=== PATIENT | female | born 1935 | race Caucasian/White ===

== ENCOUNTER 2019-05-16 12:55 | Outpatient (CLI) | payer MEDICARE, SELFPAY ==
--- NOTE | 2019-05-16 13:08 | XR_ITS ---
WS: [id number] Left knee, 3 views, 05/16/2019 Clinical Data: LEFT KNEE PAIN Comparison: AP weightbearing, lateral and patellofemoral views of the left knee, 06/17/2016. Findings: No fractures or dislocations are seen. As medial joint compartment narrowing unchanged. Osteophytes o f the medial tibial plateau and medial femoral condyle are noted. The patella is intact. There are pr ominent patellar spurs at the anterior superior, posterior superior and posterior inferior aspects of the patella. Small vascular calcifications are seen. XR/XR knee LT 3V* [id number] Impression: 1. 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 2. No change from 3 years ago.
--- NOTE | 2019-05-16 13:08 | XR_ITS ---
WS: [id number] Right knee, 3 views, 05/16/2019 Clinical Data: right KNEE PAIN Comparison: Standing AP view right knee, 06/17/2016. Findings: No fractures or dislocations are seen. There is medial joint compartment narrowing unchanged. The pat anabel is intact. Minimal soft tissue vascular calcifications are present. XR/XR knee RT 3V* [id number] Impression: Medial joint compartment narrowing unchanged.
--- NOTE | 2019-05-16 13:08 | XR_ITS ---
WS: [id number] Chest 2 views, 05/16/2019 Clinical Data: COUGH Comparison: PA and lateral chest, 03/08/2019. Findings: No nodules, masses or effusions are seen. The heart is normal. The pulmonary vascularity is not increased. No pneumonia or pneumothorax is seen. There is elevation of the left diaphragm. The a ortic arch and descending aorta show tortuosity. Midline sternotomy sutures are noted. XR/XR chest 2V* [id number] Impression: 1. Atherosclerosis. 2. No change in elevated left diaphragm.
== END 2019-05-16 12:56 | disposition home or self-care (01) ==
LOC: RAD 13:03
PROVIDERS: Family Provider Family Medicine; PCP Family Medicine; Visit Provider Family Medicine
DX: M17.10 Unilateral primary osteoarthritis, unspecified knee (principal); R05 Cough; I70.90 Unspecified atherosclerosis
CPT/HCPCS: 71046; 73562

== ENCOUNTER 2019-07-25 12:29 | Inpatient (IN) | payer MEDICARE, SELFPAY ==
[2019-07-25] VITALS (56 sets, daily range): BP systolic 119–135; BP diastolic 68–106; PULSE 89–160; RESP 13–54; TEMP 36.4–36.7; O2SAT 80–98; BMI 20.5
--- NOTE | 2019-07-25 12:34 | XR_ITS ---
WS: [id number] XR chest 1V portable [id number] REASON FOR EXAM: cp FINDINGS: Elevation of the left hemidiaphragm. Previous coronary bypass changes. The lung cisse are clear there is no pneumonia, pleural effusion, pulmonary edema. XR/XR chest 1V portable [id number] IMPRESSION: Elevation of the left hemidiaphragm Coronary bypass changes.
--- NOTE | 2019-07-25 12:35 | ECG_ITS ---
Measurements Intervals [place] Rate: 128 P: HI: 0 QRS: -47 QRSD: 154 T: 128 QT: 344 QTc: 503 ATRIAL FIBRILLATION WITH RAPID VENTRICULAR RESPONSE LEFT AXIS DEVIATION [QRS AXIS < -30] LEFT BUNDLE BRANCH BLOCK [120+ ms QRS DURATION, 80+ ms Q/S IN V1/V2, 85+ ms R IN I/aVL/V5/V6] Compared to ECG 01/13/2017 01:31:35 No significant changes Electronically Signed On 07-25-2019 17:23:29 CDT by Jose Cochran M.D. [id number]
--- NOTE | 2019-07-25 12:39 | ED_ITS ---
Entered by Miya Malik, acting as scribe for Kylah Murdock MD HPI - SOB/Dyspnea General: Chief Complaint: Chest Pain Stated Complaint: sob/cp Time Seen by Provider: 07/25/19 12:44 Source: patient and family Mode of arrival: ambulatory Limitations: no limitations History of Present Illness: HPI Narrative: 84-year-old female who states she has had a slight cough along with generalized weakness and diarrhea over the last week. She states that she has been having palpitations and is currently in A. fib with RVR with heart rate in the 130s. She denies any worsening or improving factors. MD elicited complaint: shortness of breath and cough Pertinent past history: other (hx of AFib) Onset (ago): week(s) (2-3 weeks ago) Context: recent illness (cough and congestion) Timing: constant and progressively worsening Severity: mild Exacerbating factors: coughing, deep breaths and other (palpitations, weakness) Relieving factors: nothing Known history of: other (Afib) Associated symptoms: Reports chest congestion, cough and palpitations; Deny abdominal pain, chest pain, fever(s), nausea or vomiting Treatment prior to arrival: none and needle thoracostomy Related Data: Home oxygen amount: none Review of Systems Const: Denies: fever, chills, body aches or change in appetite Eyes: Denies: blurry vision or eye discomfort ENMT: Denies: throat pain or dental pain Card: Reports: palpitations and irregular heart rhythm; Denies: chest pain Resp: Reports: chest congestion GI: Denies: abdominal pain, nausea, vomiting or diarrhea : Denies: painful urination Musc: Denies: neck pain or back pain Skin/Breast: Denies: rash Neuro: Denies: headache Psych: Denies: depression Viet/Lymph: Denies: easy bruising All/Imm: Denies: hives PFSH ED PFSH: Social History Smoking and tobacco status: never smoked Physical Exam Const: COMMON NORMALS: no apparent distress, oriented x3 and healthy appearing HENMT: COMMON NORMALS: normocephalic and head/scalp atraumatic HEAD & SCALP: normocephalic and atraumatic Eye: COMMON NORMALS: PERRL and EOMs intact bilaterally PUPIL: Yes PERRL Neck/C-Spine: COMMON NORMALS: full ROM and supple Chest: COMMONS NORMALS: inspection of chest normal and palpation of chest normal Resp: COMMON NORMALS: normal respiratory effort, no retractions, no use of accessory muscles and clear to auscultation bilaterally AUSCULTATION: clear to auscultation bilaterally Cardio: COMMON NORMALS: no murmurs RATE: tachycardic RHYTHM: abnormal rhythm irregularly irregular GI: COMMON NORMALS: normal to inspection, nondistended, normoactive bowel sounds, soft to palpation, non-tender and no masses PALPATION: Yes soft Extremity: COMMON NORMALS: normal to inspection and full ROM Neuro: COMMON NORMALS: oriented x3, moves all extremities and no focal motor deficits Psych: COMMON NORMALS: mental status grossly normal, thought process normal and cooperative THOUGHT PROCESS: normal thought process Skin: COMMON NORMALS: no rashes or lesions noted and no wounds GENERAL SKIN EXAM: no rashes or lesions noted Course Vital Signs: Vital signs: Vital Signs Temperature 97.6 F 07/25/19 12:44 Pulse Rate 120 H 07/25/19 13:35 Respiratory Rate 17 07/25/19 13:40 Blood Pressure 119/88 07/25/19 12:44 Pulse Oximetry 98 07/25/19 12:44 MDM - SOB/Dyspnea MDM Narrative: Medical decision making narrative: Lilia presents here with generalized weakness along with A. fib with RVR. Patient had to be given 2 boluses of Cardizem and started on a Cardizem drip. To control her rate. Lab work is otherwise normal besides an elevated BNP. X-ray showed no signs of pulmonary edema. I spoke to patient's primary care doctor Dr. Tracy and will admit for further monitoring. Patient has no signs of pulmonary embolism. Lab Data: Labs: Lab Results 07/25/19 07/25/19 07/25/19 Range/Units 12:50 12:50 12:50 WBC 12.7 H (4.0-10.0) 10^3/ uL RBC 3.73 L (4.1-5.3) 10^6/u L Hgb 11.4 L (11.5-15.3) g/dL Hct 36.6 L (37.0-47.0) % MCV 98.1 (81-99) fL MCH 30.6 (28.0-34.0) pg MCHC 31.1 (30.0-36.0) g/dL RDW 15.6 H (12.1-15.1) % Plt Count 495 H (130-400) 10^3/c mm MPV 11.7 H (7.4-10.4) fL Neut % (Auto) 69.2 % Lymph % (Auto) 20.4 % Ashley % (Auto) 8.7 % Eos % (Auto) 0.7 % Baso % (Auto) 0.5 % Neut # (Auto) 8.8 H (1.8-7.7) 10^3/u L Lymph # (Auto) 2.6 (0.8-4.8) 10^3/u L Ashley # (Auto) 1.1 H (0.2-0.9) 10^3/u L Eos # (Auto) 0.1 (0.0-0.8) 10^3/u L Baso # (Auto) 0.1 (0.0-0.1) 10^3/u L Nucleated RBC % (a uto) 0 % Nucleated RBCs # 0.0 /100WBC Sodium 140 (136-145) mmol/L Potassium 4.1 (3.5-5.1) mmol/L Chloride 103 (98-107) mmol/L Carbon Dioxide 23 (22-29) mmol/L Anion Gap 18.1 (5-19) BUN 20 (8-23) mg/dL Creatinine 1.3 H (0.5-0.9) mg/dL Glucose 191 H (65-115) mg/dL Calculated Osmolal ity 292 (285-295) mOsm/k g Calcium 9.3 (8.5-10.5) mg/dL Total Bilirubin 1.2 (0.15-1.2) mg/dL AST 38 H (0-32) U/L ALT 20 (0-33) U/L Alkaline Phosphata se 113 H (35-105) IU/L Troponin T Baselin e 22 H (0-10) ng/mL NT-Pro-B Natriuret Pep 9982 H (0-450) pg/mL Total Protein 7.9 (6.6-8.7) g/dL Albumin 3.5 (3.5-5.2) g/dL Globulin 4.4 (1.3-4.6) g/dL Urine Color (Yellow) Urine Appearance (CLEAR) Urine pH (5-7) Ur Specific Gravit y (1.005-1.030) Urine Protein (Negative) Urine Glucose (UA) (Normal) Urine Ketones (Negative) Urine Blood (Negative) Urine Nitrate (Negative) Urine Bilirubin (NEGATIVE) Urine Urobilinogen (Negative) mg/dL Ur Leukocyte Annemarie ase (Negative) Urine RBC (0-2) /hpf Urine WBC (0-5) /hpf Ur Squamous Epith Cells (0-5) Urine Bacteria (NONE) Influenza Type A A g (Negative) POC Influenza B Ag (Negative) 07/25/19 07/25/19 Range/Units 13:36 13:45 WBC (4.0-10.0) 10^3/ uL RBC (4.1-5.3) 10^6/u L Hgb (11.5-15.3) g/dL Hct (37.0-47.0) % MCV (81-99) fL MCH (28.0-34.0) pg MCHC (30.0-36.0) g/dL RDW (12.1-15.1) % Plt Count (130-400) 10^3/c mm MPV (7.4-10.4) fL Neut % (Auto) % Lymph % (Auto) % Ashley % (Auto) % Eos % (Auto) % Baso % (Auto) % Neut # (Auto) (1.8-7.7) 10^3/u L Lymph # (Auto) (0.8-4.8) 10^3/u L Ashley # (Auto) (0.2-0.9) 10^3/u L Eos # (Auto) (0.0-0.8) 10^3/u L Baso # (Auto) (0.0-0.1) 10^3/u L Nucleated RBC % (a uto) % Nucleated RBCs # /100WBC Sodium (136-145) mmol/L Potassium (3.5-5.1) mmol/L Chloride (98-107) mmol/L Carbon Dioxide (22-29) mmol/L Anion Gap (5-19) BUN (8-23) mg/dL Creatinine (0.5-0.9) mg/dL Glucose (65-115) mg/dL Calculated Osmolal ity (285-295) mOsm/k g Calcium (8.5-10.5) mg/dL Total Bilirubin (0.15-1.2) mg/dL AST (0-32) U/L ALT (0-33) U/L Alkaline Phosphata se (35-105) IU/L Troponin T Baselin e (0-10) ng/mL NT-Pro-B Natriuret Pep (0-450) pg/mL Total Protein (6.6-8.7) g/dL Albumin (3.5-5.2) g/dL Globulin (1.3-4.6) g/dL Urine Color Yellow (Yellow) Urine Appearance Cloudy (CLEAR) Urine pH 5 (5-7) Ur Specific Gravit y 1.015 (1.005-1.030) Urine Protein Neg (Negative) Urine Glucose (UA) Norm (Normal) Urine Ketones Negative (Negative) Urine Blood Neg (Negative) Urine Nitrate Negative (Negative) Urine Bilirubin Neg (NEGATIVE) Urine Urobilinogen Norm (Negative) mg/dL Ur Leukocyte Annemarie ase Negative (Negative) Urine RBC None (0-2) /hpf Urine WBC 10-15 H (0-5) /hpf Ur Squamous Epith Cells 0-4 H (0-5) Urine Bacteria 4+ H (NONE) Influenza Type A A g Negative (Negative) POC Influenza B Ag Negative (Negative) Imaging Data^: CXR: Attestation: I personally reviewed and interpreted this imaging study as follows: Radiologist's impression: [place] [address] XRay Report Signed Patient: Lilia Haynes Unit #: [id number] : 1935 Age/Sex: 84 / F ADM Date: 07/25/19 Loc: ER Room/Bed: Attending Dr: Ordering Provider/Ordering MD: Kylah Murdock MD Date of Service: 07/25/19 Procedure(s): XR chest 1V portable [id number] Accession Number(s): [id number] Report Number: [id number] WS: [id number] XR chest 1V portable [id number] REASON FOR EXAM: cp FINDINGS: Elevation of the left hemidiaphragm. Previous coronary bypass changes. The lung cisse are clear there is no pneumonia, pleural effusion, pulmonary edema. XR/XR chest 1V portable [id number] IMPRESSION: Elevation of the left hemidiaphragm Coronary bypass changes. EKG Data^: EKG 1: Attestation: I personally reviewed and interpreted this EKG as follows: EKG Interpretation Date: 07/25/19 EKG interpretation time: 12:50 Interpretation: afib hr [address] or t wave abnormalities qrs 154 qtc 420 Discharge Plan Discharge Patient Disposition: Admitted As Inpatient Clinical Impression: Atrial fibrillation with RVR, Weakness Condition: Stable Referrals: Diallo Tracy MD [Primary Care Provider] - Coding Level of Care Code ED Medical Staff Assistant for Chg Fwd Exam Comprehensive The documentation recorded by the King donaldson Bridget Annette, accurately reflects the service I personally performed and the decisions made by Collette sr Korby, MD Jul 25, 2019 12:29
[2019-07-25 13:03] LABS: Basophils # 0.1 10^3/uL (0.0-0.1); Basophils % 0.5 %; Eosinophils # 0.1 10^3/uL (0.0-0.8); Eosinophils % 0.7 %; Hematocrit 36.6 % (37.0-47.0); Hemoglobin 11.4 g/dL (11.5-15.3); Lymphocytes # 2.6 10^3/uL (0.8-4.8); Lymphocytes % 20.4 %; Mean Corpuscular HGB Conc 31.1 g/dL (30.0-36.0); Mean Corpuscular Hemoglobin 30.6 pg (28.0-34.0); Mean Corpuscular Volume 98.1 fL (81-99); Mean Platelet Volume 11.7 fL (7.4-10.4); Monocytes # 1.1 10^3/uL (0.2-0.9); Monocytes % 8.7 %; Neutrophils # 8.8 10^3/uL (1.8-7.7); Neutrophils % 69.2 %; Nucleated Red Blood Cells % 0 %; Platelet Count 495 10^3/cmm (130-400); Red Blood Count 3.73 10^6/uL (4.1-5.3); Red Cell Distribution Width 15.6 % (12.1-15.1); White Blood Count 12.7 10^3/uL (4.0-10.0)
[2019-07-25] MEDS: sodium chloride 0.9% 1,000 ML 999 ML IV (13:18)
[2019-07-25 13:29] LABS: Alanine Aminotransferase 20 U/L (0-33); Albumin Level 3.5 g/dL (3.5-5.2); Alkaline Phosphatase 113 IU/L (35-105); Anion Gap 18.1 (5-19); Aspartate Amino Transferase 38 U/L (0-32); Blood Urea Nitrogen 20 mg/dL (8-23); Calcium 9.3 mg/dL (8.5-10.5); Carbon Dioxide 23 mmol/L (22-29); Chloride 103 mmol/L (98-107); Globulin 4.4 g/dL (1.3-4.6); Glucose 191 mg/dL (65-115); NT Pro B Type Natriuretic Pept 9982 pg/mL (0-450); Osmolality Calculated 292 mOsm/kg (285-295); Potassium 4.1 mmol/L (3.5-5.1); Sodium 140 mmol/L (136-145); Total Bilirubin 1.2 mg/dL (0.15-1.2); Total Protein 7.9 g/dL (6.6-8.7)
[2019-07-25 13:56] LABS: Troponin(5th) Baseline 22 ng/mL (0-10)
[2019-07-25 14:07] LABS: Specific Gravity, Urine 1.015 (1.005-1.030); Urine Appearance Cloudy (CLEAR); Urine Color Yellow (Yellow); pH Urine 5 (5-7)
[2019-07-25 14:08] LABS: Add Urine Microscopic? YES; Bilirubin Urine Neg (NEGATIVE); Blood Urine Neg (Negative); Glucose Urine UA Norm (Normal); Ketones Urine Negative (Negative); Leukocyte Esterase Urine Negative (Negative); Nitrate Urine Negative (Negative); Protein Urine Neg (Negative); Urobilinogen Urine Norm (Negative)
[2019-07-25 14:14] LABS: Add Urine Culture? Yes; Bacteria Urine 4+; Squamous Epithelial Cell Urine 0-4 (0-5)
[2019-07-25 14:19] LABS: Influenza A by IFA Negative (Negative); Influenza B by IFA Negative (Negative)
--- NOTE | 2019-07-25 14:35 | ECG_ITS ---
Measurements Intervals [place] Rate: 104 P: [place]: 0 QRS: -51 QRSD: 154 T: 129 QT: 386 QTc: 509 ATRIAL FIBRILLATION WITH RAPID VENTRICULAR RESPONSE LEFT AXIS DEVIATION [QRS AXIS < -30] LEFT BUNDLE BRANCH BLOCK [120+ ms QRS DURATION, 80+ ms Q/S IN V1/V2, 85+ ms R IN I/aVL/V5/V6] Compared to ECG 01/13/2017 01:31:35 No significant changes Electronically Signed On 07-25-2019 17:26:02 CDT by Jose Cochran M.D. [id number]
[2019-07-25 15:16] LABS: Troponin 5 2HR 19.56 ng/mL (0-10)
[2019-07-25 15:20] LABS: Troponin 5 2HR Delta -2.44 ABS# (0-10)
--- NOTE | 2019-07-25 17:21 | PM.HP ---
Providers/Chief Complaint Admitting Physician: Diallo Tracy MD Primary Care Provider: Diallo Tracy MD Chief Complaint: sob/cp History of Present Illness Lilia Haynes is a 84 year old female with past medical history of A. fib with RVR, who presented to the emergency department after being seen in my office with symptoms of weakness, nausea, diarrhea and cough. The patient notes that over the last 3 weeks she has had increasing cough and dyspnea. Especially for the last few days, she has felt extremely weak and was unable to come into the clinic last week to be evaluated. In the clinic she was noted to have a heart rate in the upper 130s and some fine crackles in the left lower lung. Her blood pressures were soft in the 90s systolic. Her oxygen was only in the upper 80s. For this reason she was sent to the emergency department for further evaluation. In the ER, she was given 10 mg of diltiazem IV without significant improvement in her pulse. She was given another dose of 10 mg and had slight improvement, however her pulse increased again. For this reason she was started on the diltiazem drip, and with that her heart rate has started to decrease. The patient was admitted for further evaluation and treatment. Review of Systems Narrative: The patient admits to fatigue, malaise and dyspnea. She admits to cough, mild chest pains. She admits to nausea, vomiting and diarrhea. The patient denies any dysuria, fevers, recent travel to area with COVID-19. Medications/Allergies Home Medications Medication Instructions Recorded Confirmed Last Taken Type amlodipine 5 mg PO DAILY 07/25/19 07/25/19 07/25/19 History atorvastatin 40 mg PO DAILY 07/25/19 07/25/19 07/25/19 History clopidogrel 75 mg PO DAILY 07/25/19 07/25/19 07/25/19 History escitalopram oxalate 10 mg PO DAILY 07/25/19 07/25/19 07/25/19 History ferrous sulfate 325 mg PO DAILY 07/25/19 07/25/19 07/25/19 History fluticasone furoate-vilanterol 1 inh INHALATION DAILY 07/25/19 07/25/19 07/25/19 History [Breo Ellipta] furosemide 40 mg PO PRN 07/25/19 07/25/19 07/24/19 History hydralazine See Rx Instructions .ROUTE .COMPLEX 07/25/19 07/25/19 Unknown History levothyroxine See Rx Instructions .ROUTE .COMPLEX 07/25/19 07/25/19 07/25/19 History lorazepam 0.5 mg PO TID 07/25/19 07/25/19 07/25/19 History metoprolol tartrate 50 mg PO BID 07/25/19 07/25/19 07/25/19 History nitroglycerin [Nitro-Time] 9 mg PO BID 07/25/19 07/25/19 07/25/19 History pantoprazole 40 mg PO DAILY 07/25/19 07/25/19 07/25/19 History potassium chloride 10 meq PO DAILY 07/25/19 07/25/19 07/24/19 History Allergies Allergy/AdvReac Type Severity Reaction Status Date / Time aspirin Allergy ADR-Nausea Verified 07/25/19 12:47 codeine Allergy ADR-Nausea Verified 07/25/19 12:47 PFSH Acute PFSH: Social History Smoking and tobacco status: never smoked Vitals/I&O/Wt Last Vital Signs Temp 97.6 F 07/25/19 12:44 Pulse 104 H 07/25/19 16:47 Resp 16 07/25/19 16:47 BP 120/68 07/25/19 16:47 Pulse Ox 95 07/25/19 15:49 07/25/19 07/25/19 07/25/19 06:59 14:59 22:59 Intake Total 1013.75 / 1013.75 Balance 1013.75 / 1013.75 Weight last 48 hrs Weight 112 lb Physical Exam Narrative: EXAM NARRATIVE: General: Alert and oriented x3, appears pale Eyes: Pupils equal, round and reactive to light and accommodation. Mouth: Mucous membranes moist Cardiac: Tachycardia with irregularly irregular rhythm. Lungs: Mild crackles in the left base. No significant rhonchi or wheezes. Abdomen: Soft, nontender, no hepatosplenomegaly. Extremities: Trace edema in the bilateral lower extremities Data : 07/25/19 12:50 07/25/19 12:50 A&P Additional A&P Information 1. Atrial fibrillation with RVR -the patient's heart rate is starting to decrease and is in the low 100s currently. We will add diltiazem p.o. and plan to wean off the IV if possible. We will continue with her home dose of metoprolol 50 mg twice daily. We may need to increase it slightly to 75 mg twice daily if her heart rate is not responding. The patient was previously on Eliquis, however she is not currently on it. I am not sure of the reason. I will look into records and see if I can figure out why. She is currently on Plavix. We will follow to see if there is a better recommendation. She currently sees Dr. Mendiola in [place] for her cardiology needs. 2. Fluid overload -the patient has not crackles in her lungs, and I feel that this is likely fluid overload. The patient does have a cough with this and I believe that it is due to fluid overload. I will give her Lasix IV to help clear some of this fluid off. Chest x-ray does not show any signs of pneumonia at this time. If needed, we may consider a CT chest, however at this time I do not believe it is necessary. Her BNP is elevated. 3. Hypothyroidism -continue with levothyroxine. 4. Gastroenteritis -the patient has had diarrhea and we will check a C. difficile toxin if she is able to have a bowel movement. The patient was nauseous previously, however this is improving. We will give Zofran if needed for nausea. 5. Prophylaxis -the patient is currently on Plavix. I will go ahead and start Lovenox for DVT prophylaxis. We will certainly need to watch for any signs of bleeding. If the patient is started on Eliquis, we will need to stop the Lovenox. Attestations Medical Necessity Statement*: The patient will likely be here for greater than 2 midnights due to treatment of A. fib with RVR. She is an inpatient at this time. Coding Level of Care Code Acute Brokerage Office Manager for Amando Bain
--- NOTE | 2019-07-25 18:35 | ECG_ITS ---
Measurements Intervals [place] Rate: 136 P: NV: 0 QRS: -54 QRSD: 146 T: 124 QT: 323 QTc: 486 ATRIAL FIBRILLATION WITH RAPID VENTRICULAR RESPONSE WITH ABERRANT CONDUCTION OR VENTRICULAR PREMATURE COMPLEXES MARKED LEFT AXIS DEVIATION [QRS AXIS < -30] LEFT BUNDLE BRANCH BLOCK [120+ ms QRS DURATION, 80+ ms Q/S IN V1/V2, 85+ ms R IN I/aVL/V5/V6] Compared to ECG 07/25/2019 15:39:25 Ventricular premature complex(es) now present Aberrant conduction of supraventricular beat(s) now present Electronically Signed On 07-26-2019 17:49:33 CDT by Delphine Llamas M.D. [email or web address]
[2019-07-25] MEDS: enoxaparin 30 mg/0.3 mL Syringe SUBCUT (18:41)
[2019-07-25] MEDS: FUROsemide 10 mg/mL SDV 4mL 40 MG IVP (18:41)
[2019-07-25 20:10] LABS: Troponin 5 6HR 20.32 ng/mL (0-10)
[2019-07-25 20:22] LABS: Troponin 5 6HR Delta -1.68 ng/L (0-12)
[2019-07-25] MEDS: ondansetron 2 mg/ML SDV 2 mL 4 MG IVP (21:05)
[2019-07-25] MEDS: LORazepam 0.5 mg Tablet PO (21:47)
[2019-07-26] VITALS (10 sets, daily range): BP systolic 74–106; BP diastolic 42–69; PULSE 65–117; RESP 10–30; TEMP 36.6–36.7; O2SAT 90–97
[2019-07-26 04:03] LABS: Basophils # 0.1 10^3/uL (0.0-0.1); Eosinophils # 0.2 10^3/uL (0.0-0.8); Eosinophils % 1.7 %; Hemoglobin 10.6 g/dL (11.5-15.3); Lymphocytes # 2.5 10^3/uL (0.8-4.8); Mean Corpuscular HGB Conc 33.1 g/dL (30.0-36.0); Mean Corpuscular Hemoglobin 31.2 pg (28.0-34.0); Mean Corpuscular Volume 94.1 fL (81-99); Monocytes # 1.1 10^3/uL (0.2-0.9); Monocytes % 11.4 %; Neutrophils # 5.7 10^3/uL (1.8-7.7); Neutrophils % 59.6 %; Nucleated Red Blood Cells % 0 %; Platelet Count 448 10^3/cmm (130-400); Red Cell Distribution Width 15.3 % (12.1-15.1); White Blood Count 9.6 10^3/uL (4.0-10.0)
[2019-07-26 04:10] LABS: Alanine Aminotransferase 16 U/L (0-33); Albumin Level 3.1 g/dL (3.5-5.2); Alkaline Phosphatase 97 IU/L (35-105); Aspartate Amino Transferase 29 U/L (0-32); Blood Urea Nitrogen 16 mg/dL (8-23); Calcium 9.3 mg/dL (8.5-10.5); Carbon Dioxide 25 mmol/L (22-29); Chloride 105 mmol/L (98-107); Glucose 127 mg/dL (65-115); Magnesium 1.5 mg/dL (1.7-2.3); Osmolality Calculated 292 mOsm/kg (285-295); Phosphorus 3.2 mg/dL (2.5-4.5); Sodium 142 mmol/L (136-145); Total Bilirubin 0.9 mg/dL (0.15-1.2); Total Protein 7.1 g/dL (6.6-8.7)
[2019-07-26] MEDS: levothyroxine 50 mcg Tablet PO (06:39)
[2019-07-26] MEDS: FUROsemide 10 mg/mL SDV 4mL 40 MG IVP (06:39)
--- NOTE | 2019-07-26 07:40 | USCV_ITS ---
[place] Lilia Age: 84 Gender: F : 1935 Exam Date: 07/26/2019 09:20 Ordering Phys: Diallo Tracy MD Technologist: Preet Henson Exam Location: [facility] Indication: MURMUR BP: 106 / 56 HR: 96 Rhythm: Sinus Technical Quality: Good MEASUREMENTS (Male / Female) Normal Values 2D ECHO LV Diastolic Diameter PLAX 3.9 cm 4.2 - 5.9 / 3.9 - 5.3 cm LV Systolic Diameter PLAX 2.4 cm IVS Diastolic Thickness 1.3 cm 0.6 - 1.0 / 0.6 - 0.9 cm IVS Systolic Thickness 1.5 cm LVPW Diastolic Thickness 1.4 cm 0.6 - 1.0 / 0.6 - 0.9 cm LVPW Systolic Thickness 1.4 cm LVOT Diameter 2.0 cm LV Ejection Fraction 2D Teich 68.9 % LV Ejection Fraction MOD 2C 51.5 % LV Ejection Fraction 2C AL 52.0 % LA Diameter 4.0 cm LA Width 4.4 cm LA Height 6.5 cm RA Width 4.5 cm RA Height 5.6 cm Aorta at Sinotubular Diameter 3.1 cm M-MODE LV Diastolic Diameter MM 4.7 cm 4.2 - 5.9 / 3.9 - 5.3 cm LV Systolic Diameter MM 3.0 cm LV Ejection Fraction MM Teich 67.6 % IVS Diastolic Thickness MM 1.0 cm 0.6 - 1.0 / 0.6 - 0.9 cm IVS Systolic Thickness MM 1.9 cm LVPW Diastolic Thickness MM 1.1 cm 0.6 - 1.0 / 0.6 - 0.9 cm LVPW Systolic Thickness MM 1.9 cm RV Diastolic Diameter MM 1.4 cm Aortic Annulus Diameter 3.4 cm LA Ao Ratio MM 1.2 MV E Point Septal Separation 0.8 cm DOPPLER AV Peak Velocity 291.0 cm/s LVOT Peak Velocity 111.0 cm/s AV Area Cont Eq vti 1.1 cm squared AV Area Cont Eq pk 1.2 cm squared MV Area PHT 5.0 cm squared Mitral E to A Ratio 3.9 MV E' Velocity 11.0 cm/s Mitral E to MV E' Ratio 16.8 Mitral E to LV E' Lateral Ratio 12.1 Mitral E to LV E' Septal Ratio 28.0 TR Peak Velocity 297.0 cm/s TR Peak Gradient 35.3 mmHg TV Peak E Velocity 102.0 cm/s Right Atrial Pressure 3.0 mmHg Pulmonary Artery Systolic Pressu 38.3 mmHg FINDINGS Left Ventricle Normal LV size ejection fraction 55%. Moderate left ventricular hypertrophy. Moderate hypokinesia of the mid and apical septum and anteroseptal segment.Grade III/IV diastolic dysfunction (restrictive filling pattern), severely elevated filling pressures. Right Ventricle Right Atrium Moderately increased right atrial size. Left Atrium Moderately increased left atrial size. Mitral Valve Thickened mitral valve. Mild mitral annular calcification. Mild mitral valve regurgitation. Aortic Valve Thickened aortic valve. Trace to mild aortic valve regurgitation. Tricuspid Valve Moderate tricuspid valve regurgitation. Pulmonic Valve Pulmonic valve not well visualized. Pericardium No pericardial effusion. Aorta Normal aortic annulus size. CONCLUSIONS Normal LV size ejection fraction 55%. Moderate left ventricular hypertrophy. Moderate hypokinesia of the mid and apical septum and anteroseptal segment.Grade III/IV diastolic dysfunction (restrictive filling pattern), severely elevated filling pressures. Moderate biatrial enlargement Thickened aortic and mitral valves Mild mitral annular calcification. Moderate tricuspid valve regurgitation. Mild mitral valve regurgitation. Trace to mild aortic valve regurgitation. There is no pericardial effusion. There are no intracardiac masses. Compared to the study from 01/10/2017, there is improvement of the LV ejection fraction. Mitral and tricuspid regurgitations are significantly reduced Dr Ernie Kidd MD FAC (Electronically Signed) Final Date: 26 July 2019 19:16 S
--- NOTE | 2019-07-26 07:41 | PM.PN ---
Subjective Subjective: Interval history: The patient denies any chest pains. She has decreased shortness of breath at this time. The patient denies any palpitations currently. She denies any other pain. Vitals/I&O/Wt Last Vital Signs Temp 98.0 F 07/26/19 04:00 Pulse 80 07/26/19 07:32 Resp 22 H 07/26/19 07:32 BP 106/56 07/26/19 07:32 Pulse Ox 90 07/26/19 07:32 07/25/19 07/26/19 07/26/19 22:59 06:59 14:59 Intake Total 1013.75 / 1013.75 96 / 1109.75 Output Total 400 / 400 350 / 750 Balance 613.75 / 613.75 -254 / 359.75 Weight last 48 hrs Weight 112 lb Physical Exam Narrative: EXAM NARRATIVE: General: Alert and oriented x3, appears pale Eyes: Pupils equal, round and reactive to light and accommodation. Mouth: Mucous membranes moist Cardiac: Tachycardia with irregularly irregular rhythm. Lungs: Mild crackles in the bilateral bases. No significant rhonchi or wheezes. Abdomen: Soft, nontender, no hepatosplenomegaly. Extremities: Trace edema in the bilateral lower extremities Data : 07/26/19 02:50 07/26/19 02:50 A&P Additional A&P Information 1. Atrial fibrillation with RVR -the patient's heart rate is starting to decrease and is in the 80s to 90s currently. Her Cardizem drip has been turned down to 5. We will continue with diltiazem p.o. and plan to wean off the IV if possible. We will continue with her home dose of metoprolol 50 mg twice daily. We may need to increase it slightly to 75 mg twice daily if her heart rate is not responding but her blood pressure is adequate. The patient was previously on Eliquis, however she is not currently on it. I am not sure of the reason. I will look into records and see if I can figure out why. She is currently on Plavix. We will follow to see if there is a better recommendation. She currently sees Dr. Mendiola in [place] for her cardiology needs. I will get an echocardiogram to further assess her cardiac function. 2. Fluid overload -the patient has crackles in her lungs, and I feel that this is likely fluid overload. The patient does have a cough with this and I believe that it is due to fluid overload. The patient does have decreased dyspnea since starting Lasix. I will hold off on antibiotics for now. Chest x-ray does not show any signs of pneumonia at this time. If needed, we may consider a CT chest, however at this time I do not believe it is necessary. Her BNP is elevated. 3. Hypothyroidism -continue with levothyroxine. 4. Gastroenteritis -the patient has had diarrhea and we will check a C. difficile toxin if she is able to have a bowel movement. The patient was nauseous previously, however this is improving. We will give Zofran if needed for nausea. 5. Prophylaxis -the patient is currently on Plavix. I will go ahead and start Lovenox for DVT prophylaxis. We will certainly need to watch for any signs of bleeding. If the patient is started on Eliquis, we will need to stop the Lovenox. Attestations Medical Necessity Statement*: The patient continues need inpatient therapy as we are weaning her off of the Cardizem and switching her to oral Cardizem. Her stay will cross 2 midnights. Coding Level of Care Code Acute Charge Coordinator for Amando Bain
[2019-07-26] MEDS: magnesium sulfate premix 2 GM/50 ML PIGGYBACK IV (08:38)
[2019-07-26] MEDS: pantoprazole DR 40 mg Tablet PO (08:41)
[2019-07-26] MEDS: metoprolol tartrate 50 mg Tablet PO ×2 (08:41→18:21)
[2019-07-26] MEDS: clopidogrel 75 mg Tablet PO (08:41)
[2019-07-26] MEDS: escitalopram 10 mg Tablet PO (08:41)
[2019-07-26] MEDS: ferrous sulfate EC 325 mg Tablet PO (08:41)
[2019-07-26] MEDS: atorvastatin 40 mg Tablet PO (08:41)
--- NOTE | 2019-07-26 11:09 | PC.CHAP ---
Pastoral Care Encounter/Spiritual Assessment Type of Contact [] Declined counter clerk visit [] Patient/Family/Request visit [] Outpatient visit [] Follow-up visit [] Physician referral [] Code/Alert [x] Routine visit [] Staff referral [] Actively dying [] Patient sleeping [] Family support [] [] Out of room [] Palliative care [] [] Receiving care in room [] Pre-surgical visit [] Trauma [] Long length of stay [] ICU visit [] Other: Relational/Emotional Strength [x] Patient feels connected with others/family/visitors/staff [] Distress [] Loneliness/isolation [] Abandonment Spirituality of Patient [x] Person of Cate [] Attends Voodoo of their Cate [x] Believes in Prayer [x] Reads Bible or Voodoo materials [] There are Spiritual issues to be addressed Screwdown Operator Interventions [x] Prayer [x] Active listening [x] Non-anxious presence x[] Spiritual/emotional support [] Crisis/trauma care [x] Spiritual counseling [] Bereavement support [] Provided bereavement packet [] Provided Bible/devotional materials [] Provided toy/stuffed animal, coloring book to patient or family member [] Provided Communion [] Anointing/[place] [] Salvation [] Completed spiritual assessment [] Other: Impact on Illness or Injury [] Angry [] Fearful [] Anxious [] Often cries [] Exhaustion [] Unable to work [] Unable to attend uatsdin [] Unable to walk/stand [] Unable to read [] Unable to drive [] Unable to eat/drink [] Unable to sleep [] Unable to be with family [] Patient intubated [x] Other: n/a Summary Time spent with patient 5 minutes
--- NOTE | 2019-07-26 12:27 | PC.RESP ---
Patient does not have a qualifying hx of lung disease at this time.
--- NOTE | 2019-07-26 14:45 | PC.NURSE ---
CARDIZEM GTT STOPPED AT 1023 THIS AM. PATIENT HEART RATE HAS BEEN REMAINING IN THE 60-70'S SINCE THE DRIP WAS STOPPED. DR. LOPEZ UPDATED ON STATUS AND AT THE TIME DRIP WAS STOPPED.
--- NOTE | 2019-07-26 17:05 | PC.NURSE ---
DR. LOPEZ ORDERED TO STOP Q12H IV LASIX AND GIVE IV DOSE ONLY IN AM.
[2019-07-26] MEDS: enoxaparin 30 mg/0.3 mL Syringe SUBCUT (18:21)
[2019-07-26] MEDS: LORazepam 0.5 mg Tablet PO (21:18)
[2019-07-27] VITALS (8 sets, daily range): BP systolic 97–122; BP diastolic 52–87; PULSE 71–106; RESP 14–28; TEMP 36.4–36.6; O2SAT 93–99
[2019-07-27] MEDS: FUROsemide 10 mg/mL SDV 4mL 40 MG IVP (05:08)
[2019-07-27] MEDS: levothyroxine 50 mcg Tablet PO (05:08)
[2019-07-27] MEDS: clopidogrel 75 mg Tablet PO (08:24)
[2019-07-27] MEDS: ferrous sulfate EC 325 mg Tablet PO (08:24)
[2019-07-27] MEDS: atorvastatin 40 mg Tablet PO (08:24)
[2019-07-27] MEDS: pantoprazole DR 40 mg Tablet PO (08:25)
[2019-07-27] MEDS: metoprolol tartrate 50 mg Tablet PO ×2 (08:25→18:13)
[2019-07-27] MEDS: escitalopram 10 mg Tablet PO (08:25)
--- NOTE | 2019-07-27 09:24 | PM.PN ---
Subjective Subjective: Interval history: The patient has been feeling better, however her heart rate continues to be elevated in the 115-130 range. She continues to have a cough. She feels that it is about the same as when she came in. She is less dyspneic than when she came in. Her loose stools have improved. She continues to be afebrile. Vitals/I&O/Wt Last Vital Signs Temp 97.9 F 07/27/19 07:03 Pulse 106 H 07/27/19 07:03 Resp 15 07/27/19 07:03 BP 116/64 07/27/19 07:03 Pulse Ox 99 07/27/19 07:03 07/26/19 07/27/19 07/27/19 22:59 06:59 14:59 Intake Total 240 / 960 300 / 1260 118 / 118 Output Total 350 / 1200 550 / 1750 Balance -110 / -240 -250 / -490 118 / 118 Weight last 48 hrs Weight 121 lb Weight 112 lb Physical Exam Narrative: EXAM NARRATIVE: General: Alert and oriented x3, appears pale Eyes: Pupils equal, round and reactive to light and accommodation. Mouth: Mucous membranes moist Cardiac: Tachycardia with irregularly irregular rhythm. Lungs: Mild crackles in the bilateral bases. No significant rhonchi or wheezes. Abdomen: Soft, nontender, no hepatosplenomegaly. Extremities: Trace edema in the bilateral lower extremities Data : 07/26/19 02:50 07/26/19 02:50 Micro: Microbiology 07/25/19 13:45 Urine Culture - Preliminary Urine,Clean Catch Gram Negative Rods A&P Additional A&P Information 1. Atrial fibrillation with RVR -the patient's heart rate has increased again overnight and is hanging out in the 120s and 130s again. The patient has already received her morning dose of Cardizem 60 mg. We will increase this to 180 mg extended release this evening. If her heart rate is decreasing sufficiently was 60 mg, we may consider discharge home this afternoon, however she will likely need to spend another night. We will see how the patient does throughout the day and watch her blood pressures as well. She currently sees Dr. Mendiola in [place] for her cardiology needs. I will get an echocardiogram to further assess her cardiac function. 2. Fluid overload -the patient has crackles in her lungs, and I feel that this is likely fluid overload. The patient does have a cough with this and I believe that it is due to fluid overload. I will get a repeat chest x-ray to be sure that there is no pneumonia starting. The patient does have decreased dyspnea since starting Lasix. I will hold off on antibiotics for now. If needed, we may consider a CT chest, however at this time I do not believe it is necessary. Her BNP is elevated. 3. Hypothyroidism -continue with levothyroxine. 4. Gastroenteritis -the patient's diarrhea is improving. 5. Prophylaxis -the patient is currently on Plavix. I will go ahead and start Lovenox for DVT prophylaxis. We will certainly need to watch for any signs of bleeding. If the patient is started on Eliquis, we will need to stop the Lovenox. Attestations Medical Necessity Statement*: The patient continues need inpatient care. We will follow her throughout the day to see how her heart rate does, however she will likely need to continue to be followed to try to get her heart rate down. Coding Level of Care Code Acute Certified Medical Biller for Amando Bain
--- NOTE | 2019-07-27 09:45 | XR_ITS ---
WS: [id number] XR chest 1V portable [id number] REASON FOR EXAM: Cough FINDINGS: Deviation of the trachea to the right side. A mediastinal lesion cannot be excluded. This i s seen on multiple views previously. There is elevation of the left hemidiaphragm. The heart is not grossly enlarged previous coronary bypass changes. The lung cisse are hyper aerated suggesting some degree of emphysema. XR/XR chest 1V portable [id number] IMPRESSION: Continued evidence of deviation of the trachea to the right side consider a CT to evaluate the mediastinum. Sternotomy changes. Chronic obstructive pulmonary disease.
[2019-07-27] MEDS: enoxaparin 30 mg/0.3 mL Syringe SUBCUT (18:13)
[2019-07-27] MEDS: LORazepam 0.5 mg Tablet PO (21:34)
[2019-07-27] MEDS: dilTIAZem ER (24HR) 180 mg Capsule PO (21:34)
[2019-07-28] VITALS (7 sets, daily range): BP systolic 96–120; BP diastolic 50–74; PULSE 77–110; RESP 15–24; TEMP 36.4–36.8; O2SAT 90–99
[2019-07-28] MEDS: FUROsemide 10 mg/mL SDV 4mL 40 MG IVP (05:24)
[2019-07-28] MEDS: levothyroxine 50 mcg Tablet PO (05:24)
--- NOTE | 2019-07-28 08:05 | CTR_ITS ---
PROCEDURE INFORMATION: Exam: CT Chest With Contrast Exam date and time: 07/28/2019 10:34 AM Age: 84 years old Clinical indication: Abnormal findings; Abnormal radiologic exam of lung or chest; Prior surgery; Additional info: Deviated trachea TECHNIQUE: Imaging protocol: Computed tomography of the chest with intravenous contrast. Total DLP: 320.91 mGy-cm Radiation optimization: All CT scans at this facility use at least one of these dose optimization techniques: automated exposure control; mA and/or kV adjustment per patient size (includes targeted exams where dose is matched to clinical indication); or iterative reconstruction. Contrast material: VISI 320; Contrast volume: 95 ml; Contrast route: IV; COMPARISON: 1. CT chest wo con [id number] 12/02/2017 1:44 PM 2. CR - XR chest 1V portable [id number] 07/27/2019 10:08:28 AM FINDINGS: Lungs: There is dependent airspace disease in the right lower lobe. There is associated right lower lobe bronchial wall thickening. Pleural space: No pneumothorax. No pleural effusion. Heart: The heart is enlarged. No pericardial effusion. There is coronary artery disease. Prior CABG and stenting. Mediastinum: There is chronic distension of the thoracic esophagus down to at/above the gastroesophageal junction. There is some fluid in the thoracic esophageal lumen. Pulmonary arteries: No sign of pulmonary embolism. Aorta: No thoracic aortic aneurysm or dissection. Deviation of the trachea is caused by a slightly ectatic and tortuous thoracic aorta. Great vessels off aortic arch: No major aortic branch vessel stenosis or occlusion. Lymph nodes: There is an enlarged pretracheal lymph node. Calcified mediastinal and bilateral hilar lymph nodes from prior granulomatous disease. Diaphragm: There is chronic slight elevation of the left hemidiaphragm. Bones/joints: Healed median sternotomy. Soft tissues: Unremarkable. Other findings: Prior pulmonary granulomatous disease. CT/CT chest w con* [id number] IMPRESSION: 1. Right lower lobe airspace disease with bronchial wall thickening. Possibilities would include pneumonia and aspiration pneumonitis. 2. Chronically distended thoracic esophagus. Achalasia? Distal esophageal stricture? This could predispose to aspiration. 3. Enlarged pretracheal lymph node, possibly reactive in nature. Radiation Dose CTDIVOL = (mGy): DLP = 320.91 (mGy-cm)
--- NOTE | 2019-07-28 08:19 | P.PN_ITS ---
Subjective Subjective: Interval history: The patient's heart rate has slowed down. She denies any chest pains. She does have some dyspnea with exertion. The patient continues to have a mild cough. The patient admits to difficulties with swallowing any types of food, however especially cornbread and larger pills. She is not been told in the past that she has a deviated trachea. Vitals/I&O/Wt Last Vital Signs Temp 97.7 F 07/28/19 07:02 Pulse 83 07/28/19 07:02 Resp 15 07/28/19 07:02 BP 115/74 07/28/19 07:02 Pulse Ox 99 07/28/19 07:02 07/27/19 07/28/19 07/28/19 22:59 06:59 14:59 Intake Total 120 / 478 280 / 758 Output Total 100 / 100 200 / 300 100 / 100 Balance 20 / 378 80 / 458 -100 / -100 Weight last 48 hrs Weight 120 lb 3.2 oz Weight 121 lb Physical Exam Narrative: EXAM NARRATIVE: General: Alert and oriented x3, appears pale Mouth: Mucous membranes moist, no obvious tracheal deviation noted at the neck. Cardiac: Tachycardia with irregularly irregular rhythm. Lungs: Mild crackles in the bilateral bases. No significant rhonchi or wheezes. Abdomen: Soft, nontender, no hepatosplenomegaly. Extremities: Trace edema in the bilateral lower extremities Data : 07/26/19 02:50 07/26/19 02:50 Micro: Microbiology 07/25/19 13:45 Urine Culture - Preliminary Urine,Clean Catch Gram Negative Rods A&P Additional A&P Information 1. Atrial fibrillation with RVR -the patient's pulse has improved into the 80s and 90s currently. The patient is on diltiazem 180 mg extended release. She is also on metoprolol 50 mg twice daily. Overall her heart rate is in a more controlled range and I am okay with that. From a cardiac standpoint she is candice dy for discharge. Currently pending CT scan for tracheal deviation seen on x- ray. She currently sees Dr. Mendiola in [place] for her cardiology needs. I will get an echocardiogram to further assess her cardiac function. 2. Fluid overload -the patient's crackles are improving. We are continuing with Lasix therapy and she seems to be doing well with that. I will follow-up on the CT scan to see if there are signs of pneumonia based on this. 3. Hypothyroidism -continue with levothyroxine. 4. Gastroenteritis -the patient's diarrhea is improving. 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 The patient has had prior heart surgery. This could be the cause. We will get a CT scan to further evaluate to rule out an underlying mass. 6. Prophylaxis -the patient is currently on Plavix. Continue with Lovenox for DVT prophylaxis. Attestations Medical Necessity Statement*: The patient is currently inpatient. We will follow CT scan results and if they look okay, we will plan for discharge home today. Coding Level of Care Code Acute Antique Furniture Restorer for Amando Bain
[2019-07-28] MEDS: pantoprazole DR 40 mg Tablet PO (08:48)
[2019-07-28] MEDS: ferrous sulfate EC 325 mg Tablet PO (08:48)
[2019-07-28] MEDS: clopidogrel 75 mg Tablet PO (08:48)
[2019-07-28] MEDS: metoprolol tartrate 50 mg Tablet PO (08:49)
[2019-07-28] MEDS: escitalopram 10 mg Tablet PO (08:49)
[2019-07-28] MEDS: atorvastatin 40 mg Tablet PO (08:49)
[2019-07-28 09:36] LABS: Basophils # 0.1 10^3/uL (0.0-0.1); Basophils % 0.8 %; Eosinophils # 0.3 10^3/uL (0.0-0.8); Eosinophils % 2.8 %; Hemoglobin 10.6 g/dL (11.5-15.3); Lymphocytes # 1.7 10^3/uL (0.8-4.8); Lymphocytes % 17.9 %; Mean Corpuscular HGB Conc 32.1 g/dL (30.0-36.0); Mean Corpuscular Hemoglobin 30.9 pg (28.0-34.0); Mean Corpuscular Volume 96.2 fL (81-99); Mean Platelet Volume 11.8 fL (7.4-10.4); Monocytes # 0.8 10^3/uL (0.2-0.9); Monocytes % 8.6 %; Neutrophils # 6.6 10^3/uL (1.8-7.7); Neutrophils % 69.6 %; Nucleated Red Blood Cells % 0 %; Platelet Count 455 10^3/cmm (130-400); Red Blood Count 3.43 10^6/uL (4.1-5.3); Red Cell Distribution Width 15.9 % (12.1-15.1); White Blood Count 9.4 10^3/uL (4.0-10.0)
[2019-07-28 09:44] LABS: Alanine Aminotransferase 13 U/L (0-33); Albumin Level 3.2 g/dL (3.5-5.2); Alkaline Phosphatase 93 IU/L (35-105); Anion Gap 14.3 (5-19); Aspartate Amino Transferase 23 U/L (0-32); Blood Urea Nitrogen 17 mg/dL (8-23); Calcium 9.3 mg/dL (8.5-10.5); Carbon Dioxide 28 mmol/L (22-29); Chloride 102 mmol/L (98-107); Globulin 4.4 g/dL (1.3-4.6); Glucose 239 mg/dL (65-115); Magnesium 1.5 mg/dL (1.7-2.3); Osmolality Calculated 296 mOsm/kg (285-295); Phosphorus 2.8 mg/dL (2.5-4.5); Potassium 3.3 mmol/L (3.5-5.1); Sodium 141 mmol/L (136-145); Total Bilirubin 0.6 mg/dL (0.15-1.2); Total Protein 7.6 g/dL (6.6-8.7)
--- NOTE | 2019-07-28 09:45 | DCPLANNER ---
Pg 2 of IM updated and reviewed with pt. No questions, copy provided.
[2019-07-28] MEDS: iodixanol 320 mg/mL 100mL Btl IV (10:55)
[2019-07-28] MEDS: magnesium sulfate premix 2 GM/50 ML PIGGYBACK IV (12:19)
[2019-07-28] MEDS: cefTRIAXone 1,000 MG in sodium chloride 0.9% (plus) 50 ML 100 MG IV (12:20)
--- NOTE | 2019-07-28 15:32 | P.DS_ITS ---
Discharge Providers Date of Admission: 07/25/19 15:01 Date of Discharge: July 28, 2019 Attending Provider at Admission: Diallo Tracy MD Attending Provider at Discharge: Diallo Tracy MD Primary Care Provider: Diallo Tracy MD Reason for Visit 2 Reason for Visit: Reason For Visit: sob/cp Hospital Course Hospital Course: Patient was admitted with Kend[facility]. allyn with RVR. The patient was symptomatic from this. She was given diltiazem in the ER x2 doses that did not keep her heart rate down. For this reason she was started on a diltiazem drip. She was given 60 mg of short acting diltiazem twice a day and the drip was weaned off. Her heart rate continued to be in the 100-130s range. For this reason she was switched over to diltiazem XL 180 mg once a day the patient's heart rate moved down into the 80s to 90s with this change. Patient had a cough during her hospitalization and was felt have crackles in her lungs. The patient was given IV Lasix and her dyspnea did improve. She will be discharged home with Lasix by mouth. The patient was also found to have a deviated trachea on chest x-ray, however CT scan did not show signs of concerning findings. Did show that she had a pneumonitis. The patient has had a cough. She is given Rocephin prior to discharge and will be discharged home on Augmentin. We will follow-up outpatient to be sure that she is improving with this. The patient is currently feeling better and request to be discharged home. She is to follow-up with me in clinic to discuss the above and be sure that her heart rate is staying in a controlled range. Physical Exam Narrative: EXAM NARRATIVE: General: Alert and oriented x3, appears pale Mouth: Mucous membranes moist, no obvious tracheal deviation noted at the neck. Cardiac: Tachycardia with irregularly irregular rhythm. Lungs: Mild crackles in the bilateral bases. No significant rhonchi or wheezes. Abdomen: Soft, nontender, no hepatosplenomegaly. Extremities: Trace edema in the bilateral lower extremities Discharge Data Data Completed and Pending: Completed Studies During Hospitalization Category Date Time Status CT chest w con* [id number] Routine Cat Scan 07/28/19 08:05 Completed XR chest 1V dio ble [id number] Routine Exams 07/27/19 09:45 Completed XR chest 1V dio ble [id number] Urgent Exams 07/25/19 12:34 Completed CV echo complete* [id number] Routine Ultrasound 07/26/19 07:40 Completed Pending at discharge Category Date Time Status Clostridium Diffi cile BY PCR Stat Lab 07/25/19 14:57 Uncollected Complete Blood Co unt w/Auto AM LABS Lab 07/29/19 04:00 Ordered Comprehensive Met abolic Panel AM LA BS Lab 07/29/19 04:00 Ordered Magnesium AM LABS Lab 07/29/19 04:00 Ordered NT Pro B Type Janice riuretic Pept AM L ABS Lab 07/29/19 04:00 Ordered Phosphorus AM LAB S Lab 07/29/19 04:00 Ordered Labs from last 24 hours 07/28/19 07/28/19 08:56 08:56 WBC 9.4 RBC 3.43 L Hgb 10.6 L Hct 33.0 L MCV 96.2 MCH 30.9 MCHC 32.1 RDW 15.9 H Plt Count 455 H MPV 11.8 H Neut % (Auto) 69.6 Lymph % (Auto) 17.9 [place] % (Auto) 8.6 Eos % (Auto) 2.8 Baso % (Auto) 0.8 Neut # (Auto) 6.6 Lymph # (Auto) 1.7 [place] # (Auto) 0.8 Eos # (Auto) 0.3 Baso # (Auto) 0.1 Nucleated RBC % (a uto) 0 Nucleated RBCs # 0.0 Sodium 141 Potassium 3.3 L Chloride 102 Carbon Dioxide 28 Anion Gap 14.3 BUN 17 Creatinine 1.2 H Glucose 239 H Calculated Osmolal ity 296 H Calcium 9.3 Phosphorus 2.8 Magnesium 1.5 L Total Bilirubin 0.6 AST 23 ALT 13 Alkaline Phosphata se 93 Total Protein 7.6 Albumin 3.2 L Globulin 4.4 Vitals: Last Vital Signs Temp 98.2 F 07/28/19 14:42 Pulse 89 07/28/19 14:42 Resp 23 H 07/28/19 14:42 BP 96/50 07/28/19 14:42 Pulse Ox 96 07/28/19 10:58 Discharge Plan Discharge Patient Disposition: Home, Self-Care Condition: Stable Prescriptions: New DILT-XR 180 mg Capsule,Ext.Rel 24h Degradable 180 mg PO Q24H Qty: 30 RF: 1 Augmentin 875-125 mg tablet 1 tab PO BID 10 Days Qty: 20 RF: 0 Continued atorvastatin 40 mg tablet 40 mg PO DAILY RF: 0 hydralazine 25 mg tablet See Rx Instructions .ROUTE .COMPLEX PRN (Reason: Blood Pressure) RF: 0 clopidogrel 75 mg tablet 75 mg PO DAILY RF: 0 lorazepam 0.5 mg tablet 0.5 mg PO TID RF: 0 nitroglycerin [Nitro-Time] 9 mg capsule, extended release 9 mg PO BID PRN (Reason: Blood Pressure) RF: 0 levothyroxine 50 mcg tablet See Rx Instructions .ROUTE .COMPLEX RF: 0 pantoprazole 40 mg tablet,delayed release (DR/EC) 40 mg PO DAILY RF: 0 ferrous sulfate 325 mg (65 mg iron) tablet 325 mg PO DAILY RF: 0 metoprolol tartrate 50 mg tablet 50 mg PO BID RF: 0 escitalopram oxalate 10 mg tablet 10 mg PO DAILY RF: 0 Breo Ellipta 100-25 mcg/dose blister with device 1 inh INHALATION DAILY RF: 0 potassium chloride 10 mEq tablet extended release 10 meq PO DAILY Qty: 0 RF: 0 Changed furosemide 40 mg Tablet 40 mg PO PRN Qty: 0 RF: 0 Discontinued amlodipine 5 mg tablet 5 mg PO DAILY RF: 0 Discharge Orders: Discharge Order (Routine); Ordered 07/28/19 Ordered By: Diallo Tracy Referrals: Diallo Tracy MD [Primary Care Provider] - 1 week (You have a hospital followup with Dr. Tracy at [facility] on August 01 ar 10:30am. Any questions, please call them at [phone] ) Discharge Diet: Cardiac Discharge Activity: Increase activity as tolerated Patient Instructions: Diltiazem (By mouth), Amoxicillin/Clavulanate Potassium (By mouth), Atrial Fibrillation (DC), How to Take a Blood Pressure (DC), CHF Stoplight Activity Restrictions/Additional Instructions: If you are having further problems, please call [facility] or return to the ER if you are worsening. Discharge Date/Time: 07/28/19 17:01 Discharge Attestations Time Spent in Discharge Care*: less than 30 min Quality Metrics Clinical Quality Measures During this hospital stay, did patient experience: None Coding Level of Care Code Acute Road Production General Manager for Amando Bain
--- NOTE | 2019-07-28 16:29 | PC.NURSE ---
called [facility] Their system has been having problems. Attempted multiple times. Informed pt. It was electronically sent to [facility]. stated he will go to [facility] and talk to the pharmacy since it happened before.
--- NOTE | 2019-07-28 17:01 | PC.NURSE ---
Discharge to home Instructed pt on her new discharge meds actions, dosing and timing. Rx printed due to [facility] pharmacy phone system has a problem base on the voicemail. pt verbalizes understanding. discharge packet provided.
== END 2019-07-28 17:01 | disposition home or self-care (01) | DRG 310 ==
LOC: ER 15:10 → CSU 16:32
PROVIDERS: Admitting Provider Family Medicine; Emergency Provider Emergency Medicine; Family Provider Family Medicine; PCP Family Medicine; Visit Provider Family Medicine
DX: I48.91 Unspecified atrial fibrillation (principal); Z79.02 Long term (current) use of antithrombotics/antiplatelets; E03.9 Hypothyroidism, unspecified; K52.9 Noninfective gastroenteritis and colitis, unspecified
CPT/HCPCS: 12345; 36415; 71045; 71260; 80053; 81001; 83735; 83880; 84100; 84484; 85025; 86141; 87077; 87086; 87186; 87804; 93005; 93306; 96372; 96375; 99284; J0696; J1650; J1940; J2405; J3475; J3490; J7030; Q9967

== ENCOUNTER 2019-08-28 22:28 | Observation (INO) | payer MEDICARE, SELFPAY ==
[2019-08-28 22:30] VITALS: BP 102/71; PULSE 142; RESP 20; TEMP 37; O2SAT 98; BMI 20.8
--- NOTE | 2019-08-28 22:34 | W.ED.CHESTPA ---
HPI - Chest Pain General: Chief Complaint: Chest Pain Stated Complaint: nausea Time Seen by Provider: 08/28/19 22:30 History of Present Illness: HPI narrative: 84-year-old female with a history of atrial fibrillation. She tells me that she was set up to be cardioverted in [place], but that procedure was canceled due to the coronavirus outbreak. She presents with dizziness, weakness. She had some diaphoresis. She never had chest pain. Her pulse rate was fast. On EMS arrival they found her to be in atrial fibrillation with a rate of 150+. She had a soft blood pressure as well. MD complaint: other (Palpitations.) Pertinent past history: coronary artery disease Onset (ago): minute(s) Timing of current episode: constant Prior episodes: Yes Onset: during rest Pain radiation: none Quality: other (Palpitation) Relieving factors: nothing Exacerbating factors: exertion Associated symptoms: Reports diaphoresis, leg edema and palpitations; Deny abdominal pain, dyspnea, fever(s), nausea or vomiting Review of Systems Const: Reports: diaphoresis; Denies: fever Eyes: Denies: change in vision or blurry vision ENMT: Denies: painful swallowing, Change in hearing or facial/sinus pain Card: Reports: palpitations Resp: Denies: shortness of breath, productive cough, non-productive cough or wheezing GI: Denies: abdominal pain, nausea or vomiting : Denies: painful urination, urinary frequency, urinary urgency or blood in urine Musc: Denies: back pain, redness or joint warmth Skin/Breast: Denies: rash Neuro: Reports: dizziness; Denies: vertigo or confusion Psych: Denies: anxiety [facility] ED PFSH: Social History Smoking and tobacco status: never smoked Physical Exam Const: GENERAL APPEARANCE: well developed ORIENTATION/CONSCIOUSNESS: Yes oriented to person, Yes oriented to place and Yes oriented to time HENMT: COMMON NORMALS: normocephalic and external nose normal HEAD & SCALP: normocephalic FACE & SINUS: normal facial exam NOSE: external nose normal and no nasal discharge Eye: COMMON NORMALS: PERRL, EOMs intact bilaterally and conjunctivae normal EYELID: eyelids normal CONJUNCTIVA: Yes conjunctivae normal PUPIL: Yes PERRL Neck/C-Spine: GENERAL: No tracheal deviation Chest: COMMONS NORMALS: inspection of chest normal CHEST: No tenderness Resp: COMMON NORMALS: clear to auscultation bilaterally EFFORT & INSPECTION: No tachypneic, No respiratory distress, No retractions, No uses accessory muscles and No tracheal deviation AUSCULTATION: clear to auscultation bilaterally, no rhonchi, no wheezes and diminished lung sounds Cardio: RATE: tachycardic RHYTHM: abnormal rhythm irregularly irregular HEART SOUNDS: no murmurs PERIPHERAL PULSES: radial pulses present GI: INSPECTION: No abdominal distension AUSCULTATION: No hyperactive bowel sounds and No hypoactive bowel sounds PALPATION: No guarding and No rigid Neuro: SENSORIUM/ORIENTATION: Yes oriented to person, Yes oriented to place and Yes oriented to time Psych: COMMON NORMALS: mental status grossly normal Skin: COMMON NORMALS: no rashes or lesions noted GENERAL SKIN EXAM: no rashes or lesions noted Course Vital Signs: Vital signs: Vital Signs Temperature 98.6 F 08/28/19 22:30 Pulse Rate 142 H 08/28/19 22:30 Respiratory Rate 20 H 08/28/19 22:30 Blood Pressure 102/71 08/28/19 22:30 Pulse Oximetry 98 08/28/19 22:30 MDM - Chest Pain MDM Narrative: Medical decision making narrative: 84-year-old female presents hypotensive with a systolic pressure of 85, and a heart rate that is a regular of 150+. She was bolused 500 mL of normal saline. Following increase in her blood pressure, she was bolused 10 mg of diltiazem, and followed with a drip. Currently her blood pressure is 120/86. Her heart rate is irregular at 100. She is feeling better, although slightly nauseated. She will be observed. Lab Data: Labs: Lab Results 08/28/19 08/28/19 08/28/19 Range/Units 23:00 23:00 23:00 WBC 8.7 (4.0-10.0) 10^3/ uL RBC 3.19 L (4.1-5.3) 10^6/u L Hgb 9.9 L (11.5-15.3) g/dL Hct 31.7 L (37.0-47.0) % MCV 99.4 H (81-99) fL MCH 31.0 (28.0-34.0) pg MCHC 31.2 (30.0-36.0) g/dL RDW 19.0 H (12.1-15.1) % Plt Count 363 (130-400) 10^3/c mm MPV 11.5 H (7.4-10.4) fL Neut % (Auto) 51.7 % Lymph % (Auto) 31.7 % [place] % (Auto) 11.4 % Eos % (Auto) 3.8 % Baso % (Auto) 0.8 % Neut # (Auto) 4.5 (1.8-7.7) 10^3/u L Lymph # (Auto) 2.7 (0.8-4.8) 10^3/u L [place] # (Auto) 1.0 H (0.2-0.9) 10^3/u L Eos # (Auto) 0.3 (0.0-0.8) 10^3/u L Baso # (Auto) 0.1 (0.0-0.1) 10^3/u L Nucleated RBC % (a uto) 0 % Nucleated RBCs # 0.0 /100WBC PT 18.50 H (10.5-13.3) SECO NDS INR 1.49 H (0.8-1.2) APTT 36.4 (23.9-36.7) SECO NDS Sodium 135 L (136-145) mmol/L Potassium 4.3 (3.5-5.1) mmol/L Chloride 97 L (98-107) mmol/L Carbon Dioxide 24 (22-29) mmol/L Anion Gap 18.3 (5-19) BUN 35 H (8-23) mg/dL Creatinine 1.8 H (0.5-0.9) mg/dL Glucose 240 H (65-115) mg/dL Calculated Osmolal ity 285 (285-295) mOsm/k g Calcium 9.4 (8.5-10.5) mg/dL Total Bilirubin 0.6 (0.15-1.2) mg/dL AST 36 H (0-32) U/L ALT 23 (0-33) U/L Alkaline Phosphata se 117 H (35-105) IU/L Troponin T Baselin e (0-10) ng/mL NT-Pro-B Natriuret Pep 02640 H (0-450) pg/mL Total Protein 7.4 (6.6-8.7) g/dL Albumin 3.7 (3.5-5.2) g/dL Globulin 3.7 (1.3-4.6) g/dL TSH 16.60 H (0.27-4.20) uIU/ mL 08/28/19 Range/Units 23:00 WBC (4.0-10.0) 10^3/ uL RBC (4.1-5.3) 10^6/u L Hgb (11.5-15.3) g/dL Hct (37.0-47.0) % MCV (81-99) fL MCH (28.0-34.0) pg MCHC (30.0-36.0) g/dL RDW (12.1-15.1) % Plt Count (130-400) 10^3/c mm MPV (7.4-10.4) fL Neut % (Auto) % Lymph % (Auto) % [place] % (Auto) % Eos % (Auto) % Baso % (Auto) % Neut # (Auto) (1.8-7.7) 10^3/u L Lymph # (Auto) (0.8-4.8) 10^3/u L [place] # (Auto) (0.2-0.9) 10^3/u L Eos # (Auto) (0.0-0.8) 10^3/u L Baso # (Auto) (0.0-0.1) 10^3/u L Nucleated RBC % (a uto) % Nucleated RBCs # /100WBC PT (10.5-13.3) SECO NDS INR (0.8-1.2) APTT (23.9-36.7) SECO NDS Sodium (136-145) mmol/L Potassium (3.5-5.1) mmol/L Chloride (98-107) mmol/L Carbon Dioxide (22-29) mmol/L Anion Gap (5-19) BUN (8-23) mg/dL Creatinine (0.5-0.9) mg/dL Glucose (65-115) mg/dL Calculated Osmolal ity (285-295) mOsm/k g Calcium (8.5-10.5) mg/dL Total Bilirubin (0.15-1.2) mg/dL AST (0-32) U/L ALT (0-33) U/L Alkaline Phosphata se (35-105) IU/L Troponin T Baselin e 29 H (0-10) ng/mL NT-Pro-B Natriuret Pep (0-450) pg/mL Total Protein (6.6-8.7) g/dL Albumin (3.5-5.2) g/dL Globulin (1.3-4.6) g/dL TSH (0.27-4.20) uIU/ mL Critical Care Time Critical Care Time: Critical Care Time: Yes Total Critical Care Time: 35 Attestation: This case had a high probability of a clinically significant, sudden, or life threatening deterioration of this patient's condition which required my full and direct attention, intervention and personal management. Discharge Plan Discharge Prescriptions: No Action atorvastatin 40 mg tablet 40 mg PO DAILY RF: 0 hydralazine 25 mg tablet See Rx Instructions .ROUTE .COMPLEX PRN (Reason: Blood Pressure) RF: 0 lorazepam 0.5 mg tablet 0.5 mg PO TID RF: 0 nitroglycerin [Nitro-Time] 9 mg capsule, extended release 9 mg PO BID RF: 0 levothyroxine 50 mcg tablet See Rx Instructions .ROUTE .COMPLEX RF: 0 pantoprazole 40 mg tablet,delayed release (DR/EC) 40 mg PO DAILY RF: 0 ferrous sulfate 325 mg (65 mg iron) tablet 325 mg PO DAILY RF: 0 metoprolol tartrate 50 mg tablet 50 mg PO BID RF: 0 escitalopram oxalate 10 mg tablet 10 mg PO DAILY RF: 0 Breo Ellipta 100-25 mcg/dose blister with device 1 inh INHALATION DAILY RF: 0 diltiazem HCl [DILT-XR] 180 mg Capsule,Ext.Rel 24h Degradable 180 mg PO Q24H Qty: 30 RF: 1 furosemide 40 mg Tablet 40 mg PO PRN Qty: 0 RF: 0 potassium chloride 10 mEq tablet extended release 10 meq PO DAILY Qty: 0 RF: 0 glipizide 2.5 mg Tablet Extended Release 24hr 2.5 mg PO DAILY RF: 0 losartan 100 mg Tablet 100 mg PO DAILY RF: 0 Eliquis 2.5 mg Tablet 2.5 mg PO BID RF: 0 Coding Level of Care Code ED Pomology Teacher for Chg Fwd Exam Comprehensive
--- NOTE | 2019-08-28 22:43 | XR_ITS ---
WS: [id number] CHEST XRAY TECHNIQUE: Portable chest. CLINICAL INFORMATION: afib COMPARISON: July 27, 2019 FINDINGS: Heart: Cardiomegaly. Sternotomy. Aortic calcification. Lungs: Moderate chronic emphysematous changes. Tiny bilateral pleural effusions. No acute pulmonary i nfiltrates. Bones: Normal visualized bony structures. XR/XR chest 1V portable [id number] IMPRESSION: 1. Tiny bilateral pleural effusions unchanged. Stable cardiomegaly. 2. No significant interval changes.
--- NOTE | 2019-08-28 22:43 | ECG_ITS ---
Measurements Intervals [place] Rate: 142 P: ND: 0 QRS: -59 QRSD: 153 T: 118 QT: 332 QTc: 512 ATRIAL FIBRILLATION WITH RAPID VENTRICULAR RESPONSE LEFT AXIS DEVIATION [QRS AXIS < -30] LEFT BUNDLE BRANCH BLOCK [120+ ms QRS DURATION, 80+ ms Q/S IN V1/V2, 85+ ms R IN I/aVL/V5/V6] Compared to ECG 07/25/2019 18:32:13 Aberrant conduction of supraventricular beat(s) no longer present Ventricular premature complex(es) no longer present Electronically Signed On 08-30-2019 17:47:58 CDT by Ernie Kidd M.D. [id number]
[2019-08-28] MEDS: sodium chloride 0.9% 500 ML 999 ML IV (22:48)
[2019-08-28 22:59] LABS: Basophils # 0.1 10^3/uL (0.0-0.1); Basophils % 0.8 %; Eosinophils # 0.3 10^3/uL (0.0-0.8); Eosinophils % 3.8 %; Hematocrit 31.7 % (37.0-47.0); Hemoglobin 9.9 g/dL (11.5-15.3); Lymphocytes # 2.7 10^3/uL (0.8-4.8); Lymphocytes % 31.7 %; Mean Corpuscular HGB Conc 31.2 g/dL (30.0-36.0); Mean Corpuscular Volume 99.4 fL (81-99); Mean Platelet Volume 11.5 fL (7.4-10.4); Monocytes % 11.4 %; Neutrophils # 4.5 10^3/uL (1.8-7.7); Neutrophils % 51.7 %; Nucleated Red Blood Cells % 0 %; Platelet Count 363 10^3/cmm (130-400); Red Blood Count 3.19 10^6/uL (4.1-5.3); White Blood Count 8.7 10^3/uL (4.0-10.0)
[2019-08-28 23:08] LABS: INR 1.49 (0.8-1.2)
[2019-08-28 23:09] LABS: Partial Thromboplastin Time 36.4 SECONDS (23.9-36.7)
[2019-08-28 23:16] LABS: Troponin(5th) Baseline 29 ng/mL (0-10)
[2019-08-28 23:22] LABS: Alanine Aminotransferase 23 U/L (0-33); Albumin Level 3.7 g/dL (3.5-5.2); Alkaline Phosphatase 117 IU/L (35-105); Anion Gap 18.3 (5-19); Aspartate Amino Transferase 36 U/L (0-32); Blood Urea Nitrogen 35 mg/dL (8-23); Calcium 9.4 mg/dL (8.5-10.5); Carbon Dioxide 24 mmol/L (22-29); Chloride 97 mmol/L (98-107); Globulin 3.7 g/dL (1.3-4.6); Glucose 240 mg/dL (65-115); Osmolality Calculated 285 mOsm/kg (285-295); Potassium 4.3 mmol/L (3.5-5.1); Sodium 135 mmol/L (136-145); Total Bilirubin 0.6 mg/dL (0.15-1.2); Total Protein 7.4 g/dL (6.6-8.7)
[2019-08-28 23:26] LABS: NT Pro B Type Natriuretic Pept 11253 pg/mL (0-450)
[2019-08-29] VITALS (12 sets, daily range): BP systolic 82–126; BP diastolic 48–82; PULSE 60–122; RESP 16–20; TEMP 36.3–36.9; O2SAT 92–98
[2019-08-29] MEDS: ondansetron 2 mg/ML SDV 2 mL 4 MG IVP (00:20)
--- NOTE | 2019-08-29 00:43 | ECG_ITS ---
Measurements Intervals [place] Rate: 131 P: NV: 0 QRS: -75 QRSD: 148 T: 112 QT: 341 QTc: 504 ATRIAL FIBRILLATION WITH RAPID VENTRICULAR RESPONSE LEFT AXIS DEVIATION [QRS AXIS < -30] LEFT BUNDLE BRANCH BLOCK Compared to ECG 07/25/2019 18:32:13 Aberrant conduction of supraventricular beat(s) no longer present Ventricular premature complex(es) no longer present Electronically Signed On 08-29-2019 9:01:09 CDT by Delphine Llamas M.D. [id number]
[2019-08-29 00:46] LABS: Troponin 5 2HR 28.88 ng/mL (0-10)
[2019-08-29 00:55] LABS: Troponin 5 2HR Delta -0.12 ABS# (0-10)
--- NOTE | 2019-08-29 01:03 | PM.HP ---
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 Patient states that for the past week she has felt more fatigued, more malaise, has been having shortness of breath with activities of daily living, chest palpitations. Patient states that she lives with her and her grandson, she typically takes care of chores around the house, with chores around the house she has been feeling more fatigued, more malaise, has been having shortness of breath with those activities, and chest palpitations. Patient states that 5 days ago she ran out of her Cardizem. Denies chest pain, denies lightheadedness, denies dizziness, denies fevers, denies chills, has a chronic cough, no recent travel, no known exposure to covid19. In the emergency room patient was found to have A. fib with RVR, heart rates in the 140s, put on a Cardizem drip, heart rate down to the 100s to 110s, was also found to be hypotensive, blood pressures improved to the 102/71 after a liter bolus Review of Systems Const: Reports: fatigue and malaise; Denies: fever or chills Eyes: Denies: change in vision or blurry vision ENMT: Denies: nasal congestion Card: Reports: palpitations; Denies: chest pain Resp: Reports: shortness of breath and non-productive cough; Denies: productive cough or wheezing GI: Denies: abdominal pain, nausea, vomiting, vomiting blood, diarrhea, constipation, blood in stool or black tarry stool : Denies: flank pain, painful urination or urinary frequency Musc: Denies: neck pain or back pain Skin/Breast: Denies: rash Neuro: Denies: headache, dizziness or vertigo Psych: Denies: anxiety or depression Endo: Denies: excessive urination or excessive thirst Medications/Allergies Home Medications Medication Instructions Recorded Confirmed Last Taken Type apixaban [Eliquis] 2.5 mg PO BID 08/28/19 08/28/19 Unknown History glipizide 2.5 mg PO DAILY 08/28/19 08/28/19 Unknown History losartan 100 mg PO DAILY 08/28/19 08/28/19 Unknown History Allergies Allergy/AdvReac Type Severity Reaction Status Date / Time aspirin Allergy ADR-Nausea Verified 07/25/19 12:47 codeine Allergy ADR-Nausea Verified 07/25/19 12:47 Additional Medication Information Additional Medication Information: Eliquis 2.5 mg p.o. twice daily Atorvastatin 40 mg p.o. daily Breo Diltiazem XR 180 mg p.o. every 24 hours Escitalopram 10 mg p.o. daily Ferrous sulfate 325 mg p.o. daily Lasix 40 mg p.o. daily PRN Glipizide 2.5 mg p.o. daily Levothyroxine 50 mcg once daily Losartan 100 mg p.o. daily Lorazepam 0.5 mg p.o. 3 times daily Metoprolol 50 twice daily Nitroglycerin 9 mg capsule extended release p.o. p.o. twice daily Protonix 40 daily Klor-Con 10 mEq daily PFSH Acute PFSH: Medical History (Updated 08/29/19 @ 01:12 by Naman Green MD) Atrial fibrillation and flutter CAD (coronary artery disease) Hypertension Thyroid disease Surgical History (Updated 08/29/19 @ 01:12 by Naman Green MD) History of coronary artery bypass graft History of heart artery stent Family History (Updated 08/29/19 @ 01:12 by Naman Green MD) Other CAD (coronary artery disease) Social History Smoking and tobacco status: never smoked Vitals/I&O/Wt Last Vital Signs Temp 98.6 F 08/28/19 22:30 Pulse 142 H 08/28/19 22:30 Resp 20 H 08/28/19 22:30 BP 102/71 08/28/19 22:30 Pulse Ox 98 08/28/19 22:30 Weight last 48 hrs Weight 51.71 kg Physical Exam Const: COMMON NORMALS: no apparent distress and oriented x3 GENERAL APPEARANCE: cooperative and comfortable HENMT: COMMON NORMALS: normocephalic HEAD & SCALP: normocephalic Eye: COMMON NORMALS: PERRL, EOMs intact bilaterally and no papilledema GENERAL EYE: normal appearance of both eyes PUPIL: Yes PERRL DIRECT OPHTHALMOSCOPY: Yes no papilledema Neck/C-Spine: COMMON NORMALS: full ROM, no lymphadenopathy, no JVD and thyroid normal THYROID: thyroid normal Lymph: LYMPHATIC: no lymphadenopathy noted Resp: COMMON NORMALS: normal respiratory effort, no retractions, no use of accessory muscles and clear to auscultation bilaterally AUSCULTATION: clear to auscultation bilaterally Cardio: COMMON NORMALS: no JVD, regular rhythm, S1 normal heart sound, S2 normal heart sound, no gallops, no clicks and no murmurs RATE: tachycardic RHYTHM: abnormal rhythm HEART SOUNDS: S1 normal and S2 normal GI: COMMON NORMALS: normal to inspection, nondistended, normoactive bowel sounds, soft to palpation, non-tender and no hepatosplenomegaly PALPATION: Yes soft and Yes no hepatosplenomegaly Extremity: COMMON NORMALS: normal to inspection, full ROM and no pedal edema Neuro: COMMON NORMALS: oriented x3, CN's II-XII intact bilaterally, moves all extremities and no focal motor deficits Psych: COMMON NORMALS: mental status grossly normal, thought process normal and cooperative THOUGHT PROCESS: normal thought process Data : 08/28/19 23:00 08/28/19 23:00 A&P Assessment and plan (1) Atrial fibrillation with RVR: -Patient ran out of her Cardizem roughly a week ago -There were plans on doing an outpatient cardioversion through 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 every 24 hours -Eliquis 2.5 mg p.o. twice daily -Telemetry monitoring, monitor for chest pain Status: Acute (2) Acute kidney injury superimposed on CKD: -Baseline creatinine 1.2, today creatinine is 1.8 -Likely secondary to dehydration -Monitor creatinine -Already received 1 L bolus, hold off on fluids given diastolic heart failure -Hold Lasix, hold losartan Status: Acute (3) NSTEMI (non-ST elevated myocardial infarction): -No active chest pain, no acute ST-T wave changes on EKG -Baseline troponin 29, 120-minute 28.8, delta 0.12 -Likely supply demand ischemia, type II NSTEMI Plan: -Continue to monitor for chest pain -Continue statin, nitro Status: Acute (4) CAD (coronary artery disease): -CABG x2 -CAD status post stenting x2, last in place 6 months ago -Patient states that a few months ago Plavix was stopped, and she was put on Eliquis Status: Acute (5) HTN, goal below 130/80: Continue metoprolol Status: Acute (6) HLD (hyperlipidemia): Continue atorvastatin Status: Acute (7) Chronic anemia: -Hemoglobin 9.9 -States that about a week ago she had one episode of bloody stool -Had a colonoscopy a year ago with polyps -There are plans for an outpatient EGD Plan: -Monitor hemoglobin, monitor for bloody stools -Continue oral Protonix -Iron studies Status: Acute (8) Diastolic CHF: -Chest x-ray shows minimal pulmonary vascular congestion, minimal bilateral pleural effusions -Does complain of shortness [place] [address] -Creatinine 1.8 -Has grade 3 out of 4 diastolic dysfunction -echo 07/2019 Normal LV size ejection fraction 55%. Moderate left ventricular hypertrophy. Moderate hypokinesia of the mid and apical septum and anteroseptal segment.Grade III/IV diastolic dysfunction (restrictive filling pattern), severely elevated filling pressures. Moderate biatrial enlargement Thickened aortic and mitral valves Mild mitral annular calcification. Moderate tricuspid valve regurgitation. Mild mitral valve regurgitation. Trace to mild aortic valve regurgitation. There is no pericardial effusion. There are no intracardiac masses. Compared to the study from 01/10/2017, there is improvement of the LV ejection fraction. Mitral and tricuspid regurgitations are significantly reduced Plan: -I will clinically feel the patient is in acute exacerbation right now -Hold off on Lasix given creatinine of 1.8 -Fluid restrictions 1500 cc Status: Acute (9) Type 2 diabetes mellitus: Low-dose sliding scale Status: Acute Attestations Medical Necessity Statement*: Patient requires hospitalization, outpatient with observation, for A. fib with RVR, acute kidney injury Coding Level of Care Code Acute Sound Engineer for [facility] Diagnoses Atrial fibrillation with RVR I48.91 Acute kidney injury superimposed on CKD N17.9; N18.9 NSTEMI (non-ST elevated myocardial infarction) I21.4 CAD (coronary artery disease) I25.10 HTN, goal below 130/80 I10 HLD (hyperlipidemia) E78.5 Chronic anemia D64.9 Diastolic CHF I50.30 Type 2 diabetes mellitus E11.9
--- NOTE | 2019-08-29 01:07 | PC.NURSE ---
Per vo from irvin Villegas titrated to 5mg/5ml
--- NOTE | 2019-08-29 01:11 | PC.NURSE ---
daughter michael notified @ [phone] of pt's admission
[2019-08-29 02:32] LABS: Estmated Average Glucose 163; Hemoglobin A1C 7.3 % (4.0-6.0)
[2019-08-29] MEDS: dilTIAZem ER (24HR) 180 mg Capsule PO (02:37)
[2019-08-29 02:44] LABS: Add Urine Microscopic? NO
[2019-08-29 02:51] LABS: Bilirubin Urine Neg (NEGATIVE); Blood Urine Neg (Negative); Glucose Urine UA Norm (Normal); Ketones Urine Negative (Negative); Leukocyte Esterase Urine Negative (Negative); Nitrate Urine Negative (Negative); Protein Urine Neg (Negative); Urine Appearance Clear (CLEAR); Urine Color Yellow (Yellow); Urobilinogen Urine Norm (Negative); pH Urine 5 (5-7)
[2019-08-29 02:57] LABS: Chol HDL Ratio 2.43 mg/dL (0.0-4.40); Cholesterol 102 mg/dL (0-200); Ferritin 60 ng/mL (15-150); HDL Cholesterol 42 mg/dL (60-100); Iron 20 ug/dL (37-145); LDL Cholesterol Calculated 34 mg/dL (50-129); LDL HDL Ratio 0.81 RATIO (0.00-3.22); Percent Saturation 5.8 % (20-50); Total Iron Binding Capacity 341 mcg/dl; Triglycerides 129 mg/dL (0-150); Unsaturated Iron Binding 321 ug/dL (112-347)
--- NOTE | 2019-08-29 04:43 | ECG_ITS ---
Measurements Intervals [place] Rate: 107 P: MD: 0 QRS: -44 QRSD: 153 T: 139 QT: 368 QTc: 493 ATRIAL FIBRILLATION WITH RAPID VENTRICULAR RESPONSE MARKED LEFT AXIS DEVIATION [QRS AXIS < -30] LEFT BUNDLE BRANCH BLOCK [120+ ms QRS DURATION, 80+ ms Q/S IN V1/V2, 85+ ms R IN I/aVL/V5/V6] Compared to ECG 07/25/2019 18:32:13 Aberrant conduction of supraventricular beat(s) no longer present Ventricular premature complex(es) no longer present Electronically Signed On 08-29-2019 9:00:13 CDT by Delphine Llamas M.D. [id number]
[2019-08-29 05:27] LABS: Troponin 5 6HR 25.15 ng/mL (0-10)
[2019-08-29 05:30] LABS: Troponin 5 6HR Delta -3.85 ng/L (0-12)
--- NOTE | 2019-08-29 05:30 | PC.NURSE ---
Patients Cardizem drip restarted at this time at 5mg/hr. Patients HR is 116-125bpm. Will continue to monitor.
--- NOTE | 2019-08-29 05:39 | PC.NURSE ---
Pt heartrate jumping between 115 to 140 bpm. Nurse Notified.
[2019-08-29] MEDS: levothyroxine 50 mcg Tablet PO (06:01)
--- NOTE | 2019-08-29 06:23 | PC.NURSE ---
Patient placed 2L via Nasal cannula patient was asleep and oxygen saturation dropped to 81 to 82%. It recovered to 96%. Will continue to monitor.
[2019-08-29 06:51] LABS: Glucose Point of Care 141 mg/dL (70-110)
[2019-08-29] MEDS: ferrous sulfate EC 325 mg Tablet PO ×2 (09:08→17:22)
[2019-08-29] MEDS: pantoprazole DR 40 mg Tablet PO (09:09)
[2019-08-29] MEDS: metoprolol tartrate 50 mg Tablet PO ×2 (09:09→17:22)
[2019-08-29] MEDS: escitalopram 10 mg Tablet PO (09:09)
[2019-08-29] MEDS: atorvastatin 40 mg Tablet PO (09:09)
[2019-08-29] MEDS: LORazepam 0.5 mg Tablet PO ×3 (09:09→19:58)
[2019-08-29] MEDS: apixaban 5 mg Tablet 2.5 MG PO ×2 (09:09→17:22)
--- NOTE | 2019-08-29 09:45 | P.PN_ITS ---
Subjective Subjective: Interval history: The patient states that she feels better than she did overnight. Her heart rate is improving and she no longer has palpitations. She does not feel as weak and she is not as short of breath as she was either. Overall she is feeling better. Vitals/I&O/Wt Last Vital Signs Temp 97.7 F 08/29/19 08:00 Pulse 87 08/29/19 08:00 Resp 20 H 08/29/19 08:00 BP 109/71 08/29/19 08:00 Pulse Ox 93 08/29/19 08:00 08/28/19 08/29/19 08/29/19 22:59 06:59 14:59 Intake Total 21.083 / 21.083 240 / 240 Output Total 300 / 300 Balance -278.917 / -278.917 240 / 240 Weight last 48 hrs Weight 114 lb Physical Exam Narrative: EXAM NARRATIVE: General: Alert and oriented x3 Cardiac: Irregularly irregular rhythm with regular rate. Stable grade 2/6 systolic murmur noted Lungs: Mild crackles in the bilateral bases without wheezes or rhonchi. Abdomen: No significant tenderness. No hepatosplenomegaly. Extremities: No edema noted in the bilateral lower extremities. Data : 08/28/19 23:00 08/28/19 23:00 A&P Additional A&P Information 1. A. fib with RVR -the patient's heart rate is now in the upper 60s and lower 70s on 10 of diltiazem drip. We will continue with her oral diltiazem at 180 mg extended release with metoprolol 50 mg twice a day. The likely reason for her going into A. fib with RVR was that she stopped the diltiazem at home. My hope is that her heart rate will stay in the normal range without the drip and we can discharge home over the next 1 to 2 days. The patient has plans to see her sas architect, Dr. Mendiola in [place] for a possible cardioversion. 2. Coronary artery disease -no signs of an NSTEMI at this time. The patient does have some mild crackles in her bilateral bases. If her breathing is not improving, we may consider Lasix therapy, however need to be careful with her overall kidney function. 3. Diabetes mellitus -continue with sliding scale. 4. Acute on chronic kidney disease -the patient's creatinine is up to 1.8 today. It was 1.2 upon discharge from the hospital last month. This may be secondary to decreased perfusion from prolonged A. fib with RVR. We will continue to follow levels. No further IV fluids at this time. 5. Prophylaxis -the patient is on Eliquis for prophylaxis for A. fib. Attestations Medical Necessity Statement*: The patient will be here for greater than 2 midnights due to treatment of A. fib with RVR. Coding Level of Care Code Acute Middle Or Intermediate School Principal for [employer]
--- NOTE | 2019-08-29 09:50 | PC.CHAP ---
Pastoral Care Encounter/Spiritual Assessment Type of Contact [] Declined social director visit [] Patient/Family/Request visit [] Outpatient visit [] Follow-up visit [] Physician referral [] Code/Alert [x] Routine visit [] Staff referral [] Actively dying [] Patient sleeping [] Family support [] [] Out of room [] Palliative care [] [] Receiving care in room [] Pre-surgical visit [] Trauma [] Long length of stay [] ICU visit [] Other: Relational/Emotional Strength [] Patient feels connected with others/family/visitors/staff [] Distress [] Loneliness/isolation [] Abandonment Spirituality of Patient [] Person of Cate [] Attends Moravian of their Cate [x] Believes in Prayer [] Reads Bible or Holiness materials [] There are Spiritual issues to be addressed Transitional Nurse Interventions [x] Prayer [] Active listening [] Non-anxious presence [] Spiritual/emotional support [] Crisis/trauma care [] Spiritual counseling [] Bereavement support [] Provided bereavement packet [] Provided Bible/devotional materials [] Provided toy/stuffed animal, coloring book to patient or family member [] Provided Communion [] Anointing/[place] [] Salvation [x] Completed spiritual assessment [] Other: Impact on Illness or Injury [] Angry [] Fearful [] Anxious [] Often cries [] Exhaustion [] Unable to work [] Unable to attend adventist [] Unable to walk/stand [] Unable to read [] Unable to drive [] Unable to eat/drink [] Unable to sleep [] Unable to be with family [] Patient intubated [] Other: Summary Patient feeling stronger today. Time spent with patient 10 min
[2019-08-29] MEDS: magnesium hydroxide 30 mL UDC PO (10:51)
[2019-08-29 11:51] LABS: Glucose Point of Care 184 mg/dL (70-110)
[2019-08-29 17:28] LABS: Glucose Point of Care 139 mg/dL (70-110)
[2019-08-29 20:45] LABS: Glucose Point of Care 177 mg/dL (70-110)
[2019-08-30] VITALS (9 sets, daily range): BP systolic 91–116; BP diastolic 58–80; PULSE 70–122; RESP 16–22; TEMP 36.4–37.1; O2SAT 85–100
[2019-08-30] MEDS: dilTIAZem ER (24HR) 180 mg Capsule PO (01:25)
--- NOTE | 2019-08-30 03:32 | PC.NURSE ---
Heart rate went up to 120s-140s after patient went to the bathroom. Heart rate did not go back down even after patient laid back in bed for a few minutes. Cardizem drip was restarted at 5 ml/hr. Will continue to monitor.
--- NOTE | 2019-08-30 04:04 | PC.NURSE ---
Cardizem titrated up to 15 ml/hr. Heart rate ranging 80 to 115 bpm. Patient is asymptomatic. Will continue to monitor.
[2019-08-30 04:08] LABS: Basophils # 0.1 10^3/uL (0.0-0.1); Basophils % 0.9 %; Eosinophils # 0.5 10^3/uL (0.0-0.8); Hematocrit 31.6 % (37.0-47.0); Hemoglobin 9.5 g/dL (11.5-15.3); Lymphocytes # 3.1 10^3/uL (0.8-4.8); Lymphocytes % 33.6 %; Mean Corpuscular HGB Conc 30.1 g/dL (30.0-36.0); Mean Corpuscular Hemoglobin 30.6 pg (28.0-34.0); Mean Corpuscular Volume 101.9 fL (81-99); Mean Platelet Volume 11.8 fL (7.4-10.4); Monocytes % 10.8 %; Neutrophils # 4.5 10^3/uL (1.8-7.7); Neutrophils % 49.4 %; Nucleated Red Blood Cells % 0.2 %; Platelet Count 349 10^3/cmm (130-400); Red Cell Distribution Width 19.5 % (12.1-15.1); White Blood Count 9.2 10^3/uL (4.0-10.0)
[2019-08-30 04:23] LABS: Alanine Aminotransferase 21 U/L (0-33); Albumin Level 3.3 g/dL (3.5-5.2); Alkaline Phosphatase 104 IU/L (35-105); Anion Gap 17.5 (5-19); Aspartate Amino Transferase 35 U/L (0-32); Blood Urea Nitrogen 35 mg/dL (8-23); Calcium 9.2 mg/dL (8.5-10.5); Carbon Dioxide 19 mmol/L (22-29); Chloride 102 mmol/L (98-107); Globulin 3.4 g/dL (1.3-4.6); Glucose 152 mg/dL (65-115); Magnesium 2.1 mg/dL (1.7-2.3); Osmolality Calculated 278 mOsm/kg (285-295); Phosphorus 3.3 mg/dL (2.5-4.5); Potassium 4.5 mmol/L (3.5-5.1); Sodium 134 mmol/L (136-145); Total Bilirubin 0.9 mg/dL (0.15-1.2); Total Protein 6.7 g/dL (6.6-8.7)
--- NOTE | 2019-08-30 04:29 | PC.NURSE ---
Dr. Page notified of patient being on Cardizem gtt and PO Cardizem. Heart rate ranging 80 to 115. Ordered to keep on drip if it is controlling rate well. Will continue to monitor.
[2019-08-30 04:38] LABS: NT Pro B Type Natriuretic Pept 4658 pg/mL (0-450)
--- NOTE | 2019-08-30 05:54 | PC.NURSE ---
Patient's heart rate maintaining 80s-90s. Cardizem gtt turned down to 10 ml/hr. Will continue to monitor.
[2019-08-30] MEDS: levothyroxine 50 mcg Tablet PO (05:55)
[2019-08-30 06:22] LABS: Glucose Point of Care 178 mg/dL (70-110)
--- NOTE | 2019-08-30 07:57 | PM.PN ---
Subjective Subjective: Interval history: The patient had some shortness of breath overnight when she went to the bathroom. She did not have her oxygen on and had to have the diltiazem drip restarted. She says that she feels well otherwise. She does not have any shortness of breath at rest. Vitals/I&O/Wt Last Vital Signs Temp 98.7 F 08/30/19 07:47 Pulse 70 08/30/19 07:47 Resp 16 08/30/19 07:47 BP 112/69 08/30/19 07:47 Pulse Ox 98 08/30/19 07:47 08/29/19 08/30/19 08/30/19 22:59 06:59 14:59 Intake Total 435.250 / 970.750 4.167 / 4.167 Output Total 200 / 800 Balance -200 / -264.500 435.250 / 170.750 4.167 / 4.167 Weight last 48 hrs Weight 114 lb Physical Exam Narrative: EXAM NARRATIVE: General: Alert and oriented x3 Cardiac: Irregularly irregular rhythm with regular rate. Stable grade 2/6 systolic murmur noted Lungs: Mild crackles in the bilateral bases without wheezes or rhonchi. Abdomen: No significant tenderness. No hepatosplenomegaly. Extremities: No edema noted in the bilateral lower extremities. Data : 08/30/19 03:30 08/30/19 03:30 A&P Additional A&P Information 1. A. fib with RVR -the patient's heart rate is now in the 80s to 90s on 2.5 milligrams of diltiazem drip. We will continue with her oral diltiazem at 180 mg extended release with metoprolol 50 mg twice a day. The likely reason for her going into A. fib with RVR was that she stopped the diltiazem at home. My hope is that her heart rate will stay in the normal range without the drip and we can discharge home over the next 1 to 2 days. The patient has plans to see her business services coordinator, Dr. Mendiola in [place] for a possible cardioversion. I will give a one-time dose of Lasix 40 mg IV as she seems to have crackles in her lungs as this may be worsening her A. fib. We will follow-up this afternoon to see how she is doing. Wean diltiazem drip as able. 2. Coronary artery disease -no signs of an NSTEMI at this time. The patient does have some mild crackles in her bilateral bases. 3. Diabetes mellitus -continue with sliding scale. 4. Acute on chronic kidney disease -the patient's creatinine has improved to 1.4 today. It was 1.2 upon discharge from the hospital last month. This was likely secondary to decreased perfusion from prolonged A. fib with RVR. We will continue to follow levels. No further IV fluids at this time. 5. Prophylaxis -the patient is on Eliquis for prophylaxis for A. fib. Attestations Medical Necessity Statement*: We will continue to work on to the patient weaned off of the diltiazem drip and plan for discharge home once her heart rate is stable. Coding Level of Care Code Acute Senior Mechanical Development Engineer for Amando Bain
[2019-08-30] MEDS: FUROsemide 10 mg/mL SDV 4mL 40 MG IVP (08:21)
[2019-08-30] MEDS: LORazepam 0.5 mg Tablet PO ×2 (08:22→16:22)
[2019-08-30] MEDS: ferrous sulfate EC 325 mg Tablet PO ×2 (08:22→17:43)
[2019-08-30] MEDS: pantoprazole DR 40 mg Tablet PO (08:22)
[2019-08-30] MEDS: escitalopram 10 mg Tablet PO (08:22)
[2019-08-30] MEDS: metoprolol tartrate 50 mg Tablet PO ×2 (08:22→17:43)
[2019-08-30] MEDS: apixaban 5 mg Tablet 2.5 MG PO ×2 (08:22→17:43)
[2019-08-30] MEDS: atorvastatin 40 mg Tablet PO (08:22)
--- NOTE | 2019-08-30 11:29 | PC.CHAP ---
Pastoral Care Encounter/Spiritual Assessment Type of Contact [] Declined biomedical engineering technologist visit [] Patient/Family/Request visit [] Outpatient visit [] Follow-up visit [] Physician referral [] Code/Alert [] Routine visit [] Staff referral [] Actively dying [] Patient sleeping [] Family support [] [] Out of room [] Palliative care [] [] Receiving care in room [] Pre-surgical visit [] Trauma [] Long length of stay [] ICU visit [x] Other: Nausea Relational/Emotional Strength [] Patient feels connected with others/family/visitors/staff [] Distress [] Loneliness/isolation [] Abandonment Spirituality of Patient [] Person of Cate [] Attends Samaritan of their Cate [] Believes in Prayer [] Reads Bible or Hinduism materials [] There are Spiritual issues to be addressed Waste Handling Technician Interventions [] Prayer [] Active listening [] Non-anxious presence [] Spiritual/emotional support [] Crisis/trauma care [] Spiritual counseling [] Bereavement support [] Provided bereavement packet [] Provided Bible/devotional materials [] Provided toy/stuffed animal, coloring book to patient or family member [] Provided Communion [] Anointing/[place] [] Salvation [] Completed spiritual assessment [] Other: Impact on Illness or Injury [] Angry [] Fearful [] Anxious [] Often cries [] Exhaustion [] Unable to work [] Unable to attend tenriism [] Unable to walk/stand [] Unable to read [] Unable to drive [] Unable to eat/drink [] Unable to sleep [] Unable to be with family [] Patient intubated [] Other: Summary Nausea Time spent with patient 5 mins
[2019-08-30 11:57] LABS: Glucose Point of Care 199 mg/dL (70-110)
--- NOTE | 2019-08-30 16:41 | PM.DCS ---
Discharge Providers Date of Admission: 08/29/19 00:28 Date of Discharge: August 30, 2019 Attending Provider at Admission: Naman Green MD Attending Provider at Discharge: Rizwan Patel Primary Care Provider: Diallo Tracy MD Diagnoses at Discharge Discharge Diagnosis (1) Atrial fibrillation with RVR: Status: Resolved (2) Acute kidney injury superimposed on CKD: Status: Resolved (3) NSTEMI (non-ST elevated myocardial infarction): Status: Resolved (4) CAD (coronary artery disease): Status: Acute (5) HTN, goal below 130/80: Status: Acute (6) HLD (hyperlipidemia): Status: Resolved (7) Chronic anemia: Status: Resolved (8) Diastolic CHF: Status: Resolved (9) Type 2 diabetes mellitus: Status: Acute (10) Hypoxia: Status: Acute Reason for Visit Reason for Visit: Reason For Visit: nausea Hospital Course Hospital Course: The patient was admitted to the hospital for observation secondary to A. fib with RVR. The patient complained of significant weakness and had not taken her medication for a number of days. The patient had been in the hospital recently and was prescribed diltiazem 180 mg extended release, however it did not have refills and she felt that it was likely unnecessary to call for a refill, so she did not take it. The patient was restarted on diltiazem and continued with metoprolol 50 mg twice a day. With this and a one-time dose of Lasix, the patient's blood pressure improved as well as her pulse and at the time of discharge her pulse was in the 70s to 90s. She continues to be in A. fib and is considering seeing Dr. Mendiola for a possible cardioversion. She had one scheduled previously but was not able to have it done because the procedure was canceled due to COVID-19. Currently the patient is feeling well and request to be discharged home. All questions were answered. She was urged to continue with the current medications. She will need oxygen as an outpatient as she has hypoxia. We will set her up for oxygen as an outpatient. Physical Exam Narrative: EXAM NARRATIVE: General: Alert and oriented x3 Cardiac: Irregularly irregular rhythm with regular rate. Stable grade 2/6 systolic murmur noted Lungs: Mild crackles in the bilateral bases without wheezes or rhonchi. Abdomen: No significant tenderness. No hepatosplenomegaly. Extremities: No edema noted in the bilateral lower extremities. Discharge Data Data Completed and Pending: Completed Studies During Hospitalization Category Date Time Status XR chest 1V dio ble [id number] Stat Exams 08/28/19 22:43 Completed Pending at discharge Category Date Time Status Complete Blood Co unt w/Auto AM LABS Lab 08/31/19 04:00 Ordered Complete Blood Co unt w/Auto AM LABS Lab 09/01/19 04:00 Ordered Comprehensive Met abolic Panel AM LA BS Lab 08/31/19 04:00 Ordered Comprehensive Met abolic Panel AM LA BS Lab 09/01/19 04:00 Ordered Magnesium AM LABS Lab 08/31/19 04:00 Ordered Magnesium AM LABS Lab 09/01/19 04:00 Ordered Phosphorus AM LAB S Lab 08/31/19 04:00 Ordered Phosphorus AM LAB S Lab 09/01/19 04:00 Ordered Labs from last 24 hours 08/30/19 08/30/19 08/30/19 11:36 06:15 03:30 WBC RBC Hgb Hct MCV MCH MCHC RDW Plt Count MPV Neut % (Auto) Lymph % (Auto) [place] % (Auto) Eos % (Auto) Baso % (Auto) Neut # (Auto) Lymph # (Auto) [place] # (Auto) Eos # (Auto) Baso # (Auto) Nucleated RBC % (a uto) Nucleated RBCs # Sodium Potassium Chloride Carbon Dioxide Anion Gap BUN Creatinine Glucose POC Glucose 199 178 Calculated Osmolal ity Calcium Phosphorus Magnesium Total Bilirubin AST ALT Alkaline Phosphata se C-React Prot High Sens 0.680 H NT-Pro-B Natriuret Pep 4658 H Total Protein Albumin Globulin 08/30/19 08/30/19 08/29/19 03:30 03:30 20:38 WBC 9.2 RBC 3.10 L Hgb 9.5 L Hct 31.6 L MCV 101.9 H MCH 30.6 MCHC 30.1 RDW 19.5 H Plt Count 349 MPV 11.8 H Neut % (Auto) 49.4 Lymph % (Auto) 33.6 [place] % (Auto) 10.8 Eos % (Auto) 5.0 Baso % (Auto) 0.9 Neut # (Auto) 4.5 Lymph # (Auto) 3.1 [place] # (Auto) 1.0 H Eos # (Auto) 0.5 Baso # (Auto) 0.1 Nucleated RBC % (a uto) 0.2 Nucleated RBCs # 0.0 Sodium 134 L Potassium 4.5 Chloride 102 Carbon Dioxide 19 L Anion Gap 17.5 BUN 35 H Creatinine 1.4 H Glucose 152 H POC Glucose 177 Calculated Osmolal ity 278 L Calcium 9.2 Phosphorus 3.3 Magnesium 2.1 Total Bilirubin 0.9 AST 35 H ALT 21 Alkaline Phosphata se 104 C-React Prot High Sens NT-Pro-B Natriuret Pep Total Protein 6.7 Albumin 3.3 L Globulin 3.4 08/29/19 17:16 WBC RBC Hgb Hct MCV MCH MCHC RDW Plt Count MPV Neut % (Auto) Lymph % (Auto) [place] % (Auto) Eos % (Auto) Baso % (Auto) Neut # (Auto) Lymph # (Auto) [place] # (Auto) Eos # (Auto) Baso # (Auto) Nucleated RBC % (a uto) Nucleated RBCs # Sodium Potassium Chloride Carbon Dioxide Anion Gap BUN Creatinine Glucose POC Glucose 139 Calculated Osmolal ity Calcium Phosphorus Magnesium Total Bilirubin AST ALT Alkaline Phosphata se C-React Prot High Sens NT-Pro-B Natriuret Pep Total Protein Albumin Globulin Vitals: Last Vital Signs Temp 97.6 F 08/30/19 15:30 Pulse 73 08/30/19 15:30 Resp 18 08/30/19 15:30 BP 103/67 08/30/19 15:30 Pulse Ox 100 08/30/19 15:30 Discharge Plan Discharge Patient Disposition: Home, Self-Care Condition: Stable Prescriptions: Continued atorvastatin 40 mg tablet 40 mg PO DAILY RF: 0 hydralazine 25 mg tablet See Rx Instructions .ROUTE .COMPLEX PRN (Reason: Blood Pressure) RF: 0 lorazepam 0.5 mg tablet 0.5 mg PO TID RF: 0 nitroglycerin [Nitro-Time] 9 mg capsule, extended release 9 mg PO BID RF: 0 levothyroxine 50 mcg tablet See Rx Instructions .ROUTE .COMPLEX RF: 0 pantoprazole 40 mg tablet,delayed release (DR/EC) 40 mg PO DAILY RF: 0 ferrous sulfate 325 mg (65 mg iron) tablet 325 mg PO DAILY RF: 0 metoprolol tartrate 50 mg tablet 50 mg PO BID RF: 0 escitalopram oxalate 10 mg tablet 10 mg PO DAILY RF: 0 Breo Ellipta 100-25 mcg/dose blister with device 1 inh INHALATION DAILY RF: 0 furosemide 40 mg Tablet 40 mg PO PRN Qty: 0 RF: 0 potassium chloride 10 mEq tablet extended release 10 meq PO DAILY Qty: 0 RF: 0 glipizide 2.5 mg Tablet Extended Release 24hr 2.5 mg PO DAILY RF: 0 losartan 100 mg Tablet 100 mg PO DAILY RF: 0 Eliquis 2.5 mg Tablet 2.5 mg PO BID RF: 0 DILT-XR 180 mg Capsule,Ext.Rel 24h Degradable 180 mg PO Q24H Qty: 30 RF: 3 Discharge Orders: Discharge Order (Routine); Ordered 08/30/19 Ordered By: Diallo Tracy Other Ambulatory Orders: DME: Oxygen (Order) Location: None Selected Ordered By: Diallo Tracy Referrals: Jose G Mendiola MD [Referring] - 2 weeks Diallo Tracy MD [Primary Care Provider] - 1 week (please call for appointment ) Discharge Diet: Cardiac Discharge Activity: Increase activity as tolerated Patient Instructions: Type 2 Diabetes, Myocardial Infarction (DC), Heart Failure (DC), Acute Kidney Injury (DC), CHF Stoplight Discharge Date/Time: 08/30/19 19:25 Discharge Attestations Time Spent in Discharge Care*: greater than 30 min Quality Metrics Clinical Quality Measures During this hospital stay, did patient experience: None Coding Level of Care Code Acute Biology Specialist for Chg Fwd Diagnoses Atrial fibrillation with RVR I48.91 Acute kidney injury superimposed on CKD N17.9; N18.9 NSTEMI (non-ST elevated myocardial infarction) I21.4 CAD (coronary artery disease) I25.10 HTN, goal below 130/80 I10 HLD (hyperlipidemia) E78.5 Chronic anemia D64.9 Diastolic CHF I50.30 Type 2 diabetes mellitus E11.9 Hypoxia R09.02
[2019-08-30 16:52] LABS: Glucose Point of Care 149 mg/dL (70-110)
== END 2019-08-30 19:25 | disposition home or self-care (01) ==
LOC: ER 22:55 → MEDSURG 08-29 00:47
PROVIDERS: Admitting Provider Family Medicine; Emergency Provider Emergency Medicine; Family Provider Family Medicine; PCP Family Medicine; Visit Provider Internal Medicine
DX: I48.91 Unspecified atrial fibrillation (principal); N17.9 Acute kidney failure, unspecified; I21.9 Acute myocardial infarction, unspecified; I25.10 Atherosclerotic heart disease of native coronary artery without angina pectoris; Z95.1 Presence of aortocoronary bypass graft; E78.5 Hyperlipidemia, unspecified; D64.9 Anemia, unspecified; I11.0 Hypertensive heart disease with heart failure; I50.30 Unspecified diastolic (congestive) heart failure; E11.9 Type 2 diabetes mellitus without complications; Z95.5 Presence of coronary angioplasty implant and graft; Z82.49 Family history of ischemic heart disease and other diseases of the circulatory system; Z79.01 Long term (current) use of anticoagulants
CPT/HCPCS: 12345; 36415; 36416; 71045; 80053; 80061; 81003; 82728; 82962; 83036; 83540; 83550; 83735; 83880; 84100; 84443; 84484; 85025; 85045; 85610; 85730; 86141; 93005; 94664; 94762; 96361; 96365; 96366; 96372; 96374; 96375; 96376; 99283; 99291; A9270; G0378; J1815; J1940; J2405; J3490; J7040

== ENCOUNTER 2020-02-28 12:09 | Outpatient (CLI) | payer MEDICARE, SELFPAY ==
--- NOTE | 2020-02-28 12:20 | XRR_ITS ---
PROCEDURE INFORMATION: Exam: XR Chest, 2 Views Exam date and time: 02/28/2020 12:38 PM Age: 84 years old Clinical indication: Shortness of breath; Prior surgery; Surgery type: Bypass; Additional info: SOB x 1 year TECHNIQUE: Imaging protocol: XR of the chest Views: 2 views. COMPARISON: CR XR chest 1V portable [id number] 08/28/2019 10:53 PM FINDINGS: Lungs: There is chronic subsegmental atelectasis in the right base. Otherwise the lung cisse are clear. Pleural space: Unremarkable. No pleural effusion. No pneumothorax. Heart/Mediastinum: The cardiac silhouette is enlarged but unchanged. The patient has undergone cardiovascular surgery with a mid sternotomy. Bones/joints: Unremarkable. XR/XR chest 2V* [id number] IMPRESSION: 1. Stable cardiac enlargement. 2. Stable subsegmental right basilar atelectasis.
== END 2020-02-28 12:10 | disposition home or self-care (01) ==
LOC: RAD 12:18
PROVIDERS: PCP Family Medicine; Visit Provider Family Medicine
DX: R06.02 Shortness of breath (principal); I51.7 Cardiomegaly; J98.11 Atelectasis
CPT/HCPCS: 71046

== ENCOUNTER 2020-12-12 13:37 | Outpatient (CLI) | payer MEDICARE, SELFPAY ==
--- NOTE | 2020-12-12 13:51 | XR_ITS ---
WS: [id number] Chest 2 views, 12/12/2020 Clinical Data: COUGH Comparison: PA and lateral chest, 02/28/2020. Findings: No nodules, masses or effusions are seen. The heart is enlarged. The pulmonary vascularity is not increased. No pneumonia or pneumothorax is seen. The aortic arch shows calcification and tortu osity. Midline sternotomy sutures are seen. XR/XR chest 2V* [id number] Impression: Cardiomegaly and atherosclerosis.
== END 2020-12-12 13:38 | disposition home or self-care (01) ==
PROVIDERS: PCP Family Medicine; Visit Provider Family Medicine
DX: R05 Cough (principal); I51.7 Cardiomegaly; I70.90 Unspecified atherosclerosis
CPT/HCPCS: 71046

== ENCOUNTER 2021-02-26 08:11 | Observation (INO) | payer MEDICARE, SELFPAY ==
[2021-02-26] VITALS (52 sets, daily range): BP systolic 79–138; BP diastolic 46–82; PULSE 48–133; RESP 14–31; TEMP 36.2–36.3; O2SAT 90–100; BMI 22.6
--- NOTE | 2021-02-26 08:34 | ED_ITS ---
HPI - Chest Pain General: Chief Complaint: Chest Pain Stated Complaint: CHEST PAIN Time Seen by Provider: 02/26/21 08:13 History of Present Illness: HPI narrative: 85-year-old female presents emergency room complaining of chest tightness and discomfort rapid heart rate discomfort rating to her neck and arms began around 3 AM this morning. She was previously told she needed to have a pacemaker but has declined. Additionally she has a family member who she lives with in the household who was recently positive for Covid. She has not previously had Covid but she is vaccinated. She has had myalgias subjective fever and a few days ago prior to this starting she had some diarrhea. She has also noticed a nonproductive cough. She has a known history of atrial fibrillation with rapid ventricular spots she is on Eliquis and diltiazem and metoprolol. She did take all of her medications today. She denies any recent change in medications or forgetting running out of any of her medications. Additionally she is diabetic and has a known history of coronary disease with previous coronary bypass graft. Patient is chronically on oxygen 2 to 3 L by nasal cannula. MD complaint: chest discomfort Pertinent past history: coronary artery disease and CABG Onset (ago): hour(s) Timing of current episode: constant Prior episodes: Yes Onset: during rest Pain location: left chest Pain radiation: right arm, left arm and neck Quality: aching and heaviness Relieving factors: rest Exacerbating factors: exertion Context: recent illness (Possible Covid) Associated symptoms: Reports dyspnea; Deny abdominal pain, fever(s), nausea or vomiting Review of Systems Const: Denies: fever(s), chills, body aches, change in appetite, fatigue or malaise ENMT: Denies: throat pain, ear or mastoid pain, nasal discharge or nasal congestion Card: Denies: chest pain, edema, dyspnea on exertion or orthopnea Resp: Reports: dyspnea and non-productive cough; Denies: productive cough GI: Denies: abdominal pain, nausea, vomiting, hematemesis, coffee ground emesis, diarrhea, constipation, bloating, hematochezia or melena : Denies: flank pain, difficulty voiding, dysuria, urinary frequency or urinary urgency Skin/Breast: Denies: rash or pruritus PFS ED PFSH: Medical History (Updated 02/27/21 @ 06:20 by Grzegorz Marte DO) Asthma Atrial fibrillation and flutter CAD (coronary artery disease) Depression with anxiety Diastolic heart failure GERD (gastroesophageal reflux disease) Hypertension Hypothyroidism Type 2 diabetes mellitus Surgical History History of coronary artery bypass graft History of heart artery stent Family History (Updated 02/26/21 @ 12:24 by Nicolas Tejeda MD) Other CAD (coronary artery disease) Cancer Social History Smoking and tobacco status: never smoked Alcohol intake: never Lives independently: Yes Household members: spouse Marital status: Current occupational status: retired History of recent travel: No Current gender identity: Female Physical Exam Const: COMMON NORMALS: no acute distress GENERAL APPEARANCE: cooperative and comfortable ORIENTATION/CONSCIOUSNESS: Yes awake, Yes oriented to person, Yes oriented to place and Yes oriented to time HENMT: COMMON NORMALS: normocephalic, atraumatic and hearing grossly normal bilaterally HEAD & SCALP: normocephalic and atraumatic Resp: COMMON NORMALS: normal respiratory effort, No retractions, No use of accessory muscles and clear to auscultation bilaterally AUSCULTATION: clear to auscultation bilaterally Cardio: RATE: tachycardic RHYTHM: abnormal rhythm irregularly irregular GI: COMMON NORMALS: Soft to palpation and No hepatosplenomegaly present AUSCULTATION: Yes normoactive bowel sounds PALPATION: Yes Soft to palpation, No Tenderness to palpation present (GI), No Guarding due to palpation present (GI) and Yes No hepatosplenomegaly present Extremity: COMMON NORMALS: normal to inspection, capillary refill normal, no clubbing, cyanosis or edema, no calf tenderness and no pedal edema Neuro: SENSORIUM/ORIENTATION: Yes oriented to person, Yes oriented to place and Yes oriented to time Skin: COMMON NORMALS: no rashes or lesions noted GENERAL SKIN EXAM: no rashes or lesions noted Course Vital Signs: Vital signs: Vital Signs Temperature 97.4 F L 02/26/21 19:25 Pulse Rate 78 02/27/21 05:05 Respiratory Rate 21 H 02/27/21 05:05 Blood Pressure 111/72 02/27/21 05:05 Pulse Oximetry 94 02/27/21 05:05 MDM - Chest Pain MDM Narrative: Medical decision making narrative: Labs and imaging reviewed as found in the chart. EKGs reviewed as well. Patient presents in A. fib with RVR. She also has some symptoms suggestive of Covid albeit rather mild. This is likely because of her previous vaccinations. She is requiring Cardizem to maintain her rate control. Discussed with hospitalist will admit orders are written. Lab Data: Labs: Lab Results 02/26/21 02/26/21 02/26/21 08:30 08:30 08:30 WBC 8.9 10^3/uL 10^3/ uL (4.0-10.0) RBC 4.39 10^6/uL 10^6 /uL (4.1-5.3) Hgb 14.2 g/dL g/dL (11.5-15.3) Hct 42.3 % % (37.0-47.0) MCV 96.4 fl fl (81-99) MCH 32.3 pg pg (28.0-34.0) MCHC 33.6 g/dL g/dL (30.0-36.0) RDW 14.1 % % (12.1-15.1) Plt Count 271 10^3/cmm 10^3 /cmm (130-400) MPV 12.1 fL H fL (7.4-10.4) Neut % (Auto) 60.4 % % Lymph % (Auto) 28.5 % % [place] % (Auto) 7.2 % % Eos % (Auto) 3.0 % % Baso % (Auto) 0.6 % % Neut # (Auto) 5.38 10^3/uL 10^3 /uL (1.8-7.7) Lymph # (Auto) 2.5 10^3/uL 10^3/ uL (0.8-4.8) [place] # (Auto) 0.6 10^3/uL 10^3/ uL (0.2-0.9) Eos # (Auto) 0.3 10^3/uL 10^3/ uL (0.0-0.8) Baso # (Auto) 0.1 10^3/uL 10^3/ uL (0.0-0.1) Nucleated RBC % (a uto) 0 % % Nucleated RBCs # 0.0 /100WBC /100W BC Sodium 136 mmol/L mmol/L (136-145) Potassium 4.5 mmol/L mmol/L (3.5-5.1) Chloride 97 mmol/L L mmol/ L (98-107) Carbon Dioxide 25 mmol/L mmol/L (22-29) Anion Gap 18.5 (5-19) BUN 35 mg/dL H mg/dL (8-23) Creatinine 1.7 mg/dL H mg/dL (0.5-0.9) GFR Calculation Not Reportable Glucose 208 mg/dL H mg/dL (65-115) Calculated Osmolal ity 296 mOsm/kg H mOs m/kg (285-295) Calcium 9.9 mg/dL mg/dL (8.5-10.5) Magnesium Total Bilirubin 0.7 mg/dL mg/dL (0.15-1.2) AST 19 U/L U/L (0-32) ALT 10 U/L U/L (0-33) Alkaline Phosphata se 80 IU/L IU/L (35-105) Troponin T Baselin e 24 ng/L H ng/L (0-10) Troponin T 120 Min ruslan Delta Troponin T NT-Pro-B Natriuret Pep 9165 pg/mL H pg/m L (0-450) Total Protein 7.4 g/dL g/dL (6.6-8.7) Albumin 3.7 g/dL g/dL (3.5-5.2) Globulin 3.7 g/dL g/dL (1.3-4.6) TSH SARS-CoV-2 Ag (Rap id) 02/26/21 02/26/21 02/26/21 09:37 10:45 10:45 WBC RBC Hgb Hct MCV MCH MCHC RDW Plt Count MPV Neut % (Auto) Lymph % (Auto) [place] % (Auto) Eos % (Auto) Baso % (Auto) Neut # (Auto) Lymph # (Auto) [place] # (Auto) Eos # (Auto) Baso # (Auto) Nucleated RBC % (a uto) Nucleated RBCs # Sodium Potassium Chloride Carbon Dioxide Anion Gap BUN Creatinine GFR Calculation Glucose Calculated Osmolal ity Calcium Magnesium 2.1 mg/dL mg/dL (1.7-2.3) Total Bilirubin AST ALT Alkaline Phosphata se Troponin T Baselin e Troponin T 120 Min ruslan 18.91 ng/L H ng/L (0-10) Delta Troponin T -5.09 ABS# L ABS# (0-10) NT-Pro-B Natriuret Pep Total Protein Albumin Globulin TSH 2.89 uIU/mL uIU/m L (0.27-4.20) SARS-CoV-2 Ag (Rap id) Negative (Negative) Discharge Plan Discharge Patient Disposition: Admitted As Inpatient Admit Provider: Nicolas Tejeda Clinical Impression: Atrial fibrillation and flutter, Type 2 diabetes mellitus, Clinical diagnosis of COVID-19 Condition: Stable Coding Level of Care Code ED Vending Machine Servicer for Chg Fwd Exam Detailed
[2021-02-26 08:55] LABS: Basophils # 0.1 10^3/uL (0.0-0.1); Basophils % 0.6 %; Eosinophils # 0.3 10^3/uL (0.0-0.8); Hematocrit 42.3 % (37.0-47.0); Hemoglobin 14.2 g/dL (11.5-15.3); Lymphocytes # 2.5 10^3/uL (0.8-4.8); Lymphocytes % 28.5 %; Mean Corpuscular HGB Conc 33.6 g/dL (30.0-36.0); Mean Corpuscular Hemoglobin 32.3 pg (28.0-34.0); Mean Corpuscular Volume 96.4 fl (81-99); Mean Platelet Volume 12.1 fL (7.4-10.4); Monocytes # 0.6 10^3/uL (0.2-0.9); Monocytes % 7.2 %; Neutrophils # 5.38 10^3/uL (1.8-7.7); Neutrophils % 60.4 %; Nucleated Red Blood Cells % 0 %; Platelet Count 271 10^3/cmm (130-400); Red Blood Count 4.39 10^6/uL (4.1-5.3); Red Cell Distribution Width 14.1 % (12.1-15.1); White Blood Count 8.9 10^3/uL (4.0-10.0)
[2021-02-26 09:13] LABS: Troponin(5th) Baseline 24 ng/L (0-10)
[2021-02-26 09:23] LABS: Alanine Aminotransferase 10 U/L (0-33); Albumin Level 3.7 g/dL (3.5-5.2); Alkaline Phosphatase 80 IU/L (35-105); Anion Gap 18.5 (5-19); Aspartate Amino Transferase 19 U/L (0-32); Blood Urea Nitrogen 35 mg/dL (8-23); Calcium 9.9 mg/dL (8.5-10.5); Carbon Dioxide 25 mmol/L (22-29); Chloride 97 mmol/L (98-107); Globulin 3.7 g/dL (1.3-4.6); Glucose 208 mg/dL (65-115); NT Pro B Type Natriuretic Pept 9165 pg/mL (0-450); Osmolality Calculated 296 mOsm/kg (285-295); Potassium 4.5 mmol/L (3.5-5.1); Sodium 136 mmol/L (136-145); Total Bilirubin 0.7 mg/dL (0.15-1.2); Total Protein 7.4 g/dL (6.6-8.7)
--- NOTE | 2021-02-26 10:14 | ECG_ITS ---
[facility] Test Date: 2021-02-26 Pat Name: Lilia Haynes Department: Room: Gender: Female Roving Hand: : 1935 Requested By: Diallo Zapien Order Number: [id number] Meng MD: CLEM RUIZ Measurements Intervals [place] Rate: 71 P: IA: QRS: -56 QRSD: 158 T: 126 QT: 439 QTc: 480 Interpretive Statements ATRIAL FLUTTER/TACHYCARDIA INTRAVENTRICULAR CONDUCTION DELAY [130+ ms QRS DURATION] Compared to ECG 02/26/2021 08:21:41 Atrial fibrillation no longer present Left-axis deviation no longer present Electronically Signed On 02-26-2021 22:57:47 CDT by CLEM RUIZ [email or web address] Internet & Voiceselect medical [id number]
[2021-02-26 10:32] LABS: SARS Covid-2 Antigen Negative (Negative)
--- NOTE | 2021-02-26 11:08 | XRR_ITS ---
PROCEDURE INFORMATION: Exam: XR Chest Exam date and time: 02/26/2021 11:08 AM Age: 85 years old Clinical indication: Pain; Cough and dyspnea; Angina pectoris; Prior surgery; Surgery type: Open heart; Additional info: Dyspnea/cough TECHNIQUE: Imaging protocol: XR of the chest. Views: 1 view. COMPARISON: CR XR chest 2V* [id number] 12/12/2020 2:02 PM FINDINGS: Lungs: There is chronic fibrosis or atelectasis in the right base. No acute pulmonary infiltrates are seen. Pleural spaces: Unremarkable. No pleural effusion. No pneumothorax. Heart/Mediastinum: Cardiac silhouette is enlarged but unchanged. There is calcification of the aortic arch. Bones/joints: Unremarkable. XR/XR chest 1V portable [id number] IMPRESSION: No acute abnormalities are seen in the chest. Radiation Dose CTDIVOL = (mGy): DLP = (mGy-cm)
[2021-02-26 11:25] LABS: Troponin 5 2HR 18.91 ng/L (0-10)
[2021-02-26 11:26] LABS: Troponin 5 2HR Delta -5.09 ABS# (0-10)
--- NOTE | 2021-02-26 12:17 | USCV_ITS ---
Lilia Haynes Age: 85 Gender: F : 1935 Exam Date: 02/26/2021 13:56 Ordering Phys: Nicolas Tejeda MD Technologist: Exam Location: [facility] [place] Indication: chf BP: 117 / 64 HR: 71 Rhythm: Sinus Technical Quality: Adequate MEASUREMENTS (Male / Female) Normal Values 2D ECHO LV Diastolic Diameter PLAX 4.0 cm 4.2 - 5.9 / 3.9 - 5.3 cm LV Systolic Diameter PLAX 2.7 cm IVS Diastolic Thickness 1.3 cm 0.6 - 1.0 / 0.6 - 0.9 cm IVS Systolic Thickness 1.4 cm LVPW Diastolic Thickness 1.5 cm 0.6 - 1.0 / 0.6 - 0.9 cm LVPW Systolic Thickness 1.6 cm LVOT Diameter 2.0 cm LV Ejection Fraction MOD 2C 62.5 % LV Ejection Fraction 2C AL 60.5 % LA Diameter 2.8 cm LA Width 4.7 cm LA Height 6.5 cm RA Width 5.6 cm RA Height 5.4 cm Aorta at Sinotubular Diameter 2.2 cm DOPPLER AV Peak Velocity 209.0 cm/s LVOT Peak Velocity 84.0 cm/s AV Area Cont Eq vti 1.4 cm squared AV Area Cont Eq pk 1.3 cm squared MV Area PHT 5.0 cm squared Mitral E to A Ratio 4.3 MV E' Velocity 61.5 cm/s Mitral E to MV E' Ratio 17.8 Mitral E to LV E' Lateral Ratio 13.1 Mitral E to LV E' Septal Ratio 27.7 TR Peak Velocity 275.0 cm/s TR Peak Gradient 30.3 mmHg TV Peak E Velocity 71.0 cm/s Right Atrial Pressure 3.0 mmHg Pulmonary Artery Systolic Pressu 33.3 mmHg FINDINGS Left Ventricle Moderately increased left ventricular cavity size. Moderately decreased left ventricular systolic function. Left ventricular ejection fraction is estimated at 40 %. There appeared to be septal anterior and apical wall akinesis, there appeared to be septal bounce which could be secondary to interventricular conduction delay or postoperative state. Right Ventricle The right ventricle is normal in size and function. Right Atrium Moderately increased right atrial size. Left Atrium Severely increased left atrial size. Mitral Valve Severely thickened mitral valve. Severe mitral annular calcification. No mitral valve stenosis. Severe mitral valve regurgitation. Aortic Valve Severe aortic valve calcification. Moderate aortic valve stenosis, mean gradient 7.5 mmHg, MEGHAN 1.4 cm2. Moderate aortic valve regurgitation. Tricuspid Valve Severe tricuspid valve regurgitation. Pulmonic Valve Structurally normal pulmonic valve without significant stenosis. There is no pulmonic regurgitation. Pericardium Normal pericardium without effusion. Aorta Normal ascending aorta dimension. CONCLUSIONS 1-Moderately increased left ventricular cavity size. Moderately decreased left ventricular systolic function. Left ventricular ejection fraction is estimated at 40 %. There appeared to be septal anterior and apical wall akinesis, there appeared to be septal bounce which could be secondary to interventricular conduction delay or postoperative state. 2-Severely increased left atrial size. 3-Moderately increased right atrial size. 4-Severely thickened mitral valve. Severe mitral annular calcification. No mitral valve stenosis. Severe mitral valve regurgitation. 5-Severe aortic valve calcification. Moderate aortic valve stenosis, mean gradient 7.5 mmHg, MEGHAN 1.4 cm2. Moderate aortic valve regurgitation. 6-Severe tricuspid valve regurgitation. 7-Right atrial pressure is around 5 mm of mercury. 8-When compared to the prior echocardiogram dated July 26, 2019 there is worsening of left ventricular ejection fraction from normal 55% to moderately reduced 40% now' there appeared to be new anterior septal wall motion abnormality. There appeared to be worsening of aortic valve stenosis with aortic valve area of 1.4 cm squared, there is worsening of mitral and tricuspid valve regurgitation from moderate to severe now. There is severely increased left atrial size which was moderately increased in the past. Loli Kilgore MD (Electronically Signed) Final Date: 26 February 2021 19:22 S
--- NOTE | 2021-02-26 12:18 | PM.HP ---
Providers/Chief Complaint Primary Care Provider: Diallo Tracy MD Chief Complaint: CHEST PAIN History of Present Illness Lilia Haynes is a 85 year old female who reports she has felt very tired for at least 1 week. She is short of breath with any exertion. She has had a persistent cough. Daughter recently had Covid and she was worried she might have this but has had no documented fevers. She has had a little bit of nausea. Today she had some chest discomfort, and arm discomfort that felt like pressure starting around 3 AM. She reports that currently she has no discomfort at all. She denies palpitations, but admits to a past history of atrial fibrillation. She reports she is taking all of her medication as prescribed, and did take her medication this morning. She chronically uses 2 to 3 L per nasal cannula. She reports her hydroelectric station operator chief in [place], Dr. Mendiola, recommended a pacemaker at some point earlier this year but she refused secondary to risks involved. In the emergency department she presented with atrial fibrillation with rapid ventricular rate. She received diltiazem IV, and with improvement in heart rate chest discomfort went away. Review of Systems General: Reports: 10 or more systems reviewed and unremarkable except in HPI and below Const: Reports: body aches and fatigue; Denies: fever(s) or chills Eyes: Denies: change in vision ENMT: Denies: throat pain Card: Reports: chest pain and dyspnea on exertion Resp: Reports: dyspnea and non-productive cough GI: Reports: nausea; Denies: abdominal pain, vomiting or hematochezia : Denies: flank pain Skin/Breast: Denies: rash Neuro: Denies: headache(s) Psych: Denies: anxiety or depression Endo: Denies: polyuria Viet/Lymph: Denies: easy bruising All/Imm: Denies: urticaria Medications/Allergies Home Medications Medication Instructions Recorded Confirmed Last Taken Type Breo Ellipta 1 inh INHALATION DAILY 07/25/19 08/28/19 07/25/19 History atorvastatin 40 mg PO DAILY 07/25/19 08/28/19 07/25/19 History escitalopram oxalate 10 mg PO DAILY 07/25/19 08/28/19 07/25/19 History ferrous sulfate 325 mg PO DAILY 07/25/19 08/28/19 07/25/19 History hydralazine See Rx Instructions .ROUTE 07/25/19 08/28/19 Unknown History .COMPLEX PRN lorazepam 0.5 mg PO TID 07/25/19 08/28/19 07/25/19 History metoprolol tartrate 50 mg PO BID 07/25/19 08/28/19 07/25/19 History nitroglycerin [Nitro-Time] 9 mg PO BID 07/25/19 08/28/19 07/25/19 History pantoprazole 40 mg PO DAILY 07/25/19 08/28/19 07/25/19 History Eliquis 2.5 mg PO BID 08/28/19 08/28/19 Unknown History glipizide 2.5 mg PO DAILY 08/28/19 08/28/19 Unknown History Vitamin D3 1 cap PO BEDTIME 02/26/21 02/26/21 Unknown History calcium 1 tab PO DAILY 02/26/21 02/26/21 Unknown History diltiazem HCl 240 mg PO QAM 02/26/21 02/26/21 02/26/21 06:30 History furosemide 40 mg PO QAM 02/26/21 02/26/21 02/25/21 History isosorbide mononitrate 30 mg PO QAM 02/26/21 02/26/21 02/25/21 History levothyroxine [Euthyrox] 75 mcg PO QAM 02/26/21 02/26/21 02/26/21 06:00 History losartan 50 mg PO DAILY 02/26/21 02/26/21 02/26/21 06:30 History magnesium 1 tab PO DAILY 02/26/21 02/26/21 Unknown History potassium chloride 20 meq PO QAM 02/26/21 02/26/21 02/25/21 History Allergies Allergy/AdvReac Type Severity Reaction Status Date / Time aspirin Allergy ADR-Nausea Verified 02/26/21 12:37 codeine Allergy ADR-Nausea Verified 02/26/21 12:37 PFSH Acute PFSH: Medical History (Updated 02/26/21 @ 12:32 by Nicolas Tejeda MD) Asthma Atrial fibrillation and flutter CAD (coronary artery disease) Depression with anxiety GERD (gastroesophageal reflux disease) Hypertension Hypothyroidism Type 2 diabetes mellitus Surgical History History of coronary artery bypass graft History of heart artery stent Family History (Updated 02/26/21 @ 12:24 by Nicolas Tejeda MD) Other CAD (coronary artery disease) Cancer Social History Smoking and tobacco status: never smoked Alcohol intake: never Lives independently: Yes Household members: spouse Marital status: Current occupational status: retired History of recent travel: No Current gender identity: Female Vitals/I&O/Wt Last Vital Signs Temp 97.1 F L 02/26/21 08:13 Pulse 75 02/26/21 10:30 Resp 20 H 02/26/21 10:00 BP 99/58 02/26/21 10:00 Pulse Ox 100 02/26/21 10:30 Weight last 48 hrs Weight 56.245 kg Physical Exam Narrative: EXAM NARRATIVE: General exam is a white female, no distress, denying chest discomfort. She is on 2 L of oxygen. HEENT: Pupils equally round. Oropharynx clear. Neck is supple no lymphadenopathy or thyromegaly Cardiovascular irregular, irregular with a 2/6 systolic murmur. Lungs diminished breath sounds bilaterally but no crackles Abdomen is soft with positive bowel sounds. No obvious organomegaly exam is deferred Extremities no cyanosis clubbing or edema, cap brisk Skin no rash Neuro no obvious focal deficits Data : 02/26/21 08:30 02/26/21 08:30 Micro: Microbiology 02/26/21 10:45 Blood Culture - Preliminary Blood SPECIMEN COLLECTED 02/26/21 10:40 Blood Culture - Preliminary Blood SPECIMEN COLLECTED Other data: Rapid Covid is negative Calcium and LFTs are normal Troponin XX 4 at baseline with repeat of 19 BNP 9165 Albumin 3.7 Chest x-ray by my read postoperative heart with median sternotomy, calcified aorta, no obvious infiltrate EKG Initial EKG with atrial fibrillation with rapid ventricular rate, intraventricular conduction delay, left axis deviation. Rate of 132. Repeat EKG improved with rate of 70 Initial troponin 24 with repeat of 19 A&P Assessment and plan (1) Atrial fibrillation and flutter: Currently on a Cardizem drip She reports she took her Cardizem and metoprolol this morning We will request records from her hydroelectric station operator chief regarding concern for pacemaker and issues with atrial fibrillation in the past Check echocardiogram Check magnesium and TSH Cardiology consultation for medication adjustment considering this elderly patient with underlying coronary disease, who his hydroelectric station operator chief had been contemplating a pacemaker, whose previous EF had been low. Tentative plan is to reduce losartan to allow for more room of adjustment of rate controlling medications, continue same dose of Cardizem, increase metoprolol slightly. This may need to be amended depending upon records review from Dr. Mendiola. I am not for sure if patient has been tried on amiodarone before for rate control maintenance of rhythm. I do know that she has failed to maintain sinus rhythm after cardioversion several times. Continue Eliquis currently Status: Acute (2) Chest pain: Serial troponins Likely secondary to atrial fibrillation with rapid ventricular rate Status: Acute (3) Troponin level elevated: Appears to be type II elevation Status: Acute (4) Shortness of breath: Patient with history of Covid exposure Await Covid PCR Rapid Covid negative Patient with history of asthma, but no evidence of exacerbation. Status: Acute (5) Type 2 diabetes mellitus: Sliding scale insulin Status: Acute (6) CAD (coronary artery disease): Continue home meds including aspirin, metoprolol, nitrates, statin Status: Acute Additional A&P Information History of chronic systolic heart failure. Currently appears compensated. Chronic kidney disease. Creatinine 1.7 currently, and it appears her baseline is around 1.5. Hypertension. Hold losartan. Will likely adjust metoprolol and Cardizem for rate control Hypothyroidism. Check TSH Full code currently. Eliquis will suffice for DVT prophylaxis. Attestations Medical Necessity Statement*: Will need less than 2 midnight stay for evaluation and treatment of atrial fibrillation with rapid ventricular rate. Time Spent in Patient Care: Greater than 35 minutes Coding Level of Care Code Acute Rn Er for g Fwd Diagnoses Atrial fibrillation and flutter I48.91; I48.92 Chest pain R07.9 Troponin level elevated R77.8 Shortness of breath R06.02 Type 2 diabetes mellitus E11.9 CAD (coronary artery disease) I25.10
--- NOTE | 2021-02-26 12:37 | PC.PHAR ---
PT STATES SHE TAKES CARE OF HER OWN MEDICATIONS-PT STATES SHE TAKES LORAZEPAM 0.5MG QAM EXT MED HISTORY SHOWS LAST FILLED 02/01/21 10D/S FOR 0.5MG TID PRN-PT STATES SHE HAS HYDRALAZINE TO USE PRN DOESNT SHOW WHEN LAST FILLED ON EXT MED HISTORY-PT STATES SHE TAKES 50MG DAILY OF LOSARTAN EXT MED HISTORY SHOWS LAST FILLED ON 02/22/21 90D/S 50MG BID-NOTES ARE MADE IN THE PHARMACY COMMENTS
[2021-02-26 13:02] LABS: Magnesium 2.1 mg/dL (1.7-2.3); Thyroid Stimulating Hormone 2.89 uIU/mL (0.27-4.20)
--- NOTE | 2021-02-26 14:14 | ECG_ITS ---
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: : 1935 Requested By: Diallo Zapien Order Number: [id number] Meng MD: CLEM RUIZ Measurements Intervals [place] Rate: 132 P: MS: QRS: -50 QRSD: 150 T: 118 QT: 346 QTc: 514 Interpretive Statements ATRIAL FIBRILLATION WITH RAPID VENTRICULAR RESPONSE LEFT AXIS DEVIATION [QRS AXIS < -30] INTRAVENTRICULAR CONDUCTION DELAY [130+ ms QRS DURATION] Compared to ECG 08/29/2019 04:28:09 Intraventricular conduction delay now present Left bundle-branch block no longer present Electronically Signed On 02-26-2021 22:58:12 CDT by CLEM RUIZ [email or web address]
--- NOTE | 2021-02-26 14:49 | PC.NURSE ---
Patient report given from CHANCE Ybarra via phone. Patient received by stretcher from ER. Patient AXO and vitals signs WNL.
[2021-02-26 15:54] LABS: Troponin 5 6HR 19.94 ng/L (0-10); Troponin 5 6HR Delta -4.06 ng/L (0-12)
[2021-02-26] MEDS: acetaminophen 325 mg Tablet 650 MG PO (16:55)
--- NOTE | 2021-02-26 16:59 | PC.NURSE ---
SCDs Applied SCDs bilaterally to patient. Patient stated after wearing that she was not going to be able to handle it. Patient is also on Eliquis.
--- NOTE | 2021-02-26 17:11 | PM.CONSULT ---
Providers/Reason For Consult Consulting Physician/Specialty*: Cardiology Reason for Consult*: Atrial fibrillation with rapid ventricle response Attending Physician: Nicolas Tejeda MD Primary Care Provider: Diallo Tracy MD History of Present Illness History of Present Illness Please note that due to Covid precautions I have not examined patient personally history physical examination as per Dr. Nicolas Tejeda's note and nurse attending Ms. 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 She has COPD and dependent on 3 L of oxygen. It is not very clear if patient was taking her meds right or not. Her daughter was diagnosed with Covid. For the past few days she was feeling shortness of breath with chest congestion she was feeling very fatigued it is the reason she came to ER. She was noted to be in A. fib with RVR she was started on Cardizem drip and admitted to ICU with Covid precaution until rule out by pending test. Review of Systems General: Reports: 10 or more systems reviewed and unremarkable except in HPI and below Const: Reports: body aches and fatigue; Denies: fever(s), chills, change in appetite or malaise Eyes: Denies: change in vision ENMT: Denies: throat pain, ear or mastoid pain, nasal discharge or nasal congestion Card: Reports: chest pain and dyspnea on exertion; Denies: edema or orthopnea Resp: Reports: dyspnea and non-productive cough; Denies: productive cough GI: Reports: nausea; Denies: abdominal pain, vomiting, hematemesis, coffee ground emesis, diarrhea, constipation, bloating, hematochezia or melena : Denies: flank pain, difficulty voiding, dysuria, urinary frequency or urinary urgency Musc: Denies: joint warmth Skin/Breast: Denies: rash or pruritus Neuro: Denies: headache(s) Psych: Denies: anxiety or depression Endo: Denies: polyuria Viet/Lymph: Denies: easy bruising All/Imm: Denies: urticaria Meds/Allergies Home Medications and Allergies Home Medications Medication Instructions Recorded Confirmed Last Taken Type Breo Ellipta 1 inh INHALATION QAM 07/25/19 02/26/21 02/25/21 History atorvastatin 40 mg PO BEDTIME 07/25/19 02/26/21 02/25/21 History escitalopram oxalate 10 mg PO QPM 07/25/19 02/26/21 02/25/21 History ferrous sulfate 325 mg PO QAM 07/25/19 02/26/21 02/25/21 History lorazepam 0.5 mg PO QAM 07/25/19 02/26/21 02/25/21 History pantoprazole 40 mg PO BEDTIME 07/25/19 02/26/21 02/25/21 History Eliquis 2.5 mg PO BID 08/28/19 02/26/21 02/26/21 06:30 History glipizide 2.5 mg PO DAILY 08/28/19 02/26/21 02/25/21 History Euthyrox 75 mcg PO QAM 02/26/21 02/26/21 02/26/21 06:00 History Vitamin D3 1 cap PO BEDTIME 02/26/21 02/26/21 Unknown History calcium 1 tab PO DAILY 02/26/21 02/26/21 Unknown History diltiazem HCl 240 mg PO QAM 02/26/21 02/26/21 02/26/21 06:30 History furosemide 40 mg PO QAM 02/26/21 02/26/21 02/25/21 History isosorbide mononitrate 30 mg PO QAM 02/26/21 02/26/21 02/25/21 History magnesium 1 tab PO DAILY 02/26/21 02/26/21 Unknown History potassium chloride 20 meq PO QAM 02/26/21 02/26/21 02/25/21 History losartan 25 mg PO DAILY #15 tab 02/27/21 Unknown Rx metoprolol tartrate 75 mg PO BID@0900,2100 #180 tab 02/27/21 Unknown Rx Allergies Allergy/AdvReac Type Severity Reaction Status Date / Time aspirin Allergy ADR-Nausea Verified 02/26/21 12:37 codeine Allergy ADR-Nausea Verified 02/26/21 12:37 Current Medications Current Medications Generic Name Dose Route Start Last Admin Trade Name Freq PRN Reason Stop Dose Admin Acetaminophen 650 mg 02/26/21 14:46 02/26/21 16:55 Acetaminophen 325 Mg Tablet PO 650 mg Q6H PRN Administration Mild/Mod Pain Or Temp >/= 101 Diltiazem HCl 125 mg/ Sodium 125 mls @ 0 mls/hr 02/26/21 08:45 02/26/21 09:03 Chloride IV 5 mg/hr .Q0M NAE 5 mls/hr Administration Protocol Per Protocol PFSH Acute PFSH: Medical History (Updated 02/27/21 @ 06:20 by Grzegorz Marte DO) Asthma Atrial fibrillation and flutter CAD (coronary artery disease) Depression with anxiety Diastolic heart failure GERD (gastroesophageal reflux disease) Hypertension Hypothyroidism Type 2 diabetes mellitus Surgical History History of coronary artery bypass graft History of heart artery stent Family History (Updated 02/26/21 @ 12:24 by Nicolas Tejeda MD) Other CAD (coronary artery disease) Cancer Social History Smoking and tobacco status: never smoked Alcohol intake: never Lives independently: Yes Household members: spouse Marital status: Current occupational status: retired History of recent travel: No Current gender identity: Female Dietary Habits: Current diet type/program: regular Caffeine: Yes Caffeine intake frequency: carbonated beverages and tea Vitals/I&O/Wt Last Vital Signs Temp 97.1 F L 02/26/21 08:13 Pulse 80 02/26/21 16:00 Resp 22 H 02/26/21 16:00 BP 120/80 02/26/21 16:00 Pulse Ox 97 02/26/21 16:00 Weight last 48 hrs Weight 124 lb Physical Exam Narrative: EXAM NARRATIVE: Patient was not examined Data Micro: Micro: Microbiology 02/26/21 10:45 Blood Culture - Pr eliminary Blood SPECIMEN [facility] 02/26/21 10:40 Blood Culture - Pr eliminary Blood SPECIMEN [facility] A&P Assessment and plan (1) Atrial fibrillation and flutter: When I saw the patient she was already converted into sinus rhythm, we recommend switching to p.o. Cardizem 120 mg along with continuing p.o. metoprolol 75 mg twice a day. Continue anticoagulation Status: Acute (2) Troponin level elevated: Most likely type II and secondary to atrial fibrillation with rapid ventricle response Status: Acute (3) HTN, goal below 130/80: Well-controlled continue medicine Status: Acute (4) Shortness of breath: Possible due to COPD exacerbation Status: Acute (5) Diastolic heart failure: Appear to be well compensated rather overcompensated. Hold diuretics Status: Acute Consult Attestations Medical Necessity Statement: Patient require continuation hospitalization for above defined care. Coding Level of Care Code New Pt Acute Structured Cabling Technician for Amando Fwebonie Patient Type New History Expanded Problem Focused Exam Expanded Problem Focused Medical Decision Making Moderate Complexity Diagnoses Atrial fibrillation and flutter I48.91; I48.92 Troponin level elevated R77.8 HTN, goal below 130/80 I10 Shortness of breath R06.02 Diastolic heart failure I50.30
[2021-02-26 17:28] LABS: Glucose Point of Care 149 mg/dL (70-110)
[2021-02-26] MEDS: apixaban 5 mg Tablet 2.5 MG PO (17:43)
[2021-02-26] MEDS: escitalopram 10 mg Tablet PO (17:43)
[2021-02-26] MEDS: insulin lispro 100 unit/1 mL SUBCUT (17:43)
[2021-02-26] MEDS: dilTIAZem ER (24HR) 120 mg Capsule PO (18:42)
[2021-02-26 20:49] LABS: Glucose Point of Care 140 mg/dL (70-110)
[2021-02-26] MEDS: LORazepam 0.5 mg Tablet PO (21:09)
[2021-02-26] MEDS: pantoprazole DR 40 mg Tablet PO (21:09)
[2021-02-26] MEDS: metoprolol tartrate 25 mg Tablet 75 MG PO (21:09)
[2021-02-26] MEDS: atorvastatin 40 mg Tablet PO (21:10)
[2021-02-27] VITALS (73 sets, daily range): BP systolic 84–137; BP diastolic 43–82; PULSE 46–114; RESP 18–29; TEMP 36.3; O2SAT 92–99
[2021-02-27 05:28] LABS: Basophils # 0.1 10^3/uL (0.0-0.1); Basophils % 0.6 %; Eosinophils # 0.5 10^3/uL (0.0-0.8); Eosinophils % 6.7 %; Hematocrit 40.3 % (37.0-47.0); Hemoglobin 12.8 g/dL (11.5-15.3); Lymphocytes # 2.4 10^3/uL (0.8-4.8); Lymphocytes % 31.6 %; Mean Corpuscular HGB Conc 31.8 g/dL (30.0-36.0); Mean Corpuscular Hemoglobin 33.2 pg (28.0-34.0); Mean Corpuscular Volume 104.4 fl (81-99); Mean Platelet Volume 11.8 fL (7.4-10.4); Monocytes # 0.9 10^3/uL (0.2-0.9); Monocytes % 11.9 %; Neutrophils # 3.76 10^3/uL (1.8-7.7); Neutrophils % 48.7 %; Nucleated Red Blood Cells % 0 %; Platelet Count 256 10^3/cmm (130-400); Red Blood Count 3.86 10^6/uL (4.1-5.3); Red Cell Distribution Width 14.6 % (12.1-15.1); White Blood Count 7.7 10^3/uL (4.0-10.0)
[2021-02-27 06:22] LABS: Alanine Aminotransferase 10 U/L (0-33); Albumin Level 3.4 g/dL (3.5-5.2); Alkaline Phosphatase 72 IU/L (35-105); Aspartate Amino Transferase 20 U/L (0-32); Blood Urea Nitrogen 34 mg/dL (8-23); Calcium 9.5 mg/dL (8.5-10.5); Carbon Dioxide 21 mmol/L (22-29); Chloride 100 mmol/L (98-107); Globulin 3.6 g/dL (1.3-4.6); Glucose 110 mg/dL (65-115); Osmolality Calculated 288 mOsm/kg (285-295); Sodium 135 mmol/L (136-145); Total Bilirubin 0.7 mg/dL (0.15-1.2)
[2021-02-27] MEDS: potassium chloride ER 10 mEq Tablet 20 MEQ PO (06:47)
[2021-02-27] MEDS: FUROsemide 40 mg Tablet PO (06:47)
[2021-02-27] MEDS: dilTIAZem ER (24HR) 240 mg Capsule PO (06:47)
[2021-02-27] MEDS: levothyroxine 75 mcg Tablet PO (06:47)
[2021-02-27] MEDS: LORazepam 0.5 mg Tablet PO (06:47)
[2021-02-27] MEDS: isosorbide mononitrate ER 30 mg Tablet PO (06:47)
[2021-02-27 07:35] LABS: Glucose Point of Care 146 mg/dL (70-110)
[2021-02-27] MEDS: losartan 50 mg Tablet 25 MG PO (08:48)
[2021-02-27] MEDS: insulin lispro 100 unit/1 mL SUBCUT (08:49)
[2021-02-27] MEDS: apixaban 5 mg Tablet 2.5 MG PO (08:49)
[2021-02-27] MEDS: metoprolol tartrate 25 mg Tablet 75 MG PO (08:49)
--- NOTE | 2021-02-27 09:53 | PC.CHAP ---
Pastoral Care Encounter/Spiritual Assessment Type of Contact [] Declined preassembler and inspector visit [] Patient/Family/Request visit [] Outpatient visit [] Follow-up visit [] Physician referral [] Code/Alert [x] Routine visit [] Staff referral [] Actively dying [] Patient sleeping [] Family support [] [] Out of room [] Palliative care [] [x] Receiving care in room [] Pre-surgical visit [] Trauma [] Long length of stay [x] ICU visit [] Other: Relational/Emotional Strength [] Patient feels connected with others/family/visitors/staff [] Distress [] Loneliness/isolation [] Abandonment Spirituality of Patient [] Person of Cate [] Attends Alevism of their Cate [] Believes in Prayer [] Reads Bible or Sikhism materials [] There are Spiritual issues to be addressed Global Cto Interventions [x] Prayer [] Active listening [] Non-anxious presence [] Spiritual/emotional support [] Crisis/trauma care [] Spiritual counseling [] Bereavement support [] Provided bereavement packet [] Provided Bible/devotional materials [] Provided toy/stuffed animal, coloring book to patient or family member [] Provided Communion [] Anointing/Cushing [] Salvation [x] Completed spiritual assessment [] Other: Impact on Illness or Injury [] Angry [] Fearful [] Anxious [] Often cries [] Exhaustion [] Unable to work [] Unable to attend gnosticist [] Unable to walk/stand [] Unable to read [] Unable to drive [] Unable to eat/drink [] Unable to sleep [] Unable to be with family [] Patient intubated [] Other: Summary Time spent with patient
[2021-02-27 12:17] LABS: Glucose Point of Care 115 mg/dL (70-110)
--- NOTE | 2021-02-27 12:45 | P.DS_ITS ---
Discharge Providers Date of Admission: 02/26/21 11:46 Date of Discharge: February 27, 2021 Attending Provider at Admission: Nicolas Tejeda MD Attending Provider at Discharge: Nicolas Tejeda MD Primary Care Provider: Diallo Tracy MD Diagnoses at Discharge Discharge Diagnosis (1) Atrial fibrillation and flutter: Status: Acute (2) Troponin level elevated: Status: Acute (3) HTN, goal below 130/80: Status: Acute (4) Shortness of breath: Status: Acute (5) Diastolic heart failure: Status: Acute Reason for Visit Reason for Visit: CHEST PAIN Hospital Course Hospital Course Lilia is an 85-year-old white female who presented to the hospital with tiredness, cough, shortness of breath. She did have a positive sick contact with Kadmon, although she had been vaccinated. She was found to be in atrial fibrillation with rapid ventricular rate. Cardizem was initiated. Troponin was slightly high but no significant delta. Case was discussed with cardiology and they consulted as well and medication adjustments were made to increase her metoprolol slightly. ARB was decreased. With these changes she was able to come off the Cardizem drip and heart rate remained controlled. On February 27 with her doing well it was thought she could discharge home. Echocardiogram had also been done demonstrating an EF of 40%, severe mitral regurgitation, severe tricuspid regurgitation, and moderate aortic stenosis. This was similar to her previous echocardiograms done in [place]. On discharge I encouraged her to follow-up with her rubber washer in [place] in 1 to 2 weeks, and her primary care provider in 3 to 5 days. Of note, she had been told she needed a pacemaker in the past by her rubber washer, but she refused reporting she did not want any risk of complication. During this hospital stay she had no significant pauses. Thyroid testing was normal. Rapid Covid negative, PCR pending. Patient on 1 L of oxygen and normally uses 2 L chronically at home. Chest x-ray showed no evidence of pneumonia. Physical Exam Narrative: EXAM NARRATIVE: General exam no distress Neck is supple no lymphadenopathy or thyromegaly Cardiovascular irregular regular with 2/6 systolic murmur Lungs clear Abdomen is soft with positive bowel sounds Extremities no cyanosis clubbing or edema Discharge Data Data Completed and Pending: Completed Studies During Hospitalization Category Date Time Status XR chest 1V dio ble [id number] Stat Exams 02/26/21 11:08 Completed CV. echo complete * [id number] Routine Ultrasound 02/26/21 12:17 Completed Pending at discharge Category Date Time Status Blood Culture Sta t Lab 02/26/21 10:45 Results Coronavirus Test [facility] Arvind ne Lab 02/26/21 09:37 Received Labs from last 24 hours 02/27/21 02/27/21 02/27/21 12:10 07:23 04:32 WBC RBC Hgb Hct MCV MCH MCHC RDW Plt Count MPV Neut % (Auto) Lymph % (Auto) [place] % (Auto) Eos % (Auto) Baso % (Auto) Neut # (Auto) Lymph # (Auto) [place] # (Auto) Eos # (Auto) Baso # (Auto) Nucleated RBC % (a uto) Nucleated RBCs # Sodium 135 L Potassium 4.0 Chloride 100 Carbon Dioxide 21 L Anion Gap 18.0 BUN 34 H Creatinine 1.4 H GFR Calculation Not Reportable Glucose 110 POC Glucose 115 H 146 H Calculated Osmolal ity 288 Calcium 9.5 Magnesium Total Bilirubin 0.7 AST 20 ALT 10 Alkaline Phosphata se 72 Troponin T Hi Sens 6Hr Troponin T Hi Sens 6Hr Delta Total Protein 7.0 Albumin 3.4 L Globulin 3.6 TSH 02/27/21 02/26/21 02/26/21 04:32 20:46 17:22 WBC 7.7 RBC 3.86 L Hgb 12.8 Hct 40.3 MCV 104.4 H D MCH 33.2 MCHC 31.8 D RDW 14.6 Plt Count 256 MPV 11.8 H Neut % (Auto) 48.7 Lymph % (Auto) 31.6 [place] % (Auto) 11.9 Eos % (Auto) 6.7 Baso % (Auto) 0.6 Neut # (Auto) 3.76 Lymph # (Auto) 2.4 [place] # (Auto) 0.9 Eos # (Auto) 0.5 Baso # (Auto) 0.1 Nucleated RBC % (a uto) 0 Nucleated RBCs # 0.0 Sodium Potassium Chloride Carbon Dioxide Anion Gap BUN Creatinine GFR Calculation Glucose POC Glucose 140 H 149 H Calculated Osmolal ity Calcium Magnesium Total Bilirubin AST ALT Alkaline Phosphata se Troponin T Hi Sens 6Hr Troponin T Hi Sens 6Hr Delta Total Protein Albumin Globulin TSH 02/26/21 02/26/21 15:00 10:45 WBC RBC Hgb Hct MCV MCH MCHC RDW Plt Count MPV Neut % (Auto) Lymph % (Auto) [place] % (Auto) Eos % (Auto) Baso % (Auto) Neut # (Auto) Lymph # (Auto) [place] # (Auto) Eos # (Auto) Baso # (Auto) Nucleated RBC % (a uto) Nucleated RBCs # Sodium Potassium Chloride Carbon Dioxide Anion Gap BUN Creatinine GFR Calculation Glucose POC Glucose Calculated Osmolal ity Calcium Magnesium 2.1 Total Bilirubin AST ALT Alkaline Phosphata se Troponin T Hi Sens 6Hr 19.94 H Troponin T Hi Sens 6Hr Delta -4.06 L Total Protein Albumin Globulin TSH 2.89 Vitals: Last Vital Signs Temp 97.4 F L 02/26/21 19:25 Pulse 79 02/27/21 10:14 Resp 29 H 02/27/21 08:00 BP 107/62 02/27/21 08:48 Pulse Ox 96 02/27/21 10:14 Discharge Plan Discharge Patient Disposition: Home Condition: Stable Prescriptions: New metoprolol tartrate 25 mg Tablet 75 mg PO BID@0900,2100 Qty: 180 RF: 0 losartan 50 mg Tablet 25 mg PO DAILY Qty: 15 RF: 0 Continued atorvastatin 40 mg tablet 40 mg PO BEDTIME RF: 0 lorazepam 0.5 mg tablet 0.5 mg PO QAM RF: 0 pantoprazole 40 mg tablet,delayed release (DR/EC) 40 mg PO BEDTIME RF: 0 ferrous sulfate 325 mg (65 mg iron) tablet 325 mg PO QAM RF: 0 escitalopram oxalate 10 mg tablet 10 mg PO QPM RF: 0 Breo Ellipta 100-25 mcg/dose blister with device 1 inh INHALATION QAM RF: 0 glipizide 2.5 mg Tablet Extended Release 24hr 2.5 mg PO DAILY RF: 0 Eliquis 2.5 mg Tablet 2.5 mg PO BID RF: 0 diltiazem HCl 240 mg capsule,extended release 24hr 240 mg PO QAM RF: 0 isosorbide mononitrate 30 mg tablet extended release 24 hr 30 mg PO QAM RF: 0 Euthyrox 75 mcg tablet 75 mcg PO QAM RF: 0 Vitamin D3 1 cap PO BEDTIME RF: 0 calcium 1 tab PO DAILY RF: 0 magnesium 1 tab PO DAILY RF: 0 furosemide 40 mg tablet 40 mg PO QAM RF: 0 potassium chloride 10 mEq tablet extended release 20 meq PO QAM RF: 0 Discontinued hydralazine 25 mg tablet See Rx Instructions .ROUTE .COMPLEX PRN (Reason: Blood Pressure) RF: 0 nitroglycerin [Nitro-Time] 9 mg capsule, extended release 9 mg PO BID RF: 0 metoprolol tartrate 50 mg tablet 50 mg PO BID RF: 0 losartan 50 mg tablet 50 mg PO DAILY RF: 0 Discharge Orders: Discharge Order (Routine); Ordered 02/27/21 Ordered By: Nicolas Tejeda Referrals: Diallo Tracy MD [Primary Care Provider] - 4-7 days Discharge Diet: Usual diet Discharge Activity: Resume usual activity Patient Instructions: A-fib (Atrial Fibrillation) (DC), COPD (Chronic Obstructive Pulmonary Disease) (DC), COPD Stoplight, Opioid Safety Activity Restrictions/Additional Instructions: Take all medicine as prescribed Follow-up with your rubber washer in 1 to 2 weeks, your primary care provider 3 to 5 days. Resume home oxygen at 2 l Discharge Attestations Time Spent in Discharge Care*: greater than 30 min Quality Metrics Clinical Quality Measures During this hospital stay, did patient experience: None Coding Level of Care Code Acute Chg FW DC note Diagnoses Atrial fibrillation and flutter I48.91; I48.92 Troponin level elevated R77.8 HTN, goal below 130/80 I10 Shortness of breath R06.02 Diastolic heart failure I50.30
--- NOTE | 2021-02-27 14:37 | PC.NURSE ---
Discharge instructions given to patient, verbal understanding. Patient dressed, IV removed, placed home oxygen on, and patient wheeled to private vehicle. Patient's son, Fermin, driving. Fermin also given discharge instructions with verbal understanding. All belongings sent with patient. Covid PCR pending.
[2021-02-27 17:01] LABS: Coronavirus Test Green County Detected
--- NOTE | 2021-02-27 17:34 | PC.NURSE ---
Patient called and notified of positive COVID 19 results.
--- NOTE | 2021-02-27 18:24 | PC.NURSE ---
Notified Dr. Tejeda of positive covid results. Dr. Tejeda called patient's PCP Dr. Tracy. Dr. Tracy's office to arrange for covid infusion and will call patient tomorrow for appointment. This nurse called patient's daughter, Yee Haynes [phone], and notified her of positive results and arrangements made with Dr. Tracy's office. Verbal understanding.
--- NOTE | 2021-02-27 22:39 | PM.PN ---
Subjective Subjective: Interval history: Switch to p.o. Cardizem oral heart rate is under control. No more than 1 second few pauses noted in the night while asleep. Patient refused pacemaker placement Vitals/I&O/Wt Last Vital Signs Temp 97.4 F L 02/27/21 13:18 Pulse 76 02/27/21 13:18 Resp 26 H 02/27/21 13:18 BP 110/49 02/27/21 13:18 Pulse Ox 96 02/27/21 13:18 02/27/21 02/27/21 02/27/21 06:59 14:59 22:59 Intake Total 360 / 360 Output Total 200 / 200 Balance -200 / -200 360 / 360 Weight last 48 hrs Weight 124 lb Physical Exam Narrative: EXAM NARRATIVE: Patient was not examined Data : 02/27/21 04:32 02/27/21 04:32 Micro: Microbiology 02/26/21 10:45 Blood Culture - Preliminary Blood NEGATIVE TO DATE 02/26/21 10:40 Blood Culture - Preliminary Blood NEGATIVE TO DATE A&P Assessment and plan (1) Atrial fibrillation and flutter: Increase Cardizem to 240 mg mildly and keep metoprolol to 50 mg twice a day. Patient was offered permanent pacemaker placement which she refused. Status: Acute (2) Troponin level elevated: Most likely type II and secondary to atrial fibrillation with rapid ventricle response Status: Acute (3) HTN, goal below 130/80: Well-controlled continue medicine Status: Acute (4) Shortness of breath: Possible due to COPD exacerbation Status: Acute (5) Diastolic heart failure: Appear to be well compensated rather overcompensated. 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
== END 2021-02-27 14:35 | disposition home or self-care (01) ==
LOC: ER 12:04 → ICU 12:59
PROVIDERS: Physician Assistant; Admitting Provider Internal Medicine; Emergency Provider Family Medicine; PCP Family Medicine; Visit Provider Internal Medicine
DX: I48.91 Unspecified atrial fibrillation (principal); I48.92 Unspecified atrial flutter; R77.8 Other specified abnormalities of plasma proteins; R06.02 Shortness of breath; I50.30 Unspecified diastolic (congestive) heart failure; I11.0 Hypertensive heart disease with heart failure; J44.9 Chronic obstructive pulmonary disease, unspecified; Z99.81 Dependence on supplemental oxygen; Z79.01 Long term (current) use of anticoagulants; I25.10 Atherosclerotic heart disease of native coronary artery without angina pectoris; F32.9 Major depressive disorder, single episode, unspecified; K21.9 Gastro-esophageal reflux disease without esophagitis; E03.9 Hypothyroidism, unspecified; E11.9 Type 2 diabetes mellitus without complications; Z95.5 Presence of coronary angioplasty implant and graft; Z95.1 Presence of aortocoronary bypass graft; Z82.49 Family history of ischemic heart disease and other diseases of the circulatory system
CPT/HCPCS: 36415; 36416; 71045; 80053; 82962; 83735; 83880; 84443; 84484; 85025; 87040; 87426; 87635; 93005; 93306; 96365; 96372; 96375; 99285; G0378; J1815; J3490

== ENCOUNTER 2021-03-01 12:28 | Outpatient (CLI) | payer MEDICARE, SELFPAY ==
[2021-03-01 13:11] VITALS: BP 136/78; PULSE 68; RESP 24; TEMP 36.4; O2SAT 99; BMI 22.3
[2021-03-01 13:42] VITALS: BP 118/79; PULSE 72; RESP 16; TEMP 36.7; O2SAT 99
[2021-03-01 14:36] VITALS: BP 136/74; PULSE 70; RESP 16; TEMP 36.6; O2SAT 99
== END 2021-03-01 12:29 | disposition home or self-care (01) ==
LOC: OPS 12:31
PROVIDERS: PCP Family Medicine; Visit Provider Family Medicine
DX: U07.1 COVID-19 (principal)
CPT/HCPCS: 96365

== ENCOUNTER 2021-04-22 06:45 | Observation (INO) | payer MEDICARE, SELFPAY ==
[2021-04-22] VITALS (11 sets, daily range): BP systolic 112–143; BP diastolic 63–100; PULSE 76–151; RESP 16–30; TEMP 36.6–36.7; O2SAT 92–96; BMI 22.1
--- NOTE | 2021-04-22 06:49 | XRR_ITS ---
PROCEDURE INFORMATION: Exam: XR Chest Exam date and time: 04/22/2021 6:49 AM Age: 85 years old Clinical indication: Dyspnea; Prior surgery; Surgery date: 6+ months; Surgery type: Open heart; Additional info: Dyspnea/cough TECHNIQUE: Imaging protocol: XR of the chest. Views: 1 view. Total images: 1 COMPARISON: CR XR chest 1V portable [id number] 02/26/2021 11:26 AM FINDINGS: Lungs: Trace atelectasis or scar noted in the right lung base. Coarse chronic pulmonary markings. Pleural spaces: Unremarkable. No pleural effusion. No pneumothorax. Heart/Mediastinum: Mild cardiomegaly stable. Vasculature: Atherosclerosis is evident. Bones/joints: Osseous structures are unchanged from the prior exam. Other findings: Stable postsurgical changes. XR/XR chest 1V portable [id number] IMPRESSION: 1. Mild cardiomegaly stable. 2. Trace atelectasis or scar noted in the right lung base. 3. Coarse chronic pulmonary markings.
--- NOTE | 2021-04-22 06:49 | ECG_ITS ---
[facility] Test Date: 2021-04-22 Pat Name: Lilia Haynes Department: Room: Gender: Female Grab Jack Man: : 1935 Requested By: Grzegorz Liz Order Number: [id number] Meng MD: Ernie Kidd M.D. Measurements Intervals [place] Rate: 82 P: IA: QRS: -63 QRSD: 162 T: 123 QT: 418 QTc: 488 Interpretive Statements ATRIAL FIBRILLATION LEFT AXIS DEVIATION [QRS AXIS < -30] LEFT BUNDLE BRANCH BLOCK [120+ ms QRS DURATION, 80+ ms Q/S IN V1/V2, 85+ ms R IN I/aVL/V5/V6] Compared to ECG 04/22/2021 08:47:14 No significant changes Electronically Signed On 04-22-2021 20:46:50 NOISE ABATEMENT ENGINEER by Ernie Kidd M.D. [id number]
--- NOTE | 2021-04-22 06:56 | ED_ITS ---
HPI - SOB/Dyspnea General: Chief Complaint: Shortness of Breath/Dyspnea Stated Complaint: SOB, WEAKNESS Time Seen by Provider: 04/22/21 06:49 History of Present Illness: HPI Narrative: 85-year-old female presents emergency room complaining of increasing shortness of breath and weakness progressively worsening over the last 3 days. She normally uses oxygen at 2 L/min per her report initially EMS reported 3 patient tells me its 2 lpm. On arrival here she is on a nonrebreather 15 L/min satting 100%. EMS reported that she was 92% on 2 to 3 L by nasal cannula while in route. It also given her a albuterol nebulizer treatment. Patient reports she has a history of COPD and atrial fibrillation she has not changed or missed any medications lately she reports rapid heart rate for the last 3 to 4 days but denies any chest pain no diarrhea. Denies fever sweats or chills has had some orthopnea. Patient did test positive for Covid in February of this year. MD elicited complaint: shortness of breath and cough Pertinent past history: COPD, congestive heart failure and other (Atrial fibrillation) Onset (ago): day(s) (3-4) Context: recent illness (COVID in February 2021) Timing: constant Severity: moderate Exacerbating factors: lying flat, exertion and coughing Relieving factors: oxygen, rest and upright position Known history of: COPD and other (Atrial fibrillation) Associated symptoms: Reports dizziness, lightheadedness, orthopnea and palpitations; Deny abdominal pain, chest congestion, chest pain, cough, diaphoresis, extremity pain, fever(s), hemoptysis, myalgias, nausea, paresthesias, polydipsia, polyuria, rash, sense of impending doom, syncope or vomiting Treatment prior to arrival: oxygen and bronchodilator Review of Systems Const: Denies: fever(s) or diaphoresis ENMT: Denies: throat pain, ear or mastoid pain, nasal discharge or nasal congestion Card: Reports: palpitations, irregular heart rhythm, lightheadedness, dyspnea on exertion and orthopnea; Denies: chest pain or syncope Resp: Denies: hemoptysis or chest congestion GI: Denies: abdominal pain, nausea or vomiting : Denies: flank pain, difficulty voiding, dysuria, urinary frequency or urinary urgency Musc: Denies: extremity pain Skin/Breast: Denies: rash or pruritus Neuro: Reports: dizziness Endo: Denies: polyuria or polydipsia PFSH ED PFSH: Medical History Asthma Atrial fibrillation and flutter CAD (coronary artery disease) Depression with anxiety Diastolic heart failure GERD (gastroesophageal reflux disease) Hypertension Hypothyroidism Type 2 diabetes mellitus Surgical History History of coronary artery bypass graft History of heart artery stent Family History Other CAD (coronary artery disease) Cancer Social History Smoking and tobacco status: never smoked Alcohol intake: never Lives independently: Yes Household members: spouse Marital status: Current occupational status: retired History of recent travel: No Current gender identity: Female Physical Exam Const: GENERAL APPEARANCE: cooperative and comfortable ORIENTATION/CONSCIOUSNESS: Yes awake, Yes oriented to person, Yes oriented to place and Yes oriented to time HENMT: COMMON NORMALS: normocephalic, atraumatic and hearing grossly normal bilaterally HEAD & SCALP: normocephalic and atraumatic Resp: AUSCULTATION: crackles and wheezes Cardio: RATE: tachycardic RHYTHM: abnormal rhythm irregularly irregular GI: COMMON NORMALS: Soft to palpation and No hepatosplenomegaly present AUSCULTATION: Yes normoactive bowel sounds PALPATION: Yes Soft to palpation, No Tenderness to palpation present (GI), No Guarding due to palpation present (GI) and Yes No hepatosplenomegaly present Extremity: COMMON NORMALS: normal to inspection, capillary refill normal, no clubbing, cyanosis or edema, no calf tenderness and no pedal edema Neuro: SENSORIUM/ORIENTATION: Yes oriented to person, Yes oriented to place and Yes oriented to time Skin: COMMON NORMALS: no rashes or lesions noted GENERAL SKIN EXAM: no rashes or lesions noted Course Vital Signs: Vital signs: Vital Signs Temperature 98.0 F 04/22/21 06:48 Pulse Rate 109 H 04/22/21 07:25 Respiratory Rate 25 H 04/22/21 07:25 Blood Pressure 133/82 04/22/21 07:25 Pulse Oximetry 96 04/22/21 07:25 MDM - SOB/Dyspnea MDM Narrative: Medical decision making narrative: A. fib with RVR. Rate is improved after diltiazem. Chest x-rays not show anything acute. EKG is showed A. fib with RVR but no acute ST changes. Patient is mildly hypo-Danielle medic is given p.o. supplement rechecking magnesium level. She has previously been on potassium and magnesium supplements she is on Synthroid check the TSH as well. will check with her and give her her regular home medicines if she has not taken them. Her first troponin is at her usual baseline is slightly elevated but appears to be that is her baseline based on previous testings. Discussed Dr. Tejeda orders are written. Lab Data: Labs: Lab Results 04/22/21 04/22/21 04/22/21 07:08 07:08 07:08 WBC 11.5 10^3/uL H 10 ^3/uL (4.0-10.0) RBC 4.15 10^6/uL 10^6 /uL (4.1-5.3) Hgb 13.8 g/dL g/dL (11.5-15.3) Hct 42.5 % % (37.0-47.0) MCV 102.4 fl H fl (81-99) MCH 33.3 pg pg (28.0-34.0) MCHC 32.5 g/dL g/dL (30.0-36.0) RDW 16.2 % H % (12.1-15.1) Plt Count 254 10^3/cmm 10^3 /cmm (130-400) MPV 12.0 fL H fL (7.4-10.4) Neut % (Auto) 71.9 % % Lymph % (Auto) 15.0 % % [place] % (Auto) 10.9 % % Eos % (Auto) 1.4 % % Baso % (Auto) 0.4 % % Neut # (Auto) 8.28 10^3/uL H 10 ^3/uL (1.8-7.7) Lymph # (Auto) 1.7 10^3/uL 10^3/ uL (0.8-4.8) [place] # (Auto) 1.3 10^3/uL H 10^ 3/uL (0.2-0.9) Eos # (Auto) 0.2 10^3/uL 10^3/ uL (0.0-0.8) Baso # (Auto) 0.1 10^3/uL 10^3/ uL (0.0-0.1) Nucleated RBC % (a uto) 0 % % Nucleated RBCs # 0.0 /100WBC /100W BC Sodium 135 mmol/L L mmol /L (136-145) Potassium 3.4 mmol/L L mmol /L (3.5-5.1) Chloride 92 mmol/L L mmol/ L (98-107) Carbon Dioxide 30 mmol/L H mmol/ L (22-29) Anion Gap 16.4 (5-19) BUN 18 mg/dL mg/dL (8-23) Creatinine 1.4 mg/dL H mg/dL (0.5-0.9) GFR Calculation Not Reportable Glucose 162 mg/dL H mg/dL (65-115) Calculated Osmolal ity 285 mOsm/kg mOsm/ kg (285-295) Calcium 8.8 mg/dL mg/dL (8.5-10.5) Total Bilirubin 0.9 mg/dL mg/dL (0.15-1.2) AST 25 U/L U/L (0-32) ALT 13 U/L U/L (0-33) Alkaline Phosphata se 78 IU/L IU/L (35-105) Creatine Kinase 70 U/L U/L (26-192) Troponin T Baselin e 21 ng/L H ng/L (0-10) NT-Pro-B Natriuret Pep 3563 pg/mL H pg/m L (0-450) Total Protein 7.7 g/dL g/dL (6.6-8.7) Albumin 3.9 g/dL g/dL (3.5-5.2) Globulin 3.8 g/dL g/dL (1.3-4.6) Urine Color Urine Appearance Urine pH Ur Specific Gravit y Urine Protein Urine Glucose (UA) Urine Ketones Urine Blood Urine Nitrate Urine Bilirubin Urine Urobilinogen Ur Leukocyte Annemarie ase 04/22/21 07:30 WBC RBC Hgb Hct MCV MCH MCHC RDW Plt Count MPV Neut % (Auto) Lymph % (Auto) [place] % (Auto) Eos % (Auto) Baso % (Auto) Neut # (Auto) Lymph # (Auto) [place] # (Auto) Eos # (Auto) Baso # (Auto) Nucleated RBC % (a uto) Nucleated RBCs # Sodium Potassium Chloride Carbon Dioxide Anion Gap BUN Creatinine GFR Calculation Glucose Calculated Osmolal ity Calcium Total Bilirubin AST ALT Alkaline Phosphata se Creatine Kinase Troponin T Baselin e NT-Pro-B Natriuret Pep Total Protein Albumin Globulin Urine Color Yellow (Yellow) Urine Appearance Clear (CLEAR) Urine pH 5 (5-7) Ur Specific Gravit y 1.020 (1.005-1.030) Urine Protein 1+ H (Negative) Urine Glucose (UA) Norm (Normal) Urine Ketones Negative (Negative) Urine Blood 2+ H (Negative) Urine Nitrate Negative (Negative) Urine Bilirubin Neg (Negative) Urine Urobilinogen Norm mg/dL mg/dL (Negative) Ur Leukocyte Annemarie ase Negative (Negative) Discharge Plan Discharge Patient Disposition: Placed in Observation Clinical Impression: Atrial fibrillation with RVR, Type 2 diabetes mellitus, Diastolic heart failure, CAD (coronary artery disease), COPD (chronic obstructive pulmonary disease) Condition: Stable Prescriptions: No Action atorvastatin 40 mg tablet 40 mg PO BEDTIME RF: 0 lorazepam 0.5 mg tablet 0.5 mg PO QAM RF: 0 pantoprazole 40 mg tablet,delayed release (DR/EC) 40 mg PO BEDTIME RF: 0 ferrous sulfate 325 mg (65 mg iron) tablet 325 mg PO QAM RF: 0 escitalopram oxalate 10 mg tablet 10 mg PO QPM RF: 0 Breo Ellipta 100-25 mcg/dose blister with device 1 inh INHALATION QAM RF: 0 glipizide 2.5 mg Tablet Extended Release 24hr 2.5 mg PO DAILY RF: 0 Eliquis 2.5 mg Tablet 2.5 mg PO BID RF: 0 diltiazem HCl 240 mg capsule,extended release 24hr 240 mg PO QAM RF: 0 isosorbide mononitrate 30 mg tablet extended release 24 hr 30 mg PO QAM RF: 0 levothyroxine [Euthyrox] 75 mcg tablet 75 mcg PO QAM RF: 0 Vitamin D3 1 cap PO BEDTIME RF: 0 calcium 1 tab PO DAILY RF: 0 magnesium 1 tab PO DAILY RF: 0 furosemide 40 mg tablet 40 mg PO QAM RF: 0 potassium chloride 10 mEq tablet extended release 20 meq PO QAM RF: 0 losartan 50 mg Tablet 25 mg PO DAILY Qty: 15 RF: 0 metoprolol tartrate 25 mg Tablet 75 mg PO BID@0900,2100 Qty: 180 RF: 0 Referrals: Diallo Tracy MD [Primary Care Provider] - Patient Instructions: Opioid Safety Coding Level of Care Code ED Civil Defense Director for Giovanag Fwd Exam Detailed
--- NOTE | 2021-04-22 07:09 | PC.NURSE ---
pt given blankets per pt request.
[2021-04-22 07:17] LABS: Basophils # 0.1 10^3/uL (0.0-0.1); Basophils % 0.4 %; Eosinophils # 0.2 10^3/uL (0.0-0.8); Eosinophils % 1.4 %; Hematocrit 42.5 % (37.0-47.0); Hemoglobin 13.8 g/dL (11.5-15.3); Lymphocytes # 1.7 10^3/uL (0.8-4.8); Mean Corpuscular HGB Conc 32.5 g/dL (30.0-36.0); Mean Corpuscular Hemoglobin 33.3 pg (28.0-34.0); Mean Corpuscular Volume 102.4 fl (81-99); Monocytes # 1.3 10^3/uL (0.2-0.9); Monocytes % 10.9 %; Neutrophils # 8.28 10^3/uL (1.8-7.7); Neutrophils % 71.9 %; Nucleated Red Blood Cells % 0 %; Platelet Count 254 10^3/cmm (130-400); Red Blood Count 4.15 10^6/uL (4.1-5.3); Red Cell Distribution Width 16.2 % (12.1-15.1); White Blood Count 11.5 10^3/uL (4.0-10.0)
--- NOTE | 2021-04-22 07:24 | PC.NURSE ---
pt placed on continuous spo2, nibp, and cm monitoring.
[2021-04-22 07:38] LABS: Troponin(5th) Baseline 21 ng/L (0-10)
[2021-04-22 07:39] LABS: Add Urine Microscopic? NO; Charge for UA Resulting for Rev
[2021-04-22 07:42] LABS: Bilirubin Urine Neg (Negative); Blood Urine 2+ (Negative); Glucose Urine UA Norm (Normal); Ketones Urine Negative (Negative); Leukocyte Esterase Urine Negative (Negative); Nitrate Urine Negative (Negative); Protein Urine 1+ (Negative); Urine Appearance Clear (CLEAR); Urine Color Yellow (Yellow); Urobilinogen Urine Norm (Negative); pH Urine 5 (5-7)
[2021-04-22 07:48] LABS: Alanine Aminotransferase 13 U/L (0-33); Albumin Level 3.9 g/dL (3.5-5.2); Alkaline Phosphatase 78 IU/L (35-105); Anion Gap 16.4 (5-19); Aspartate Amino Transferase 25 U/L (0-32); Blood Urea Nitrogen 18 mg/dL (8-23); Calcium 8.8 mg/dL (8.5-10.5); Carbon Dioxide 30 mmol/L (22-29); Chloride 92 mmol/L (98-107); Creatine Phosphokinase 70 U/L (26-192); Globulin 3.8 g/dL (1.3-4.6); Glucose 162 mg/dL (65-115); NT Pro B Type Natriuretic Pept 3563 pg/mL (0-450); Osmolality Calculated 285 mOsm/kg (285-295); Potassium 3.4 mmol/L (3.5-5.1); Sodium 135 mmol/L (136-145); Total Bilirubin 0.9 mg/dL (0.15-1.2); Total Protein 7.7 g/dL (6.6-8.7)
[2021-04-22 08:38] LABS: Magnesium 1.7 mg/dL (1.7-2.3)
--- NOTE | 2021-04-22 08:49 | ECG_ITS ---
[facility] Test Date: 2021-04-22 Pat Name: Lilai Haynes Department: Room: Gender: Female Senior Engineering Tech: : 1935 Requested By: Grzegorz Liz Order Number: [id number] Meng MD: Ernie Kidd M.D. Measurements Intervals [place] Rate: 121 P: OR: QRS: -59 QRSD: 158 T: 120 QT: 349 QTc: 497 Interpretive Statements ATRIAL FIBRILLATION WITH RAPID VENTRICULAR RESPONSE LEFT AXIS DEVIATION [QRS AXIS < -30] LEFT BUNDLE BRANCH BLOCK [120+ ms QRS DURATION, 80+ ms Q/S IN V1/V2, 85+ ms R IN I/aVL/V5/V6] Compared to ECG 04/22/2021 06:54:07 Left bundle-branch block now present Intraventricular conduction delay no longer present Electronically Signed On 04-24-2021 0:16:28 PROJECT MANAGEMENT IT SPECIALIST by Ernie Kidd M.D. [id number]
[2021-04-22] MEDS: potassium chloride oral liq 20 mEq/15 mL UDC 40 MEQ PO (08:51)
--- NOTE | 2021-04-22 08:56 | P.HP_ITS ---
Providers/Chief Complaint Primary Care Provider: Diallo Tracy MD Chief Complaint: SOB, WEAKNESS History of Present Illness Lilia Haynes is a 85 year old female who presents to the emergency department short of breath for the last several days. She also reports her heart rate has been a little higher. She recently saw her lower in supervisor last week who added a little bit of Aldactone in the morning. She is only taken this for the last 2 days. She denies any fever. She has had a cough that is occasionally productive. She has not been vomiting. She had Covid in February, and has since recovered. No history of chest discomfort recently. More than anything she states she is intensely tired. In the emergency department she was diagnosed with atrial fibrillation with rapid ventricular rate. Cardizem drip was initiated. She received some potassium supplementation p.o., and consideration is being given to starting her home medications for rate control which she did not take yet this morning. Patient reports she did take them last night, and has not missed any medication recently. Review of Systems General: Reports: 10 or more systems reviewed and unremarkable except in HPI and below Const: Reports: malaise; Denies: fever(s) or chills Eyes: Denies: change in vision ENMT: Denies: throat pain Card: Reports: dyspnea on exertion; Denies: chest pain Resp: Reports: dyspnea, productive cough and wheezing GI: Denies: abdominal pain, nausea, vomiting or hematochezia : Denies: flank pain Musc: Denies: neck pain Skin/Breast: Denies: rash Neuro: Denies: headache(s) Psych: Denies: anxiety or depression Endo: Denies: polyuria Viet/Lymph: Denies: easy bruising All/Imm: Denies: urticaria Medications/Allergies Home Medications Medication Instructions Recorded Confirmed Last Taken Type Breo Ellipta 1 inh INHALATION QAM 07/25/19 03/01/21 03/01/21 History atorvastatin 40 mg PO BEDTIME 07/25/19 03/01/21 03/01/21 History escitalopram oxalate 10 mg PO QPM 07/25/19 03/01/21 03/01/21 History ferrous sulfate 325 mg PO QAM 07/25/19 03/01/21 03/01/21 History lorazepam 0.5 mg PO QAM 07/25/19 03/01/21 03/01/21 History pantoprazole 40 mg PO BEDTIME 07/25/19 03/01/21 03/01/21 History Eliquis 2.5 mg PO BID 08/28/19 03/01/21 03/01/21 History glipizide 2.5 mg PO DAILY 08/28/19 03/01/21 03/01/21 History Vitamin D3 1 cap PO BEDTIME 02/26/21 03/01/21 03/01/21 History calcium 1 tab PO DAILY 02/26/21 03/01/21 03/01/21 History diltiazem HCl 240 mg PO QAM 02/26/21 03/01/21 03/01/21 History furosemide 40 mg PO QAM 02/26/21 03/01/21 03/01/21 History isosorbide mononitrate 30 mg PO QAM 02/26/21 03/01/21 03/01/21 History levothyroxine [Euthyrox] 75 mcg PO QAM 02/26/21 03/01/21 03/01/21 History magnesium 1 tab PO DAILY 02/26/21 03/01/21 03/01/21 History potassium chloride 20 meq PO QAM 02/26/21 03/01/21 03/01/21 History losartan 25 mg PO DAILY #15 tab 02/27/21 03/01/21 03/01/21 Rx metoprolol tartrate 75 mg PO BID@0900,2100 #180 tab 02/27/21 03/01/21 03/01/21 Rx spironolactone 25 mg PO DAILY 04/22/21 04/22/21 04/21/21 History Allergies Allergy/AdvReac Type Severity Reaction Status Date / Time aspirin Allergy ADR-Nausea Verified 04/22/21 09:03 codeine Allergy ADR-Nausea Verified 04/22/21 09:03 tramadol Allergy Unknown Verified 04/22/21 09:03 PFSH Acute PFSH: Medical History (Updated 04/22/21 @ 09:14 by Nicolas Tejeda MD) Asthma Atrial fibrillation and flutter CAD (coronary artery disease) COPD (chronic obstructive pulmonary disease) Chronically on 2 L of oxygen per nasal cannula Depression with anxiety Diastolic heart failure GERD (gastroesophageal reflux disease) Hypertension Hypothyroidism Systolic heart failure Echocardiogram 02/28 demonstrated EF of 40%, severe tricuspid and mitral regurgitation and moderate aortic regurgitation Type 2 diabetes mellitus Surgical History History of coronary artery bypass graft History of heart artery stent Family History Other CAD (coronary artery disease) Cancer Social History Smoking and tobacco status: never smoked Alcohol intake: never Lives independently: Yes Household members: spouse Marital status: Current occupational status: retired History of recent travel: No Current gender identity: Female Vitals/I&O/Wt Last Vital Signs Temp 98.0 F 04/22/21 06:48 Pulse 109 H 04/22/21 07:25 Resp 25 H 04/22/21 07:25 BP 133/82 04/22/21 07:25 Pulse Ox 96 04/22/21 07:25 Weight last 48 hrs Weight 54.885 kg Physical Exam Narrative: EXAM NARRATIVE: General exam is a white female, with mild respir atory distress with audible expiratory wheezing who can complete sentences of 3- 5 words. HEENT: Atraumatic normocephalic. Pupils equally round. Oropharynx is clear. Neck is supple no lymphadenopathy or thyromegaly Cardiovascular tachycardic, irregular, irregular. No audible murmur currently. Lungs bilateral expiratory wheezes. Diminished breath sounds at the bases. Abdomen is soft, positive bowel sounds. No obvious organomegaly. exam is deferred Extremities no cyanosis clubbing or edema, cap refill brisk Skin no rash Neuro no focal deficits Data : 04/22/21 07:08 04/22/21 07:08 Other data: EKG demonstrates atrial fibrillation with rapid ventricular rate of 140, left axis deviation, intraventricular conduction delay Magnesium level 1.7 Troponin XX 1 BNP 3563 LFTs normal TSH 4.5 Urinalysis negative for infection Previous Covid PCR 02/28+ Chest x-ray right atelectasis, lower lobe, coarse markings. I reviewed this as well. Sternotomy wires noted. A&P Assessment and plan (1) Atrial fibrillation with RVR: Patient with atrial fibrillation with rapid ventricular rate She reports that she has not missed any of her medications, but has not taken her p.o. morning medicine as she has been in the ER. She was placed on a Cardizem drip on arrival We will initiate her Cardizem, as well as metoprolol and increased dose of metoprolol 200 mg twice daily. Hopefully with this we will be able to taper her off the Cardizem drip. Observation, to telemetry Magnesium was checked and borderline low. We will supplement with 1 g IV. Status: Acute (2) Asthma: Confusion and old records regarding COPD versus asthma. She is chronically on 2 L of oxygen. Currently she has significant wheezing consistent with asthma exacerbation, which was confirmed when pulmonary reviewed records from [place]. Continue pulmonary toilet Continue inhaled steroid Add prednisone 40 mg daily Status: Acute (3) Acute bronchitis: Patient reports some colored sputum, increased wheezing. Initiate doxycycline 100 mg twice daily Status: Acute (4) Systolic heart failure: Patient with slightly elevated BNP. Mild acute exacerbation of systolic congestive heart failure. Will give 20 mg of Lasix IV, resume her oral dose tomorrow. Status: Acute (5) Type 2 diabetes mellitus: Chronic. Change to sliding scale insulin. Oral sulfonylurea not ideal in hospital setting as could lead to hypoglycemia. Status: Acute (6) CAD (coronary artery disease): Elevated troponin. Recheck with series. Suspect type II elevation. Status: Acute (7) HTN, goal below 130/80: Continue home medications Status: Acute Additional A&P Information Full code currently Eliquis will suffice for DVT prophylaxis Attestations Medical Necessity Statement*: Will need less than 2 midnight stay for e valuation and treatment of atrial fibrillation with rapid ventricular rate as well as asthma exacerbation. Time Spent in Patient Care: Greater than 35 minutes Coding Level of Care Code Acute Transportation Driver for Amando Bain Diagnoses Atrial fibrillation with RVR I48.91 Asthma J45.909 Acute bronchitis J20.9 Systolic heart failure I50.20 Type 2 diabetes mellitus E11.9 CAD (coronary artery disease) I25.10 HTN, goal below 130/80 I10
[2021-04-22] MEDS: FUROsemide 10 mg/mL SDV 2mL 20 MG IVP (09:27)
[2021-04-22] MEDS: predniSONE 20 mg Tablet 40 MG PO (09:28)
[2021-04-22] MEDS: metoprolol tartrate 50 mg Tablet 100 MG PO ×2 (09:28→22:01)
[2021-04-22] MEDS: dilTIAZem ER (24HR) 240 mg Capsule PO (09:28)
--- NOTE | 2021-04-22 09:28 | PC.PHAR ---
pt brought in most of her medication bottles-notes are made in the pharmacy comments-pts daughter states she wasnt aware the pt had a rx for levemir flextouch rx filled on 04/16/21 at [facility] in [place] for 10 units daily [facility]
[2021-04-22] MEDS: doxycycline 100 mg Tablet PO ×2 (09:29→22:02)
--- NOTE | 2021-04-22 09:59 | PC.NURSE ---
ASSISTED PT TO BEDSIDE COMMODE AND BACK TO BED. PT BECOMES SOB AND HAS LABORED BREATHING UPON EXERTION.
--- NOTE | 2021-04-22 12:49 | ECG_ITS ---
[facility] Test Date: 2021-04-22 Pat Name: Lilia Haynes Department: Room: Gender: Female Experience Designer: : 1935 Requested By: Grzegorz Liz Order Number: [id number] Meng MD: Ernie Kidd M.D. Measurements Intervals [place] Rate: 141 P: MO: QRS: -58 QRSD: 150 T: 125 QT: 315 QTc: 483 Interpretive Statements ATRIAL FIBRILLATION WITH RAPID VENTRICULAR RESPONSE LEFT AXIS DEVIATION [QRS AXIS < -30] INTRAVENTRICULAR CONDUCTION DELAY [130+ ms QRS DURATION] Compared to ECG 02/26/2021 11:43:06 Left-axis deviation now present Atrial flutter no longer present Electronically Signed On 04-24-2021 0:16:12 HOME SPECIALIST by Ernie Kidd M.D. [id number]
[2021-04-22 13:40] LABS: Troponin 5 6HR 21.37 ng/L (0-10); Troponin 5 6HR Delta 0.37 ng/L (0-12)
[2021-04-22] MEDS: ipratropium-albuterol 3 mL Neb INHALATION ×2 (14:27→22:18)
--- NOTE | 2021-04-22 15:26 | PC.NURSE ---
MACHINE DID NOT RECORD VS FROM 0740 TO 1520.
[2021-04-22] MEDS: insulin lispro 100 unit/1 mL SUBCUT ×3 (15:29→22:21)
--- NOTE | 2021-04-22 18:32 | PC.NURSE ---
pt provided with bag meal. pt is in nad.
--- NOTE | 2021-04-22 18:50 | PC.NURSE ---
REPORT GIVEN TO ALEX FLETCHER [facility].
[2021-04-22 21:14] LABS: Glucose Point of Care 188 mg/dL (70-110)
[2021-04-22 21:14] LABS: Glucose Point of Care 184 mg/dL (70-110)
[2021-04-22] MEDS: apixaban 5 mg Tablet 2.5 MG PO (21:59)
[2021-04-22] MEDS: atorvastatin 40 mg Tablet PO (22:01)
[2021-04-22] MEDS: pantoprazole DR 40 mg Tablet PO (22:02)
[2021-04-22] MEDS: escitalopram 10 mg Tablet PO (22:03)
[2021-04-22 22:09] LABS: Glucose Point of Care 339 mg/dL (70-110)
[2021-04-23] VITALS (15 sets, daily range): BP systolic 94–122; BP diastolic 54–76; PULSE 74–145; RESP 16–28; TEMP 36.9–37.1; O2SAT 85–100
--- NOTE | 2021-04-23 01:18 | PC.NURSE ---
Admit Note Patient admitted to CSU from ED via stretcher. Covering service notified. Patient presents with c/o SOB. Orders reviewed & will continue to monitor. Patient and/or merchandising representative oriented to environment, equipment, and informed of the following as found in the admission booklet: patient rights & responsibilities, visitor policy, hand and respiratory hygiene practice. Other education includes: Activity assist and reportable s/s. Patient and/or merchandising representative verbalized understanding of all teaching.
--- NOTE | 2021-04-23 02:28 | PC.NURSE ---
Shift Note Frequent safety and comfort rounds continue. Orders and/or nursing care completed as indicated. Patient monitored for response to intervention and treatment(s). Education provided includes reportable s/s, oxygen safety, and new orders. Patient and/or small business representative verbalized understanding of all teaching. Will continue to monitor.
[2021-04-23] MEDS: ipratropium-albuterol 3 mL Neb INHALATION ×3 (03:10→21:12)
[2021-04-23 03:46] LABS: Basophils % 0.2 %; Eosinophils # 0.1 10^3/uL (0.0-0.8); Eosinophils % 0.4 %; Hematocrit 38.9 % (37.0-47.0); Hemoglobin 12.6 g/dL (11.5-15.3); Lymphocytes # 1.6 10^3/uL (0.8-4.8); Lymphocytes % 11.9 %; Mean Corpuscular HGB Conc 32.4 g/dL (30.0-36.0); Mean Corpuscular Hemoglobin 33.2 pg (28.0-34.0); Mean Corpuscular Volume 102.4 fl (81-99); Mean Platelet Volume 12.3 fL (7.4-10.4); Monocytes # 1.3 10^3/uL (0.2-0.9); Monocytes % 10.3 %; Neutrophils % 76.8 %; Nucleated Red Blood Cells % 0 %; Platelet Count 273 10^3/cmm (130-400); Red Cell Distribution Width 16.3 % (12.1-15.1)
[2021-04-23 04:12] LABS: Alanine Aminotransferase 11 U/L (0-33); Albumin Level 3.6 g/dL (3.5-5.2); Alkaline Phosphatase 73 IU/L (35-105); Aspartate Amino Transferase 21 U/L (0-32); Blood Urea Nitrogen 25 mg/dL (8-23); Carbon Dioxide 29 mmol/L (22-29); Chloride 98 mmol/L (98-107); Globulin 2.9 g/dL (1.3-4.6); Glucose 148 mg/dL (65-115); Osmolality Calculated 295 mOsm/kg (285-295); Sodium 139 mmol/L (136-145); Total Bilirubin 0.5 mg/dL (0.15-1.2); Total Protein 6.5 g/dL (6.6-8.7)
[2021-04-23 04:13] LABS: Magnesium 2.1 mg/dL (1.7-2.3)
[2021-04-23] MEDS: FUROsemide 40 mg Tablet PO (05:56)
[2021-04-23] MEDS: isosorbide mononitrate ER 30 mg Tablet PO (05:57)
[2021-04-23] MEDS: levothyroxine 75 mcg Tablet PO (05:57)
[2021-04-23 07:22] LABS: Glucose Point of Care 114 mg/dL (70-110)
[2021-04-23] MEDS: apixaban 5 mg Tablet 2.5 MG PO ×2 (08:06→17:54)
[2021-04-23] MEDS: metoprolol tartrate 50 mg Tablet 100 MG PO ×2 (08:06→21:12)
[2021-04-23] MEDS: predniSONE 20 mg Tablet 40 MG PO (08:06)
[2021-04-23] MEDS: doxycycline 100 mg Tablet PO ×2 (08:06→17:54)
[2021-04-23] MEDS: dilTIAZem ER (24HR) 240 mg Capsule PO (09:31)
[2021-04-23] MEDS: dilTIAZem ER (24HR) 120 mg Capsule PO (09:31)
[2021-04-23 11:23] LABS: Glucose Point of Care 302 mg/dL (70-110)
[2021-04-23] MEDS: insulin lispro 100 unit/1 mL SUBCUT ×3 (11:52→21:12)
--- NOTE | 2021-04-23 13:23 | P.PN_ITS ---
Subjective Subjective: Interval history: Lilia reports she feels minimally better but still very short of breath. She states she is wheezing some more. She does not feel like going home today. Heart rate has come under better control with changes that were made. Medications: Reviewed: Yes Vitals/I&O/Wt Last Vital Signs Temp 98.6 F 04/23/21 10:37 Pulse 92 04/23/21 13:12 Resp 16 04/23/21 13:12 BP 94/54 04/23/21 13:12 Pulse Ox 98 04/23/21 13:12 04/22/21 04/23/21 04/23/21 22:59 06:59 14:59 Intake Total 100 / 166.917 100 / 266.917 236 / 236 Output Total 200 / 200 301 / 501 350 / 350 Balance -100 / -33.083 -201 / -234.083 -114 / -114 Weight last 48 hrs Weight 53.751 kg Weight 54.885 kg Physical Exam Narrative: EXAM NARRATIVE: General exam is a white female, no respiratory distress sitting still Neck is supple no lymphadenopathy or thyromegaly Cardiovascular tachycardic, irregular, irregular. No audible murmur currently. Lungs crackles at the bases, a few expiratory wheezes. Abdomen is soft, positive bowel sounds. No obvious organomegaly. Extremities no cyanosis clubbing or edema, cap refill brisk Data : 04/23/21 02:57 04/23/21 02:57 A&P Assessment and plan (1) Atrial fibrillation with RVR: Patient with atrial fibrillation with rapid ventricular rate Continue Carizem, metoprolol. Rate is improved. Magnesium was checked and borderline low. Supplemented on 04/22. Today normal Status: Acute (2) Asthma: Confusion in old records regarding COPD versus asthma. She is chronically on 2 L of oxygen. Currently she has significant wheezing consistent with asthma exacerbation, which was confirmed when pulmonary reviewed records from [place]. Continue pulmonary toilet Continue inhaled steroid Continue prednisone 40 mg daily Status: Acute (3) Acute bronchitis: Patient reports some colored sputum, increased wheezing. Continue doxycycline 100 mg twice daily Status: Acute (4) Systolic heart failure: Patient with slightly elevated BNP. Mild acute exacerbation of systolic congestive heart failure. Received her oral dose of Lasix this morning. Still some evidence of fluid overload on exam. IF BP increases consider afternoon Lasix dose IV. Discontinue oral Lasix order, in case IV dose is needed tomorrow morning. Status: Acute (5) Type 2 diabetes mellitus: Chronic. Change to sliding scale insulin. Oral sulfonylurea not ideal in hospital setting as could lead to hypoglycemia. Status: Acute (6) CAD (coronary artery disease): Elevated troponin. Type 2 elevation. Status: Acute (7) HTN, goal below 130/80: Hold Imdur, ARB to allow more room for adjustments made in rate controlling meds. Status: Acute Additional A&P Information Full code currently Eliquis will suffice for DVT prophylaxis Attestations Medical Necessity Statement*: Needs continued hospitalizationfor close follow up and adjustment of meds for CHF, pulmonary toilet for asthma exacerbation, and further adjustment of meds for AFIb. Coding Level of Care Code Acute Traffic Chief for Amando Bain Diagnoses Atrial fibrillation with RVR I48.91 Asthma J45.909 Acute bronchitis J20.9 Systolic heart failure I50.20 Type 2 diabetes mellitus E11.9 CAD (coronary artery disease) I25.10 HTN, goal below 130/80 I10
[2021-04-23] MEDS: escitalopram 10 mg Tablet PO (17:54)
[2021-04-23] MEDS: aspirin 81 mg EC Tablet PO (17:55)
[2021-04-23 18:45] LABS: Glucose Point of Care 170 mg/dL (70-110)
[2021-04-23 20:30] LABS: Glucose Point of Care 322 mg/dL (70-110)
[2021-04-23] MEDS: pantoprazole DR 40 mg Tablet PO (21:12)
[2021-04-23] MEDS: LORazepam 0.5 mg Tablet PO (21:12)
[2021-04-23] MEDS: atorvastatin 40 mg Tablet PO (21:12)
[2021-04-24] VITALS (18 sets, daily range): BP systolic 108–133; BP diastolic 75–86; PULSE 73–101; RESP 18–24; TEMP 36.4–36.6; O2SAT 91–99
[2021-04-24] MEDS: ipratropium-albuterol 3 mL Neb INHALATION ×4 (03:20→21:46)
[2021-04-24 04:09] LABS: Anion Gap 17.7 (5-19); Blood Urea Nitrogen 35 mg/dL (8-23); Calcium 8.9 mg/dL (8.5-10.5); Carbon Dioxide 27 mmol/L (22-29); Chloride 96 mmol/L (98-107); Glucose 149 mg/dL (65-115); Osmolality Calculated 295 mOsm/kg (285-295); Potassium 3.7 mmol/L (3.5-5.1); Sodium 137 mmol/L (136-145)
--- NOTE | 2021-04-24 05:01 | PC.NURSE ---
Shift Note Frequent safety and comfort rounds continue. Orders and/or nursing care completed as indicated. Patient monitored for response to intervention and treatment(s). Education provided includes reportable s/s, oxygen safety. Patient and/or sales and merchandising representative verbalized understanding of all teaching. Hourly rounding performed, all needs met. Will continue to monitor.
[2021-04-24] MEDS: levothyroxine 75 mcg Tablet PO (05:50)
[2021-04-24 06:36] LABS: Glucose Point of Care 132 mg/dL (70-110)
[2021-04-24] MEDS: bumetanide 1 mg Tablet PO (08:35)
[2021-04-24] MEDS: apixaban 5 mg Tablet 2.5 MG PO ×2 (08:35→18:41)
[2021-04-24] MEDS: predniSONE 20 mg Tablet 40 MG PO (08:36)
[2021-04-24] MEDS: dilTIAZem ER (24HR) 240 mg Capsule PO (08:36)
[2021-04-24] MEDS: doxycycline 100 mg Tablet PO ×2 (08:36→18:41)
[2021-04-24] MEDS: dilTIAZem ER (24HR) 120 mg Capsule PO (08:36)
[2021-04-24] MEDS: metoprolol tartrate 50 mg Tablet 100 MG PO ×2 (08:36→20:45)
--- NOTE | 2021-04-24 09:12 | PM.PN ---
Subjective Subjective: Interval history: Still wheezing quite a bit. Certainly better than on admission. Still coughing some. Heart rate under better control. No chest pain. Feels like her shortness of breath is significant with any exertion and has been for months. Worried what this means for activity at home. Medications: Reviewed: Yes Vitals/I&O/Wt Last Vital Signs Temp 97.8 F 04/24/21 07:35 Pulse 95 04/24/21 09:08 Resp 20 H 04/24/21 09:08 BP 133/77 04/24/21 07:35 Pulse Ox 94 04/24/21 09:08 04/23/21 04/24/21 04/24/21 22:59 06:59 14:59 Intake Total 100 / 336 50 / 386 Output Total 200 / 550 100 / 650 Balance -100 / -214 -50 / -264 Weight last 48 hrs Weight 53.751 kg Physical Exam Narrative: EXAM NARRATIVE: General exam is a white female, no respiratory distress sitting still Neck is supple no lymphadenopathy or thyromegaly Cardiovascular irregular, irregular. Heart rate under better control. Lungs few sparse crackles. Bilateral expiratory wheezes at the bases. Abdomen is soft, positive bowel sounds. No obvious organomegaly. Extremities no cyanosis clubbing or edema, cap refill brisk Data : 04/23/21 02:57 04/24/21 03:32 A&P Assessment and plan (1) Atrial fibrillation with RVR: Patient with atrial fibrillation with rapid ventricular rate. Rate is under better control at rest, less than 100 Continue Carizem, metoprolol. Magnesium was checked and borderline low. This was supplemented on 04/22. Status: Acute (2) Asthma: Confusion in old records regarding COPD versus asthma. She is chronically on 2 L of oxygen. Currently she has significant wheezing consistent with asthma exacerbation, which was confirmed when pulmonary reviewed records from [place]. Continue pulmonary toilet Continue inhaled steroid Continue prednisone 40 mg daily Overall making slow improvement Status: Acute (3) Acute bronchitis: Patient reports some colored sputum, increased wheezing. Continue doxycycline 100 mg twice daily Status: Acute (4) Systolic heart failure: Patient with slightly elevated BNP. Mild acute exacerbation of systolic congestive heart failure. Today we will change Lasix to Bumex for better absorption. She does not appear to have significant fluid overload currently. As below patient has significant valvular heart disease then diminished ejection fraction which I suspect is contributing greatly to her overall energy level and ability to ambulate without significant shortness of breath. Status: Acute (5) Type 2 diabetes mellitus: Chronic. Continue sliding scale insulin. Oral sulfonylurea not ideal in hospital setting as could lead to hypoglycemia. Status: Acute (6) CAD (coronary artery disease): Elevated troponin. Type 2 elevation. Status: Acute (7) HTN, goal below 130/80: Hold Imdur, ARB to allow more room for adjustments made in rate controlling meds. Status: Acute Additional A&P Information Full code currently Eliquis will suffice for DVT prophylaxis Patient wishes for me to go over all of her medical concerns with her daughter. I have called and left a message. Attestations Medical Necessity Statement*: At this point needs continued hospital stay for continued pulmonary toilet secondary to acute asthma exacerbation with active wheezing. Coding Level of Care Code Acute Call Center Team Leader for Amando Bain Diagnoses Atrial fibrillation with RVR I48.91 Asthma J45.909 Acute bronchitis J20.9 Systolic heart failure I50.20 Type 2 diabetes mellitus E11.9 CAD (coronary artery disease) I25.10 HTN, goal below 130/80 I10
[2021-04-24] MEDS: budesonide 0.5 mg/2 mL Neb INHALATION ×2 (10:22→21:46)
[2021-04-24] MEDS: insulin lispro 100 unit/1 mL SUBCUT ×2 (12:03→23:07)
[2021-04-24 12:14] LABS: Glucose Point of Care 475 mg/dL (70-110)
[2021-04-24 12:14] LABS: Glucose Point of Care 431 mg/dL (70-110)
[2021-04-24 16:06] LABS: Glucose Point of Care 86 mg/dL (70-110)
--- NOTE | 2021-04-24 16:48 | PC.PT ---
Patient declined attempted PT evaluation stating she does not feel physical therapy can help her at all due to bad heart valves, and other heart problems, states she just needs to learn to be lazy, patient feels she will be able to continue at home with independent transfers and short ambulation distances, and does not feel she can benefit from any physical therapy. I was unable to convince her otherwise regarding paced activity or energy conservation techniques, and she was left as found, with call light in reach. No further attempts to be made unless further orders received.
[2021-04-24] MEDS: escitalopram 10 mg Tablet PO (18:42)
--- NOTE | 2021-04-24 19:57 | PC.NURSE ---
at beginning of shift,pt states she still feels sob.dr calderon decided to observe pt one more day and adjust meds.1 mg bumex given po as ordered this morning...diuresed 600 cc.at end of shift..pt stated she was beginning to feel better.remains in afib on monitor at controlled rate.
[2021-04-24] MEDS: LORazepam 0.5 mg Tablet PO (20:44)
[2021-04-24] MEDS: atorvastatin 40 mg Tablet PO (20:45)
[2021-04-24] MEDS: pantoprazole DR 40 mg Tablet PO (20:45)
[2021-04-24 23:03] LABS: Glucose Point of Care 316 mg/dL (70-110)
[2021-04-25] VITALS (10 sets, daily range): BP systolic 113–132; BP diastolic 71–80; PULSE 83–105; RESP 16–29; O2SAT 86–96
[2021-04-25] MEDS: ipratropium-albuterol 3 mL Neb INHALATION ×2 (02:51→09:01)
[2021-04-25] MEDS: levothyroxine 75 mcg Tablet PO (06:39)
[2021-04-25 06:58] LABS: Glucose Point of Care 126 mg/dL (70-110)
[2021-04-25] MEDS: dilTIAZem ER (24HR) 120 mg Capsule PO (08:32)
[2021-04-25] MEDS: predniSONE 20 mg Tablet 40 MG PO (08:32)
[2021-04-25] MEDS: doxycycline 100 mg Tablet PO (08:32)
[2021-04-25] MEDS: apixaban 5 mg Tablet 2.5 MG PO (08:32)
[2021-04-25] MEDS: dilTIAZem ER (24HR) 240 mg Capsule PO (08:32)
[2021-04-25] MEDS: metoprolol tartrate 50 mg Tablet 100 MG PO (08:32)
[2021-04-25] MEDS: bumetanide 1 mg Tablet PO (08:33)
[2021-04-25] MEDS: budesonide 0.5 mg/2 mL Neb INHALATION (09:01)
--- NOTE | 2021-04-25 09:04 | P.DS_ITS ---
Discharge Providers Date of Admission: 04/22/21 12:58 Date of Discharge: April 25, 2021 Attending Provider at Admission: Nicolas Tejeda MD Attending Provider at Discharge: Nicolas Tejeda MD Primary Care Provider: Diallo Tracy MD Diagnoses at Discharge Discharge Diagnosis (1) Atrial fibrillation with RVR: Status: Acute (2) Asthma: Status: Acute (3) Acute bronchitis: Status: Acute (4) Systolic heart failure: Status: Acute Permanent problem details: Echocardiogram 02/28 demonstrated EF of 40%, severe tricuspid and mitral regurgitation and moderate aortic regurgitation (5) Type 2 diabetes mellitus: Status: Acute (6) CAD (coronary artery disease): Status: Acute (7) HTN, goal below 130/80: Status: Acute Reason for Visit Reason for Visit: SOB, WEAKNESS Hospital Course Hospital Course Lilia is an 85-year-old white female who originally presented on April 22 with significant shortness of breath going on for several days. She had previously had Covid in February, and it since recovered but never to the degree where she thought she should be. She reported wheezing with exertion, and was also noted to be in atrial fibrillation with rapid ventricular rate in the emergency department. She had recently seen her distance learning administrator 2 to 3 days prior and Aldactone had been added to her regimen. In the emergency department she was diagnosed with atrial fibrillation with rapid ventricular rate, asthma exacerbation, acute bronchitis, and systolic heart failure. She received a dose of IV Lasix, doxycycline and prednisone, and adjustments of metoprolol and Cardizem were made to try to get her off the Cardizem drip that was initiated by the emergency department. Troponin was elevated but consistent with type II elevation. Chest x-ray did not show definite pneumonia. BNP was elevated, but to a less degree than previous elevations. With this treatment she gradually improved, becoming less short of breath. By April 25 she was close to her baseline she had been in the last several weeks requiring 2 L of oxygen at rest. Heart rate was under 100 at rest. I had long discussions with her regarding her valvular heart disease which had been documented on a recent echo where her ejection fraction was 40%, she had severe tricuspid and mitral regurgitation. She had moderate aortic regurgitation and moderate aortic stenosis. I do not think she is likely a surgical candidate but will defer this to her primary distance learning administrator, Dr. Mendiola who she should keep her regular follow-ups with. From what I understand she has 1 already scheduled next month. Medications were adjusted to try to control her heart rate, and Bumex was substituted for Lasix. She will continue her Aldactone. Her ARB was held secondary to some hypotension but consideration for readding this should occur in the future should her blood pressure remain adequate. Oral nitroglycerin was discontinued secondary to lower blood pressures in the hospital. She will follow-up with her primary care provider in 3 to 5 days, and get a BMP on follow-up which can be drawn by home health prior to her appointment. Physical Exam Narrative: EXAM NARRATIVE: General exam no distress Neck is supple Cardiovascular irregular, irregular with a 2/6 systolic murmur Lungs a few faint expiratory wheezes. A few faint crackles right lower lung. Abdomen is soft Extremities no cyanosis clubbing or edema. Discharge Data Data Completed and Pending: Completed Studies During Hospitalization Category Date Time Status XR chest 1V dio ble [id number] Stat Exams 04/22/21 06:49 Completed Labs from last 24 hours 04/25/21 04/24/21 04/24/21 06:52 22:35 15:56 POC Glucose 126 H 316 H 86 04/24/21 04/24/21 11:50 11:47 POC Glucose 431 H 475 H Vitals: Last Vital Signs Temp 97.5 F L 04/24/21 20:00 Pulse 86 04/25/21 05:18 Resp 20 H 04/25/21 03:12 BP 132/80 04/25/21 03:12 Pulse Ox 95 04/25/21 03:12 Discharge Plan Discharge Patient Disposition: Home Health Service Condition: Stable Prescriptions: New diltiazem HCl 360 mg capsule,extended release 24hr 360 mg PO DAILY Qty: 30 RF: 0 metoprolol tartrate 50 mg Tablet 100 mg PO Q12H Qty: 120 RF: 0 doxycycline monohydrate 100 mg Tablet 100 mg PO BID Qty: 8 RF: 0 prednisone 20 mg Tablet 40 mg PO DAILY Qty: 4 RF: 0 bumetanide 1 mg Tablet 1 mg PO BREAKFAST Qty: 30 RF: 0 Continued atorvastatin 40 mg tablet 40 mg PO BEDTIME RF: 0 lorazepam 0.5 mg tablet 0.5 mg PO QAM RF: 0 pantoprazole 40 mg tablet,delayed release (DR/EC) 40 mg PO BEDTIME RF: 0 ferrous sulfate 325 mg (65 mg iron) tablet 325 mg PO QAM RF: 0 escitalopram oxalate 10 mg tablet 10 mg PO QPM RF: 0 Breo Ellipta 100-25 mcg/dose blister with device 1 inh INHALATION QAM RF: 0 glipizide 2.5 mg Tablet Extended Release 24hr 2.5 mg PO QAM RF: 0 Eliquis 2.5 mg Tablet 2.5 mg PO BID RF: 0 spironolactone 25 mg tablet 25 mg PO DAILY RF: 0 Aspir-81 81 mg Tablet,Delayed Release (Dr/Ec) 81 mg PO .EVERY OTHER DAY RF: 0 Humulin R Regular U-100 Insuln 100 unit/mL solution See Rx Instructions .ROUTE .COMPLEX RF: 0 Nitrostat 0.4 mg Tablet, Sublingual 0.4 mg SUBLINGUAL Q5M PRN (Reason: Chest Pain) RF: 0 Levemir FlexTouch U-100 Insuln 100 unit/mL (3 mL) insulin pen See Rx Instructions .ROUTE .COMPLEX RF: 0 levothyroxine [Euthyrox] 75 mcg tablet 75 mcg PO QAM RF: 0 Vitamin D3 1 cap PO DAILY RF: 0 calcium 1 tab PO QAM RF: 0 magnesium 1 tab PO QAM RF: 0 Changed potassium chloride 10 mEq tablet extended release 10 meq PO QAM Qty: 0 RF: 0 Discontinued losartan 50 mg tablet 25 mg PO DAILY RF: 0 metoprolol tartrate 25 mg tablet 75 mg PO BID@0900,2100 RF: 0 diltiazem HCl 240 mg capsule,extended release 24hr 240 mg PO QAM RF: 0 isosorbide mononitrate 30 mg tablet extended release 24 hr 30 mg PO QAM RF: 0 furosemide 40 mg tablet 40 mg PO QAM RF: 0 Discharge Orders: Discharge Order (Routine); Ordered 04/25/21 Ordered By: Nicolas Tejeda Referrals: Diallo Tracy MD [Primary Care Provider] - 4-7 days (BMP on followup) Discharge Diet: Cardiac Discharge Activity: Increase activity as tolerated Patient Instructions: Metoprolol (By mouth) (Lopressor, Toprol XL), Diltiazem (By mouth) (Cardizem, Cardizem CD, Cardizem LA, Cardizem SR), Bumetanide (By mouth) (Bumex), Doxycycline (By mouth) (Acticlate, Adoxa, Avidoxy, Monodox, Doryx), Prednisone (By mouth), Opioid Safety Activity Restrictions/Additional Instructions: Home oxygen evaluation on discharge. Follow-up with primary care in 3 to 5 days. BMP to be done in 3 to 4 days. This can be done by home health and sent to primary care provider. Discharge Attestations Time Spent in Discharge Care*: greater than 30 min Quality Metrics Clinical Quality Measures During this hospital stay, did patient experience: None Coding Level of Care Code Acute Chg FW DC note Diagnoses Atrial fibrillation with RVR I48.91 Asthma J45.909 Acute bronchitis J20.9 Systolic heart failure I50.20 Type 2 diabetes mellitus E11.9 CAD (coronary artery disease) I25.10 HTN, goal below 130/80 I10
--- NOTE | 2021-04-25 15:40 | PC.NURSE ---
Discharge Note Patient discharged to Home via private vehicle accompanied by Daughter. Discharge instructions reviewed with patient and/or outside medical sales representative. Mobile pharmacy medications and/or prescriptions provided. Belongings/home medications returned.
== END 2021-04-25 15:48 | disposition home health service (06) ==
LOC: ER 08:33 → CSU 16:52
PROVIDERS: Admitting Provider Internal Medicine; Emergency Provider Family Medicine; PCP Family Medicine; Visit Provider Internal Medicine
DX: I48.91 Unspecified atrial fibrillation (principal); I11.0 Hypertensive heart disease with heart failure; I50.20 Unspecified systolic (congestive) heart failure; I25.10 Atherosclerotic heart disease of native coronary artery without angina pectoris; J45.909 Unspecified asthma, uncomplicated; J20.9 Acute bronchitis, unspecified; E11.9 Type 2 diabetes mellitus without complications; Z99.81 Dependence on supplemental oxygen; I08.3 Combined rheumatic disorders of mitral, aortic and tricuspid valves; Z79.84 Long term (current) use of oral hypoglycemic drugs; Z79.82 Long term (current) use of aspirin; Z79.01 Long term (current) use of anticoagulants
CPT/HCPCS: 36415; 36416; 51701; 71045; 80048; 80053; 81003; 82550; 82962; 83735; 83880; 84443; 84484; 85025; 93005; 94640; 96365; 96366; 96367; 96372; 99291; G0378; J1815; J1940; J3475; J3490; J7512; J7626

== ENCOUNTER 2021-05-04 22:34 | Observation (INO) | payer MEDICARE, SELFPAY ==
[2021-05-04 22:35] VITALS: BP 124/65; PULSE 76; RESP 16; TEMP 35.3; O2SAT 93; BMI 20.5
[2021-05-04 22:52] LABS: Glucose Point of Care 78 mg/dL (70-110)
--- NOTE | 2021-05-04 23:09 | PM.HP ---
Providers/Chief Complaint Admitting Physician: Jaun Barriga Primary Care Provider: Diallo Tracy MD Chief Complaint: WEAKNESS History of Present Illness 85-year-old female with a past medical history significant for anxiety, depression, coronary artery disease, hypertension, hypothyroidism, chronic systolic heart failure with last known EF of 40%, valvular heart disease with severe mitral regurgitation, persistent atrial fibrillation COVID-19 infection in February and as chronic hypoxemic respiratory failure on 2 L of O2 via nasal cannulaWho presented to the hospital with altered mental status. Patient was not able to provide history. This was obtained from daughter at bedside. Patient was recently discharged from the hospital after treatment for AFib with RVR. Patient was doing well until earlier today and dinner time was noted to have hyperglycemia with a blood sugar of 376. She was given 10 units of Humulin in addition to her long-acting Lantus. Shortly after daughter stated patient started to feel cold and clammy. Blood sugar was checked and found to be in 60s. Was given coke however patient was starting to become difficult to arouse. EMS was called and patient was brought to ER. Laboratory workup arrival showed a WBC of 13.9, hemoglobin for 2.2, hematocrit of 42.7 and platelet count of 297. Arterial blood gases showed a pH 7.3, CO2 of 55.7, PO2 94, bicarb of 33.9. Sodium 140, potassium 3.5, chloride 100, bicarb 27, BUN 29 and creatinine 1.1 and a glucose of 61. Troponin T 24, 19.3 at 2hr. ProBNP of 5219. UA showed 2+ LE, 15-25 WBC and 3+ bacteria. Head CT did not show any evidence of acute intracranial abnormality. Chest xray did not show any acute abnormality. ER Meds D5/NS at 100cc/hr Review of Systems General: Reports: ROS unobtainable due to mental status Medications/Allergies Home Medications Medication Instructions Recorded Confirmed Last Taken Type Breo Ellipta 1 inh INHALATION QAM 07/25/19 04/22/21 03/01/21 History atorvastatin 40 mg PO BEDTIME 07/25/19 04/22/21 04/21/21 History escitalopram oxalate 10 mg PO QPM 07/25/19 04/22/21 03/01/21 History ferrous sulfate 325 mg PO QAM 07/25/19 04/22/21 04/21/21 History lorazepam 0.5 mg PO QAM 07/25/19 04/22/21 04/21/21 History pantoprazole 40 mg PO BEDTIME 07/25/19 04/22/21 03/01/21 History Eliquis 2.5 mg PO BID 08/28/19 04/22/21 04/21/21 History glipizide 2.5 mg PO QAM 08/28/19 04/22/21 04/21/21 History Vitamin D3 1 cap PO DAILY 02/26/21 04/22/21 03/01/21 History calcium 1 tab PO QAM 02/26/21 04/22/21 03/01/21 History levothyroxine [Euthyrox] 75 mcg PO QAM 02/26/21 04/22/21 04/22/21 History magnesium 1 tab PO QAM 02/26/21 04/22/21 03/01/21 History Humulin R Regular U-100 Insuln See Rx Instructions .ROUTE .COMPLEX 04/22/21 04/22/21 Unknown History Levemir FlexTouch U-100 Insuln See Rx Instructions .ROUTE .COMPLEX 04/22/21 04/22/21 Unknown History Nitrostat 0.4 mg SUBLINGUAL Q5M PRN 04/22/21 04/22/21 Unknown History aspirin 81 mg PO .EVERY OTHER DAY 04/22/21 04/22/21 Unknown History spironolactone 25 mg PO DAILY 04/22/21 04/22/21 04/21/21 History bumetanide 1 mg PO BREAKFAST #30 tab 04/25/21 Unknown Rx diltiazem HCl 360 mg PO DAILY #30 cap 04/25/21 Unknown Rx doxycycline monohydrate 100 mg PO BID #8 tab 04/25/21 Unknown Rx metoprolol tartrate 100 mg PO Q12H #120 tab 04/25/21 Unknown Rx potassium chloride 10 meq PO QAM #0 tab 04/25/21 04/22/21 03/01/21 Rx prednisone 40 mg PO DAILY #4 tab 04/25/21 Unknown Rx Allergies Allergy/AdvReac Type Severity Reaction Status Date / Time aspirin Allergy ADR-Nausea Verified 04/22/21 09:03 codeine Allergy ADR-Nausea Verified 04/22/21 09:03 tramadol Allergy Unknown Verified 04/22/21 09:03 PFSH Acute PFSH: Medical History (Updated 05/05/21 @ 03:52 by Ruddy Laar DO) Asthma Atrial fibrillation and flutter CAD (coronary artery disease) COPD (chronic obstructive pulmonary disease) Chronically on 2 L of oxygen per nasal cannula Depression with anxiety Diastolic heart failure GERD (gastroesophageal reflux disease) Hypertension Hypothyroidism Systolic heart failure Echocardiogram 02/28 demonstrated EF of 40%, severe tricuspid and mitral regurgitation and moderate aortic regurgitation Type 2 diabetes mellitus Surgical History History of coronary artery bypass graft History of heart artery stent Family History Other CAD (coronary artery disease) Cancer Social History Smoking and tobacco status: never smoked Alcohol intake: never Lives independently: Yes Household members: spouse Marital status: Current occupational status: retired History of recent travel: No Current gender identity: Female Vitals/I&O/Wt Last Vital Signs Temp 98.0 F 05/05/21 02:47 Pulse 107 H 05/05/21 02:47 Resp 21 H 05/05/21 02:47 BP 125/70 05/05/21 02:47 Pulse Ox 100 05/05/21 02:47 Weight last 48 hrs Weight 56.064 kg Weight 50.802 kg Physical Exam Narrative: EXAM NARRATIVE: GENERAL APPEARANCE: Drowsy HEENT: Grossly unremarkable. CVS; Regular rate and rhythm Chest; CTABL Abd; Soft, NT, ND Ext; No edema Data : 05/04/21 22:30 05/04/21 22:30 A&P Assessment and plan (1) Diabetes mellitus with hypoglycemia: Status: Acute (2) Altered mental status: Status: Acute (3) Abnormal urinalysis: Status: Acute (4) COPD (chronic obstructive pulmonary disease): Status: Acute (5) Atrial fibrillation and flutter: Status: Acute (6) CAD (coronary artery disease): Status: Acute (7) HTN, goal below 130/80: Status: Acute Additional A&P Information Altered Mental Status due to hypoglycemia Improving possible component of infectious NPO until Bedside swallow Fall / Aspiration precautions Diabetes mellitus with hypoglycemia Holding home glipazide/ Lantus / Insulin Decrease IVF to 50cc/hr Q1hr glucose checks until > 200 D/c IVF once BS stable A1c in am Regular diet for now Abnormal UA possible UTI UA 2+ LE - f/u on culture Rocephin 1g IV q24hr Additional Medical Problem Ch. Hypoxemic respiratory failure on 2L Persistent Atrial Fibrillation Coronary artery disease s/p CABG Ch. Systolic HF Severe MR/TR Hx of COVID-19 Hypertension Hypothyroidism DVT ppx Eliquis 2.5 mg PO BID Attestations Medical Necessity Statement*: Anticipate less than 2 midnight stay in hospital for eval and treatment Time Spent in Patient Care: Greater than 35 minutes (>than 50% of time spent in counselling and/or direct pt care on unit). Coding Level of Care Code Acute Wild Animal Caretaker for Chg Fwd Diagnoses Diabetes mellitus with hypoglycemia E11.649 Altered mental status R41.82 Abnormal urinalysis R82.90 COPD (chronic obstructive pulmonary disease) J44.9 Atrial fibrillation and flutter I48.91; I48.92 CAD (coronary artery disease) I25.10 HTN, goal below 130/80 I10
--- NOTE | 2021-05-04 23:18 | XRR_ITS ---
PROCEDURE INFORMATION: Exam: XR Chest Exam date and time: 05/04/2021 11:18 PM Age: 85 years old Clinical indication: Other: AMS TECHNIQUE: Imaging protocol: XR of the chest. Views: 1 view. COMPARISON: CR (CHEST, ) 04/22/2021 7:15 AM FINDINGS: Lungs: Unremarkable. No consolidation. Pleural spaces: Unremarkable. No pleural effusion. No pneumothorax. Heart/Mediastinum: The cardiac profile is prominent. Bones/joints: Unremarkable. XR/XR chest 1V portable [id number] IMPRESSION: 1. There are no acute chest findings. 2. Mild cardiomegaly
--- NOTE | 2021-05-04 23:19 | ECG_ITS ---
[facility] Test Date: 2021-05-04 Pat Name: Lilia Haynes Department: Room: Gender: Female Night Shift: : 1935 Requested By: Ruddy Landrum Order Number: [id number] Meng MD: Ernie Kidd M.D. Measurements Intervals Stanley Rate: 103 P: OR: QRS: -55 QRSD: 174 T: 134 QT: 373 QTc: 488 Interpretive Statements Atrial fibrillation with rapid ventricular rate and occasional PVCs Left bundle branch block Left axis deviation ABNORMAL RHYTHM ECG Compared to ECG 04/22/2021 13:02:33, no significant change Electronically Signed On 05-07-2021 23:42:00 [employer] DEVELOPER by Ernie Kidd M.D. [email or web address]
[2021-05-04 23:24] LABS: ABG PH Result 7.39 (7.35-7.45); Blood Gas Sample Type Arterial
[2021-05-04 23:26] LABS: Glucose Point of Care 61 mg/dL (70-110)
[2021-05-04 23:33] LABS: Basophils # 0.1 10^3/uL (0.0-0.1); Basophils % 0.5 %; Eosinophils # 0.4 10^3/uL (0.0-0.8); Hematocrit 42.7 % (37.0-47.0); Hemoglobin 14.2 g/dL (11.5-15.3); Lymphocytes # 3.5 10^3/uL (0.8-4.8); Lymphocytes % 24.9 %; Mean Corpuscular HGB Conc 33.3 g/dL (30.0-36.0); Mean Corpuscular Hemoglobin 33.7 pg (28.0-34.0); Mean Corpuscular Volume 101.4 fl (81-99); Mean Platelet Volume 13.1 fL (7.4-10.4); Monocytes # 1.6 10^3/uL (0.2-0.9); Monocytes % 11.8 %; Neutrophils # 8.26 10^3/uL (1.8-7.7); Neutrophils % 59.3 %; Nucleated Red Blood Cells % 0 %; Platelet Count 297 10^3/cmm (130-400); Red Blood Count 4.21 10^6/uL (4.1-5.3); Red Cell Distribution Width 15.5 % (12.1-15.1); White Blood Count 13.9 10^3/uL (4.0-10.0)
[2021-05-04 23:36] LABS: INR 1.04 (0.8-1.2)
[2021-05-04 23:37] LABS: Partial Thromboplastin Time 29.7 SECONDS (23.9-36.7)
[2021-05-04 23:40] LABS: ABG PCO2 55.7 mmHg (35-45); Arterial Blood Gas Hematocrit 41.6 % (37-47); Base Excess ABG 7.2 mmol/L (-2.0-2.0); Blood Gas Sample Site Brachial, right; HCO3 ABG 33.9 mmol/L (22-26); Oxygen Device ROOM AIR; PO2 ABG 94.4 mmHg (80.0-100.0)
[2021-05-04 23:46] LABS: Troponin(5th) Baseline 24 ng/L (0-10)
[2021-05-04 23:53] LABS: Alanine Aminotransferase 13 U/L (0-33); Albumin Level 3.8 g/dL (3.5-5.2); Alkaline Phosphatase 85 IU/L (35-105); Anion Gap 16.5 (5-19); Aspartate Amino Transferase 23 U/L (0-32); Blood Urea Nitrogen 29 mg/dL (8-23); Calcium 8.9 mg/dL (8.5-10.5); Carbon Dioxide 27 mmol/L (22-29); Chloride 100 mmol/L (98-107); Globulin 3.1 g/dL (1.3-4.6); Glucose 113 mg/dL (65-115); Magnesium 1.9 mg/dL (1.7-2.3); NT Pro B Type Natriuretic Pept 5219 pg/mL (0-450); Osmolality Calculated 297 mOsm/kg (285-295); Potassium 3.5 mmol/L (3.5-5.1); Sodium 140 mmol/L (136-145); Total Bilirubin 0.4 mg/dL (0.15-1.2); Total Protein 6.9 g/dL (6.6-8.7)
--- NOTE | 2021-05-05 00:03 | CTR_ITS ---
PROCEDURE INFORMATION: Exam: CT Head Without Contrast Exam date and time: 05/05/2021 12:03 AM Age: 85 years old Clinical indication: Altered mental status/memory loss; Confusion or disorientation; Additional info: AMS TECHNIQUE: Imaging protocol: Computed tomography of the head without contrast. Radiation optimization: All CT scans at this facility use at least one of these dose optimization techniques: automated exposure control; mA and/or kV adjustment per patient size (includes targeted exams where dose is matched to clinical indication); or iterative reconstruction. COMPARISON: CT head wo con* [id number] 03/08/2019 7:02 PM RADIATION DOSE METRICS: Total DLP (mGy-cm): 784.77 FINDINGS: Brain: There is mild diffuse cerebral atrophy. Patchy areas of hypoattenuation are seen in the deep white matter of the cerebral hemispheres bilaterally compatible with deep white matter microvascular disease. Hypoattenuation and mild atrophy is seen within the superior aspect of the right cerebellar hemisphere compatible with a chronic cerebellar infarction. This appears stable compared with 03/08/2019. Focal hypoattenuation seen within the thalamus on the left compatible with a chronic lacunar infarction. This appears stable compared with 03/08/2019. A stable lacunar infarction is also seen in the right basal ganglia. Cerebral ventricles: No ventriculomegaly. Paranasal sinuses: Mucosal thickening and fluid is seen within the ethmoidal sinuses bilaterally and in the left maxillary sinus. Mastoid air cells: Visualized mastoid air cells are well aerated. Bones/joints: Unremarkable. No acute fracture. Soft tissues: Unremarkable. CT/CT head wo con* [id number] IMPRESSION: 1. There are no acute intracranial findings. 2. Stable head CT compared with 03/08/2019.
[2021-05-05] MEDS: dextrose 5%-sod chloride 0.9% 1,000 ML 100 ML IV (00:10)
--- NOTE | 2021-05-05 00:13 | ED_ITS ---
Documented by User: Jaun Barriga MD 05/05/21 01:36 HPI - Weakness General: Chief complaint: Weakness Stated complaint: WEAKNESS Time Seen by Provider: 05/04/21 22:54 PFSH ED PFSH: Medical History (Updated 05/05/21 @ 03:52 by Ruddy Lara DO) Asthma Atrial fibrillation and flutter CAD (coronary artery disease) COPD (chronic obstructive pulmonary disease) Chronically on 2 L of oxygen per nasal cannula Depression with anxiety Diastolic heart failure GERD (gastroesophageal reflux disease) Hypertension Hypothyroidism Systolic heart failure Echocardiogram 02/28 demonstrated EF of 40%, severe tricuspid and mitral regurgitation and moderate aortic regurgitation Type 2 diabetes mellitus Surgical History History of coronary artery bypass graft History of heart artery stent Family History Other CAD (coronary artery disease) Cancer Social History Smoking and tobacco status: never smoked Alcohol intake: never Lives independently: Yes Household members: spouse Marital status: Current occupational status: retired History of recent travel: No Current gender identity: Female Course Vital Signs: Vital signs: Vital Signs Temperature 98.0 F 05/05/21 02:47 Pulse Rate 107 H 05/05/21 02:47 Respiratory Rate 21 H 05/05/21 02:47 Blood Pressure 125/70 05/05/21 02:47 Pulse Oximetry 100 05/05/21 02:47 MDM - Weakness Lab Data: Labs: Lab Results 05/04/21 05/04/21 05/04/21 22:30 22:30 22:30 WBC 13.9 10^3/uL H 10 ^3/uL (4.0-10.0) RBC 4.21 10^6/uL 10^6 /uL (4.1-5.3) Hgb 14.2 g/dL g/dL (11.5-15.3) Hct 42.7 % % (37.0-47.0) MCV 101.4 fl H fl (81-99) MCH 33.7 pg pg (28.0-34.0) MCHC 33.3 g/dL g/dL (30.0-36.0) RDW 15.5 % H % (12.1-15.1) Plt Count 297 10^3/cmm 10^3 /cmm (130-400) MPV 13.1 fL H fL (7.4-10.4) Neut % (Auto) 59.3 % % Lymph % (Auto) 24.9 % % [place] % (Auto) 11.8 % % Eos % (Auto) 3.0 % % Baso % (Auto) 0.5 % % Neut # (Auto) 8.26 10^3/uL H 10 ^3/uL (1.8-7.7) Lymph # (Auto) 3.5 10^3/uL 10^3/ uL (0.8-4.8) [place] # (Auto) 1.6 10^3/uL H 10^ 3/uL (0.2-0.9) Eos # (Auto) 0.4 10^3/uL 10^3/ uL (0.0-0.8) Baso # (Auto) 0.1 10^3/uL 10^3/ uL (0.0-0.1) Nucleated RBC % (a uto) 0 % % Nucleated RBCs # 0.0 /100WBC /100W BC PT 14.00 SECONDS SEC ONDS (12.1-14.9) INR 1.04 (0.8-1.2) APTT 29.7 SECONDS SECO NDS (23.9-36.7) Specimen Type Sample Site ABG pH ABG pCO2 ABG pO2 ABG HCO3 ABG Base Excess Deep Test Hematocrit O2 Delivery Device Barn Operator ID Sodium 140 mmol/L mmol/L (136-145) Potassium 3.5 mmol/L mmol/L (3.5-5.1) Chloride 100 mmol/L mmol/L (98-107) Carbon Dioxide 27 mmol/L mmol/L (22-29) Anion Gap 16.5 (5-19) BUN 29 mg/dL H mg/dL (8-23) Creatinine 1.1 mg/dL H mg/dL (0.5-0.9) GFR Calculation Not Reportable Glucose 113 mg/dL mg/dL (65-115) POC Glucose Calculated Osmolal ity 297 mOsm/kg H mOs m/kg (285-295) Calcium 8.9 mg/dL mg/dL (8.5-10.5) Magnesium 1.9 mg/dL mg/dL (1.7-2.3) Total Bilirubin 0.4 mg/dL mg/dL (0.15-1.2) AST 23 U/L U/L (0-32) ALT 13 U/L U/L (0-33) Alkaline Phosphata se 85 IU/L IU/L (35-105) Troponin T Baselin e Troponin T 120 Min [place] Troponin T NT-Pro-B Natriuret Pep 5219 pg/mL H pg/m L (0-450) Total Protein 6.9 g/dL g/dL (6.6-8.7) Albumin 3.8 g/dL g/dL (3.5-5.2) Globulin 3.1 g/dL g/dL (1.3-4.6) Urine Color Urine Appearance Urine pH Ur Specific Gravit y Urine Protein Urine Glucose (UA) Urine Ketones Urine Blood Urine Nitrate Urine Bilirubin Prot Sulfosalicyli c Acd Urine Urobilinogen Ur Leukocyte Annemarie ase Urine RBC Urine WBC Ur Squamous Epith Cells Amorphous Sediment Urine Bacteria 05/04/21 05/04/21 05/04/21 22:30 22:49 23:20 WBC RBC Hgb Hct MCV MCH MCHC RDW Plt Count MPV Neut % (Auto) Lymph % (Auto) [place] % (Auto) Eos % (Auto) Baso % (Auto) Neut # (Auto) Lymph # (Auto) [place] # (Auto) Eos # (Auto) Baso # (Auto) Nucleated RBC % (a uto) Nucleated RBCs # PT INR APTT Specimen Type Arterial Sample Site Brachial, right ABG pH 7.39 (7.35-7.45) ABG pCO2 55.7 mmHg H mmHg (35-45) ABG pO2 94.4 mmHg mmHg (80.0-100.0) ABG HCO3 33.9 mmol/L H mmo l/L (22-26) ABG Base Excess 7.2 mmol/L H mmol /L (-2.0-2.0) Deep Test N/a Hematocrit 41.6 % % (37-47) O2 Delivery Device Room air Barn Operator ID [id number] Sodium Potassium Chloride Carbon Dioxide Anion Gap BUN Creatinine GFR Calculation Glucose POC Glucose 78 mg/dL mg/dL (70-110) Calculated Osmolal ity Calcium Magnesium Total Bilirubin AST ALT Alkaline Phosphata se Troponin T Baselin e 24 ng/L H ng/L (0-10) Troponin T 120 Min [place] Troponin T NT-Pro-B Natriuret Pep Total Protein Albumin Globulin Urine Color Urine Appearance Urine pH Ur Specific Gravit y Urine Protein Urine Glucose (UA) Urine Ketones Urine Blood Urine Nitrate Urine Bilirubin Prot Sulfosalicyli c Acd Urine Urobilinogen Ur Leukocyte Annemarie ase Urine RBC Urine WBC Ur Squamous Epith Cells Amorphous Sediment Urine Bacteria 05/04/21 05/05/21 05/05/21 23:22 00:14 00:23 WBC RBC Hgb Hct MCV MCH MCHC RDW Plt Count MPV Neut % (Auto) Lymph % (Auto) [place] % (Auto) Eos % (Auto) Baso % (Auto) Neut # (Auto) Lymph # (Auto) [place] # (Auto) Eos # (Auto) Baso # (Auto) Nucleated RBC % (a uto) Nucleated RBCs # PT INR APTT Specimen Type Sample Site ABG pH ABG pCO2 ABG pO2 ABG HCO3 ABG Base Excess Deep Test Hematocrit O2 Delivery Device Barn Operator ID Sodium Potassium Chloride Carbon Dioxide Anion Gap BUN Creatinine GFR Calculation Glucose POC Glucose 61 mg/dL L mg/dL (70-110) Calculated Osmolal ity Calcium Magnesium Total Bilirubin AST ALT Alkaline Phosphata se Troponin T Baselin e Troponin T 120 Min [place] 19.35 ng/L H ng/L (0-10) [place] Troponin T -4.65 ABS# L ABS# (0-10) NT-Pro-B Natriuret Pep Total Protein Albumin Globulin Urine Color Yellow (Yellow) Urine Appearance Clear (CLEAR) Urine pH 8 H (5-7) Ur Specific Gravit y 1.010 (1.005-1.030) Urine Protein Neg (Negative) Urine Glucose (UA) Norm (Normal) Urine Ketones Negative (Negative) Urine Blood Neg (Negative) Urine Nitrate Negative (Negative) Urine Bilirubin Neg (Negative) Prot Sulfosalicyli c Acd Negative (Negative) Urine Urobilinogen 1 mg/dL H mg/dL (Negative) Ur Leukocyte Annemarie ase 2+ H (Negative) Urine RBC 0-4 /hpf H /hpf (0-2) Urine WBC 15-25 /hpf H /hpf (0-5) Ur Squamous Epith Cells 0-4 /hpf H /hpf (0-5) Amorphous Sediment Not Reportable Urine Bacteria 3+ /hpf H /hpf (NONE) 05/05/21 01:00 WBC RBC Hgb Hct MCV MCH MCHC RDW Plt Count MPV Neut % (Auto) Lymph % (Auto) [place] % (Auto) Eos % (Auto) Baso % (Auto) Neut # (Auto) Lymph # (Auto) [place] # (Auto) Eos # (Auto) Baso # (Auto) Nucleated RBC % (a uto) Nucleated RBCs # PT INR APTT Specimen Type Sample Site ABG pH ABG pCO2 ABG pO2 ABG HCO3 ABG Base Excess Deep Test Hematocrit O2 Delivery Device Barn Operator ID Sodium Potassium Chloride Carbon Dioxide Anion Gap BUN Creatinine GFR Calculation Glucose POC Glucose 139 mg/dL H mg/dL (70-110) Calculated Osmolal ity Calcium Magnesium Total Bilirubin AST ALT Alkaline Phosphata se Troponin T Baselin e Troponin T 120 Min [place] Troponin T NT-Pro-B Natriuret Pep Total Protein Albumin Globulin Urine Color Urine Appearance Urine pH Ur Specific Gravit y Urine Protein Urine Glucose (UA) Urine Ketones Urine Blood Urine Nitrate Urine Bilirubin Prot Sulfosalicyli c Acd Urine Urobilinogen Ur Leukocyte Annemarie ase Urine RBC Urine WBC Ur Squamous Epith Cells Amorphous Sediment Urine Bacteria Discharge Plan Discharge Patient Disposition: Placed in Observation Admit Provider: Jaun Barriga Clinical Impression: Acute alteration in mental status Coding Level of Care Code ED Laminator [employer] for g Fwd Exam Detailed Documented by User: Ruddy Lara DO 05/05/21 03:52 HPI - Weakness General: Chief complaint: Weakness Stated complaint: WEAKNESS Time Seen by Provider: 05/04/21 22:54 History of Present Illness: HPI Narrative: 85-year-old female who presents with some mental status changes. Her daughter states that she checked her sugar and it was 387. She gave her her sliding scale insulin and long-acting insulin. She then became very lethargic. She checked her sugar again, and it was in the 60s. She ate some peanut butter and crackers, which improved the sugars to some degree, but the patient remained lethargic. She was also diaphoretic, and generally weak. MD Complaint: generalized weakness Onset (ago): hour(s) Duration: constant Location: generalized Migration: none Severity: moderate Quality: tingling Context: other Associated symptoms: Reports chills, confusion, nausea and short of breath; Denies chest pain, fever(s), headache(s), myalgias or vomiting Review of Systems Const: Reports: chills; Denies: fever(s) Card: Denies: chest pain Resp: Reports: dyspnea; Denies: productive cough or non-productive cough GI: Reports: nausea; Denies: vomiting Neuro: Reports: confusion; Denies: headache(s) PFSH ED PFSH: Medical History (Updated 05/05/21 @ 03:52 by Rdudy Lara DO) Asthma Atrial fibrillation and flutter CAD (coronary artery disease) COPD (chronic obstructive pulmonary disease) Chronically on 2 L of oxygen per nasal cannula Depression with anxiety Diastolic heart failure GERD (gastroesophageal reflux disease) Hypertension Hypothyroidism Systolic heart failure Echocardiogram 02/28 demonstrated EF of 40%, severe tricuspid and mitral regurgitation and moderate aortic regurgitation Type 2 diabetes mellitus Surgical History History of coronary artery bypass graft History of heart artery stent Family History Other CAD (coronary artery disease) Cancer Social History Smoking and tobacco status: never smoked Alcohol intake: never Lives independently: Yes Household members: spouse Marital status: Current occupational status: retired History of recent travel: No Current gender identity: Female Physical Exam 2 Const: GENERAL APPEARANCE: lethargic ORIENTATION/CONSCIOUSNESS: Yes oriented to person, Yes oriented to place and Yes lethargic; not oriented to time HENMT: COMMON NORMALS: normocephalic and atraumatic HEAD & SCALP: normocephalic and atraumatic Eye: COMMON NORMALS: Equal, round and reactive pupils present and EOMs intact bilaterally PUPIL: Yes Equal, round and reactive pupils present Chest: COMMONS NORMALS: normal inspection of the chest Resp: COMMON NORMALS: normal respiratory effort, No use of accessory muscles and clear to auscultation bilaterally AUSCULTATION: clear to auscultation bilaterally Cardio: RATE: tachycardic RHYTHM: abnormal rhythm irregularly irregular GI: COMMON NORMALS: Normal to inspection, nondistended, normoactive bowel sounds present and Soft to palpation PALPATION: Yes Soft to palpation Neuro: SENSORIUM/ORIENTATION: Yes oriented to person, Yes oriented to place, No oriented to time and Yes lethargic Course Consultations: Consultation #1: [email or web address] Vital Signs: Vital signs: Vital Signs Temperature 98.0 F 05/05/21 02:47 Pulse Rate 107 H 05/05/21 02:47 Respiratory Rate 21 H 05/05/21 02:47 Blood Pressure 125/70 05/05/21 02:47 Pulse Oximetry 100 05/05/21 02:47 MDM - Weakness MDM Narrative: Medical decision making narrative: 85-year-old female with lethargy, mental status change, generalized weakness. Likely due to rapid reduction in sugar from hyperglycemic to hypoglycemic. Her BUN is 29 creatinine 1.1. White blood cell count is 14. Potassium is 3.5. She has Had continued hypoglycemia here, for which she was placed on D5 normal saline with improvement in her sugar. However, this has not improved her mental status. She will be observed. Lab Data: Labs: Lab Results 05/04/21 05/04/21 05/04/21 22:30 22:30 22:30 WBC 13.9 10^3/uL H 10 ^3/uL (4.0-10.0) RBC 4.21 10^6/uL 10^6 /uL (4.1-5.3) Hgb 14.2 g/dL g/dL (11.5-15.3) Hct 42.7 % % (37.0-47.0) MCV 101.4 fl H fl (81-99) MCH 33.7 pg pg (28.0-34.0) MCHC 33.3 g/dL g/dL (30.0-36.0) RDW 15.5 % H % (12.1-15.1) Plt Count 297 10^3/cmm 10^3 /cmm (130-400) MPV 13.1 fL H fL (7.4-10.4) Neut % (Auto) 59.3 % % Lymph % (Auto) 24.9 % % [place] % (Auto) 11.8 % % Eos % (Auto) 3.0 % % Baso % (Auto) 0.5 % % Neut # (Auto) 8.26 10^3/uL H 10 ^3/uL (1.8-7.7) Lymph # (Auto) 3.5 10^3/uL 10^3/ uL (0.8-4.8) [place] # (Auto) 1.6 10^3/uL H 10^ 3/uL (0.2-0.9) Eos # (Auto) 0.4 10^3/uL 10^3/ uL (0.0-0.8) Baso # (Auto) 0.1 10^3/uL 10^3/ uL (0.0-0.1) Nucleated RBC % (a uto) 0 % % Nucleated RBCs # 0.0 /100WBC /100W BC PT 14.00 SECONDS SEC ONDS (12.1-14.9) INR 1.04 (0.8-1.2) APTT 29.7 SECONDS SECO NDS (23.9-36.7) Specimen Type Sample Site ABG pH ABG pCO2 ABG pO2 ABG HCO3 ABG Base Excess Deep Test Hematocrit O2 Delivery Device Barn Operator ID Sodium 140 mmol/L mmol/L (136-145) Potassium 3.5 mmol/L mmol/L (3.5-5.1) Chloride 100 mmol/L mmol/L (98-107) Carbon Dioxide 27 mmol/L mmol/L (22-29) Anion Gap 16.5 (5-19) BUN 29 mg/dL H mg/dL (8-23) Creatinine 1.1 mg/dL H mg/dL (0.5-0.9) GFR Calculation Not Reportable Glucose 113 mg/dL mg/dL (65-115) POC Glucose Calculated Osmolal ity 297 mOsm/kg H mOs m/kg (285-295) Calcium 8.9 mg/dL mg/dL (8.5-10.5) Magnesium 1.9 mg/dL mg/dL (1.7-2.3) Total Bilirubin 0.4 mg/dL mg/dL (0.15-1.2) AST 23 U/L U/L (0-32) ALT 13 U/L U/L (0-33) Alkaline Phosphata se 85 IU/L IU/L (35-105) Troponin T Baselin e Troponin T 120 Min [place] Troponin T NT-Pro-B Natriuret Pep 5219 pg/mL H pg/m L (0-450) Total Protein 6.9 g/dL g/dL (6.6-8.7) Albumin 3.8 g/dL g/dL (3.5-5.2) Globulin 3.1 g/dL g/dL (1.3-4.6) Urine Color Urine Appearance Urine pH Ur Specific Gravit y Urine Protein Urine Glucose (UA) Urine Ketones Urine Blood Urine Nitrate Urine Bilirubin Prot Sulfosalicyli c Acd Urine Urobilinogen Ur Leukocyte Annemarie ase Urine RBC Urine WBC Ur Squamous Epith Cells Amorphous Sediment Urine Bacteria 05/04/21 05/04/21 05/04/21 22:30 22:49 23:20 WBC RBC Hgb Hct MCV MCH MCHC RDW Plt Count MPV Neut % (Auto) Lymph % (Auto) [place] % (Auto) Eos % (Auto) Baso % (Auto) Neut # (Auto) Lymph # (Auto) [place] # (Auto) Eos # (Auto) Baso # (Auto) Nucleated RBC % (a uto) Nucleated RBCs # PT INR APTT Specimen Type Arterial Sample Site Brachial, right ABG pH 7.39 (7.35-7.45) ABG pCO2 55.7 mmHg H mmHg (35-45) ABG pO2 94.4 mmHg mmHg (80.0-100.0) ABG HCO3 33.9 mmol/L H mmo l/L (22-26) ABG Base Excess 7.2 mmol/L H mmol /L (-2.0-2.0) Deep Test N/a Hematocrit 41.6 % % (37-47) O2 Delivery Device Room air Barn Operator ID [id number] Sodium Potassium Chloride Carbon Dioxide Anion Gap BUN Creatinine GFR Calculation Glucose POC Glucose 78 mg/dL mg/dL (70-110) Calculated Osmolal ity Calcium Magnesium Total Bilirubin AST ALT Alkaline Phosphata se Troponin T Baselin e 24 ng/L H ng/L (0-10) Troponin T 120 Min [place] Troponin T NT-Pro-B Natriuret Pep Total Protein Albumin Globulin Urine Color Urine Appearance Urine pH Ur Specific Gravit y Urine Protein Urine Glucose (UA) Urine Ketones Urine Blood Urine Nitrate Urine Bilirubin Prot Sulfosalicyli c Acd Urine Urobilinogen Ur Leukocyte Annemarie ase Urine RBC Urine WBC Ur Squamous Epith Cells Amorphous Sediment Urine Bacteria 05/04/21 05/05/21 05/05/21 23:22 00:14 00:23 WBC RBC Hgb Hct MCV MCH MCHC RDW Plt Count MPV Neut % (Auto) Lymph % (Auto) [place] % (Auto) Eos % (Auto) Baso % (Auto) Neut # (Auto) Lymph # (Auto) [place] # (Auto) Eos # (Auto) Baso # (Auto) Nucleated RBC % (a uto) Nucleated RBCs # PT INR APTT Specimen Type Sample Site ABG pH ABG pCO2 ABG pO2 ABG HCO3 ABG Base Excess Deep Test Hematocrit O2 Delivery Device Barn Operator ID Sodium Potassium Chloride Carbon Dioxide Anion Gap BUN Creatinine GFR Calculation Glucose POC Glucose 61 mg/dL L mg/dL (70-110) Calculated Osmolal ity Calcium Magnesium Total Bilirubin AST ALT Alkaline Phosphata se Troponin T Baselin e Troponin T 120 Min [place] 19.35 ng/L H ng/L (0-10) [place] Troponin T -4.65 ABS# L ABS# (0-10) NT-Pro-B Natriuret Pep Total Protein Albumin Globulin Urine Color Yellow (Yellow) Urine Appearance Clear (CLEAR) Urine pH 8 H (5-7) Ur Specific Gravit y 1.010 (1.005-1.030) Urine Protein Neg (Negative) Urine Glucose (UA) Norm (Normal) Urine Ketones Negative (Negative) Urine Blood Neg (Negative) Urine Nitrate Negative (Negative) Urine Bilirubin Neg (Negative) Prot Sulfosalicyli c Acd Negative (Negative) Urine Urobilinogen 1 mg/dL H mg/dL (Negative) Ur Leukocyte Annemarie ase 2+ H (Negative) Urine RBC 0-4 /hpf H /hpf (0-2) Urine WBC 15-25 /hpf H /hpf (0-5) Ur Squamous Epith Cells 0-4 /hpf H /hpf (0-5) Amorphous Sediment Not Reportable Urine Bacteria 3+ /hpf H /hpf (NONE) 05/05/21 01:00 WBC RBC Hgb Hct MCV MCH MCHC RDW Plt Count MPV Neut % (Auto) Lymph % (Auto) [place] % (Auto) Eos % (Auto) Baso % (Auto) Neut # (Auto) Lymph # (Auto) [place] # (Auto) Eos # (Auto) Baso # (Auto) Nucleated RBC % (a uto) Nucleated RBCs # PT INR APTT Specimen Type Sample Site ABG pH ABG pCO2 ABG pO2 ABG HCO3 ABG Base Excess Deep Test Hematocrit O2 Delivery Device Barn Operator ID Sodium Potassium Chloride Carbon Dioxide Anion Gap BUN Creatinine GFR Calculation Glucose POC Glucose 139 mg/dL H mg/dL (70-110) Calculated Osmolal ity Calcium Magnesium Total Bilirubin AST ALT Alkaline Phosphata se Troponin T Baselin e Troponin T 120 Min [place] Troponin T NT-Pro-B Natriuret Pep Total Protein Albumin Globulin Urine Color Urine Appearance Urine pH Ur Specific Gravit y Urine Protein Urine Glucose (UA) Urine Ketones Urine Blood Urine Nitrate Urine Bilirubin Prot Sulfosalicyli c Acd Urine Urobilinogen Ur Leukocyte Annemarie ase Urine RBC Urine WBC Ur Squamous Epith Cells Amorphous Sediment Urine Bacteria Discharge Plan Discharge Patient Disposition: Placed in Observation Admit Provider: Jaun Barriga Clinical Impression: Acute alteration in mental status Coding Level of Care Code ED Laminator [employer]ed [employer] Boards for [facility] Fwd Exam Detailed
[2021-05-05 00:58] LABS: Troponin 5 2HR 19.35 ng/L (0-10)
[2021-05-05 01:00] LABS: Troponin 5 2HR Delta -4.65 ABS# (0-10)
[2021-05-05 01:04] LABS: Glucose Point of Care 139 mg/dL (70-110)
--- NOTE | 2021-05-05 01:08 | PC.NURSE ---
BS 139
[2021-05-05 02:09] LABS: Blood Urine Neg (Negative); Glucose Urine UA Norm (Normal); Ketones Urine Negative (Negative); Nitrate Urine Negative (Negative); Protein Urine Neg (Negative); Urine Appearance Clear (CLEAR); Urine Color Yellow (Yellow); pH Urine 8 (5-7)
[2021-05-05 02:10] LABS: Add Urine Microscopic? YES; Bilirubin Urine Neg (Negative); Leukocyte Esterase Urine 2+ (Negative); Sulfosalicylic Acid Urine Negative (Negative); Urobilinogen Urine 1 mg/dL (Negative)
[2021-05-05 02:11] LABS: Add Urine Culture? Yes; Bacteria Urine 3+ /hpf; RBC Urine 0-4 /hpf (0-2); Squamous Epithelial Cell Urine 0-4 /hpf (0-5); WBC Urine 15-25 /hpf (0-5)
[2021-05-05 02:16] VITALS: BP 100/68; PULSE 64; RESP 14; O2SAT 95
[2021-05-05 02:47] VITALS: BP 125/70; PULSE 107; RESP 21; TEMP 36.7; O2SAT 100
[2021-05-05] MEDS: cefTRIAXone 1,000 MG in sodium chloride 0.9% (plus) 50 ML 100 MG IV (03:11)
[2021-05-05 03:46] LABS: Glucose Point of Care 111 mg/dL (70-110)
[2021-05-05 04:35] LABS: Glucose Point of Care 134 mg/dL (70-110)
--- NOTE | 2021-05-05 05:19 | ECG_ITS ---
[facility] Test Date: 2021-05-05 Pat Name: Lilia Haynes Department: Room: 252 Gender: Female Processing Tech: : [id number] Requested By: Ruddy Landrum Order Number: [id number] MD: Delphine Llamas M.D. Measurements Intervals [place] Rate: 104 P: SD: QRS: -67 QRSD: 154 T: 108 QT: 408 QTc: 538 Interpretive Statements ATRIAL FIBRILLATION WITH RAPID VENTRICULAR RESPONSE LEFT AXIS DEVIATION [QRS AXIS < -30] INTRAVENTRICULAR CONDUCTION DELAY [130+ ms QRS DURATION] Compared to ECG 05/04/2021 22:45:22 Left-axis deviation now present Intraventricular conduction delay now present Ventricular-paced complex(es) or rhythm no longer present Electronically Signed On 05-06-2021 22:48:50 [employer] by Delphine Llamas M.D. [id number]
[2021-05-05 05:27] LABS: Glucose Point of Care 120 mg/dL (70-110)
[2021-05-05 06:30] LABS: Glucose Point of Care 112 mg/dL (70-110)
[2021-05-05 06:35] LABS: Basophils # 0.1 10^3/uL (0.0-0.1); Basophils % 0.6 %; Eosinophils # 0.2 10^3/uL (0.0-0.8); Eosinophils % 1.9 %; Hematocrit 42.3 % (37.0-47.0); Hemoglobin 13.8 g/dL (11.5-15.3); Lymphocytes # 2.3 10^3/uL (0.8-4.8); Mean Corpuscular HGB Conc 32.6 g/dL (30.0-36.0); Mean Corpuscular Volume 101.2 fl (81-99); Mean Platelet Volume 11.7 fL (7.4-10.4); Monocytes % 8.4 %; Neutrophils # 8.32 10^3/uL (1.8-7.7); Neutrophils % 69.5 %; Nucleated Red Blood Cells % 0 %; Platelet Count 353 10^3/cmm (130-400); Red Blood Count 4.18 10^6/uL (4.1-5.3); Red Cell Distribution Width 15.6 % (12.1-15.1)
[2021-05-05 06:58] LABS: Anion Gap 11.4 (5-19); Blood Urea Nitrogen 25 mg/dL (8-23); Calcium 8.2 mg/dL (8.5-10.5); Carbon Dioxide 32 mmol/L (22-29); Chloride 98 mmol/L (98-107); Glucose 124 mg/dL (65-115); Osmolality Calculated 292 mOsm/kg (285-295); Potassium 3.4 mmol/L (3.5-5.1); Sodium 138 mmol/L (136-145)
[2021-05-05 06:59] LABS: Troponin 5 6HR 23.72 ng/L (0-10)
[2021-05-05 07:00] LABS: Estmated Average Glucose 229; Hemoglobin A1C 9.6 % (4.0-6.0)
[2021-05-05 07:01] LABS: Troponin 5 6HR Delta -0.28 ng/L (0-12)
[2021-05-05 07:19] LABS: Glucose Point of Care 134 mg/dL (70-110)
[2021-05-05 07:46] VITALS: BP 125/81; PULSE 126; RESP 18; TEMP 36.8; O2SAT 90
[2021-05-05] MEDS: apixaban 5 mg Tablet 2.5 MG PO (08:03)
[2021-05-05] MEDS: pantoprazole DR 40 mg Tablet PO (08:03)
[2021-05-05 08:41] LABS: Glucose Point of Care 140 mg/dL (70-110)
[2021-05-05 09:41] LABS: Glucose Point of Care 197 mg/dL (70-110)
[2021-05-05 10:11] LABS: Glucose Point of Care 249 mg/dL (70-110)
[2021-05-05 11:30] VITALS: BP 125/74; PULSE 73; RESP 17; TEMP 36.9; O2SAT 98
[2021-05-05 11:33] LABS: Glucose Point of Care 308 mg/dL (70-110)
--- NOTE | 2021-05-05 12:18 | PC.PHAR ---
SPOKE WITH PT DAUGHTER, ELLIOTT, WHO STATES SHE HAS BEEN TAKING LEVEMIR 10 UNITS AT BEDTIME.
[2021-05-05] MEDS: lanolin oint 7 gm 1 APPLIC TOPICAL (13:17)
--- NOTE | 2021-05-05 13:49 | P.DS_ITS ---
Discharge Providers Date of Admission: 05/05/21 01:58 Date of Discharge: May 05, 2021 Attending Provider at Admission: Jaun Barriga Attending Provider at Discharge: Tavo Kerns MD Primary Care Provider: Diallo Tracy MD Diagnoses at Discharge Discharge Diagnosis (1) Diabetes mellitus with hypoglycemia: (2) Altered mental status: (3) Abnormal urinalysis: (4) COPD (chronic obstructive pulmonary disease): Permanent problem details: Chronically on 2 L of oxygen per nasal cannula (5) Atrial fibrillation and flutter: (6) CAD (coronary artery disease): (7) HTN, goal below 130/80: Reason for Visit Reason for Visit: WEAKNESS Hospital Course Hospital Course 85-year-old female with a past medical history significant for anxiety, depression, coronary artery disease, hypertension, hypothyroidism, chronic systolic heart failure with last known EF of 40%, valvular heart disease with severe mitral regurgitation, persistent atrial fibrillation COVID-19 infection in February and as chronic hypoxemic respiratory failure on 2 L of O2 via nasal cannulaWho presented to the hospital with altered mental status.She was admitted for the management of acute metabolic encephalopathy 2/2 to hypoglycemia,as well as UTI, she was kept on regular diet as well as I,V hydration, normal hypoglycemia protocol was maintained, her blood sugar improved, at the time of discharge she was AO*3, did complain of slight fatigue but overall she was stable. She was advised to continue with lantus and glipizide and discontinue sliding scale for now,she will follow with her pcp for further diabetic regimen management, bumex had been kept on hold till 05/09 as she was slightly dry.For her UTI she was kept on rocephin and was discharged on additional 3 days of po levofloxacin.She responded well to above medical management and was discharged in stable condition to home. she will continue to follow her PCP as outpatient. Physical Exam Const: COMMON NORMALS: patient oriented x3 HENMT: COMMON NORMALS: normocephalic and atraumatic HEAD & SCALP: normocephalic and atraumatic Resp: COMMON NORMALS: normal respiratory effort, No retractions, No use of accessory muscles and clear to auscultation bilaterally EFFORT & INSPECTION: Yes symmetric chest movement AUSCULTATION: clear to auscultation bilaterally Cardio: COMMON NORMALS: regular rate, regular rhythm, S1 normal heart sound present, S2 normal heart sound present, No gallops present (Cardio), No murmurs present (Cardio), No rub (Cardio) and Peripheral pulses 2+ throughout RATE: regular rate RHYTHM: regular rhythm HEART SOUNDS: S1 normal heart sound present and S2 normal heart sound present PERIPHERAL PULSES: Peripheral pulses 2+ throughout GI: COMMON NORMALS: Normal to inspection, nondistended, normoactive bowel sounds present, Soft to palpation, non-tender, No hepatosplenomegaly present and no masses AUSCULTATION: Yes normoactive bowel sounds PALPATION: Yes Soft to palpation and Yes No hepatosplenomegaly present RECTAL EXAM: deferred Extremity: COMMON NORMALS: no clubbing, cyanosis or edema and no pedal edema Neuro: COMMON NORMALS: patient oriented x3 Discharge Data Data Completed and Pending: Completed Studies During Hospitalization Category Date Time Status CT head wo con* [id number] Stat Cat Scan 05/05/21 00:03 Completed XR chest 1V dio ble [id number] Stat Exams 05/04/21 23:18 Completed Pending at discharge Category Date Time Status Basic Metabolic P [place] AM LABS Lab 05/06/21 04:00 Ordered Complete Blood Co unt w/Auto AM LABS Lab 05/06/21 04:00 Ordered Hemoglobin A1C AM LABS Lab 05/06/21 04:00 Ordered Urine Culture Sta t Lab 05/05/21 00:14 Received Labs from last 24 hours 05/05/21 05/05/21 05/05/21 11:29 10:09 09:27 WBC RBC Hgb Hct MCV MCH MCHC RDW Plt Count MPV Neut % (Auto) Lymph % (Auto) Cloud % (Auto) Eos % (Auto) Baso % (Auto) Neut # (Auto) Lymph # (Auto) Cloud # (Auto) Eos # (Auto) Baso # (Auto) Nucleated RBC % (a uto) Nucleated RBCs # PT INR APTT Specimen Type Sample Site ABG pH ABG pCO2 ABG pO2 ABG HCO3 ABG Base Excess Deep Test Hematocrit O2 Delivery Device Industrial Refrigeration Mechanic ID Sodium Potassium Chloride Carbon Dioxide Anion Gap BUN Creatinine GFR Calculation Glucose POC Glucose 308 H 249 H 197 H Estimat Average Gl ucose Hemoglobin A1c Calculated Osmolal ity Calcium Magnesium Total Bilirubin AST ALT Alkaline Phosphata se Troponin T Baselin e Troponin T 120 Min [place] Troponin T Troponin T Hi Sens 6Hr Troponin T Hi Sens 6Hr Delta NT-Pro-B Natriuret Pep Total Protein Albumin Globulin Urine Color Urine Appearance Urine pH Ur Specific Gravit y Urine Protein Urine Glucose (UA) Urine Ketones Urine Blood Urine Nitrate Urine Bilirubin Prot Sulfosalicyli c Acd Urine Urobilinogen Ur Leukocyte Annemarie ase Urine RBC Urine WBC Ur Squamous Epith Cells Amorphous Sediment Urine Bacteria 05/05/21 05/05/21 05/05/21 08:37 07:16 06:09 WBC RBC Hgb Hct MCV MCH MCHC RDW Plt Count MPV Neut % (Auto) Lymph % (Auto) Cloud % (Auto) Eos % (Auto) Baso % (Auto) Neut # (Auto) Lymph # (Auto) Cloud # (Auto) Eos # (Auto) Baso # (Auto) Nucleated RBC % (a uto) Nucleated RBCs # PT INR APTT Specimen Type Sample Site ABG pH ABG pCO2 ABG pO2 ABG HCO3 ABG Base Excess Deep Test Hematocrit O2 Delivery Device Industrial Refrigeration Mechanic ID Sodium Potassium Chloride Carbon Dioxide Anion Gap BUN Creatinine GFR Calculation Glucose POC Glucose 140 H 134 H 112 H Estimat Average Gl ucose Hemoglobin A1c Calculated Osmolal ity Calcium Magnesium Total Bilirubin AST ALT Alkaline Phosphata se Troponin T Baselin e Troponin T 120 Min [place] Troponin T Troponin T Hi Sens 6Hr Troponin T Hi Sens 6Hr [place] NT-Pro-B Natriuret Pep Total Protein Albumin Globulin Urine Color Urine Appearance Urine pH Ur Specific Gravit y Urine Protein Urine Glucose (UA) Urine Ketones Urine Blood Urine Nitrate Urine Bilirubin Prot Sulfosalicyli c Acd Urine Urobilinogen Ur Leukocyte Annemarie ase Urine RBC Urine WBC Ur Squamous Epith Cells Amorphous Sediment Urine Bacteria 05/05/21 05/05/21 05/05/21 05:55 05:55 05:55 WBC 12.0 H RBC 4.18 Hgb 13.8 Hct 42.3 MCV 101.2 H MCH 33.0 MCHC 32.6 RDW 15.6 H Plt Count 353 MPV 11.7 H Neut % (Auto) 69.5 Lymph % (Auto) 19.0 Cloud % (Auto) 8.4 Eos % (Auto) 1.9 Baso % (Auto) 0.6 Neut # (Auto) 8.32 H Lymph # (Auto) 2.3 Cloud # (Auto) 1.0 H Eos # (Auto) 0.2 Baso # (Auto) 0.1 Nucleated RBC % (a uto) 0 Nucleated RBCs # 0.0 PT INR APTT Specimen Type Sample Site ABG pH ABG pCO2 ABG pO2 ABG HCO3 ABG Base Excess Deep Test Hematocrit O2 Delivery Device Industrial Refrigeration Mechanic ID Sodium 138 Potassium 3.4 L Chloride 98 Carbon Dioxide 32 H Anion Gap 11.4 BUN 25 H Creatinine 0.9 GFR Calculation Not Reportable Glucose 124 H POC Glucose Estimat Average Gl ucose 229 Hemoglobin A1c 9.6 H Calculated Osmolal ity 292 Calcium 8.2 L Magnesium Total Bilirubin AST ALT Alkaline Phosphata se Troponin T Baselin e Troponin T 120 Min [place] Troponin T Troponin T Hi Sens 6Hr Troponin T Hi Sens 6Hr [place] NT-Pro-B Natriuret Pep Total Protein Albumin Globulin Urine Color Urine Appearance Urine pH Ur Specific Gravit y Urine Protein Urine Glucose (UA) Urine Ketones Urine Blood Urine Nitrate Urine Bilirubin Prot Sulfosalicyli c Acd Urine Urobilinogen Ur Leukocyte Annemarie ase Urine RBC Urine WBC Ur Squamous Epith Cells Amorphous Sediment Urine Bacteria 05/05/21 05/05/21 05/05/21 05:55 05:24 04:26 WBC RBC Hgb Hct MCV MCH MCHC RDW Plt Count MPV Neut % (Auto) Lymph % (Auto) Cloud % (Auto) Eos % (Auto) Baso % (Auto) Neut # (Auto) Lymph # (Auto) Cloud # (Auto) Eos # (Auto) Baso # (Auto) Nucleated RBC % (a uto) Nucleated RBCs # PT INR APTT Specimen Type Sample Site ABG pH ABG pCO2 ABG pO2 ABG HCO3 ABG Base Excess Deep Test Hematocrit O2 Delivery Device Industrial Refrigeration Mechanic ID Sodium Potassium Chloride Carbon Dioxide Anion Gap BUN Creatinine GFR Calculation Glucose POC Glucose 120 H 134 H Estimat Average Gl ucose Hemoglobin A1c Calculated Osmolal ity Calcium Magnesium Total Bilirubin AST ALT Alkaline Phosphata se Troponin T Baselin e Troponin T 120 Min [place] Troponin T Troponin T Hi Sens 6Hr 23.72 H Troponin T Hi Sens 6Hr Delta -0.28 L NT-Pro-B Natriuret Pep Total Protein Albumin Globulin Urine Color Urine Appearance Urine pH Ur Specific Gravit y Urine Protein Urine Glucose (UA) Urine Ketones Urine Blood Urine Nitrate Urine Bilirubin Prot Sulfosalicyli c Acd Urine Urobilinogen Ur Leukocyte Annemarie ase Urine RBC Urine WBC Ur Squamous Epith Cells Amorphous Sediment Urine Bacteria 05/05/21 05/05/21 05/05/21 03:42 01:00 00:23 WBC RBC Hgb Hct MCV MCH MCHC RDW Plt Count MPV Neut % (Auto) Lymph % (Auto) Cloud % (Auto) Eos % (Auto) Baso % (Auto) Neut # (Auto) Lymph # (Auto) Cloud # (Auto) Eos # (Auto) Baso # (Auto) Nucleated RBC % (a uto) Nucleated RBCs # PT INR APTT Specimen Type Sample Site ABG pH ABG pCO2 ABG pO2 ABG HCO3 ABG Base Excess Deep Test Hematocrit O2 Delivery Device Industrial Refrigeration Mechanic ID Sodium Potassium Chloride Carbon Dioxide Anion Gap BUN Creatinine GFR Calculation Glucose POC Glucose 111 H 139 H Estimat Average Gl ucose Hemoglobin A1c Calculated Osmolal ity Calcium Magnesium Total Bilirubin AST ALT Alkaline Phosphata se Troponin T Baselin e Troponin T 120 Min [place] 19.35 H Delta Troponin T -4.65 L Troponin T Hi Sens 6Hr Troponin T Hi Sens 6Hr [place] NT-Pro-B Natriuret Pep Total Protein Albumin Globulin Urine Color Urine Appearance Urine pH Ur Specific Gravit y Urine Protein Urine Glucose (UA) Urine Ketones Urine Blood Urine Nitrate Urine Bilirubin Prot Sulfosalicyli c Acd Urine Urobilinogen Ur Leukocyte Annemarie ase Urine RBC Urine WBC Ur Squamous Epith Cells Amorphous Sediment Urine Bacteria 05/05/21 05/04/21 05/04/21 00:14 23:22 23:20 WBC RBC Hgb Hct MCV MCH MCHC RDW Plt Count MPV Neut % (Auto) Lymph % (Auto) Cloud % (Auto) Eos % (Auto) Baso % (Auto) Neut # (Auto) Lymph # (Auto) Cloud # (Auto) Eos # (Auto) Baso # (Auto) Nucleated RBC % (a uto) Nucleated RBCs # PT INR APTT Specimen Type Arterial Sample Site Brachial, right ABG pH 7.39 ABG pCO2 55.7 H ABG pO2 94.4 ABG HCO3 33.9 H ABG Base Excess 7.2 H Deep Test N/a Hematocrit 41.6 O2 Delivery Device Room air Industrial Refrigeration Mechanic ID [id number] Sodium Potassium Chloride Carbon Dioxide Anion Gap BUN Creatinine GFR Calculation Glucose POC Glucose 61 L Estimat Average Gl ucose Hemoglobin A1c Calculated Osmolal ity Calcium Magnesium Total Bilirubin AST ALT Alkaline Phosphata se Troponin T Baselin e Troponin T 120 Min [place] Troponin T Troponin T Hi Sens 6Hr Troponin T Hi Sens 6Hr [place] NT-Pro-B Natriuret Pep Total Protein Albumin Globulin Urine Color Yellow Urine Appearance Clear Urine pH 8 H Ur Specific Gravit y 1.010 Urine Protein Neg Urine Glucose (UA) Norm Urine Ketones Negative Urine Blood Neg Urine Nitrate Negative Urine Bilirubin Neg Prot Sulfosalicyli c Acd Negative Urine Urobilinogen 1 H Ur Leukocyte Annemarie ase 2+ H Urine RBC 0-4 H Urine WBC 15-25 H Ur Squamous Epith Cells 0-4 H Amorphous Sediment Not Reportable Urine Bacteria 3+ H 05/04/21 05/04/21 05/04/21 22:49 22:30 22:30 WBC RBC Hgb Hct MCV MCH MCHC RDW Plt Count MPV Neut % (Auto) Lymph % (Auto) Cloud % (Auto) Eos % (Auto) Baso % (Auto) Neut # (Auto) Lymph # (Auto) Cloud # (Auto) Eos # (Auto) Baso # (Auto) Nucleated RBC % (a uto) Nucleated RBCs # PT INR APTT Specimen Type Sample Site ABG pH ABG pCO2 ABG pO2 ABG HCO3 ABG Base Excess Deep Test Hematocrit O2 Delivery Device Industrial Refrigeration Mechanic ID Sodium 140 Potassium 3.5 Chloride 100 Carbon Dioxide 27 Anion Gap 16.5 BUN 29 H Creatinine 1.1 H GFR Calculation Not Reportable Glucose 113 POC Glucose 78 Estimat Average Gl ucose Hemoglobin A1c Calculated Osmolal ity 297 H Calcium 8.9 Magnesium 1.9 Total Bilirubin 0.4 AST 23 ALT 13 Alkaline Phosphata se 85 Troponin T Baselin e 24 H Troponin T 120 Min [place] Troponin T Troponin T Hi Sens 6Hr Troponin T Hi Sens 6Hr [place] NT-Pro-B Natriuret Pep 5219 H Total Protein 6.9 Albumin 3.8 Globulin 3.1 Urine Color Urine Appearance Urine pH Ur Specific Gravit y Urine Protein Urine Glucose (UA) Urine Ketones Urine Blood Urine Nitrate Urine Bilirubin Prot Sulfosalicyli c Acd Urine Urobilinogen Ur Leukocyte Annemarie ase Urine RBC Urine WBC Ur Squamous Epith Cells Amorphous Sediment Urine Bacteria 05/04/21 05/04/21 22:30 22:30 WBC 13.9 H RBC 4.21 Hgb 14.2 Hct 42.7 MCV 101.4 H MCH 33.7 MCHC 33.3 RDW 15.5 H Plt Count 297 MPV 13.1 H Neut % (Auto) 59.3 Lymph % (Auto) 24.9 Cloud % (Auto) 11.8 Eos % (Auto) 3.0 Baso % (Auto) 0.5 Neut # (Auto) 8.26 H Lymph # (Auto) 3.5 Cloud # (Auto) 1.6 H Eos # (Auto) 0.4 Baso # (Auto) 0.1 Nucleated RBC % (a uto) 0 Nucleated RBCs # 0.0 PT 14.00 INR 1.04 APTT 29.7 Specimen Type Sample Site ABG pH ABG pCO2 ABG pO2 ABG HCO3 ABG Base Excess Deep Test Hematocrit O2 Delivery Device Industrial Refrigeration Mechanic ID Sodium Potassium Chloride Carbon Dioxide Anion Gap BUN Creatinine GFR Calculation Glucose POC Glucose Estimat Average Gl ucose Hemoglobin A1c Calculated Osmolal ity Calcium Magnesium Total Bilirubin AST ALT Alkaline Phosphata se Troponin T Baselin e Troponin T 120 Min [place] Troponin T Troponin T Hi Sens 6Hr Troponin T Hi Sens 6Hr [place] NT-Pro-B Natriuret Pep Total Protein Albumin Globulin Urine Color Urine Appearance Urine pH Ur Specific Gravit y Urine Protein Urine Glucose (UA) Urine Ketones Urine Blood Urine Nitrate Urine Bilirubin Prot Sulfosalicyli c Acd Urine Urobilinogen Ur Leukocyte Annemarie ase Urine RBC Urine WBC Ur Squamous Epith Cells Amorphous Sediment Urine Bacteria Vitals: Last Vital Signs Temp 98.5 F 05/05/21 11:30 Pulse 73 05/05/21 11:30 Resp 17 05/05/21 11:30 BP 125/74 05/05/21 11:30 Pulse Ox 98 05/05/21 11:30 Discharge Plan Discharge Patient Disposition: Home Condition: Stable Prescriptions: New levofloxacin 500 mg tablet 500 mg PO DAILY 3 Days Qty: 3 RF: 0 Continued atorvastatin 40 mg tablet 40 mg PO BEDTIME RF: 0 lorazepam 0.5 mg tablet 0.5 mg PO QAM RF: 0 pantoprazole 40 mg tablet,delayed release (DR/EC) 40 mg PO BEDTIME RF: 0 ferrous sulfate 325 mg (65 mg iron) tablet 325 mg PO QAM RF: 0 escitalopram oxalate 10 mg tablet 10 mg PO QPM RF: 0 Breo Ellipta 100-25 mcg/dose blister with device 1 inh INHALATION QAM RF: 0 glipizide 2.5 mg Tablet Extended Release 24hr 2.5 mg PO QAM RF: 0 Eliquis 2.5 mg Tablet 2.5 mg PO BID RF: 0 spironolactone 25 mg tablet 25 mg PO DAILY RF: 0 aspirin 81 mg Tablet,Delayed Release (Dr/Ec) 81 mg PO EVERY OTHER DAY RF: 0 nitroglycerin [Nitrostat] 0.4 mg Tablet, Sublingual 0.4 mg SUBLINGUAL Q5M PRN (Reason: Chest Pain) RF: 0 Levemir FlexTouch U-100 Insuln 100 unit/mL (3 mL) insulin pen 10 unit SUBCUT BEDTIME RF: 0 metoprolol tartrate 50 mg Tablet 100 mg PO Q12H Qty: 120 RF: 0 diltiazem HCl 360 mg capsule,extended release 24hr 360 mg PO DAILY Qty: 30 RF: 0 levothyroxine [Euthyrox] 75 mcg tablet 75 mcg PO QAM RF: 0 Vitamin D3 1 cap PO DAILY RF: 0 calcium 1 tab PO QAM RF: 0 magnesium 1 tab PO QAM RF: 0 nystatin 100,000 unit/mL suspension 5 ml PO QID RF: 0 acyclovir 400 mg tablet 400 mg PO BID RF: 0 Held Humulin R Regular U-100 Insuln 100 unit/mL solution See Rx Instructions .ROUTE .COMPLEX RF: 0 Hold Instructions: Resume on 05/17/21. bumetanide 1 mg Tablet 1 mg PO BREAKFAST Qty: 30 RF: 0 Hold Instructions: Resume on 05/09/21. Discharge Orders: Discharge Order (Routine); Ordered 05/05/21 Ordered By: Tavo Kerns Referrals: Diallo Tracy MD [Primary Care Provider] - 2 weeks (Please call to make an appointment to be seen in two weeks.) Discharge Diet: Regular Discharge Activity: Increase activity as tolerated Patient Instructions: Levofloxacin (By mouth) (Brandy Nava-pantera), COPD (Chronic Obstructive Pulmonary Disease) (DC), Hypertension (DC), Altered Mental Status (ED), Opioid Safety Discharge Attestations Time Spent in Discharge Care*: less than 30 min Specific Discharge Activities: educating patient, educating and/or supporting family/caregiver, discussing with pcp/other providers, discussing with casework specialist/social workers/dc planners, documenting/other paperwork and evaluating patient/reviewing data Status at Discharge: Cognitive status at discharge: cognitively intact , Behavioral status at discharge: cooperative , Functional status at discharge: independent ambulation Overall status at discharge: patient is back to baseline Quality Metrics Clinical Quality Measures During this hospital stay, did patient experience: None Coding Level of Care Code Acute Chg [facility] note Diagnoses Diabetes mellitus with hypoglycemia E11.649 Altered mental status R41.82 Abnormal urinalysis R82.90 COPD (chronic obstructive pulmonary disease) J44.9 Atrial fibrillation and flutter I48.91; I48.92 CAD (coronary artery disease) I25.10 HTN, goal below 130/80 I10
[2021-05-05 14:18] VITALS: BP 125/74; PULSE 73; RESP 17; TEMP 36.9; O2SAT 98
== END 2021-05-05 14:18 | disposition home or self-care (01) ==
LOC: ER 23:22 → MEDSURG 05-05 02:15
PROVIDERS: Admitting Provider Hospitalist; Emergency Provider Emergency Medicine; PCP Family Medicine; Visit Provider Internal Medicine
DX: E11.649 Type 2 diabetes mellitus with hypoglycemia without coma (principal); R41.82 Altered mental status, unspecified; R82.90 Unspecified abnormal findings in urine; J44.9 Chronic obstructive pulmonary disease, unspecified; I48.91 Unspecified atrial fibrillation; I48.92 Unspecified atrial flutter; I25.10 Atherosclerotic heart disease of native coronary artery without angina pectoris; Z99.81 Dependence on supplemental oxygen; F41.9 Anxiety disorder, unspecified; F32.9 Major depressive disorder, single episode, unspecified; I50.21 Acute systolic (congestive) heart failure; I11.0 Hypertensive heart disease with heart failure; Z79.01 Long term (current) use of anticoagulants; Z79.82 Long term (current) use of aspirin; Z79.52 Long term (current) use of systemic steroids
CPT/HCPCS: 36416; 36600; 70450; 71045; 80048; 80053; 81001; 82803; 82962; 83036; 83735; 83880; 84484; 85025; 85610; 85730; 87077; 87086; 87186; 93005; 99285; G0378; J0696

== ENCOUNTER → 2021-10-21 14:16 | Outpatient (BNVA) | payer MEDICARE, SELFPAY | PROVIDERS: PCP Family Medicine; Visit Provider Registered Nurse | DX: N18.30 Chronic kidney disease, stage 3 unspecified (principal) | CPT/HCPCS: 80048; 82043; 85025 ==

== ENCOUNTER → 2021-12-11 11:00 | Outpatient (BNVA) | payer MEDICARE, SELFPAY | PROVIDERS: PCP Family Medicine; Visit Provider Family Medicine | DX: R10.13 Epigastric pain (principal); K92.1 Melena; R06.00 Dyspnea, unspecified; R05.9 Cough, unspecified; E11.9 Type 2 diabetes mellitus without complications; I50.30 Unspecified diastolic (congestive) heart failure; I48.91 Unspecified atrial fibrillation; Z51.81 Encounter for therapeutic drug level monitoring | CPT/HCPCS: 80053; 83036; 83690; 85025; 85651; 86141 ==

== ENCOUNTER → 2021-12-13 11:40 | Outpatient (BNVA) | payer MEDICARE, SELFPAY | PROVIDERS: PCP Family Medicine; Visit Provider Family Medicine | DX: R05.9 Cough, unspecified (principal); R06.00 Dyspnea, unspecified | CPT/HCPCS: 87070; 87205 ==

== ENCOUNTER 2022-01-05 08:57 | Inpatient (IN) | payer MEDICARE, SELFPAY ==
[2022-01-05] VITALS (14 sets, daily range): BP systolic 98–141; BP diastolic 56–98; PULSE 61–111; RESP 12–25; TEMP 36.3–36.7; O2SAT 88–99; BMI 19.8; BMI 22.0
--- NOTE | 2022-01-05 09:13 | ECG_ITS ---
[facility] Test Date: 2022-01-05 Pat Name: Lilia Haynes Department: Room: Gender: Female Electronic Health Records Specialist: : [id number] Requested By: Linda Liz Order Number: [id number] Meng MD: Jose Cochran M.D. Measurements Intervals [place] Rate: 106 P: MT: QRS: -52 QRSD: 162 T: 116 QT: 404 QTc: 536 Interpretive Statements ATRIAL FIBRILLATION WITH RAPID VENTRICULAR RESPONSE LEFT AXIS DEVIATION [QRS AXIS < -30] LEFT BUNDLE BRANCH BLOCK [120+ ms QRS DURATION, 80+ ms Q/S IN V1/V2, 85+ ms R IN I/aVL/V5/V6] Compared to ECG 05/05/2021 05:29:19 Left bundle-branch block now present Intraventricular conduction delay no longer present Electronically Signed On 01-05-2022 18:10:47 CDT by Jose Cochran M.D. [id number]
--- NOTE | 2022-01-05 09:13 | XRR_ITS ---
PROCEDURE INFORMATION: Exam: XR Chest Exam date and time: 01/05/2022 10:01 AM Age: 86 years old Clinical indication: Pain; Chest pressure; Prior surgery; Additional info: Chest pain, SOB TECHNIQUE: Imaging protocol: Radiologic exam of the chest. Views: 1 view. COMPARISON: CR XR chest 1V portable [id number] 05/04/2021 11:43 PM FINDINGS: Lungs: No significant airspace consolidation concerning for pneumonia. Pleural spaces: Minimal blunting with mild ground-glass density in the right costophrenic region. Questionable mild blunting of the left costophrenic angle. Heart/Mediastinum: Cardiomegaly again noted. Bones/joints: Median sternotomy wires noted. XR/XR chest 1V portable [id number] IMPRESSION: 1. Stable cardiomegaly. 2. Trace right-sided pleural effusion. Questionable small left-sided pleural effusion.
[2022-01-05 09:58] LABS: Basophils # 0.1 10^3/uL (0.0-0.1); Basophils % 0.6 %; Eosinophils # 0.2 10^3/uL (0.0-0.8); Eosinophils % 2.9 %; Hemoglobin 12.4 g/dL (11.5-15.3); Lymphocytes # 1.5 10^3/uL (0.8-4.8); Lymphocytes % 19.4 %; Mean Corpuscular HGB Conc 31.8 g/dL (30.0-36.0); Mean Corpuscular Hemoglobin 33.4 pg (28.0-34.0); Mean Corpuscular Volume 105.1 fl (81-99); Mean Platelet Volume 12.3 fL (7.4-10.4); Monocytes # 0.7 10^3/uL (0.2-0.9); Monocytes % 9.1 %; Neutrophils # 5.38 10^3/uL (1.8-7.7); Neutrophils % 67.7 %; Nucleated Red Blood Cells % 0 %; Platelet Count 269 10^3/cmm (130-400); Red Blood Count 3.71 10^6/uL (4.1-5.3); Red Cell Distribution Width 16.3 % (12.1-15.1); White Blood Count 7.9 10^3/uL (4.0-10.0)
[2022-01-05 10:05] LABS: INR 1.35 (0.8-1.2)
[2022-01-05 10:13] LABS: Troponin(5th) Baseline 15 ng/L (0-10)
[2022-01-05 10:20] LABS: Alanine Aminotransferase 14 U/L (0-33); Alkaline Phosphatase 112 U/L (35-105); Anion Gap 15.5 (5-19); Aspartate Amino Transferase 25 U/L (0-32); Blood Urea Nitrogen 19 mg/dL (8-23); Calcium 9.9 mg/dL (8.5-10.5); Carbon Dioxide 26 mmol/L (22-29); Chloride 94 mmol/L (98-107); Globulin 3.8 g/dL (1.3-4.6); Glucose 234 mg/dL (65-115); Lipase 72 U/L (13-60); NT Pro B Type Natriuretic Pept 6306 pg/mL (0-450); Osmolality Calculated 282 mOsm/kg (285-295); Potassium 4.5 mmol/L (3.5-5.1); Sodium 131 mmol/L (136-145); Total Bilirubin 1.2 mg/dL (0.15-1.2); Total Protein 7.8 g/dL (6.6-8.7)
--- NOTE | 2022-01-05 11:46 | ED_ITS ---
HPI - Chest Pain General: Chief Complaint: Chest Pain Stated Complaint: chest pains, SOB Time Seen by Provider: 01/05/22 09:13 History of Present Illness: This patient is an 86 year old female presenting from home with chest pain and shortness of breath. She has chronic SOB but it has been worse over the past several days. She started having chest tightness this morning and felt as though someone was sitting on her chest. She took one of her home nitro and it helped, but her daughter made her come in due to the worsening shortness of breath. The patient has a history of heart disease, CHF, asthma, diabetes, atrial fibrillation. 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 She has had cardioversions for her a fib, but they never last. She is on Eliquis, digoxin, metoprolol. Associated symptoms: Reports dyspnea and palpitations; Deny abdominal pain, fever(s), nausea or vomiting Review of Systems General: Reports: 10 or more systems reviewed and unremarkable except in HPI and below Const: Denies: fever(s), chills, fatigue or malaise Eyes: Denies: change in vision ENMT: Reports: nasal discharge (constant, chronic runny nose); Denies: odynophagia Card: Reports: chest pain, palpitations and irregular heart rhythm; Denies: swelling of feet/ankles Resp: Reports: dyspnea; Denies: productive cough or non-productive cough GI: Denies: abdominal pain, nausea or vomiting : Denies: flank pain or difficulty voiding Musc: Denies: neck pain or back pain Skin/Breast: Denies: rash Neuro: Denies: headache(s), numbness in extremities or weakness in extremities Viet/Lymph: Denies: easy bruising or easy bleeding PFS ED PFSH: Medical History Abnormal urinalysis Altered mental status Asthma Atrial fibrillation and flutter CAD (coronary artery disease) COPD (chronic obstructive pulmonary disease) Chronically on 2 L of oxygen per nasal cannula Depression with anxiety Diabetes mellitus with hypoglycemia Diastolic heart failure GERD (gastroesophageal reflux disease) HTN, goal below 130/80 Hypertension Hypothyroidism Systolic heart failure Echocardiogram 02/28 demonstrated EF of 40%, severe tricuspid and mitral regurgitation and moderate aortic regurgitation Type 2 diabetes mellitus Surgical History History of coronary artery bypass graft History of heart artery stent Family History Other CAD (coronary artery disease) Cancer Social History (Updated 12/11/21 @ 18:35 by Diallo Tracy MD) Smoking and tobacco status: never smoked Alcohol intake: never Lives independently: Yes Marital status: / Current occupational status: retired History of recent travel: No Current gender identity: Female Physical Exam Const: COMMON NORMALS: no acute distress, patient oriented x3, no limitations and alert GENERAL APPEARANCE: cooperative and comfortable HENMT: HEAD & SCALP: normal to inspection FACE & SINUS: normal facial exam Eye: GENERAL EYE: appearance normal, both eyes and all related structures Neck/C-Spine: COMMON NORMALS: supple, no meningeal signs and no JVD Chest: COMMONS NORMALS: normal inspection of the chest Resp: COMMON NORMALS: normal respiratory effort, No use of accessory muscles and clear to auscultation bilaterally AUSCULTATION: clear to auscultation bilaterally Cardio: COMMON NORMALS: no JVD, regular rate and No murmurs present (Cardio) RATE: regular rate RHYTHM: abnormal rhythm irregularly irregular GI: COMMON NORMALS: Normal to inspection, nondistended, normoactive bowel sounds present, Soft to palpation and non-tender INSPECTION: Yes normal to inspection AUSCULTATION: Yes normoactive bowel sounds PALPATION: Yes Soft to palpation Back/Pelvis: COMMON NORMALS: thoracic and lumbar spine normal to inspection Extremity: COMMON NORMALS: normal to inspection Neuro: COMMON NORMALS: patient oriented x3, moves all extremities, no focal motor deficits and no sensory deficits noted SENSORIUM/ORIENTATION: Yes alert MENINGEAL SIGNS: Yes no meningeal signs Psych: COMMON NORMALS: mental status grossly normal, cooperative and normal affect Skin: COMMON NORMALS: no rashes or lesions noted and turgor normal GENERAL SKIN EXAM: no rashes or lesions noted and turgor normal Course Vital Signs: Vital signs: Vital Signs Temperature 97.4 F L 01/05/22 09:06 Pulse Rate 76 01/05/22 12:00 Respiratory Rate 22 H 01/05/22 12:00 Blood Pressure 123/76 01/05/22 12:00 Pulse Oximetry 97 01/05/22 12:00 Oxygen Delivery Me thod 01/05/22 12:00 MDM - Chest Pain Medical Decision Making Patient with extensive history - increasing shortness of breath, and chest pain this morning. She is on chronic home oxygen. Pain improved by nitro. When was first on the monitor she was having some RVR - but once resting in the bed her rate was controlled around 70. Troponins pending. EKG without significant change from prior - a fib and LBBB. Lab Data : 01/05/22 09:30 01/05/22 09:30 Radiology Impressions Chest X-Ray 01/05/22 09:13 IMPRESSION: 1. Stable cardiomegaly. 2. Trace right-sided pleural effusion. Questionable small left-sided pleural effusion. Laboratory Results WBC 7.9 10^3/uL (4.0-10.0) 01/05/22 09:30 RBC 3.71 10^6/uL (4.1-5.3) L 01/05/22 09:30 Hgb 12.4 g/dL (11.5-15.3) 01/05/22 09:30 Hct 39.0 % (37.0-47.0) 01/05/22 09:30 MCV 105.1 fl (81-99) H 01/05/22 09:30 MCH 33.4 pg (28.0-34.0) 01/05/22 09:30 MCHC 31.8 g/dL (30.0-36.0) 01/05/22 09:30 RDW 16.3 % (12.1-15.1) H 01/05/22 09:30 Plt Count 269 10^3/cmm (130-400) 01/05/22 09:30 MPV 12.3 fL (7.4-10.4) H 01/05/22 09:30 Neut % (Auto) 67.7 % 01/05/22 09:30 Lymph % (Auto) 19.4 % 01/05/22 09:30 [place] % (Auto) 9.1 % 01/05/22 09:30 Eos % (Auto) 2.9 % 01/05/22 09:30 Baso % (Auto) 0.6 % 01/05/22 09:30 Neut # (Auto) 5.38 10^3/uL (1.8-7.7) 01/05/22 09:30 Lymph # (Auto) 1.5 10^3/uL (0.8-4.8) 01/05/22 09:30 [place] # (Auto) 0.7 10^3/uL (0.2-0.9) 01/05/22 09:30 Eos # (Auto) 0.2 10^3/uL (0.0-0.8) 01/05/22 09:30 Baso # (Auto) 0.1 10^3/uL (0.0-0.1) 01/05/22 09:30 Nucleated RBC % (auto) 0 % 01/05/22 09:30 Nucleated RBCs # 0.0 /100WBC 01/05/22 09:30 PT 17.00 SECONDS (12.1-14.9) H 01/05/22 09:30 INR 1.35 (0.8-1.2) H 01/05/22 09:30 Sodium 131 mmol/L (136-145) L 01/05/22 09:30 Potassium 4.5 mmol/L (3.5-5.1) 01/05/22 09:30 Chloride 94 mmol/L (98-107) L 01/05/22 09:30 Carbon Dioxide 26 mmol/L (22-29) 01/05/22 09:30 Anion Gap 15.5 (5-19) 01/05/22 09:30 BUN 19 mg/dL (8-23) 01/05/22 09:30 Creatinine 1.2 mg/dL (0.5-0.9) H 01/05/22 09:30 GFR Calculation Not Reportable 01/05/22 09:30 Glucose 234 mg/dL (65-115) H 01/05/22 09:30 Calculated Osmolality 282 mOsm/kg (285-295) L 01/05/22 09:30 Calcium 9.9 mg/dL (8.5-10.5) 01/05/22 09:30 Total Bilirubin 1.2 mg/dL (0.15-1.2) 01/05/22 09:30 AST 25 U/L (0-32) 01/05/22 09:30 ALT 14 U/L (0-33) 01/05/22 09:30 Alkaline Phosphatase 112 U/L (35-105) H 01/05/22 09:30 Troponin T Baseline 15 ng/L (0-10) H 01/05/22 09:30 Troponin T 120 Minute 14.16 ng/L (0-10) H 01/05/22 11:28 Delta Troponin T -0.84 ABS# (0-10) L 01/05/22 11:28 NT-Pro-B Natriuret Pep 6306 pg/mL (0-450) H 01/05/22 09:30 Total Protein 7.8 g/dL (6.6-8.7) 01/05/22 09:30 Albumin 4.0 g/dL (3.5-5.2) 01/05/22 09:30 Globulin 3.8 g/dL (1.3-4.6) 01/05/22 09:30 Lipase 72 U/L (13-60) H 01/05/22 09:30 Discharge Plan Discharge Patient Disposition: Placed in Observation Clinical Impression: Hypoxia, Diastolic heart failure, Atrial fibrillation with RVR, Dyspnea, Chest pain Condition: Stable Prescriptions: No Action metoprolol tartrate 75 mg tablet 75 mg PO BID potassium chloride 10 mEq capsule, extended release 20 meq PO DAILY furosemide 40 mg tablet 40 mg PO DAILY atorvastatin 40 mg tablet 40 mg PO BEDTIME lorazepam 0.5 mg tablet 0.5 mg PO TID PRN (Reason: Anxiety) pantoprazole 40 mg tablet,delayed release (DR/EC) 40 mg PO BEDTIME ferrous sulfate 325 mg (65 mg iron) tablet 325 mg PO QAM escitalopram oxalate 10 mg tablet 10 mg PO QPM fluticasone furoate-vilanterol [Breo Ellipta] 100-25 mcg/dose blister with device 1 inh INHALATION QAM Eliquis 2.5 mg Tablet 2.5 mg PO BID spironolactone 25 mg tablet 25 mg PO DAILY Humulin R Regular U-100 Insuln 100 unit/mL solution See Rx Instructions .ROUTE .COMPLEX Hold Instructions: Resume on 05/17/21. Rx Instructions: sliding scale with meals nitroglycerin [Nitrostat] 0.4 mg Tablet, Sublingual 0.4 mg SUBLINGUAL Q5M PRN (Reason: Chest Pain) Rx Instructions: max 3 doses per epsoside Levemir FlexTouch U-100 Insuln 100 unit/mL (3 mL) insulin pen 10 unit SUBCUT DAILY diltiazem HCl 360 mg capsule,extended release 24hr 360 mg PO DAILY Qty: 30 0RF levothyroxine [Euthyrox] 75 mcg tablet 75 mcg PO QAM calcium carbonate [Calcium 500] 500 mg calcium (1,250 mg) Tablet 500 mg PO DAILY Qty: 0 magnesium 30 mg Tablet 30 mg PO DAILY Qty: 0 cholecalciferol (vitamin D3) [Vitamin D3] 25 mcg (1,000 unit) Capsule 25 mcg PO DAILY Qty: 0 nystatin 100,000 unit/mL suspension 5 ml PO QID Rx Instructions: X 14 DAYS Referrals: Diallo Tracy MD [Primary Care Provider] - Coding Level of Care Code ED Tobacco Sampler for Chg Fwd Exam Comprehensive
--- NOTE | 2022-01-05 11:53 | ECG_ITS ---
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 Measurements Intervals [place] Rate: 76 P: [place]: QRS: -57 QRSD: 153 T: 130 QT: 433 QTc: 488 Interpretive Statements ELECTRONIC VENTRICULAR PACEMAKER Underlying atrial fibrillation ABNORMAL RHYTHM ECG Compared to ECG 01/05/2022 09:10:14 No change Electronically Signed On 01-05-2022 18:16:11 CDT by Jose Cochran M.D. [id number]
[2022-01-05 12:00] LABS: Troponin 5 2HR 14.16 ng/L (0-10)
[2022-01-05 13:06] LABS: Troponin 5 2HR Delta -0.84 ABS# (0-10)
[2022-01-05] MEDS: FUROsemide 10 mg/mL SDV 4mL 40 MG IVP ×2 (13:21→18:14)
--- NOTE | 2022-01-05 16:03 | PM.HP ---
Providers/Chief Complaint Admitting Physician: Kasey Nur MD Primary Care Provider: Diallo Tracy MD Chief Complaint: chest pains, SOB History of Present Illness Lilia Haynes is a 86 year old female with a past medical history significant for anxiety, depression, coronary artery disease, hypertension, hypothyroidism, chronic systolic heart failure with last known EF of 40%, valvular heart disease with severe mitral regurgitation, persistent atrial fibrillation. She was supplemental oxygen oxygen at 2 L/min at a baseline. She presents to the emergency room today with 2 to 3-week history of worsening dyspnea on exertion and chest pain that started this morning. Patient states patient woke up from sleep, was ambulating within the house when she developed a pressure-like chest sensation. Pain is improved currently after receiving nitroglycerin. Denies any palpitations or syncope at the time of onset of symptoms. She has a history of chronic cough and expectoration, denies any acute worsening in this regard. Denies any history of fever. Recently visited with her PCP with similar symptoms, sputum culture at that time was performed, showed respiratory paddy, no growth on cultures. She has been compliant with Lasix dosing. EKG today is showing sinus rhythm at 76 bpm. Initial EKG on ER presentation had A. fib with RVR at 106/min. Prolonged QTC of 536 ms. Baseline troponin of 15, 2-hour at 14, negative delta at 2 hours. BNP is 6300, her baseline appears to be 3500. Review of Systems General: Reports: 10 or more systems reviewed and unremarkable except in HPI and below Const: Denies: fever(s), chills or body aches Eyes: Denies: change in vision, blurry vision or photophobia ENMT: Reports: hoarseness; Denies: throat pain, enlarged tonsils, odynophagia or nasal congestion Card: Denies: chest pain, palpitations, irregular heart rhythm, edema, swelling of feet/ankles, lightheadedness, pre-syncope, dyspnea on exertion or orthopnea Resp: Denies: dyspnea, productive cough, non-productive cough, wheezing, stridor, pain on inspiration, change in phlegm color, hemoptysis or chest congestion GI: Denies: abdominal pain, nausea, vomiting, hematemesis, coffee ground emesis, dysphagia, heartburn, diarrhea, constipation, GI cramping, change in stool character, hematochezia or melena : Denies: flank pain, difficulty voiding, dysuria, urinary frequency, urinary urgency, urinary hesitancy or hematuria Musc: Denies: neck pain, back pain, extremity pain, joint swelling, joint warmth or deformity Neuro: Denies: headache(s), numbness in extremities, weakness in extremities, sensory changes, difficulty walking, frequent falls, dizziness, vertigo, behavioral changes, Slurred speech present or seizure-like activity Psych: Denies: anxiety, depression, suicidal ideation or homicidal ideation Endo: Denies: polyuria, polydipsia, tired all the time, cold intolerance or hot flashes Viet/Lymph: Denies: easy bruising or easy bleeding Medications/Allergies Home Medications Medication Instructions Recorded Confirmed Last Taken Type atorvastatin 40 mg tablet 40 mg PO BEDTIME 07/25/19 01/05/22 01/04/22 History escitalopram oxalate 10 mg tablet 10 mg PO QPM 07/25/19 01/05/22 01/04/22 History ferrous sulfate 325 mg (65 mg 325 mg PO QAM 07/25/19 01/05/22 01/05/22 History iron) tablet fluticasone furoate 100 1 inh inhalation QAM 07/25/19 01/05/22 01/05/22 History mcg-vilanterol 25 mcg/dose inhalation powder (Breo Ellipta) lorazepam 0.5 mg tablet 0.5 mg PO TID PRN Anxiety 07/25/19 01/05/22 01/05/22 History pantoprazole 40 mg tablet,delayed 40 mg PO BEDTIME 07/25/19 01/05/22 01/04/22 History release apixaban 2.5 mg tablet (Eliquis) 2.5 mg PO BID 08/28/19 01/05/22 01/05/22 History calcium carbonate 500 mg calcium 500 mg PO DAILY ##0 02/26/21 01/05/22 01/04/22 History (1,250 mg) tablet cholecalciferol (vitamin D3) 25 25 mcg PO DAILY ##0 02/26/21 01/05/22 01/05/22 History mcg (1,000 unit) capsule (Vitamin D3) levothyroxine 75 mcg tablet 75 mcg PO QAM 02/26/21 01/05/22 01/05/22 History (Euthyrox) magnesium 30 mg tablet 30 mg PO DAILY ##0 02/26/21 01/05/22 01/05/22 History insulin detemir U-100 100 unit/mL 10 unit SUBCUT DAILY 04/22/21 01/05/22 01/05/22 History (3 mL) subcutaneous pen (Levemir FlexTouch U-100 Insulin) insulin regular human 100 unit/mL See Rx Instructions .Route .COMPLEX 04/22/21 01/05/22 Unknown History injection solution (Humulin R Regular U-100 Insulin) nitroglycerin 0.4 mg sublingual 0.4 mg sublingual Q5M PRN Chest 04/22/21 01/05/22 01/05/22 History tablet (Nitrostat) Pain spironolactone 25 mg tablet 25 mg PO DAILY 04/22/21 01/05/22 01/05/22 History diltiazem HCl 360 mg 360 mg PO DAILY #30 caps 04/25/21 01/05/22 01/05/22 Rx capsule,extended release 24 hr nystatin 100,000 unit/mL oral 5 ml PO QID 05/05/21 01/05/22 Unknown History suspension furosemide 40 mg tablet 40 mg PO DAILY 12/11/21 01/05/22 01/05/22 History metoprolol tartrate 75 mg tablet 75 mg PO BID 12/11/21 01/05/22 01/05/22 History potassium chloride 10 mEq 20 meq PO DAILY 12/11/21 01/05/22 01/05/22 History capsule,extended release Allergies Allergy/AdvReac Type Severity Reaction Status Date / Time aspirin Allergy ADR-Nausea Verified 04/22/21 09:03 codeine Allergy ADR-Nausea Verified 04/22/21 09:03 tramadol Allergy Unknown Verified 04/22/21 09:03 hydrocodone AdvReac Mild ADR-Nausea Verified 12/11/21 07:11 PFSH Acute PFSH: Medical History Abnormal urinalysis Altered mental status Asthma Atrial fibrillation and flutter CAD (coronary artery disease) COPD (chronic obstructive pulmonary disease) Chronically on 2 L of oxygen per nasal cannula Depression with anxiety Diabetes mellitus with hypoglycemia Diastolic heart failure GERD (gastroesophageal reflux disease) HTN, goal below 130/80 Hypertension Hypothyroidism Systolic heart failure Echocardiogram 02/28 demonstrated EF of 40%, severe tricuspid and mitral regurgitation and moderate aortic regurgitation Type 2 diabetes mellitus Surgical History History of coronary artery bypass graft History of heart artery stent Family History Other CAD (coronary artery disease) Cancer Social History Smoking and tobacco status: never smoked Alcohol intake: never Lives independently: Yes Marital status: / Current occupational status: retired History of recent travel: No Current gender identity: Female Vitals/I&O/Wt Last Vital Signs Temp 98.0 F 01/05/22 15:51 Pulse 87 01/05/22 15:51 Resp 17 01/05/22 15:51 BP 123/78 01/05/22 15:51 Pulse Ox 99 01/05/22 15:51 O2 Del Method 01/05/22 15:51 O2 Flow Rate 2 01/05/22 15:51 Weight last 48 hrs Weight 50.802 kg Physical Exam Narrative: General: No acute distress, AO x3. HEENT: PERRLA, pupils bilaterally equal and reactive, pallors not present. Chest: B/L rales on exam CVS: S1-S2 regular, no murmurs, no tachycardia, no gallops, no rubs Abdomen: Soft, nontender, no organomegaly, bowel sounds present Neuro: No focal deficits, no facial deformity, AO x3, power 5/5 in all limbs Extremities: Minimal bilateral pitting edema. Data : 01/06/22 02:53 01/06/22 02:53 Other Labs: Radiology Impressions Chest X-Ray 01/05/22 09:13 IMPRESSION: 1. Stable cardiomegaly. 2. Trace right-sided pleural effusion. Questionable small left-sided pleural effusion. Laboratory Results WBC 7.9 10^3/uL (4.0-10.0) 01/05/22 09:30 RBC 3.71 10^6/uL (4.1-5.3) L 01/05/22 09:30 Hgb 12.4 g/dL (11.5-15.3) 01/05/22 09:30 Hct 39.0 % (37.0-47.0) 01/05/22 09:30 MCV 105.1 fl (81-99) H 01/05/22 09:30 MCH 33.4 pg (28.0-34.0) 01/05/22 09:30 MCHC 31.8 g/dL (30.0-36.0) 01/05/22 09:30 RDW 16.3 % (12.1-15.1) H 01/05/22 09:30 Plt Count 269 10^3/cmm (130-400) 01/05/22 09:30 MPV 12.3 fL (7.4-10.4) H 01/05/22 09:30 Neut % (Auto) 67.7 % 01/05/22 09:30 Lymph % (Auto) 19.4 % 01/05/22 09:30 [place] % (Auto) 9.1 % 01/05/22 09:30 Eos % (Auto) 2.9 % 01/05/22 09:30 Baso % (Auto) 0.6 % 01/05/22 09:30 Neut # (Auto) 5.38 10^3/uL (1.8-7.7) 01/05/22 09:30 Lymph # (Auto) 1.5 10^3/uL (0.8-4.8) 01/05/22 09:30 [place] # (Auto) 0.7 10^3/uL (0.2-0.9) 01/05/22 09:30 Eos # (Auto) 0.2 10^3/uL (0.0-0.8) 01/05/22 09:30 Baso # (Auto) 0.1 10^3/uL (0.0-0.1) 01/05/22 09:30 Nucleated RBC % (auto) 0 % 01/05/22 09:30 Nucleated RBCs # 0.0 /100WBC 01/05/22 09:30 PT 17.00 SECONDS (12.1-14.9) H 01/05/22 09:30 INR 1.35 (0.8-1.2) H 01/05/22 09:30 Sodium 131 mmol/L (136-145) L 01/05/22 09:30 Potassium 4.5 mmol/L (3.5-5.1) 01/05/22 09:30 Chloride 94 mmol/L (98-107) L 01/05/22 09:30 Carbon Dioxide 26 mmol/L (22-29) 01/05/22 09:30 Anion Gap 15.5 (5-19) 01/05/22 09:30 BUN 19 mg/dL (8-23) 01/05/22 09:30 Creatinine 1.2 mg/dL (0.5-0.9) H 01/05/22 09:30 GFR Calculation Not Reportable 01/05/22 09:30 Glucose 234 mg/dL (65-115) H 01/05/22 09:30 Calculated Osmolality 282 mOsm/kg (285-295) L 01/05/22 09:30 Calcium 9.9 mg/dL (8.5-10.5) 01/05/22 09:30 Total Bilirubin 1.2 mg/dL (0.15-1.2) 01/05/22:30 AST 25 U/L (0-32) 01/05/22 09:30 ALT 14 U/L (0-33) 01/05/22 09:30 Alkaline Phosphatase 112 U/L (35-105) H 01/05/22 09:30 Troponin T Baseline 15 ng/L (0-10) H 01/05/22 09:30 Troponin T 120 Minute 14.16 ng/L (0-10) H 01/05/22 11:28 Delta Troponin T -0.84 ABS# (0-10) L 01/05/22 11:28 NT-Pro-B Natriuret Pep 6306 pg/mL (0-450) H 01/05/22 09:30 Total Protein 7.8 g/dL (6.6-8.7) 01/05/22 09:30 Albumin 4.0 g/dL (3.5-5.2) 01/05/22 09:30 Globulin 3.8 g/dL (1.3-4.6) 01/05/22 09:30 Lipase 72 U/L (13-60) H 01/05/22 09:30 Other data: October 2020, echocardiogram: CONCLUSIONS ?1-Moderately increased left ventricular cavity size. Moderately ?decreased left ventricular systolic function. Left ventricular ?ejection fraction is estimated at 40 %.? There appeared to be ?septal anterior and apical wall akinesis, there appeared to be ?septal bounce which could be secondary to interventricular ?conduction delay or postoperative state. ?2-Severely increased left atrial size. ?3-Moderately increased right atrial size. ?4-Severely thickened mitral valve. Severe mitral annular ?calcification. No mitral valve stenosis. Severe mitral valve ?regurgitation. ?5-Severe aortic valve calcification. Moderate aortic valve ?stenosis, mean gradient 7.5 mmHg, MEGHAN 1.4 cm2. Moderate aortic ?valve regurgitation. ?6-Severe tricuspid valve regurgitation. ?7-Right atrial pressure is around 5 mm of mercury. ?8-When compared to the prior echocardiogram dated July 26, 2019 ?there is worsening of left ventricular ejection fraction from ?normal 55% to? moderately reduced 40% now' there appeared to be ?new anterior septal wall motion abnormality.? There appeared to ?be worsening of aortic valve stenosis with aortic valve area of ?1.4 cm squared, there is worsening of mitral and tricuspid valve ?regurgitation from moderate to severe now.? There is severely ?increased left atrial size which was moderately increased in the ?past. A&P Assessment and plan (1) Acute on chronic diastolic CHF (congestive heart failure): Patient presenting today with worsening dyspnea and chest discomfort. EKG is without any acute ST-T wave changes currently. Troponin at 2 hours is without significant delta. Will trend at 6-hour to exclude ACS. Patient's last known ejection fraction is of 40%. Together with peripheral edema, Rales on exam and elevated BNP concern for acute on chronic systolic CHF exacerbation. Additionally patient has a past history of aortic valve stenosis with MEGHAN of 1.4 which might be contributing in this case. Lasix 40 mg IV every 12 hours for now Closely monitor renal function and urine output. Will adjust diuretics based on renal function and urine output. Status: Acute (2) Hypoxia: At a baseline uses 2 L/min supplemental O2, currently using 4 L/min. Status: Acute Plan History of A. fib with RVR: Currently heart rate is well controlled. Continue home doses of Cardizem and metoprolol. Patient has a history of multiple cardioversions in the past. Continue Eliquis 2.5 mg p.o. twice daily: COPD: Continue DuoNeb inhalation every 6 hours DVT prophylaxis: Eliquis Dante Medical Necessity Statement*: Anticipate greater than 2 midnight admission for treatment of acute on chronic CHF, need for IV diuresis, close monitoring. Coding Level of Care Code Acute Closet Builder for Amando Bain Diagnoses Acute on chronic diastolic CHF (congestive heart failure) I50.33 Hypoxia R09.02
--- NOTE | 2022-01-05 16:16 | ECG_ITS ---
[facility] Test Date: 2022-01-05 Pat Name: Lilia Haynes Department: Room: 256 Gender: Female Access Clerk: : 1935 Requested By: Linda Liz Order Number: [id number] Meng MD: Jose Cochran M.D. Measurements Intervals [place] Rate: 90 P: [place]: QRS: -50 QRSD: 156 T: 134 QT: 431 QTc: 530 Interpretive Statements ATRIAL FIBRILLATION WITH ABERRANT CONDUCTION OR VENTRICULAR PREMATURE COMPLEXES LEFT AXIS DEVIATION [QRS AXIS < -30] LEFT BUNDLE BRANCH BLOCK [120+ ms QRS DURATION, 80+ ms Q/S IN V1/V2, 85+ ms R IN I/aVL/V5/V6] Ventricular paced beat present Compared to ECG 01/05/2022 11:53:51 No change Electronically Signed On 01-05-2022 18:17:50 CDT by Jose Cochran M.D. [id number]
[2022-01-05 16:54] LABS: Glucose Point of Care 126 mg/dL (70-110)
[2022-01-05 17:23] LABS: Troponin 5 6HR 14.12 ng/L (0-10)
[2022-01-05 17:36] LABS: Troponin 5 6HR Delta -0.88 ng/L (0-12)
[2022-01-05 17:56] LABS: SARS Covid-2 Antigen Negative (Negative)
[2022-01-05] MEDS: escitalopram 10 mg Tablet PO (18:15)
[2022-01-05] MEDS: atorvastatin 40 mg Tablet PO (20:36)
[2022-01-05] MEDS: insulin glargine 100 units/1 mL 10 UNIT SUBCUT (20:36)
[2022-01-05] MEDS: ALPRAZolam 0.5 mg Tablet 0.25 MG PO (20:37)
[2022-01-05] MEDS: ipratropium-albuterol 3 mL Neb INHALATION (20:48)
[2022-01-05] MEDS: metoprolol tartrate 50 mg Tablet PO (22:36)
[2022-01-05] MEDS: apixaban 5 mg Tablet 2.5 MG PO (22:37)
[2022-01-05 22:50] LABS: Magnesium 1.9 mg/dL (1.7-2.3)
[2022-01-06] VITALS (12 sets, daily range): BP systolic 95–103; BP diastolic 56–97; PULSE 60–96; RESP 12–20; TEMP 36.4–36.7; O2SAT 95–99
[2022-01-06 03:18] LABS: Basophils # 0.1 10^3/uL (0.0-0.1); Basophils % 0.7 %; Eosinophils # 0.4 10^3/uL (0.0-0.8); Eosinophils % 4.5 %; Hematocrit 39.5 % (37.0-47.0); Hemoglobin 12.3 g/dL (11.5-15.3); Lymphocytes # 2.3 10^3/uL (0.8-4.8); Lymphocytes % 27.1 %; Mean Corpuscular HGB Conc 31.1 g/dL (30.0-36.0); Mean Corpuscular Hemoglobin 32.9 pg (28.0-34.0); Mean Corpuscular Volume 105.6 fl (81-99); Mean Platelet Volume 11.8 fL (7.4-10.4); Monocytes # 1.2 10^3/uL (0.2-0.9); Monocytes % 13.7 %; Neutrophils % 53.6 %; Nucleated Red Blood Cells % 0 %; Platelet Count 274 10^3/cmm (130-400); Red Blood Count 3.74 10^6/uL (4.1-5.3); Red Cell Distribution Width 16.5 % (12.1-15.1); White Blood Count 8.4 10^3/uL (4.0-10.0)
[2022-01-06 03:26] LABS: Alanine Aminotransferase 11 U/L (0-33); Albumin Level 3.5 g/dL (3.5-5.2); Alkaline Phosphatase 101 U/L (35-105); Anion Gap 15.1 (5-19); Aspartate Amino Transferase 23 U/L (0-32); Blood Urea Nitrogen 21 mg/dL (8-23); Calcium 9.6 mg/dL (8.5-10.5); Carbon Dioxide 31 mmol/L (22-29); Chloride 97 mmol/L (98-107); Glucose 92 mg/dL (65-115); Osmolality Calculated 291 mOsm/kg (285-295); Potassium 4.1 mmol/L (3.5-5.1); Sodium 139 mmol/L (136-145); Total Protein 7.5 g/dL (6.6-8.7)
[2022-01-06] MEDS: FUROsemide 10 mg/mL SDV 4mL 40 MG IVP (06:39)
[2022-01-06] MEDS: levothyroxine 75 mcg Tablet PO (06:39)
[2022-01-06] MEDS: pantoprazole DR 40 mg Tablet PO (08:36)
[2022-01-06] MEDS: spironolactone 25 mg Tablet PO (08:37)
[2022-01-06] MEDS: apixaban 5 mg Tablet 2.5 MG PO ×2 (08:43→20:48)
[2022-01-06] MEDS: dilTIAZem ER (24HR) 180 mg Capsule 360 MG PO (08:43)
--- NOTE | 2022-01-06 09:37 | ECG_ITS ---
[facility] Test Date: 2022-01-06 Pat Name: Lilia Haynes Department: Room: 256 Gender: Female Conveyor Loader: : 1935 Requested By: Kasey Nur Order Number: [id number] Meng MD: Jose Cochran M.D. Measurements Intervals [place] Rate: 106 P: [place]: QRS: -48 QRSD: 161 T: 121 QT: 382 QTc: 510 Interpretive Statements ATRIAL FIBRILLATION WITH RAPID VENTRICULAR RESPONSE LBBB Compared to ECG 01/05/2022 16:16:56 Intraventricular conduction delay now present Ventricular premature complex(es) no longer present Aberrant conduction of supraventricular beat(s) no longer present Ventricular-paced complex(es) or rhythm no longer present Electronically Signed On 01-06-2022 13:59:28 CDT by Jose Cochran M.D. [id number]
[2022-01-06] MEDS: ipratropium-albuterol 3 mL Neb INHALATION ×2 (09:57→15:46)
--- NOTE | 2022-01-06 15:09 | PM.PN ---
Subjective Subjective: Urine output charted at 550 mL, however patient has had additional diuresis which has not been charted. She reports no new symptoms. States chest pain is resolved today. Lower extremity edema is improved today. No acute interim events. Medications: Reviewed: Yes Vitals/I&O/Wt Last Vital Signs Temp 97.6 F 01/06/22 11:26 Pulse 75 01/06/22 11:26 Resp 15 01/06/22 11:26 BP 98/56 01/06/22 11:26 Pulse Ox 97 01/06/22 11:26 O2 Del Method 01/06/22 11:26 O2 Flow Rate 2 01/06/22 09:50 01/06/22 01/06/22 01/06/22 06:59 14:59 22:59 Intake Total 480 / 480 Balance 480 / 480 Weight last 48 hrs Weight 52.889 kg Weight 50.802 kg Physical Exam Narrative: General: No acute distress, AO x3 HEENT: PERRLA, pupils bilaterally equal and reactive, pallors not present, nasal cannula in place Chest: Scattered rales on exam bilateral infra axillary areas CVS: S1-S2 regular, no murmurs, no tachycardia, no gallops, no rubs Abdomen: Soft, nontender, no organomegaly, bowel sounds present Neuro: No focal deficits, no facial deformity, AO x3, power 5/5 in all limbs Data : 01/06/22 02:53 01/06/22 02:53 A&P Assessment and plan (1) Acute on chronic diastolic CHF (congestive heart failure): Patient admitting for worsening dyspnea and chest discomfort. EKG is without any acute ST-T wave changes currently. Troponin series at 2 and 6 hrs without significant delta. Less likely ACS. Patient's last known ejection fraction is of 40%. Together with peripheral edema, Rales on exam and elevated BNP concern for acute on chronic systolic CHF exacerbation. Lasix 40 mg IV every 12 hours ---> patient's 02 back at 2lpm baseline, improved peripheral edema. Change to po Lasix today. Closely monitor renal function and urine output. Status: Acute (2) Hypoxia: At a baseline uses 2 L/min supplemental O2, now back at baseline Low probability PE as patient on anticoagulation with Eliquis as outpatient. Status: Acute Plan History of A. fib with RVR: Currently heart rate is well controlled. Continue home doses of Cardizem and metoprolol. Patient has a history of multiple cardioversions in the past. Continue Eliquis 2.5 mg p.o. twice daily: COPD: Continue DuoNeb inhalation every 6 hours DVT prophylaxis: Kaylaquryan Howell Medical Necessity Statement*: change to po diuretics today, monitor over next 24 hrs Coding Level of Care Code Acute Tunnel Elastic Operator Lockstitch for Amando Bain Diagnoses Acute on chronic diastolic CHF (congestive heart failure) I50.33 Hypoxia R09.02
--- NOTE | 2022-01-06 16:09 | USCV_ITS ---
[place] Lilia Age: 86 Gender: F : 1935 Exam Date: 01/06/2022 07:57 Ordering Phys: Kasey Nur MD Technologist: Dominic Mendieta Exam Location: [facility] [place] Indication: chest pain, worsening chf BP: 99 / 97 HR: 120 Rhythm: Other Technical Quality: Adequate MEASUREMENTS (Male / Female) Normal Values 2D ECHO LV Diastolic Diameter PLAX 4.3 cm 4.2 - 5.9 / 3.9 - 5.3 cm LV Systolic Diameter PLAX 3.7 cm IVS Diastolic Thickness 0.8 cm 0.6 - 1.0 / 0.6 - 0.9 cm IVS Systolic Thickness 1.0 cm LVPW Diastolic Thickness 1.1 cm 0.6 - 1.0 / 0.6 - 0.9 cm LVPW Systolic Thickness 1.8 cm LVOT Diameter 2.0 cm LV Ejection Fraction 2D Teich 30.8 % LV Ejection Fraction MOD 2C 34.8 % LV Ejection Fraction 2C AL 34.1 % LA Diameter 3.5 cm LA Width 4.2 cm LA Height 5.7 cm RA Width 3.8 cm RA Height 4.4 cm Aorta at Sinotubular Diameter 2.4 cm IVC Diameter 1.6 cm M-MODE Aortic Annulus Diameter 1.6 cm LA Ao Ratio MM 1.9 MV E Point Septal Separation 1.1 cm DOPPLER AV Peak Velocity 238.3 cm/s LVOT Peak Velocity 75.0 cm/s AV Area Cont Eq vti 1.0 cm squared AV Area Cont Eq pk 1.0 cm squared MV Peak Velocity 160.0 cm/s MV Area PHT 6.3 cm squared Mitral E to A Ratio 3.3 MV E' Velocity 78.0 cm/s Mitral E to LV E' Lateral Ratio 15.2 TR Peak Velocity 310.2 cm/s TR Peak Gradient 38.5 mmHg TR Mean Velocity 220.7 cm/s TR Mean Gradient 21.5 mmHg TR Velocity Time Integral 85.6 cm Right Atrial Pressure 3.0 mmHg Pulmonary Artery Systolic Pressu 41.5 mmHg RV Acceleration Time 0.1 s RV Ejection Time 0.2 s RV AcT/ET 0.4 FINDINGS Left Ventricle Left ventricle is normal in size. LV systolic function is severely reduced with EF of 30-35 %. Severe global hypokinesis is seen. Right Ventricle RV is hypokinetic Right Atrium Right atrium is severely dilated. RA pressure is normal Left Atrium Left atrium is severely dilated Mitral Valve Moderate mitral annular calcification is seen. Moderate to severe mitral regurgitation is seen. Aortic Valve Aortic valve is thickened. Mild aortic stenosis is seen. Aortic valve area of 1.16 cm squared with mean gradient of 11.9 mmHg. Mild aortic regurgitation. Tricuspid Valve Mild to moderate tricuspid regurgitation. RVSP is 35 to 40 mmHg. This is consistent with mild pulmonary hypertension Pulmonic Valve Mild pulmonic regurgitation Pericardium Normal Aorta Normal in size IVC CONCLUSIONS LV systolic function is severely reduced with EF of 30 to 35%. Severe global hypokinesis seen. RV is hypokinetic. Biatrial enlargement. Moderate mitral valve calcification noted. Moderate to severe mitral regurgitation seen. Aortic valve is thickened. Mild aortic stenosis. Aortic valve area 1.16 cm squared and mean gradient of 11.9 mmHg. Mild aortic regurgitation Mild tricuspid regurgitation. Mild pulmonary hypertension. Mild pulmonic regurgitation. Compared to prior echocardiogram from 02/26/2021, LV systolic function has decreased further and RV is hypokinetic. Kristopher Self MD (Electronically Signed) Final Date: 06 January 2022 18:45 S
[2022-01-06] MEDS: escitalopram 10 mg Tablet PO (17:14)
[2022-01-06] MEDS: FUROsemide 40 mg Tablet PO (17:14)
[2022-01-06] MEDS: metoprolol tartrate 50 mg Tablet PO (20:48)
[2022-01-06] MEDS: ALPRAZolam 0.5 mg Tablet 0.25 MG PO (20:49)
[2022-01-06] MEDS: atorvastatin 40 mg Tablet PO (20:49)
[2022-01-06] MEDS: insulin glargine 100 units/1 mL 10 UNIT SUBCUT (20:49)
[2022-01-07] VITALS (15 sets, daily range): BP systolic 94–113; BP diastolic 57–68; PULSE 60–107; RESP 14–20; TEMP 36.5–36.8; O2SAT 96–99
[2022-01-07 05:04] LABS: Basophils # 0.1 10^3/uL (0.0-0.1); Basophils % 0.6 %; Eosinophils # 0.3 10^3/uL (0.0-0.8); Eosinophils % 3.7 %; Hematocrit 36.8 % (37.0-47.0); Mean Corpuscular HGB Conc 32.6 g/dL (30.0-36.0); Mean Corpuscular Hemoglobin 33.1 pg (28.0-34.0); Mean Corpuscular Volume 101.7 fl (81-99); Mean Platelet Volume 12.2 fL (7.4-10.4); Monocytes # 1.3 10^3/uL (0.2-0.9); Monocytes % 14.2 %; Neutrophils % 60.2 %; Nucleated Red Blood Cells % 0 %; Platelet Count 291 10^3/cmm (130-400); Red Blood Count 3.62 10^6/uL (4.1-5.3); White Blood Count 9.3 10^3/uL (4.0-10.0)
[2022-01-07 05:34] LABS: Alanine Aminotransferase 12 U/L (0-33); Albumin Level 3.6 g/dL (3.5-5.2); Alkaline Phosphatase 106 U/L (35-105); Anion Gap 14.4 (5-19); Aspartate Amino Transferase 25 U/L (0-32); Blood Urea Nitrogen 33 mg/dL (8-23); Calcium 9.6 mg/dL (8.5-10.5); Carbon Dioxide 31 mmol/L (22-29); Chloride 95 mmol/L (98-107); Globulin 3.8 g/dL (1.3-4.6); Glucose 150 mg/dL (65-115); Osmolality Calculated 292 mOsm/kg (285-295); Potassium 4.4 mmol/L (3.5-5.1); Sodium 136 mmol/L (136-145); Total Bilirubin 0.7 mg/dL (0.15-1.2); Total Protein 7.4 g/dL (6.6-8.7)
[2022-01-07] MEDS: levothyroxine 75 mcg Tablet PO (05:59)
[2022-01-07] MEDS: ipratropium-albuterol 3 mL Neb INHALATION ×4 (07:56→20:02)
[2022-01-07] MEDS: dilTIAZem ER (24HR) 180 mg Capsule 360 MG PO (08:47)
[2022-01-07] MEDS: FUROsemide 40 mg Tablet PO ×2 (08:47→16:30)
[2022-01-07] MEDS: apixaban 5 mg Tablet 2.5 MG PO ×2 (08:47→21:20)
[2022-01-07] MEDS: pantoprazole DR 40 mg Tablet PO (08:47)
[2022-01-07] MEDS: spironolactone 25 mg Tablet PO (08:47)
[2022-01-07] MEDS: metoprolol tartrate 50 mg Tablet PO ×2 (08:47→21:22)
--- NOTE | 2022-01-07 09:31 | ECG_ITS ---
[facility] Test Date: 2022-01-07 Pat Name: Lilia Haynes Department: Room: 256 Gender: Female [place]: : 1935 Requested By: Tavo Kerns Order Number: [id number] Meng MD: Kristopher Self M.D. Measurements Intervals [place] Rate: 107 P: AR: QRS: -54 QRSD: 154 T: 120 QT: 381 QTc: 509 Interpretive Statements ATRIAL FIBRILLATION WITH RAPID VENTRICULAR RESPONSE LEFT AXIS DEVIATION [QRS AXIS < -30] INTRAVENTRICULAR CONDUCTION DELAY [130+ ms QRS DURATION] Compared to ECG 01/06/2022 09:37:46 Left-axis deviation now present Intraventricular conduction delay now present Left bundle-branch block no longer present Electronically Signed On 01-07-2022 16:26:02 CDT by Kristopher Self M.D. [id number]
[2022-01-07] MEDS: LORazepam 0.5 mg Tablet PO (10:26)
--- NOTE | 2022-01-07 12:07 | PC.CHAP ---
Pastoral Care Encounter/Spiritual Assessment Type of Contact [] Declined landscape architecture professor visit [] Patient/Family/Request visit [] Outpatient visit [] Follow-up visit [] Physician referral [] Code/Alert [x] Routine visit [] Staff referral [] Actively dying [x] Patient sleeping [] Family support [] [] Out of room [] Palliative care [] [] Receiving care in room [] Pre-surgical visit [] Trauma [] Long length of stay [] ICU visit [] Other: Relational/Emotional Strength [] Patient feels connected with others/family/visitors/staff [] Distress [] Loneliness/isolation [] Abandonment Spirituality of Patient [] Person of Cate [] Attends Advent of their Cate [] Believes in Prayer [] Reads Bible or Mormon materials [] There are Spiritual issues to be addressed Construction Management Assistant Interventions [] Prayer [] Active listening [] Non-anxious presence [] Spiritual/emotional support [] Crisis/trauma care [] Spiritual counseling [] Bereavement support [] Provided bereavement packet [] Provided Bible/devotional materials [] Provided toy/stuffed animal, coloring book to patient or family member [] Provided Communion [] Anointing/[place] [] Salvation [] Completed spiritual assessment [] Other: Impact on Illness or Injury [] Angry [] Fearful [] Anxious [] Often cries [] Exhaustion [] Unable to work [] Unable to attend rastafarian [] Unable to walk/stand [] Unable to read [] Unable to drive [] Unable to eat/drink [] Unable to sleep [] Unable to be with family [] Patient intubated [] Other: Summary Time spent with patient
--- NOTE | 2022-01-07 12:16 | PM.PN ---
Subjective Subjective: Patient was seen and examined this morning, states that shortness of breath is improved, echo done during this hospital stay, has shown slight drop in EF, with severe global hypokinesia. Medications: Reviewed: Yes Medication Review Details: Generic Name Dose Route Start Last Admin Trade Name Freq PRN Reason Stop Dose Admin Albuterol/Ipratrop ium 3 ml 01/05/22 20:00 01/07/22 07:56 Ipratropium-Albu terol 3 Ml Neb INHALATION 3 ml Q6H.RESP NAE Administration Alprazolam 0.25 mg 01/05/22 21:00 01/06/22 20:49 Alprazolam 0.5 M g Tablet PO 0.25 mg BEDTIME NAE Administration Apixaban 2.5 mg 01/05/22 21:00 01/07/22 08:47 Apixaban 5 Mg Ta blet PO 2.5 mg BID@0900,2100 NAE Administration Atorvastatin Calci um 40 mg 01/05/22 21:00 01/06/22 20:49 Atorvastatin 40 Mg Tablet PO 40 mg BEDTIME NAE Administration Diltiazem HCl 360 mg 01/06/22 09:00 01/07/22 08:47 Diltiazem Er (24 hr) 180 Mg Capsule PO 360 mg DAILY NAE Administration Escitalopram Oxala te 10 mg 01/05/22 18:00 01/06/22 17:14 Escitalopram 10 Mg Tablet PO 10 mg QPM NAE Administration Furosemide 40 mg 01/06/22 16:00 01/07/22 08:47 Furosemide 40 Mg Tablet PO 40 mg BID@08,16 NAE Administration Insulin Glargine 10 unit 01/05/22 21:00 01/06/22 20:49 Insulin Glargine 100 Units/1 Ml SUBCUT 10 unit BEDTIME NAE Administration Levothyroxine Sodi um 75 mcg 01/06/22 06:00 01/07/22 05:59 Levothyroxine 75 Mcg Tablet PO 75 mcg QAM NAE Administration Lorazepam 0.5 mg 01/05/22 16:12 01/07/22 10:26 Lorazepam 0.5 Mg Tablet PO 0.5 mg TID PRN Administration Anxiety Metoprolol Tartrat e 50 mg 01/05/22 21:00 01/07/22 08:47 Metoprolol Tartr ate 50 Mg Tablet PO 50 mg BID@0900,2100 NAE Administration Pantoprazole Sodiu m 40 mg 01/06/22 09:00 01/07/22 08:[address] 40 Mg Tablet PO 40 mg DAILY NAE Administration Spironolactone 25 mg 01/06/22 09:00 01/07/22 08:47 Spironolactone 2 5 Mg Tablet PO 25 mg DAILY NAE Administration Vitals/I&O/Wt Last Vital Signs Temp 97.7 F 01/07/22 11:46 Pulse 85 01/07/22 11:46 Resp 18 01/07/22 11:46 BP 97/65 01/07/22 11:46 Pulse Ox 96 01/07/22 11:46 O2 Del Method 01/07/22 11:46 O2 Flow Rate 2 01/07/22 07:57 01/06/22 01/07/22 01/07/22 22:59 06:59 14:59 Intake Total 360 / 840 240 / 240 Output Total 850 / 850 Balance 360 / 840 -850 / -10 240 / 240 Weight last 48 hrs Weight 52.889 kg Physical Exam Const: COMMON NORMALS: patient oriented x3 HENMT: COMMON NORMALS: normocephalic and atraumatic HEAD & SCALP: normocephalic and atraumatic Resp: COMMON NORMALS: clear to auscultation bilaterally (Bilateral basal crackles present in both lung cisse right greater than lef) EFFORT & INSPECTION: Yes symmetric chest movement AUSCULTATION: clear to auscultation bilaterally (Bilateral basal crackles present in both lung cisse right greater than lef) Cardio: COMMON NORMALS: No rub (Cardio) and Peripheral pulses 2+ throughout PERIPHERAL PULSES: Peripheral pulses 2+ throughout OTHER: Irregularly irregular rhythm, S1-S2 variable intensity, pansystolic murmur in mitral area GI: COMMON NORMALS: Normal to inspection, nondistended, normoactive bowel sounds present, Soft to palpation, non-tender, No hepatosplenomegaly present and no masses AUSCULTATION: Yes normoactive bowel sounds PALPATION: Yes Soft to palpation and Yes No hepatosplenomegaly present RECTAL EXAM: deferred Extremity: COMMON NORMALS: no clubbing, cyanosis or edema and no pedal edema Neuro: COMMON NORMALS: patient oriented x3 Data : 01/07/22 04:34 01/07/22 04:34 A&P Assessment and plan (1) Acute on chronic diastolic CHF (congestive heart failure): Patient admitting for worsening dyspnea and chest discomfort. EKG is without any acute ST-T wave changes currently. Troponin series at 2 and 6 hrs without significant delta. Less likely ACS. Patient's last known ejection fraction is of 40%. Together with peripheral edema, Rales on exam and elevated BNP concern for acute on chronic systolic CHF exacerbation. Lasix 40 mg IV every 12 hours ---> patient's 02 back at 2lpm baseline, improved peripheral edema. Change to po Lasix today. Closely monitor renal function and urine output. Status: Acute (2) Hypoxia: At a baseline uses 2 L/min supplemental O2, now back at baseline Low probability PE as patient on anticoagulation with Eliquis as outpatient. Status: Acute Plan History of A. fib with RVR: Currently heart rate is well controlled. Continue home doses of Cardizem and metoprolol. Patient has a history of multiple cardioversions in the past. Continue Eliquis 2.5 mg p.o. twice daily: COPD: Continue DuoNeb inhalation every 6 hours DVT prophylaxis: Eliquis Attestations Medical Necessity Statement*: Patient is still in hospital for management of decompensated heart failure. Coding Level of Care Code Acute Solution Sales Senior Executive for [facility] Fwd Exam Detailed Diagnoses Acute on chronic diastolic CHF (congestive heart failure) I50.33 Hypoxia R09.02
[2022-01-07] MEDS: escitalopram 10 mg Tablet PO (16:29)
[2022-01-07 21:17] LABS: Glucose Point of Care 269 mg/dL (70-110)
[2022-01-07] MEDS: insulin glargine 100 units/1 mL 10 UNIT SUBCUT (21:22)
[2022-01-07] MEDS: ALPRAZolam 0.5 mg Tablet 0.25 MG PO (21:22)
[2022-01-07] MEDS: atorvastatin 40 mg Tablet PO (21:22)
[2022-01-08 03:46] VITALS: BP 114/66; PULSE 91; RESP 16; TEMP 36.7; O2SAT 92
[2022-01-08 03:57] VITALS: PULSE 87
[2022-01-08] MEDS: levothyroxine 75 mcg Tablet PO (05:15)
[2022-01-08 06:26] LABS: Glucose Point of Care 124 mg/dL (70-110)
[2022-01-08 08:00] VITALS: BP 120/70; PULSE 99; RESP 17; TEMP 36.6; O2SAT 94
[2022-01-08] MEDS: spironolactone 25 mg Tablet PO (08:31)
[2022-01-08] MEDS: metoprolol tartrate 50 mg Tablet PO (08:32)
[2022-01-08] MEDS: pantoprazole DR 40 mg Tablet PO (08:32)
[2022-01-08] MEDS: apixaban 5 mg Tablet 2.5 MG PO (08:32)
[2022-01-08] MEDS: FUROsemide 40 mg Tablet PO (08:32)
[2022-01-08] MEDS: dilTIAZem ER (24HR) 180 mg Capsule 360 MG PO (08:32)
[2022-01-08 08:48] LABS: Basophils # 0.1 10^3/uL (0.0-0.1); Basophils % 0.8 %; Eosinophils # 0.4 10^3/uL (0.0-0.8); Eosinophils % 5.2 %; Hematocrit 38.4 % (37.0-47.0); Hemoglobin 12.4 g/dL (11.5-15.3); Lymphocytes # 1.9 10^3/uL (0.8-4.8); Lymphocytes % 25.8 %; Mean Corpuscular HGB Conc 32.3 g/dL (30.0-36.0); Mean Corpuscular Hemoglobin 33.4 pg (28.0-34.0); Mean Corpuscular Volume 103.5 fl (81-99); Mean Platelet Volume 11.9 fL (7.4-10.4); Monocytes % 13.7 %; Neutrophils # 4.09 10^3/uL (1.8-7.7); Neutrophils % 54.2 %; Nucleated Red Blood Cells % 0 %; Platelet Count 304 10^3/cmm (130-400); Red Blood Count 3.71 10^6/uL (4.1-5.3); Red Cell Distribution Width 16.2 % (12.1-15.1); White Blood Count 7.5 10^3/uL (4.0-10.0)
[2022-01-08 09:05] LABS: Alanine Aminotransferase 11 U/L (0-33); Alkaline Phosphatase 110 U/L (35-105); Anion Gap 13.4 (5-19); Aspartate Amino Transferase 24 U/L (0-32); Blood Urea Nitrogen 39 mg/dL (8-23); Calcium 9.9 mg/dL (8.5-10.5); Carbon Dioxide 31 mmol/L (22-29); Chloride 94 mmol/L (98-107); Globulin 4.1 g/dL (1.3-4.6); Glucose 131 mg/dL (65-115); Osmolality Calculated 289 mOsm/kg (285-295); Potassium 4.4 mmol/L (3.5-5.1); Sodium 134 mmol/L (136-145); Total Bilirubin 0.8 mg/dL (0.15-1.2); Total Protein 8.1 g/dL (6.6-8.7)
[2022-01-08 09:15] VITALS: PULSE 84; RESP 20; O2SAT 94
[2022-01-08] MEDS: ipratropium-albuterol 3 mL Neb INHALATION (09:15)
--- NOTE | 2022-01-08 10:31 | P.DS_ITS ---
Discharge Providers Date of Admission: 01/05/22 13:38 Date of Discharge: January 08, 2022 Attending Provider at Admission: Kasey Nur MD Attending Provider at Discharge: Tavo Kerns MD Primary Care Provider: Diallo Tracy MD Diagnoses at Discharge Discharge Diagnosis (1) Acute on chronic diastolic CHF (congestive heart failure): Status: Acute (2) Hypoxia: Status: Acute Reason for Visit Reason for Visit: chest pains, SOB Hospital Course Hospital Course HPI: Kasey Nur MD Lilia Haynes is a 86 year old female with a past medical history significant for anxiety, depression, coronary artery disease, hypertension, hypothyroidism, chronic systolic heart failure with last known EF of 40%, valvular heart disease with severe mitral regurgitation, persistent atrial fibrillation.? She was supplemental oxygen oxygen at 2 L/min at a baseline.? She presents to the emergency room today with 2 to 3-week history of worsening dyspnea on exertion and chest pain that started this morning.? Patient states patient woke up from sleep, was ambulating within the house when she developed a pressure-like chest sensation.? Pain is improved currently after receiving nitroglycerin.? Denies any palpitations or syncope at the time of onset of symptoms.? She has a history of chronic cough and expectoration, denies any acute worsening in this regard.? Denies any history of fever.? Recently visited with her PCP with similar symptoms, sputum culture at that time was performed, showed respiratory paddy, no growth on cultures.? She has been compliant with Lasix dosing.? EKG today is showing sinus rhythm at 76 bpm.? Initial EKG on ER presentation had A. fib with RVR at 106/min.? Prolonged QTC of 536 ms.? Baseline troponin of 15, 2-hour at 14, negative delta at 2 hours.? BNP is 6300, her baseline appears to be 3500. Hospital course: She was admitted for management of acute on chronic decompensated heart failure with reduced ejection fraction she was kept on IV diuresis, and was later transitioned to p.o. Lasix, intake output charting was monitored electrolytes were monitored, she was continued on telemetry monitoring daily weight was monitored, she responded well to the above heart failure management, at the time of discharge Shortness of breath had significantly improved, lower extremity swelling was resolved, she was requiring baseline home oxygen, Lasix dose has been increased to 40 p.o. twice daily, as she will benefit from continued aggressive diuresis. 2D echo done during the hospital stay:LV systolic function is severely reduced with EF of 30 to 35%. Severe global hypokinesis seen. ?RV is hypokinetic. Biatrial enlargement. Moderate mitral valve calcification noted.? Moderate to severe ?mitral regurgitation seen. ?Aortic valve is thickened.? Mild aortic stenosis.? Aortic valve area 1.16 cm squared and mean gradient of 11.9 mmHg.?Mild aortic regurgitation.Mild tricuspid regurgitation.?Mild pulmonary hypertension.?Mild pulmonic regurgitation. Patient has decided to continue to follow with her primary care coal trimmer machine operator as outpatient, she was made aware of the fact that there has been slight drop in the EF, given her age and underlying comorbid conditions, it was decided to continue with medical management for now, and continue to follow with her coal trimmer machine operator in [place] as outpatient. For History of A. fib: She has been continued on Cardizem, metoprolol, as well as Eliquis. Overall patient responded well to above medical management and is being discharged in stable condition to home. She will continue to follow with her primary care physician as outpatient. Physical Exam Const: COMMON NORMALS: patient oriented x3 HENMT: COMMON NORMALS: normocephalic and atraumatic HEAD & SCALP: normocephalic and atraumatic Resp: COMMON NORMALS: clear to auscultation bilaterally (Bilateral basal crackles present in both lung cisse right greater than lef) EFFORT & INSPECTION: Yes symmetric chest movement AUSCULTATION: clear to auscultation bilaterally (Bilateral basal crackles present in both lung cisse right greater than lef) Cardio: COMMON NORMALS: No rub (Cardio) and Peripheral pulses 2+ throughout PERIPHERAL PULSES: Peripheral pulses 2+ throughout OTHER: Irregularly irregular rhythm, S1-S2 variable intensity, pansystolic murmur in mitral area GI: COMMON NORMALS: Normal to inspection, nondistended, normoactive bowel sounds present, Soft to palpation, non-tender, No hepatosplenomegaly present and no masses AUSCULTATION: Yes normoactive bowel sounds PALPATION: Yes Soft to palpation and Yes No hepatosplenomegaly present RECTAL EXAM: deferred Extremity: COMMON NORMALS: no clubbing, cyanosis or edema and no pedal edema Neuro: COMMON NORMALS: patient oriented x3 Discharge Data Studies Completed and Pending Completed Studies During Hospitalization Category Date Time Status XR chest 1V portable [id number] Stat Exams 01/05/22 09:13 Completed CV. echo complete* [id number] Routine Ultrasound 01/06/22 16:09 Completed Radiology Impressions Chest X-Ray 01/05/22 09:13 IMPRESSION: 1. Stable cardiomegaly. 2. Trace right-sided pleural effusion. Questionable small left-sided pleural effusion. Laboratory Results WBC 7.5 10^3/uL (4.0-10.0) 01/08/22 08:18 RBC 3.71 10^6/uL (4.1-5.3) L 01/08/22 08:18 Hgb 12.4 g/dL (11.5-15.3) 01/08/22 08:18 Hct 38.4 % (37.0-47.0) 01/08/22 08:18 MCV 103.5 fl (81-99) H 01/08/22 08:18 MCH 33.4 pg (28.0-34.0) 01/08/22 08:18 MCHC 32.3 g/dL (30.0-36.0) 01/08/22 08:18 RDW 16.2 % (12.1-15.1) H 01/08/22 08:18 Plt Count 304 10^3/cmm (130-400) 01/08/22 08:18 MPV 11.9 fL (7.4-10.4) H 01/08/22 08:18 Neut % (Auto) 54.2 % 01/08/22 08:18 Lymph % (Auto) 25.8 % 01/08/22 08:18 [place] % (Auto) 13.7 % 01/08/22 08:18 Eos % (Auto) 5.2 % 01/08/22 08:18 Baso % (Auto) 0.8 % 01/08/22 08:18 Neut # (Auto) 4.09 10^3/uL (1.8-7.7) 01/08/22 08:18 Lymph # (Auto) 1.9 10^3/uL (0.8-4.8) 01/08/22 08:18 [place] # (Auto) 1.0 10^3/uL (0.2-0.9) H 01/08/22 08:18 Eos # (Auto) 0.4 10^3/uL (0.0-0.8) 01/08/22 08:18 Baso # (Auto) 0.1 10^3/uL (0.0-0.1) 01/08/22 08:18 Nucleated RBC % (auto) 0 % 01/08/22 08:18 Nucleated RBCs # 0.0 /100WBC 01/08/22 08:18 PT 17.00 SECONDS (12.1-14.9) H 01/05/22 09:30 INR 1.35 (0.8-1.2) H 01/05/22 09:30 Sodium 134 mmol/L (136-145) L 01/08/22 08:18 Potassium 4.4 mmol/L (3.5-5.1) 01/08/22 08:18 Chloride 94 mmol/L (98-107) L 01/08/22 08:18 Carbon Dioxide 31 mmol/L (22-29) H 01/08/22 08:18 Anion Gap 13.4 (5-19) 01/08/22 08:18 BUN 39 mg/dL (8-23) H 01/08/22 08:18 Creatinine 1.5 mg/dL (0.5-0.9) H 01/08/22 08:18 GFR Calculation Not Reportable 01/08/22 08:18 Glucose 131 mg/dL (65-115) H 01/08/22 08:18 POC Glucose 124 mg/dL (70-110) H 01/08/22 06:21 Calculated Osmolality 289 mOsm/kg (285-295) 01/08/22 08:18 Calcium 9.9 mg/dL (8.5-10.5) 01/08/22 08:18 Magnesium 1.9 mg/dL (1.7-2.3) 01/05/22 16:02 Total Bilirubin 0.8 mg/dL (0.15-1.2) 01/08/22 08:18 AST 24 U/L (0-32) 01/08/22 08:18 ALT 11 U/L (0-33) 01/08/22 08:18 Alkaline Phosphatase 110 U/L (35-105) H 01/08/22 08:18 Troponin T Baseline 15 ng/L (0-10) H 01/05/22 09:30 Troponin T 120 Minute 14.16 ng/L (0-10) H 01/05/22 11:28 Delta Troponin T -0.84 ABS# (0-10) L 01/05/22 11:28 Troponin T Hi Sens 6Hr 14.12 ng/L (0-10) H 01/05/22 16:02 Troponin T Hi Sens 6Hr Delta -0.88 ng/L (0-12) L 01/05/22 16:02 NT-Pro-B Natriuret Pep 6306 pg/mL (0-450) H 01/05/22 09:30 Total Protein 8.1 g/dL (6.6-8.7) 01/08/22 08:18 Albumin 4.0 g/dL (3.5-5.2) 01/08/22 08:18 Globulin 4.1 g/dL (1.3-4.6) 01/08/22 08:18 Lipase 72 U/L (13-60) H 01/05/22 09:30 SARS-CoV-2 Ag (Rapid) Negative (Negative) 01/05/22 17:23 Vitals Last Vital Signs Temp 97.8 F 01/08/22 08:00 Pulse 84 01/08/22 09:15 Resp 20 H 01/08/22 09:15 BP 120/70 01/08/22 08:00 Pulse Ox 94 01/08/22 09:15 O2 Del Method 01/08/22 09:15 O2 Flow Rate 2 01/08/22 09:15 Discharge Plan Discharge Patient Disposition: Home Condition: Stable Prescriptions: Continued metoprolol tartrate 75 mg tablet 75 mg PO BID potassium chloride 10 mEq capsule, extended release 20 meq PO DAILY atorvastatin 40 mg tablet 40 mg PO BEDTIME lorazepam 0.5 mg tablet 0.5 mg PO TID PRN (Reason: Anxiety) pantoprazole 40 mg tablet,delayed release (DR/EC) 40 mg PO BEDTIME ferrous sulfate 325 mg (65 mg iron) tablet 325 mg PO QAM escitalopram oxalate 10 mg tablet 10 mg PO QPM fluticasone furoate-vilanterol [Breo Ellipta] 100-25 mcg/dose blister with device 1 inh INHALATION QAM Eliquis 2.5 mg Tablet 2.5 mg PO BID spironolactone 25 mg tablet 25 mg PO DAILY Humulin R Regular U-100 Insuln 100 unit/mL solution See Rx Instructions .ROUTE .COMPLEX Hold Instructions: Resume on 05/17/21. Rx Instructions: sliding scale with meals nitroglycerin [Nitrostat] 0.4 mg Tablet, Sublingual 0.4 mg SUBLINGUAL Q5M PRN (Reason: Chest Pain) Rx Instructions: max 3 doses per epsoside Levemir FlexTouch U-100 Insuln 100 unit/mL (3 mL) insulin pen 10 unit SUBCUT DAILY diltiazem HCl 360 mg capsule,extended release 24hr 360 mg PO DAILY Qty: 30 0RF levothyroxine [Euthyrox] 75 mcg tablet 75 mcg PO QAM calcium carbonate 500 mg calcium (1,250 mg) Tablet 500 mg PO DAILY Qty: 0 magnesium 30 mg Tablet 30 mg PO DAILY Qty: 0 cholecalciferol (vitamin D3) [Vitamin D3] 25 mcg (1,000 unit) Capsule 25 mcg PO DAILY Qty: 0 nystatin 100,000 unit/mL suspension 5 ml PO QID Rx Instructions: X 14 DAYS Changed furosemide 40 mg tablet 40 mg PO BID 30 Days Qty: 60 0RF Discharge Orders: Discharge Order (Routine); Ordered 01/08/22 Ordered By: Tavo Kerns Referrals: Diallo Tracy MD [Primary Care Provider] - 01/15/22 11:40 am Discharge Diet: Cardiac and Diabetic Patient Instructions: Atrial Fibrillation, Heart Failure (ED), Chest Pain (DC), CHF Stoplight, Chest Pain Stoplight Discharge Attestations Time Spent in Discharge Care*: less than 30 min Status at Discharge: Cognitive status at discharge: cognitively intact , Behavioral status at discharge: cooperative , Quality Metrics Clinical Quality Measures [ No reported AMI, CVA or VTE this stay] Coding Level of Care Code Acute Chg FW DC note Diagnoses Acute on chronic diastolic CHF (congestive heart failure) I50.33 Hypoxia R09.02
[2022-01-08 11:02] VITALS: PULSE 84; RESP 20; O2SAT 94
--- NOTE | 2022-01-08 11:27 | PC.SOCIAL ---
Pg 2 IMM Explained to pt Pg 2 IMM. No questions voiced. Provided pt a copy. Initialed, dated, & timed a copy & placed in chart.
[2022-01-08 12:00] VITALS: BP 89/60; PULSE 99; O2SAT 90
== END 2022-01-08 12:10 | disposition home or self-care (01) | DRG 291 ==
LOC: ER 14:01 → MEDSURG 14:56
PROVIDERS: Family Medicine; Admitting Provider Student in an Organized Health Care Education/Training Program; Emergency Provider Emergency Medicine; PCP Family Medicine; Visit Provider Internal Medicine
DX: I11.0 Hypertensive heart disease with heart failure (principal); I50.23 Acute on chronic systolic (congestive) heart failure; I48.19 Other persistent atrial fibrillation; F41.8 Other specified anxiety disorders; I25.10 Atherosclerotic heart disease of native coronary artery without angina pectoris; Z95.5 Presence of coronary angioplasty implant and graft; Z95.1 Presence of aortocoronary bypass graft; E03.9 Hypothyroidism, unspecified; I08.3 Combined rheumatic disorders of mitral, aortic and tricuspid valves; Z99.81 Dependence on supplemental oxygen; J44.9 Chronic obstructive pulmonary disease, unspecified; E11.9 Type 2 diabetes mellitus without complications; K21.9 Gastro-esophageal reflux disease without esophagitis; Z79.01 Long term (current) use of anticoagulants; Z79.4 Long term (current) use of insulin
CPT/HCPCS: 36415; 36416; 71045; 80053; 82962; 83690; 83735; 83880; 84484; 85025; 85610; 87426; 93005; 93306; 94640; 96372; J1940

== ENCOUNTER → 2022-01-27 09:20 | Outpatient (BNVA) | payer MEDICARE, SELFPAY | PROVIDERS: PCP Family Medicine; Visit Provider Surgery | DX: R10.13 Epigastric pain (principal); K92.1 Melena | CPT/HCPCS: 99203 ==

== ENCOUNTER 2022-02-24 09:56 | Day surgery (SDC) | payer MEDICARE, SELFPAY ==
--- NOTE | 2022-02-24 10:39 | ANES.PREANE2 ---
Pre-Anesthetic Assessment Height/Weight: Height 1.55 m Operation Date: 02/24/22 11:30 Proposed Procedures p egd/colon [id number],K92.1,R10.13(Not Applicable) - Hector Canseco DO s Colonoscopy(Not Applicable) - Hector Canseco DO Familial anesthetic complications: PONV, intubated emergently years ago during massive heart attack, states they ruptured her esophagus and she has trouble swallowing since (believe d/t scar tissue from this event) Was Beta Kiran taken within 24 hours: Yes Was Clonidine taken within 24 hours: N/A Last intake: > 8hrs Social No alcohol and No tobacco Exam alert, oriented x 3, clear to auscultation bilaterally and regular rate & rhythm Diminished breath sounds, tachycardic Airway Mallampati: Class IV Dentition: false Pulmonary baseline 2 L NC, frequently short of breath, chronic CV/HEM Atrial Fibrillation (w/ RVR), Coronary Artery Disease, Congestive Heart Failure, Hypertension and Myocardial Infarction Recent acute CHF decompensation in December with hospital admission, Lasix given with improvement. NTG taken at least couple times a month. last use yesterday morning. Feeling weaker in the last few days, believe d/t not eating for her prep. Cardiomegaly on CXR. EF 30-35%, global hypokinesis, mod-severe MVR, mild and PVR and mild Pulm HTN Chronic Renal Insufficiency Metabolic Diabetes Mellitus and Hyperlipidemia Anesthetic Plan ASA status: 4 Anesthesia: MAC Risk of > 500 ml blood loss (7ml/kg in children): No Other Pertinent Information Patient and family informed of patient's higher risk of perioperative cardiac and pulmonary complications, to include possible STEMIcardiac arrest, intubation and ventilation, given her medical history. States would like to proceed. Medications/Allergies Home Medications Medication Instructions Recorded Confirmed Last Taken Type atorvastatin 40 mg tablet 40 mg PO BEDTIME 07/25/19 01/27/22 01/04/22 History escitalopram oxalate 10 mg tablet 10 mg PO QPM 07/25/19 01/27/22 01/04/22 History ferrous sulfate 325 mg (65 mg 325 mg PO QAM 07/25/19 01/27/22 01/05/22 History iron) tablet fluticasone furoate 100 1 inh inhalation QAM 07/25/19 01/27/22 01/05/22 History mcg-vilanterol 25 mcg/dose inhalation powder (Breo Ellipta) pantoprazole 40 mg tablet,delayed 40 mg PO BEDTIME 07/25/19 01/27/22 01/04/22 History release apixaban 2.5 mg tablet (Eliquis) 2.5 mg PO BID 08/28/19 01/27/22 01/05/22 History calcium carbonate 500 mg calcium 500 mg PO DAILY ##0 02/26/21 01/27/22 01/04/22 History (1,250 mg) tablet cholecalciferol (vitamin D3) 25 25 mcg PO DAILY ##0 02/26/21 01/27/22 01/05/22 History mcg (1,000 unit) capsule (Vitamin D3) levothyroxine 75 mcg tablet 75 mcg PO QAM 02/26/21 01/27/22 01/05/22 History (Euthyrox) magnesium 30 mg tablet 30 mg PO DAILY ##0 02/26/21 01/27/22 01/05/22 History insulin detemir U-100 100 unit/mL 10 unit SUBCUT DAILY 04/22/21 01/27/22 01/05/22 History (3 mL) subcutaneous pen (Levemir FlexTouch U-100 Insulin) nitroglycerin 0.4 mg sublingual 0.4 mg sublingual Q5M PRN Chest 04/22/21 01/27/22 01/05/22 History tablet (Nitrostat) Pain spironolactone 25 mg tablet 25 mg PO DAILY 04/22/21 01/27/22 01/05/22 History diltiazem HCl 360 mg 360 mg PO DAILY #30 caps 04/25/21 01/27/22 01/05/22 Rx capsule,extended release 24 hr metoprolol tartrate 75 mg tablet 75 mg PO BID 12/11/21 01/27/22 01/05/22 History furosemide 40 mg tablet 40 mg PO BID 30 days #60 tabs 01/08/22 01/27/22 Unknown Rx lorazepam 0.5 mg tablet 0.5 mg PO TID PRN Anxiety #60 tabs 01/15/22 01/27/22 Unknown Rx Allergies Allergy/AdvReac Type Severity Reaction Status Date / Time aspirin Allergy ADR-Nausea Verified 02/24/22 10:36 codeine Allergy ADR-Nausea Verified 02/24/22 10:36 tramadol Allergy Unknown Verified 02/24/22 10:36 hydrocodone AdvReac Mild ADR-Nausea Verified 02/24/22 10:36 [facility] Anesthesia Medical History Abnormal urinalysis Acute on chronic diastolic CHF (congestive heart failure) Altered mental status Asthma Atrial fibrillation and flutter Atrial fibrillation with RVR CAD (coronary artery disease) Chest pain COPD (chronic obstructive pulmonary disease) Chronically on 2 L of oxygen per nasal cannula Depression with anxiety Diabetes mellitus with hypoglycemia Diastolic heart failure Dyspnea GERD (gastroesophageal reflux disease) History of colitis HTN, goal below 130/80 Hypertension Hypothyroidism Hypoxia Systolic heart failure Echocardiogram 02/28 demonstrated EF of 40%, severe tricuspid and mitral regurgitation and moderate aortic regurgitation Type 2 diabetes mellitus Surgical History History of colonoscopy with polypectomy History of coronary artery bypass graft History of heart artery stent Family History Other CAD (coronary artery disease) Cancer Social History Smoking and tobacco status: never smoked Alcohol intake: never Lives independently: Yes Marital status: / Current occupational status: retired History of recent travel: No Current gender identity: Female Data Anesthesia Cardiac Studies: Echocardiogram 01/06/22 Echocardiogram Ultrasound 07/26/19
[2022-02-24 10:45] VITALS: BP 107/78; PULSE 116; RESP 18; TEMP 36.5; O2SAT 93; BMI 21.5
--- NOTE | 2022-02-24 10:49 | ECG_ITS ---
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 Measurements Intervals [place] Rate: 117 P: [place]: QRS: -54 QRSD: 158 T: 124 QT: 362 QTc: 506 Interpretive Statements ATRIAL FIBRILLATION WITH RAPID VENTRICULAR RESPONSE LEFT AXIS DEVIATION [QRS AXIS < -30] INTRAVENTRICULAR CONDUCTION DELAY [130+ ms QRS DURATION] Compared to ECG 01/07/2022 09:31:22 No significant changes Electronically Signed On 02-24-2022 17:23:57 CDT by Kristopher Self M.D. [id number]
--- NOTE | 2022-02-24 10:57 | W.PM.OPSUD ---
Surgery/Procedure H&P Update DATE OF PROCEDURE: February 24, 2022 DATE H&P PERFORMED: 01/27/22 PLANNED PROCEDURE: Operation Date: 02/24/22 11:30 Proposed Procedures p egd/colon [id number],K92.1,R10.13(Not Applicable) - DO pantera Peterson Colonoscopy(Not Applicable) - Hector Canseco DO
[2022-02-24 11:04] LABS: Glucose Point of Care 71 mg/dL (70-110)
[2022-02-24 11:28] VITALS: BP 112/77; PULSE 106; RESP 16; TEMP 36.4; O2SAT 96
[2022-02-24] MEDS: sodium chloride 0.9% 1,000 ML 30 ML IV (11:36)
[2022-02-24 11:38] VITALS: BP 124/78; PULSE 104; RESP 16; O2SAT 98
[2022-02-24 11:38] LABS: Glucose Point of Care 126 mg/dL (70-110)
[2022-02-24 11:47] VITALS: BP 120/79; PULSE 102; RESP 16; O2SAT 99
--- NOTE | 2022-02-24 14:59 | ANE.PACU2 ---
Inpatient post-anesthesia follow up: Airway intact: Yes Vital signs: Temperature 97.6 F Pulse Rate 102 Respiratory Rate 16 Blood Pressure 120/79 Pulse Oximetry 99 Oxygen Delivery Me thod Nasal Cannula Oxygen Flow Rate 2 Fraction of Inspir ed Oxygen Hydration adequate: Yes Nausea and vomiting: No Pain level: 1 Mental status: Baseline
== END 2022-02-24 12:05 | disposition home or self-care (01) ==
PROVIDERS: PCP Family Medicine; Visit Provider Surgery
PROC: 0DJ08ZZ Inspection of Upper Intestinal Tract, Via Natural or Artificial Opening Endoscopic (ICD-10-PCS; CPT 43235; principal; 2022-02-24 11:30)
PROC: 0DJD8ZZ Inspection of Lower Intestinal Tract, Via Natural or Artificial Opening Endoscopic (ICD-10-PCS; CPT 45330; 2022-02-24 11:30)
DX: K92.1 Melena (principal); R10.13 Epigastric pain; K57.30 Diverticulosis of large intestine without perforation or abscess without bleeding; K29.50 Unspecified chronic gastritis without bleeding; B96.81 Helicobacter pylori [H. pylori] as the cause of diseases classified elsewhere; I48.91 Unspecified atrial fibrillation; I11.0 Hypertensive heart disease with heart failure; I50.40 Unspecified combined systolic (congestive) and diastolic (congestive) heart failure; I25.2 Old myocardial infarction; E78.5 Hyperlipidemia, unspecified; E11.649 Type 2 diabetes mellitus with hypoglycemia without coma
CPT/HCPCS: 36416; 43239; 45330; 82962; 88305; 93005; J2704; J7030

== ENCOUNTER 2022-03-05 19:50 | Inpatient (IN) | payer MEDICARE, SELFPAY ==
[2022-03-05] VITALS (10 sets, daily range): BP systolic 108–125; BP diastolic 81–95; PULSE 113–148; RESP 18–33; TEMP 36.5; O2SAT 88–100; BMI 21.9
--- NOTE | 2022-03-05 19:56 | W.ED.SOB ---
HPI - SOB/Dyspnea General: Chief Complaint: Shortness of Breath/Dyspnea Stated Complaint: SOB Time Seen by Provider: 03/05/22 19:56 History of Present Illness: HPI Narrative: Ms. Haynes is an 86-year-old lady with significant past medical history of A. fib on Eliquis, CKD, diabetes, heart failure, asthma presenting to the emergency department due to respiratory distress and A. fib with RVR. She apparently began having worsening cough prior to colonoscopy on Thursday which has subsequently worsened. She notes dyspnea that was initially just with exertion however is now present at rest associated with fluttering sensation in her chest. She is currently on an antibiotic regimen for some sort of infection. She otherwise reports compliance with her medication regimen and normal p.o. intake. Intensity symptoms is moderate to severe. Course has worsened. EMS found the patient to be hypoxemic and administered DuoNeb and supplemental oxygen. Onset (ago): day(s) Timing: progressively worsening Severity: severe Exacerbating factors: exertion and coughing Known history of: asthma and congestive heart failure Review of Systems General: Reports: 10 or more systems reviewed and unremarkable except in HPI and below PFSH ED PFSH: Medical History Abnormal urinalysis Acute on chronic diastolic CHF (congestive heart failure) Altered mental status Asthma Atrial fibrillation and flutter Atrial fibrillation with RVR CAD (coronary artery disease) Chest pain COPD (chronic obstructive pulmonary disease) Chronically on 2 L of oxygen per nasal cannula Depression with anxiety Diabetes mellitus with hypoglycemia Diastolic heart failure Dyspnea GERD (gastroesophageal reflux disease) History of colitis HTN, goal below 130/80 Hypertension Hypothyroidism Hypoxia Systolic heart failure Echocardiogram 02/28 demonstrated EF of 40%, severe tricuspid and mitral regurgitation and moderate aortic regurgitation Type 2 diabetes mellitus Valvular heart disease Surgical History History of colonoscopy with polypectomy History of coronary artery bypass graft History of heart artery stent Family History Other CAD (coronary artery disease) Cancer Social History Smoking and tobacco status: never smoked Alcohol intake: never Lives independently: Yes Marital status: / Current occupational status: retired History of recent travel: No Current gender identity: Female Physical Exam Const: COMMON NORMALS: alert GENERAL APPEARANCE: cooperative, well developed and ill appearing HENMT: COMMON NORMALS: normocephalic and atraumatic HEAD & SCALP: normocephalic and atraumatic Eye: COMMON NORMALS: conjunctivae normal CONJUNCTIVA: Yes conjunctivae normal SCLERA: sclerae normal Neck/C-Spine: COMMON NORMALS: supple GENERAL: Yes trachea midline Resp: EFFORT & INSPECTION: Yes tachypneic AUSCULTATION: rhonchi and diminished lung sounds Cardio: RATE: tachycardic RHYTHM: abnormal rhythm GI: COMMON NORMALS: Soft to palpation PALPATION: Yes Soft to palpation and No Tenderness to palpation present (GI) PERCUSSION: normal to percussion Extremity: GENERAL: Yes normal exam except as noted and No edema Neuro: COMMON NORMALS: moves all extremities SENSORIUM/ORIENTATION: Yes alert and No Orientation impaired Psych: COMMON NORMALS: mental status grossly normal and Normal thought process present THOUGHT PROCESS: Normal thought process present Course Vital Signs: Vital signs: Vital Signs Temperature 97.5 F L 03/07/22 16:00 Pulse Rate 0 L 03/08/22 05:00 Respiratory Rate 0 L 03/08/22 05:00 Blood Pressure 56/47 03/08/22 04:00 Pulse Oximetry 71 L 03/08/22 04:00 Oxygen Delivery Me thod 03/08/22 00:00 Oxygen Flow Rate 6 03/08/22 00:00 Fraction of Inspir ed Oxygen 35 03/07/22 11:04 MDM - SOB/Dyspnea Medical Decision Making 86-year-old lady presenting with respiratory symptoms. Patient is quite ill in appearance and reported more oxygen than baseline. Patient also had atrial fibrillation with rapid ventricular spots. EKG confirms this without evidence of STEMI. Given clinical history of bowel prep a small fluid bolus was ordered. Additionally given wheezing further RT treatment ordered. The patient did not have significant improvement in her rate with fluids and Cardizem was ordered. BiPAP ordered for continued respiratory distress Labs notable for leukocytosis, normal hemoglobin. Metabolic panel with mild hypokalemia and elevated creatinine which is similar to baseline. Lactic acid is elevated and mild transaminitis is present. 2-hour delta troponin is in the intermediate range and BNP is elevated. Potassium antinausea replenishment ordered. Antibiotics ordered X-ray reviewed with findings of COPD and likely volume overload. Given severity of symptoms and refractory nature of symptoms despite treatment additional imaging is warranted. CT imaging with no PE, pulmonary edema versus infection and bilateral small pleural effusions noted. No acute pathology identified in the abdomen. Patient continued to have poor rate control with Cardizem and digoxin was administered. The results of ED evaluation were discussed with the patient including plan for admission due to requirement for level of care not available if discharged to prevent significant worsening/deterioration. Patient agreeable with plan. Discussed with hospitalist service who agreed to admit the patient. Medical Records I reviewed the patient's medical records. Lab Data I reviewed the patient's lab results. : 03/07/22 04:06 03/07/22 04:06 Labs/Radiology: Radiology Impressions Chest/Abdomen/Pelvis CT 03/05/22 20:56 IMPRESSION: 1. No evidence of pulmonary embolism, within the technical limits of the examination. 2. Prominence of the pulmonary interstitium bilaterally with minimal nonspecific ground-glass density noted, suggesting pulmonary edema. Infection could give a similar appearance. 3. Minimal bilateral pleural effusions are noted. 4. Severe cardiomegaly is noted. No pericardial effusion. 5. Mild nonspecific mediastinal and hilar adenopathy. Subcarinal nodes measure up to 15 mm short axis. IMPRESSION: 1. No acute hepatic abnormality. Inhomogeneous enhancement of the liver, which may be related to passive venous congestion secondary to elevated right heart pressures. 2. Diverticulosis of the colon. No evidence of acute diverticulitis. 3. No acute abnormality demonstrated in the abdomen and pelvis. No source of infection identified. Chest X-Ray 03/06/22 06:00 IMPRESSION: 1. Cardiac enlargement with signs of congestive heart failure with the somewhat more pulmonary vascular congestion than noted previously. There is likely some diffuse pulmonary edema in both lungs. Right basal pleural effusion unchanged. Laboratory Results WBC 12.9 10^3/uL (4.0-10.0) H 03/05/22 19:40 RBC 3.81 10^6/uL (4.1-5.3) L 03/05/22 19:40 Hgb 12.8 g/dL (11.5-15.3) 03/05/22 19:40 Hct 40.4 % (37.0-47.0) 03/05/22 19:40 MCV 106.0 fl (81-99) H 03/05/22 19:40 MCH 33.6 pg (28.0-34.0) 03/05/22 19:40 MCHC 31.7 g/dL (30.0-36.0) 03/05/22 19:40 RDW 15.6 % (12.1-15.1) H 03/05/22 19:40 Plt Count 321 10^3/cmm (130-400) 03/05/22 19:40 MPV 12.5 fL (7.4-10.4) H 03/05/22 19:40 Neut % (Auto) 45.9 % 03/05/22 19:40 Lymph % (Auto) 41.0 % 03/05/22 19:40 [place] % (Auto) 9.1 % 03/05/22 19:40 Eos % (Auto) 2.7 % 03/05/22 19:40 Baso % (Auto) 0.9 % 03/05/22 19:40 Neut # (Auto) 5.93 10^3/uL (1.8-7.7) 03/05/22 19:40 Lymph # (Auto) 5.3 10^3/uL (0.8-4.8) H 03/05/22 19:40 [place] # (Auto) 1.2 10^3/uL (0.2-0.9) H 03/05/22 19:40 Eos # (Auto) 0.4 10^3/uL (0.0-0.8) 03/05/22 19:40 Baso # (Auto) 0.1 10^3/uL (0.0-0.1) 03/05/22 19:40 Nucleated RBC % (auto) 0 % 03/05/22 19:40 Nucleated RBCs # 0.0 /100WBC 03/05/22 19:40 PT 20.00 SECONDS (12.1-14.9) H 03/05/22 19:40 INR 1.66 (0.8-1.2) H 03/05/22 19:40 APTT 32.2 SECONDS (23.9-36.7) 03/05/22 19:40 D-Dimer 0.95 ug/mIFEU (0-0.59) H 03/05/22 19:40 Specimen Type Arterial 03/05/22 20:00 Sample Site Radial, right 03/05/22 20:00 ABG pH 7.36 (7.35-7.45) 03/05/22 20:00 ABG pCO2 46.2 mmHg (35-45) H 03/05/22 20:00 ABG pO2 109.0 mmHg (80.0-100.0) H 03/05/22 20:00 ABG HCO3 26.0 mmol/L (22-26) 03/05/22 20:00 ABG Base Excess 0.2 mmol/L (-2.0-2.0) 03/05/22 20:00 Deep Test Pos 03/05/22 20:00 Hematocrit 38.2 % (37-47) 03/05/22 20:00 Hgb O2 Saturation 97.3 % (95-100) 03/05/22 20:00 Carboxyhemoglobin < 1.0 %THgb (0.4-20.1) 03/05/22 20:00 Methemoglobin 0.3 % (0.4-1.5) L 03/05/22 20:00 Total Hemoglobin 12.5 g/dL (12-16) 03/05/22 20:00 O2 Delivery Device Nc 03/05/22 20:00 O2 Liters/Min 6.0 % 03/05/22 20:00 Freelance Digital Project Manager ID Marcos 03/05/22 20:00 Sodium 139 mmol/L (136-145) 03/05/22 19:40 Potassium 3.3 mmol/L (3.5-5.1) L 03/05/22 19:40 Chloride 98 mmol/L (98-107) 03/05/22 19:40 Carbon Dioxide 23 mmol/L (22-29) 03/05/22 19:40 Anion Gap 21.3 (5-19) H 03/05/22 19:40 BUN 22 mg/dL (8-23) 03/05/22 19:40 Creatinine 1.6 mg/dL (0.5-0.9) H 03/05/22 19:40 GFR Calculation Not Reportable 03/05/22 19:40 Glucose 149 mg/dL (65-115) H 03/05/22 19:40 Calculated Osmolality 294 mOsm/kg (285-295) 03/05/22 19:40 Lactate 2.5 mmol/L (0.5-2.2) H 03/05/22 20:20 Calcium 9.7 mg/dL (8.5-10.5) 03/05/22 19:40 Magnesium 1.8 mg/dL (1.7-2.3) 03/05/22 19:40 Total Bilirubin 0.8 mg/dL (0.15-1.2) 03/05/22 19:40 AST 37 U/L (0-32) H 03/05/22 19:40 ALT 19 U/L (0-33) 03/05/22 19:40 Alkaline Phosphatase 138 U/L (35-105) H 03/05/22 19:40 Troponin T Baseline 29 ng/L (0-10) H 03/05/22 20:05 Troponin T 120 Minute 36.87 ng/L (0-10) H 03/05/22 22:05 Delta Troponin T 7.87 ABS# (0-10) 03/05/22 22:05 NT-Pro-B Natriuret Pep 8119 pg/mL (0-450) H 03/05/22 19:40 Total Protein 7.6 g/dL (6.6-8.7) 03/05/22 19:40 Albumin 3.9 g/dL (3.5-5.2) 03/05/22 19:40 Globulin 3.7 g/dL (1.3-4.6) 03/05/22 19:40 TSH 10.38 uIU/mL (0.27-4.20) H 03/05/22 19:40 Free T4 1.41 ng/dL (0.82-1.77) 03/05/22 21:59 Urine Color Colorless (Yellow) 03/05/22 21:09 Urine Appearance Clear (CLEAR) 03/05/22 21:09 Urine pH 6 (5-7) 03/05/22 21:09 Ur Specific [place] 1.015 (1.005-1.030) 03/05/22 21:09 Urine Protein Neg (Negative) 03/05/22 21:09 Urine Glucose (UA) Norm (Normal) 03/05/22 21:09 Urine Ketones Negative (Negative) 03/05/22 21:09 Urine Blood Neg (Negative) 03/05/22 21:09 Urine Nitrate Negative (Negative) 03/05/22 21:09 Urine Bilirubin Neg (Negative) 03/05/22 21:09 Urine Urobilinogen Norm mg/dL (Negative) 03/05/22 21:09 Ur Leukocyte Esterase Negative (Negative) 03/05/22 21:09 Critical Care Time Critical Care Time: Critical Care Time: Yes Total Critical Care Time: 45 Attestation: Due to a high probability of clinically significant, possibly life threatening deterioration, the patient required my highest level of attention and preparedness to intervene emergently and I personally spent this critical care time directly and personally managing the patient. This critical care time included obtaining a history; examining the patient; pulse oximetry; ordering and review of laboratory and imaging studies; arranging urgent treatment with development of a management plan; evaluation of patient's response to treatment; frequent reassessment; and, discussions with other providers as applicable. It was exclusive of separately billable procedures. Primary system involved is cardiopulmonary. Discharge Plan Discharge Patient Disposition: Admitted As Inpatient Admit Provider: Óscar Cervantes Clinical Impression: Acute exacerbation of chronic obstructive airways disease, CKD (chronic kidney disease), Acute on chronic congestive heart failure, Atrial fibrillation with RVR Condition: Serious Coding Level of Care Code ED Nougat Cutter Machine for Amando Fwd Exam Comprehensive
--- NOTE | 2022-03-05 19:57 | XRR_ITS ---
PROCEDURE INFORMATION: Exam: XR Chest Exam date and time: 03/05/2022 8:05 PM Age: 86 years old Clinical indication: Shortness of breath; Prior surgery; Surgery date: 6+ months; Surgery type: Open heart; Additional info: SOB TECHNIQUE: Imaging protocol: Radiologic exam of the chest. Views: 1 view. COMPARISON: CR (CHEST, ) 01/05/2022 10:01 AM FINDINGS: Lungs: The lungs are hyperinflated, consistent with COPD. Pulmonary venous congestion and bilateral infiltrates noted. Findings are suggestive of fluid overload/CHF. Pleural spaces: Small right pleural effusion. No left pleural effusion identified. No pneumothorax. Heart/Mediastinum: Cardiomegaly is present. Vasculature: The thoracic aorta is atherosclerotic. Bones/joints: Median sternotomy noted. Degenerative spine changes are noted. XR/XR chest 1V portable [id number] IMPRESSION: 1. Cardiomegaly is present. 2. The lungs are hyperinflated, consistent with COPD. 3. Pulmonary venous congestion and bilateral infiltrates noted. Findings are suggestive of fluid overload/CHF. This is new when compared to 01/05/2022. 4. Small right pleural effusion. This has increased in size slightly when compared to 01/05/2022.
--- NOTE | 2022-03-05 19:58 | ECG_ITS ---
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 Measurements Intervals [place] Rate: 151 P: [place]: QRS: -56 QRSD: 166 T: 125 QT: 345 QTc: 547 Interpretive Statements ATRIAL FIBRILLATION WITH RAPID VENTRICULAR RESPONSE LEFT AXIS DEVIATION [QRS AXIS < -30] INTRAVENTRICULAR CONDUCTION DELAY [130+ ms QRS DURATION] CRITICAL TEST RESULT Compared to ECG 02/24/2022 10:49:46 No significant changes Electronically Signed On 03-06-2022 7:07:58 CDT by Jose Cochran M.D. [id number]
[2022-03-05 20:12] LABS: ABG PCO2 46.2 mmHg (35-45); ABG PH Result 7.36 (7.35-7.45); Arterial Blood Gas Hematocrit 38.2 % (37-47); Base Excess ABG 0.2 mmol/L (-2.0-2.0); Blood Gas Allen Test Pos; Blood Gas Operator Identificat WALCI; Blood Gas Sample Site Radial, right; Blood Gas Sample Type Arterial; Carboxyhemoglobin < 1.0 %THgb (0.4-20.1); HGB O2 Sat 97.3 % (95-100); Methemoglobin 0.3 % (0.4-1.5); Oxygen Device NC; Total Hemoglobin 12.5 g/dL (12-16)
--- NOTE | 2022-03-05 20:14 | PC.NURSE ---
REPORT GIVEN TO ALEX Patino RN.
[2022-03-05] MEDS: dilTIAZem 5 mg/mL SDV 5 mL 10 MG IVP ×2 (20:23→21:47)
[2022-03-05] MEDS: sodium chloride 0.9% 500 ML IV (20:24)
[2022-03-05 20:40] LABS: Basophils # 0.1 10^3/uL (0.0-0.1); Basophils % 0.9 %; Eosinophils # 0.4 10^3/uL (0.0-0.8); Eosinophils % 2.7 %; Hematocrit 40.4 % (37.0-47.0); Hemoglobin 12.8 g/dL (11.5-15.3); Lymphocytes # 5.3 10^3/uL (0.8-4.8); Mean Corpuscular HGB Conc 31.7 g/dL (30.0-36.0); Mean Corpuscular Hemoglobin 33.6 pg (28.0-34.0); Mean Platelet Volume 12.5 fL (7.4-10.4); Monocytes # 1.2 10^3/uL (0.2-0.9); Monocytes % 9.1 %; Neutrophils # 5.93 10^3/uL (1.8-7.7); Neutrophils % 45.9 %; Nucleated Red Blood Cells % 0 %; Platelet Count 321 10^3/cmm (130-400); Red Blood Count 3.81 10^6/uL (4.1-5.3); Red Cell Distribution Width 15.6 % (12.1-15.1); White Blood Count 12.9 10^3/uL (4.0-10.0)
[2022-03-05 20:49] LABS: INR 1.66 (0.8-1.2); Partial Thromboplastin Time 32.2 SECONDS (23.9-36.7)
[2022-03-05 20:52] LABS: D Dimer 0.95 ug/mIFEU (0-0.59)
--- NOTE | 2022-03-05 20:56 | CTR_ITS ---
PROCEDURE INFORMATION: Exam: CTA Chest With Contrast Exam date and time: 03/05/2022 9:30 PM Age: 86 years old Clinical indication: Pain and abnormal findings; Abnormal lab test; Elevated wbc; Other: N/a; Abdominal pain; Generalized; Abnormal diagnostic tests; Elevated d-dimer; Shortness of breath; Prior surgery; Surgery type: Cabg. Coronary stent. Colon polypectomy; Patient HX: C/O SOB with diffuse abd pain. Elevated ddimer and wbc. Tachycardic on monitor. Chronic history of heart failure. ; Additional info: SOB, tachycardia, elevated ddimer, abd pain TECHNIQUE: Imaging protocol: Computed tomographic angiography of the chest with contrast. 3D rendering (Not supervised by radiologist): MIP and/or 3D reconstructed images were created by the technologist. Radiation optimization: All CT scans at this facility use at least one of these dose optimization techniques: automated exposure control; mA and/or kV adjustment per patient size (includes targeted exams where dose is matched to clinical indication); or iterative reconstruction. Contrast material: OMNI 350; Contrast volume: 100 ml; Contrast route: INTRAVENOUS (IV); COMPARISON: CT chest w con* [id number] 07/28/2019 10:47 AM RADIATION DOSE METRICS: Total DLP (mGy-cm): 522.64 FINDINGS: Limitations: The study is limited by patient respiratory motion artifact. Assessment of the peripheral branches of the lower lobe pulmonary arteries is somewhat limited by motion Impression. Pulmonary arteries: Pulmonary arteries are normal in caliber. No filling defects are demonstrated. No evidence of pulmonary embolism, within the technical limits of the examination. Aorta: Thoracic aorta is unopacified. Diffuse atherosclerosis of the aorta noted. Ascending aorta measures 3.3 cm in diameter. Lungs: Prominence of the pulmonary interstitium bilaterally with minimal nonspecific ground-glass density noted, suggesting pulmonary edema. Infection could give a similar appearance. Pleural spaces: Minimal bilateral pleural effusions are noted. Heart: Severe cardiomegaly is noted. No pericardial effusion. The coronary arteries demonstrate atherosclerotic calcifications. Lymph nodes: Mild nonspecific mediastinal and hilar adenopathy. Subcarinal nodes measure up to 15 mm short axis. Bones/joints: Median sternotomy noted. Degenerative spine changes are noted. Soft tissues: The soft tissues appear unremarkable. PROCEDURE INFORMATION: Exam: CT Abdomen And Pelvis With Contrast Exam date and time: 03/05/2022 9:30 PM Age: 86 years old Clinical indication: Pain and abnormal findings; Abnormal lab test; Elevated wbc; Other: N/a; Abdominal pain; Generalized; Abnormal diagnostic tests; Elevated d-dimer; Shortness of breath; Prior surgery; Surgery type: Cabg. Coronary stent. Colon polypectomy; Patient HX: C/O SOB with diffuse abd pain. Elevated ddimer and wbc. Tachycardic on monitor. Chronic history of heart failure. ; Additional info: SOB, tachycardia, elevated ddimer, abd pain TECHNIQUE: Imaging protocol: Computed tomography of the abdomen and pelvis with contrast. Radiation optimization: All CT scans at this facility use at least one of these dose optimization techniques: automated exposure control; mA and/or kV adjustment per patient size (includes targeted exams where dose is matched to clinical indication); or iterative reconstruction. Contrast material: OMNI 350; Contrast volume: 100 ml; Contrast route: INTRAVENOUS (IV); COMPARISON: CT chest w con* [id number] 07/28/2019 10:47 AM RADIATION DOSE METRICS: Total DLP (mGy-cm): 522.64 FINDINGS: Liver: No acute hepatic abnormality. Inhomogeneous enhancement of the liver, which may be related to passive venous congestion secondary to elevated right heart pressures. Gallbladder and bile ducts: No calcified stones. No ductal dilation. Pancreas: The pancreas is normal in appearance. No pancreatic duct dilatation. Spleen: The spleen is normal in size and appearance. Adrenal glands: The adrenal glands appear within normal limits. Kidneys and ureters: The kidneys are normal in morphology. No hydronephrosis. No solid mass. Stomach and bowel: No acute gastric abnormality demonstrated. The small bowel is unremarkable as demonstrated. Diverticulosis of the colon. No evidence of acute diverticulitis. Appendix: No evidence of appendicitis. Intraperitoneal space: No free air. No significant fluid collection. Vasculature: Atherosclerosis of the aorta. No aneurysm. Lymph nodes: No pathologically enlarged lymph nodes. Urinary bladder: Air noted in the urinary bladder lumen likely due to recent instrumentation. The bladder is otherwise unremarkable. Reproductive: The uterus is not visualized, consistent with hysterectomy. Bones/joints: Unremarkable. No acute osseous abnormality. Soft tissues: The soft tissues appear unremarkable. CT/CT angio chest w abd pel w con IMPRESSION: 1. No evidence of pulmonary embolism, within the technical limits of the examination. 2. Prominence of the pulmonary interstitium bilaterally with minimal nonspecific ground-glass density noted, suggesting pulmonary edema. Infection could give a similar appearance. 3. Minimal bilateral pleural effusions are noted. 4. Severe cardiomegaly is noted. No pericardial effusion. 5. Mild nonspecific mediastinal and hilar adenopathy. Subcarinal nodes measure up to 15 mm short axis. IMPRESSION: 1. No acute hepatic abnormality. Inhomogeneous enhancement of the liver, which may be related to passive venous congestion secondary to elevated right heart pressures. 2. Diverticulosis of the colon. No evidence of acute diverticulitis. 3. No acute abnormality demonstrated in the abdomen and pelvis. No source of infection identified.
[2022-03-05 21:00] LABS: Lactate (Lactic Acid level) 2.5 mmol/L (0.5-2.2)
[2022-03-05 21:11] LABS: Add Urine Microscopic? NO; Charge for UA Resulting for Rev
[2022-03-05 21:12] LABS: Troponin(5th) Baseline 29 ng/L (0-10)
[2022-03-05 21:17] LABS: Alanine Aminotransferase 19 U/L (0-33); Albumin Level 3.9 g/dL (3.5-5.2); Alkaline Phosphatase 138 U/L (35-105); Aspartate Amino Transferase 37 U/L (0-32); Blood Urea Nitrogen 22 mg/dL (8-23); Calcium 9.7 mg/dL (8.5-10.5); Carbon Dioxide 23 mmol/L (22-29); Chloride 98 mmol/L (98-107); Globulin 3.7 g/dL (1.3-4.6); Glucose 149 mg/dL (65-115); Magnesium 1.8 mg/dL (1.7-2.3); NT Pro B Type Natriuretic Pept 8119 pg/mL (0-450); Osmolality Calculated 294 mOsm/kg (285-295); Sodium 139 mmol/L (136-145); Thyroid Stimulating Hormone 10.38 uIU/mL (0.27-4.20); Total Bilirubin 0.8 mg/dL (0.15-1.2); Total Protein 7.6 g/dL (6.6-8.7)
[2022-03-05 21:20] LABS: Anion Gap 21.3 (5-19); Potassium 3.3 mmol/L (3.5-5.1)
[2022-03-05 21:21] LABS: Bilirubin Urine Neg (Negative); Blood Urine Neg (Negative); Glucose Urine UA Norm (Normal); Ketones Urine Negative (Negative); Leukocyte Esterase Urine Negative (Negative); Nitrate Urine Negative (Negative); Protein Urine Neg (Negative); Specific Gravity, Urine 1.015 (1.005-1.030); Urine Appearance Clear (CLEAR); Urine Color Colorless (Yellow); Urobilinogen Urine Norm (Negative); pH Urine 6 (5-7)
[2022-03-05] MEDS: dilTIAZem 5 mg/mL SDV 5 mL IVP (21:27)
[2022-03-05] MEDS: iohexol 350 mg/mL 100 mL Btl IV (21:46)
--- NOTE | 2022-03-05 21:47 | ECG_ITS ---
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 Measurements Intervals [place] Rate: 139 P: MO: QRS: -55 QRSD: 151 T: 132 QT: 342 QTc: 520 Interpretive Statements ATRIAL FIBRILLATION WITH RAPID VENTRICULAR RESPONSE LEFT AXIS DEVIATION [QRS AXIS < -30] INTRAVENTRICULAR CONDUCTION DELAY [130+ ms QRS DURATION] Compared to ECG 03/05/2022 19:58:33 No significant changes Electronically Signed On 03-06-2022 7:14:43 CDT by Jose Cochran M.D. [id number]
[2022-03-05] MEDS: potassium chloride ER 20 mEq Tablet 40 MEQ PO (21:49)
[2022-03-05] MEDS: digoxin 250 mcg/ml INJ 2 mL IVP (22:09)
[2022-03-05] MEDS: piperacillin-tazobactam 3.375 GM in sodium chloride 0.9% (plus) 50 ML IV (22:10)
[2022-03-05] MEDS: LORazepam 2 mg/mL INJ 1 mL 0.5 MG IVP (22:16)
[2022-03-05] MEDS: magnesium sulfate premix 2 GM/50 ML PIGGYBACK IV (22:20)
--- NOTE | 2022-03-05 22:54 | P.HP_ITS ---
Providers/Chief Complaint Admitting Physician: Óscar Cervantes Primary Care Provider: Diallo Tracy MD Chief Complaint: SOB History of Present Illness Pleasant 86-year-old lady with history of COPD, normally on 2 L oxygen by nasal cannula, history of systolic CHF, valvular abnormality with moderate mitral regurg, mild aortic stenosis, biatrial dilation, hypokinetic right ventricle last TTE 01/06/2022, atrial fibrillation on diltiazem, Eliquis, CAD, CKD, DM2, HTN, hypothyroidism, other chronic comorbidities, recently found to have gastritis on EGD 02/24, same-day colonoscopy with diverticulosis, started on Augmentin, Protonix due to noted chronic H. pylori gastritis. Came into ER for evaluation due to respiratory distress, having some nonproductive cough, denies chest pain or pressure. States she gained weight from 112 216 pounds. Some lower extremity edema. In ER also found to be in atrial fibrillation with RVR, heart rates up to 140s. She has been feeling like she needs to urinate, although only small amount of urine on straight cath. Urinalysis was unremarkable. She is afebrile, noted to have mild leukocytosis, predominantly lymphopenic. D- dimer 0.95. Baseline troponin 29. NT proBNP 8119. EKG with A. fib with RVR, LAD, intraventricular conduction delay. Potassium 3.3, magnesium 1.8. Creatinine 1.6. Minimal AST elevation 37. Alk phos 138. TSH 10.38. Pending free T4. CT chest abdomen pelvis without evidence of PE. Prominence of pulm interstitium bilaterally with minimal nonspecific groundglass density noted, suggestive of pulmonary edema. Infection could give a similar appearance. Minimal bilateral pleural effusions. Severe cardiomegaly. No pericardial effusion. Mild nonspecific mediastinal and hilar adenopathy. Subcarinal nodes measuring up to 15 mm in short axis. No acute hepatic abnormality. Inhomogenous enhancement of the liver which may be related to passive venous congestion secondary to elevated right heart pressures. Diverticulosis. No acute abnormality in abdomen pelvis. In ER she has received initially 500 mL NS bolus, breathing treatment, diltiazem 10 mg, 5 mg, 10 mg IV push, magnesium and potassium replacement, Cardizem drip, IV push of digoxin. Heart rate with mild improvement, but remains in A. fib with RVR. She is started on BiPAP support. COVID-19 PCR is requested. With regards to CODE STATUS, she wants attempted resuscitation, including CPR, but does not want it undertaken if there is no chance of recovery. Similarly does not want persistent attempts or protracted life support if there is no recovery. Review of Systems Const: Denies: fever(s), chills, body aches or malaise Eyes: Denies: change in vision, eye discomfort or eye redness ENMT: Denies: throat pain, oral sores or ear or mastoid pain Card: Reports: edema; Denies: chest pain, pre-syncope or dyspnea on exertion Resp: Reports: dyspnea and non-productive cough; Denies: productive cough, change in phlegm color or hemoptysis GI: Reports: nausea; Denies: abdominal pain, vomiting, diarrhea, constipation, hematochezia or melena : Denies: flank pain, urinary frequency or hematuria Musc: Denies: back pain, joint swelling or joint redness Skin/Breast: Denies: rash or new lesions Neuro: Reports: headache(s); Denies: numbness in extremities, weakness in extremities, dizziness, confusion or seizure-like activity Endo: Denies: polyuria or polydipsia Viet/Lymph: Denies: easy bleeding or tender lymph nodes All/Imm: Denies: urticaria or tongue swelling Medications/Allergies Home Medications Medication Instructions Recorded Confirmed Last Taken Type atorvastatin 40 mg tablet 40 mg PO BEDTIME 07/25/19 02/24/22 02/23/22 History escitalopram oxalate 10 mg tablet 10 mg PO QPM 07/25/19 02/24/22 02/23/22 History ferrous sulfate 325 mg (65 mg 325 mg PO QAM 07/25/19 02/24/22 02/23/22 History iron) tablet fluticasone furoate 100 1 inh inhalation QAM 07/25/19 02/24/22 02/23/22 History mcg-vilanterol 25 mcg/dose inhalation powder (Breo Ellipta) pantoprazole 40 mg tablet,delayed 40 mg PO BEDTIME 07/25/19 02/24/22 02/23/22 History release apixaban 2.5 mg tablet (Eliquis) 2.5 mg PO BID 08/28/19 02/24/22 02/22/22 History calcium carbonate 500 mg calcium 500 mg PO DAILY ##0 02/26/21 02/24/22 02/22/22 History (1,250 mg) tablet cholecalciferol (vitamin D3) 25 25 mcg PO DAILY ##0 02/26/21 02/24/22 02/22/22 History mcg (1,000 unit) capsule (Vitamin D3) levothyroxine 75 mcg tablet 75 mcg PO QAM 02/26/21 02/24/22 02/24/22 History (Euthyrox) magnesium 30 mg tablet 30 mg PO DAILY ##0 02/26/21 02/24/22 02/22/22 History insulin detemir U-100 100 unit/mL 10 unit SUBCUT DAILY 04/22/21 02/24/22 02/23/22 History (3 mL) subcutaneous pen (Levemir FlexTouch U-100 Insulin) nitroglycerin 0.4 mg sublingual 0.4 mg sublingual Q5M PRN Chest 04/22/21 02/24/22 02/23/22 History tablet (Nitrostat) Pain spironolactone 25 mg tablet 25 mg PO DAILY 04/22/21 02/24/22 02/23/22 History diltiazem HCl 360 mg 360 mg PO DAILY #30 caps 04/25/21 02/24/22 02/23/22 Rx capsule,extended release 24 hr metoprolol tartrate 75 mg tablet 75 mg PO BID 12/11/21 02/24/22 02/24/22 History furosemide 40 mg tablet 40 mg PO BID 30 days #60 tabs 01/08/22 02/24/22 02/23/22 Rx lorazepam 0.5 mg tablet 0.5 mg PO TID PRN Anxiety #60 tabs 01/15/22 02/24/22 02/23/22 Rx amoxicillin 500 mg tablet 1,000 mg PO BID 14 days #56 tabs 02/26/22 Unknown Rx clarithromycin 500 mg tablet 500 mg PO BID 14 days #28 tabs 02/26/22 Unknown Rx pantoprazole 40 mg tablet,delayed 40 mg PO BID 14 days #28 tabs 02/26/22 Unknown Rx release (Protonix) Allergies Allergy/AdvReac Type Severity Reaction Status Date / Time aspirin Allergy ADR-Nausea Verified 03/05/22 20:00 codeine Allergy ADR-Nausea Verified 03/05/22 20:00 tramadol Allergy Unknown Verified 03/05/22 20:00 hydrocodone AdvReac Mild ADR-Nausea Verified 03/05/22 20:00 PFSH Acute PFSH: Medical History (Updated 03/05/22 @ 23:06 by Óscar Cervantes MD) Abnormal urinalysis Acute on chronic diastolic CHF (congestive heart failure) Altered mental status Asthma Atrial fibrillation and flutter Atrial fibrillation with RVR CAD (coronary artery disease) Chest pain COPD (chronic obstructive pulmonary disease) Chronically on 2 L of oxygen per nasal cannula Depression with anxiety Diabetes mellitus with hypoglycemia Diastolic heart failure Dyspnea GERD (gastroesophageal reflux disease) History of colitis HTN, goal below 130/80 Hypertension Hypothyroidism Hypoxia Systolic heart failure Echocardiogram 02/28 demonstrated EF of 40%, severe tricuspid and mitral regurgitation and moderate aortic regurgitation Type 2 diabetes mellitus Valvular heart disease Surgical History History of colonoscopy with polypectomy History of coronary artery bypass graft History of heart artery stent Family History Other CAD (coronary artery disease) Cancer Social History Smoking and tobacco status: never smoked Alcohol intake: never Lives independently: Yes Marital status: / Current occupational status: retired History of recent travel: No Current gender identity: Female Vitals/I&O/Wt Last Vital Signs Temp 97.7 F 03/05/22 19:55 Pulse 148 H 03/05/22 22:13 Resp 25 H 03/05/22 22:00 BP 117/82 03/05/22 22:00 Pulse Ox 97 03/05/22 22:13 O2 Del Method 03/05/22 22:00 O2 Flow Rate 4 03/05/22 20:45 FiO2 45 03/05/22 22:13 03/05/22 03/05/22 03/05/22 06:59 14:59 22:59 Intake Total 5.25 / 5.25 Balance 5.25 / 5.25 Weight last 48 hrs Weight 52.617 kg Physical Exam Narrative: Daughter at bedside Const: COMMON NORMALS: patient oriented x3 and alert GENERAL APPEARANCE: cooperative ORIENTATION/CONSCIOUSNESS: Yes awake OTHER: NIPPV HENMT: COMMON NORMALS: oropharynx normal Neck/C-Spine: COMMON NORMALS: no JVD Resp: COMMON NORMALS: normal respiratory effort and clear to auscultation bilaterally AUSCULTATION: diminished lung sounds Cardio: COMMON NORMALS: no JVD, regular rhythm, S1 normal heart sound present, S2 normal heart sound present and No murmurs present (Cardio) RATE: tachycardic RHYTHM: abnormal rhythm irregularly irregular HEART SOUNDS: S1 normal heart sound present and S2 normal heart sound present GI: COMMON NORMALS: Normal to inspection, nondistended, normoactive bowel sounds present, Soft to palpation and non-tender PALPATION: Yes Soft to palpation Extremity: COMMON NORMALS: no joint enlargement GENERAL: Yes edema (1+) Neuro: COMMON NORMALS: patient oriented x3 and moves all extremities SENSORIUM/ORIENTATION: Yes alert Skin: COMMON NORMALS: no rashes or lesions noted GENERAL SKIN EXAM: no rashes or lesions noted Data : 03/05/22 19:40 03/05/22 19:40 Micro: Microbiology 03/05/22 21:59 Blood Culture - Preliminary Blood SPECIMEN COLLECTED 03/05/22 21:52 Blood Culture - Preliminary Blood SPECIMEN COLLECTED A&P Assessment and plan (1) Acute respiratory failure with hypoxia: Multifactorial secondary to acute exacerbation of COPD with dyspnea, diminished lung sounds, cough, possible pneumonia with interstitial opacification which may be secondary to pulm edema/acute CHF, but viral pneumonia a possibility given other symptoms of some headache, nausea, nonproductive cough, lymphocytic predominance leukocytosis. COVID-19 PCR is requested. Continue breathing treatments, will add IV steroids for now, lower dose due to also gastritis. Continue BiPAP support, wean down as tolerating. For CHF exacerbation IV Lasix cautiously so as not to decrease blood pressure significantly. Monitor I&O. Cardiac diet. Follow up CXR. (2) Acute exacerbation of chronic obstructive airways disease: As above, IV steroids, no sputum production, for now we will not continue antibiotic, but would reassess condition. Breathing treatments. Assess COVID-19 PCR. (3) Acute on chronic congestive heart failure: Cautious diuresis given also requiring medications for control of atrial fibrillation, soft blood pressure. Monitor I&O. Quiroga. Cardiac diet. (4) Atrial fibrillation with RVR: Anticipate will be difficult to manage given structural cardiac abnormality and valvular heart disease. So far unsuccessful control with multiple push doses of Cardizem, one-time push dose of digoxin. Continue Cardizem drip. Resume oral metoprolol 75 mg twice daily. Monitor blood pressures. Hold off on additional injection given CKD. Will check morning level. Treat also about underlying problems. Received electrolyte replacement with replacement of hypokalemia, low normal magnesium. Recheck levels. TSH elevated. Follow-up free T4. (5) Valvular heart disease: With moderate to severe mitral regurgitation, mild aortic stenosis. 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 (7) Urinary urgency: Reports feeling that she needs to urinate in ER but was having some difficulty. Initially straight cath with not much urine, UA not suggestive of UTI. Subsequently able to urinate. For now we will place Quiroga catheter for accurate JUSTIN with CHF exacerbation, respiratory failure with need for BiPAP. Plan CAD, CKD, DM2, HTN, Hypothyroidism: TSH elevated. Follow-up free T4. Other chronic comorbidities Findings and plan of care discussed also with her daughter at bedside. Attestations Medical Necessity Statement*: Admission of over 2 midnights anticipated for assessment of management of respiratory failure with hypoxia, COPD exacerbation, CHF exacerbation, difficult to control A. fib with RVR with underlying cardiomyopathy, valvular heart disease. 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
[2022-03-05 23:10] LABS: Troponin 5 2HR 36.87 ng/L (0-10)
[2022-03-05 23:13] LABS: Troponin 5 2HR Delta 7.87 ABS# (0-10)
[2022-03-06] VITALS (73 sets, daily range): BP systolic 76–134; BP diastolic 32–80; PULSE 50–128; RESP 18–32; TEMP 36–36.1; O2SAT 89–99
[2022-03-06] MEDS: FUROsemide 10 mg/mL SDV 4mL 40 MG IVP ×2 (00:58→17:15)
[2022-03-06] MEDS: metoprolol tartrate 50 mg Tablet 75 MG PO (00:58)
[2022-03-06] MEDS: apixaban 5 mg Tablet 2.5 MG PO ×3 (00:58→17:15)
[2022-03-06 01:45] LABS: Free T4 Free Thyroxine 1.41 ng/dL (0.82-1.77)
--- NOTE | 2022-03-06 01:58 | ECG_ITS ---
[facility] Test Date: 2022-03-06 Pat Name: Lilia Haynes Department: Room: ICU10 Gender: Female Director Of Assessment: : 1935 Requested By: Yoan Mckeon Order Number: [id number] Meng MD: Jose Cochran M.D. Measurements Intervals [place] Rate: 64 P: VT: QRS: -53 QRSD: 153 T: 162 QT: 480 QTc: 496 Interpretive Statements ATRIAL FIBRILLATION LEFT AXIS DEVIATION [QRS AXIS < -30] INTRAVENTRICULAR CONDUCTION DELAY [130+ ms QRS DURATION] Compared to ECG 03/05/2022 21:47:01 No significant changes Electronically Signed On 03-06-2022 7:15:33 CDT by Jose Cochran M.D. [id number]
[2022-03-06 02:11] LABS: Adenovirus Not Detected (NOT DETECT); Chlamydia Pneumoniae Not Detected (NOT DETECT); Coronavirus 229E,HKU1,NL63,OC4 Not Detected (NOT DETECT); Human Metapneumovirus Not Detected (NOT DETECT); Human Rhinovirus/Enterovirus Not Detected (NOT DETECT); Influenza A Not Detected (NOT DETECT); Influenza A H1 Not Detected (NOT DETECT); Influenza A H1-2009 Not Detected (NOT DETECT); Influenza A H3 Not Detected (NOT DETECT); Influenza B Not Detected (NOT DETECT); Mycoplasma Pneumoniae Not Detected (NOT DETECT); Parainfluenza Virus Type 1 Not Detected (NOT DETECT); Parainfluenza Virus Type 2 Not Detected (NOT DETECT); Parainfluenza Virus Type 3 Not Detected (NOT DETECT); Parainfluenza Virus Type 4 Not Detected (NOT DETECT); Respiratory Syncytial Virus A Not Detected (NOT DETECT); Respiratory Syncytial Virus B Not Detected (NOT DETECT); SARS-COV-2 Not Detected (NOT DETECT)
--- NOTE | 2022-03-06 03:52 | PC.NURSE ---
[id number] Dr. Cervantes contacted about patient's decreased BP; instructed to hold morning dose of 75 mg PO metoprolol if BP remains low at 0900 and initiate Levophed at a low dose if patient's MAPs sustain 60 or less
[2022-03-06] MEDS: ondansetron 2 mg/ML SDV 2 mL 4 MG IVP ×2 (04:33→19:24)
--- NOTE | 2022-03-06 06:00 | XR_ITS ---
WS: [id number] Exam: XR chest 1V portable [id number] Date/Time of Exam: 03/06/2022 5:41 AM Reason For Exam: Hypoxia Comparison 03/05/2022. Cardiac enlargement with pulmonary vascular congestion suggesting CHF. Right basal pleural effusion u nchanged. Increased diffuse interstitial infiltrate in both lungs likely representing some degree of pulmonary edema. The lungs are fully expanded. Signs of median sternotomy and CABG surgery. Coronary artery stents are noted. Bony structures are intact. XR/XR chest 1V portable [id number] IMPRESSION: 1. Cardiac enlargement with signs of congestive heart failure with the somewhat more pulmonary vascular congestion than noted previously. There is likely some diffuse pulmonary edema in both lungs. Right basal pleural effusion unchanged.
[2022-03-06 06:23] LABS: Basophils % 0.3 %; Eosinophils % 0.1 %; Hematocrit 40.1 % (37.0-47.0); Hemoglobin 12.9 g/dL (11.5-15.3); Lymphocytes # 1.5 10^3/uL (0.8-4.8); Lymphocytes % 14.2 %; Mean Corpuscular HGB Conc 32.2 g/dL (30.0-36.0); Mean Corpuscular Hemoglobin 34.2 pg (28.0-34.0); Mean Corpuscular Volume 106.4 fl (81-99); Mean Platelet Volume 11.6 fL (7.4-10.4); Monocytes # 0.2 10^3/uL (0.2-0.9); Monocytes % 2.2 %; Neutrophils # 8.98 10^3/uL (1.8-7.7); Neutrophils % 82.7 %; Nucleated Red Blood Cells % 0 %; Platelet Count 301 10^3/cmm (130-400); Red Blood Count 3.77 10^6/uL (4.1-5.3); Red Cell Distribution Width 15.9 % (12.1-15.1); White Blood Count 10.9 10^3/uL (4.0-10.0)
[2022-03-06 06:47] LABS: Troponin 5 6HR 57.03 ng/L (0-10)
[2022-03-06 06:51] LABS: Digoxin 1.2 ng/mL (0.6-1.2); Troponin 5 6HR Delta 28.03 ng/L (0-12)
[2022-03-06 06:52] LABS: Alanine Aminotransferase 80 U/L (0-33); Albumin Level 3.6 g/dL (3.5-5.2); Alkaline Phosphatase 150 U/L (35-105); Anion Gap 18.1 (5-19); Aspartate Amino Transferase 138 U/L (0-32); Blood Urea Nitrogen 23 mg/dL (8-23); Calcium 9.4 mg/dL (8.5-10.5); Carbon Dioxide 23 mmol/L (22-29); Chloride 96 mmol/L (98-107); Globulin 3.5 g/dL (1.3-4.6); Glucose 161 mg/dL (65-115); Magnesium 2.5 mg/dL (1.7-2.3); Osmolality Calculated 281 mOsm/kg (285-295); Potassium 5.1 mmol/L (3.5-5.1); Sodium 132 mmol/L (136-145); Total Bilirubin 1.2 mg/dL (0.15-1.2); Total Protein 7.1 g/dL (6.6-8.7)
[2022-03-06 07:50] LABS: Glucose Point of Care 144 mg/dL (70-110)
[2022-03-06] MEDS: clarithromycin 500 mg Tablet PO (08:02)
[2022-03-06] MEDS: pantoprazole DR 40 mg Tablet PO ×2 (08:02→17:15)
[2022-03-06] MEDS: insulin lispro 100 unit/1 mL SUBCUT ×2 (08:02→21:09)
[2022-03-06] MEDS: amoxicillin 500 mg Capsule 1000 MG PO (08:02)
[2022-03-06] MEDS: LORazepam 0.5 mg Tablet PO ×2 (08:38→20:08)
--- NOTE | 2022-03-06 09:21 | USCV_ITS ---
Lilia Haynes Age: 86 Gender: F : 1935 Exam Date: 03/06/2022 10:04 Ordering Phys: Pina Tejeda MD Technologist: Exam Location: [facility] [place] Indication: Assess LV function BP: 65 / 49 HR: 50 Rhythm: Atrial fibrillation Technical Quality: Adequate MEASUREMENTS (Male / Female) Normal Values 2D ECHO LV Diastolic Diameter PLAX 5.4 cm 4.2 - 5.9 / 3.9 - 5.3 cm LV Systolic Diameter PLAX 3.5 cm IVS Diastolic Thickness 1.0 cm 0.6 - 1.0 / 0.6 - 0.9 cm IVS Systolic Thickness 1.5 cm LVPW Diastolic Thickness 1.3 cm 0.6 - 1.0 / 0.6 - 0.9 cm LVPW Systolic Thickness 1.6 cm LVOT Diameter 2.1 cm LV Ejection Fraction 2D Teich 62.8 % LV Ejection Fraction MOD 2C 61.6 % LV Ejection Fraction 2C AL 61.9 % LA Diameter 4.1 cm Aorta at Sinotubular Diameter 2.5 cm FINDINGS Left Ventricle Dilated left ventricle. Moderately decreased left ventricular systolic function. Left ventricular ejection fraction is estimated at 30-35 %. Moderate global hypokinesis. Abnormal septal motion consistent with conduction abnormality. Right Ventricle Right ventricle not well visualized. Mildly to moderately decreased right ventricle systolic function. Right Atrium Severely increased right atrial size. Left Atrium Severely increased left atrial size. Mitral Valve Severe mitral annular calcification. Moderately thickened mitral valve. Aortic Valve Moderately thickened and calcified trileaflet aortic valve. Tricuspid Valve Structurally normal tricuspid valve. Pulmonic Valve Pulmonic valve not well visualized. Pericardium No pericardial effusion. Aorta Aorta not well visualized. IVC Inferior vena cava not visualized. CONCLUSIONS 1. Dilated left ventricle. Moderately decreased left ventricular systolic function. Left ventricular ejection fraction is estimated at 30-35 %. Moderate global hypokinesis. Abnormal septal motion consistent with conduction abnormality. 2. Mildly to moderately decreased right ventricle systolic function, 3. There has been no significant change when compared to study dated 01/06/2022. Delphine Llamas MD (Electronically Signed) Final Date: 06 March 2022 14:51 S
--- NOTE | 2022-03-06 09:22 | PC.PHAR ---
Addendum entered by Dai Massey 03/06/22 12:06: pts daughter called back and verified pts medications-pts daughter michael states she is unsure if the pt was taking clarithromycin 500mg bid filled on 02/26/22 14d/s and picked up from [facility] with the amoxil 1000mg bid filled 02/26/22 14d/s-pts daughter states the pt is taking lasix 20mg bid rx filled 02/16/22 30d/s for 20mg daily rx written 01/08/22 40mg bid-pts daughter states she has been giving the pt levemir 15 units qam for the last week rx filled 01/20/22 10 units daily-pts daughter states the pt is still taking metoprolol tartrate 75mg bid last filled 01/01/22 30d/s-notes are made in the pharmacy comments Original Note: pt states her daughter michael ayala takes care of her medications-called and left voicemail [phone] pt states her daughter is a teacher at [employer] and may not be able to answer her phone
--- NOTE | 2022-03-06 10:55 | PM.PN ---
Vitals/I&O/Wt Last Vital Signs Temp 97.0 F L 03/06/22 04:00 Pulse 71 03/06/22 09:35 Resp 20 H 03/06/22 09:35 BP 79/48 03/06/22 08:30 Pulse Ox 94 03/06/22 09:35 O2 Del Method 03/06/22 09:35 O2 Flow Rate 8 03/06/22 09:35 FiO2 35 03/06/22 04:21 03/05/22 03/06/22 03/06/22 22:59 06:59 14:59 Intake Total 5.25 / 5.25 884.750 / 890.000 26. / . Output Total 975 / 975 Balance 5.25 / 5.25 -90.250 / -85.000 . / . Weight last 48 hrs Weight 53.2 kg Weight 52.617 kg Physical Exam Urinary Catheter Management: Quiroga: Cath Placed During This Visit: yes Reason for Continuing Indwelling Catheter: Accurate Measurement of Urinary Output in Critically Ill Patients Urinary Catheter Date of Insertion: 03/06/22 Urinary Catheter Time of Insertion: 00:05 Data : 03/06/22 06:15 03/06/22 06:15 Micro: Microbiology 03/05/22 21:59 Blood Culture - Preliminary Blood SPECIMEN COLLECTED 03/05/22 21:52 Blood Culture - Preliminary Blood SPECIMEN COLLECTED Coding Level of Care Code Acute Baseboard Heating Installer for Amando Bain
[2022-03-06 11:27] LABS: Glucose Point of Care 98 mg/dL (70-110)
--- NOTE | 2022-03-06 12:05 | PC.CHAP ---
Pastoral Care Encounter/Spiritual Assessment Type of Contact [] Declined government documents librarian visit [] Patient/Family/Request visit [] Outpatient visit [] Follow-up visit [] Physician referral [] Code/Alert [x] Routine visit [] Staff referral [] Actively dying [] Patient sleeping [] Family support [] [] Out of room [] Palliative care [] x[] Receiving care in room [] Pre-surgical visit [] Trauma [] Long length of stay [x] ICU visit [] Other: Relational/Emotional Strength [] Patient feels connected with others/family/visitors/staff [] Distress [] Loneliness/isolation [] Abandonment Spirituality of Patient [] Person of Cate [] Attends Christian of their Cate [] Believes in Prayer [] Reads Bible or Congregation materials [] There are Spiritual issues to be addressed Uke Operator Interventions [] Prayer [] Active listening [] Non-anxious presence [] Spiritual/emotional support [] Crisis/trauma care [] Spiritual counseling [] Bereavement support [] Provided bereavement packet [] Provided Bible/devotional materials [] Provided toy/stuffed animal, coloring book to patient or family member [] Provided Communion [] Anointing/[place] [] Salvation [] Completed spiritual assessment [] Other: Impact on Illness or Injury [] Angry [] Fearful [] Anxious [] Often cries [] Exhaustion [] Unable to work [] Unable to attend amish [] Unable to walk/stand [] Unable to read [] Unable to drive [] Unable to eat/drink [] Unable to sleep [] Unable to be with family [] Patient intubated [] Other: Summary Time spent with patient
--- NOTE | 2022-03-06 12:13 | P.PN_ITS ---
Subjective Subjective: Urine output 900 mL Cardizem turned off because of low blood pressure Heart rate is in low 50s Patient was struggling to breathe as well we will put her on BiPAP No active chest pain Patient stating that she does not want intubation if she gets worse now onwards however she would like to discuss with her daughter Dr. Nielson I will see her today Records from outside facility reviewed A. fib with slow ventricular response, sinus pauses on telemetry she is getting treatment for H. pylori gastritis I have held her metoprolol, discontinue Cardizem drip Change Lasix to IV push daily instead of twice a day Vitals/I&O/Wt Last Vital Signs Temp 97.0 F L 03/06/22 04:00 Pulse 71 03/06/22 09:35 Resp 20 H 03/06/22 09:35 BP 79/48 03/06/22 08:30 Pulse Ox 94 03/06/22 09:35 O2 Del Method 03/06/22 09:35 O2 Flow Rate 8 03/06/22 09:35 FiO2 35 03/06/22 04:21 03/05/22 03/06/22 03/06/22 22:59 06:59 14:59 Intake Total 5.25 / 5.25 884.750 / 890.000 26.67 / 26.67 Output Total 975 / 975 Balance 5.25 / 5.25 -90.250 / -85.000 26.67 / 26.67 Weight last 48 hrs Weight 53.2 kg Weight 52.617 kg Physical Exam Narrative: Patient clinically does not look fluid overloaded Bilateral basilar crackles, rhonchi present Currently on BiPAP She is awake and alert Nonfocal neuro exam Abdomen distended however soft Dorsum to no edema Skin wrinkling noted Currently on BiPAP Kyphosis Heart rate in low 50s A. fib slow ventricular response MAP 65-70 Urinary Catheter Management: Quiroga: Cath Placed During This Visit: yes Reason for Continuing Indwelling Catheter: Accurate Measurement of Urinary Output in Critically Ill Patients Urinary Catheter Date of Insertion: 03/06/22 Urinary Catheter Time of Insertion: 00:05 Data : 03/06/22 06:15 03/06/22 06:15 Micro: Microbiology 03/05/22 21:59 Blood Culture - Preliminary Blood SPECIMEN COLLECTED 03/05/22 21:52 Blood Culture - Preliminary Blood SPECIMEN COLLECTED A&P Assessment and plan (1) Urinary urgency: (2) Helicobacter pylori gastritis: (3) Valvular heart disease: (4) Acute respiratory failure with hypoxia: (5) Acute exacerbation of chronic obstructive airways disease: (6) Acute on chronic congestive heart failure: (7) Atrial fibrillation with RVR: (8) Acute kidney injury superimposed on chronic kidney disease: Plan Acute on chronic hypoxic respiratory failure Secondary to CHF exacerbation Cut back on Lasix secondary to low blood pressure today Currently she is on BiPAP Acute CHF exacerbation Preserved action fraction Diastolic dysfunction Valvular abnormality A. fib RVR Cardizem drip discontinued Hold off on metoprolol Currently she is in slow ventricular sponsor Sick sinus syndrome? We will follow-up with cardiology recommendations H. pylori gastritis she has received 10 days of antibiotics I would not continue at this point for concern of drug interaction Acute on chronic kidney disease cardiorenal in nature 900ml urine output Goals of care discussed with the patient he does not want intubation at any cost however she would like to discuss with the daughter I will wait to talk with the family until Dr. Mercado has evaluated her Cardiac diet Currently on BiPAP Guarded prognosis DVT prophylaxis covered with Eliquis Attestations Medical Necessity Statement*: Continue ICU management Time Spent in Patient Care: 35 Coding Level of Care Code Acute Bowling Alley Attendant for Chg Fwd Diagnoses Urinary urgency R39.15 Helicobacter pylori gastritis K29.70; B96.81 Valvular heart disease I38 Acute respiratory failure with hypoxia J96.01 Acute exacerbation of chronic obstructive airways disease J44.1 Acute on chronic congestive heart failure I50.9 Atrial fibrillation with RVR I48.91 Acute kidney injury superimposed on chronic kidney disease N17.9; N18.9
--- NOTE | 2022-03-06 13:11 | PM.CONSULT ---
Providers/Reason For Consult Consulting Physician/Specialty*: Dr. Llamas, Cardiology Reason for Consult*: A fib with RVR, CHF Attending Physician: Loli Waite MD Primary Care Provider: Diallo Tracy MD History of Present Illness History of Present Illness Lilia Haynes is a 86 year old female with PMHx of CAD s/p CABG in 2006, h/o PCI of SVG to diagonal and px to mid LCx in 07/2018, HFrEF (LVEF=30-35%), persistent atrial fibrillation, HTN, mild , mod to severe MR, moderate TR, HLD, LBBB, COPD on 2 L of home O2, type 2 DM and CKD stage 3. She also has gastritis on EGD, colonoscopy with diverticulosis on 02/24/22, , chronic H. pylori gastritis. She came to ER for respiratory distress, nonproductive cough, weight gain with lower extremity edema.? In ER also found to be in atrial fibrillation with RVR, heart rates up to 140s. CT chest abdomen pelvis without evidence of PE.? Prominence of pulm interstitium bilaterally with minimal nonspecific groundglass density noted, suggestive of pulmonary edema.? Infection could give a similar appearance.? Minimal bilateral pleural effusions.? Severe cardiomegaly.? No pericardial effusion.? Mild nonspecific mediastinal and hilar adenopathy.? Subcarinal nodes measuring up to 15 mm in short axis. No acute hepatic abnormality.? Inhomogenous enhancement of the liver which may be related to passive venous congestion secondary to elevated right heart pressures.? Diverticulosis.? No acute abnormality in abdomen pelvis. She received initially 500 mL NS bolus, diltiazem 10 mg, 5 mg, 10 mg IV push, magnesium and potassium replacement, Cardizem drip, IV push of digoxin.? Heart rate improved and she was on BiPAP support. Troponin T 29-->37-->57. TSH 10.4 COVID-19 PCR is requested. Review of Systems Const: Denies: fever(s), chills, body aches or malaise Eyes: Denies: change in vision, eye discomfort or eye redness ENMT: Denies: throat pain, oral sores or ear or mastoid pain Card: Reports: edema; Denies: chest pain, pre-syncope or dyspnea on exertion Resp: Reports: dyspnea and non-productive cough; Denies: productive cough, change in phlegm color or hemoptysis GI: Reports: nausea; Denies: abdominal pain, vomiting, diarrhea, constipation, hematochezia or melena : Denies: flank pain, urinary frequency or hematuria Musc: Denies: back pain, joint swelling or joint redness Skin/Breast: Denies: rash or new lesions Neuro: Reports: headache(s); Denies: numbness in extremities, weakness in extremities, dizziness, confusion or seizure-like activity Endo: Denies: polyuria or polydipsia Viet/Lymph: Denies: easy bleeding or tender lymph nodes All/Imm: Denies: urticaria or tongue swelling Medications/Allergies Home Medications Medication Instructions Recorded Confirmed Last Taken Type atorvastatin 40 mg tablet 40 mg PO BEDTIME 07/25/19 03/06/22 02/23/22 History escitalopram oxalate 10 mg tablet 10 mg PO QPM 07/25/19 03/06/22 02/23/22 History ferrous sulfate 325 mg (65 mg 325 mg PO QAM 07/25/19 03/06/22 02/23/22 History iron) tablet fluticasone furoate 100 1 inh inhalation DAILY 07/25/19 03/06/22 02/23/22 History mcg-vilanterol 25 mcg/dose inhalation powder (Breo Ellipta) apixaban 2.5 mg tablet (Eliquis) 2.5 mg PO BID 08/28/19 03/06/22 02/22/22 History calcium carbonate 500 mg calcium 500 mg PO DAILY ##0 02/26/21 03/06/22 02/22/22 History (1,250 mg) tablet cholecalciferol (vitamin D3) 25 25 mcg PO DAILY ##0 02/26/21 03/06/22 02/22/22 History mcg (1,000 unit) capsule (Vitamin D3) levothyroxine 75 mcg tablet 75 mcg PO QAM 02/26/21 03/06/22 02/24/22 History (Euthyrox) insulin detemir U-100 100 unit/mL 15 unit SUBCUT QAM 04/22/21 03/06/22 02/23/22 History (3 mL) subcutaneous pen (Levemir FlexTouch U-100 Insulin) nitroglycerin 0.4 mg sublingual 0.4 mg sublingual Q5M PRN Chest 04/22/21 03/06/22 02/23/22 History tablet (Nitrostat) Pain spironolactone 25 mg tablet 25 mg PO DAILY 04/22/21 03/06/22 02/23/22 History metoprolol tartrate 75 mg tablet 75 mg PO BID 12/11/21 03/06/22 02/24/22 History lorazepam 0.5 mg tablet 0.5 mg PO TID PRN Anxiety #60 tabs 01/15/22 03/06/22 02/23/22 Rx amoxicillin 500 mg tablet 1,000 mg PO BID 14 days #56 tabs 02/26/22 03/06/22 Unknown Rx clarithromycin 500 mg tablet 500 mg PO BID 14 days #28 tabs 02/26/22 03/06/22 Unknown Rx pantoprazole 40 mg tablet,delayed 40 mg PO BID 14 days #28 tabs 02/26/22 03/06/22 Unknown Rx release (Protonix) Magnesium Gummy 1 tab PO DAILY 03/06/22 03/06/22 Unknown History diltiazem HCl 240 mg 240 mg PO DAILY 03/06/22 03/06/22 Unknown History capsule,extended release 24 hr furosemide 20 mg tablet 20 mg PO BID 03/06/22 03/06/22 Unknown History Allergies Allergy/AdvReac Type Severity Reaction Status Date / Time aspirin Allergy ADR-Nausea Verified 03/05/22 20:00 codeine Allergy ADR-Nausea Verified 03/05/22 20:00 oxycodone Allergy ADR-Nausea Verified 03/06/22 11:54 tramadol Allergy Unknown Verified 03/05/22 20:00 hydrocodone AdvReac Mild ADR-Nausea Verified 03/05/22 20:00 Current Medications Generic Name Dose Route Start Last Admin Trade Name Freq PRN Reason Stop Dose Admin Amoxicillin 1,000 mg 03/06/22 09:00 03/06/22 08:02 Amoxicillin 500 Mg Capsule PO 1,000 mg BID NAE Administration Apixaban 2.5 mg 03/05/22 23:47 03/06/22 08:02 Apixaban 5 Mg Tablet PO 2.5 mg BID NAE Administration Clarithromycin 500 mg 03/06/22 09:00 03/06/22 08:02 Clarithromycin 500 Mg Tablet PO 500 mg BID NAE Administration Protocol Furosemide 40 mg 03/05/22 23:47 03/06/22 03:45 Furosemide 10 Mg/Ml Sdv 4ml IVP Not Given BID@0400,1600 [facility] Norepinephrine Bitartrate 4 mg 254 mls @ 0 mls/hr 03/06/22 04:00 03/06/22 10:45 / Dextrose IV 4 mcg/min .Q0M NAE 15.24 mls/hr Titration Protocol Per Protocol Insulin Detemir 10 unit 03/06/22 09:00 03/06/22 08:04 Insulin Detemir 100 Units/1 Ml SUBCUT 10 unit DAILY NAE Administration Insulin Human Lispro 0 unit 03/06/22 08:00 03/06/22 11:37 Insulin Lispro 100 Unit/1 Ml SUBCUT Not Given WM&BEDTIME [facility] Protocol Levothyroxine Sodium 75 mcg 03/06/22 06:00 03/06/22 05:19 Levothyroxine 75 Mcg Tablet PO Not Given QAM NAE Lorazepam 0.5 mg 03/05/22 23:47 03/06/22 08:38 Lorazepam 0.5 Mg Tablet PO 0.5 mg TID PRN Administration Anxiety Metoprolol Tartrate 75 mg 03/05/22 23:47 03/06/22 08:04 Metoprolol Tartrate 50 Mg Tablet PO Not Given BID [facility] Non-Formulary Medication 30 mg 03/06/22 09:00 03/06/22 08:04 Magnesium PO Not Given DAILY [facility] Ondansetron HCl 4 mg 03/05/22 23:47 03/06/22 04:33 Ondansetron 2 Mg/Ml Sdv 2 Ml IVP 4 mg Q8H PRN Administration vomiting, or N/V if npo Pantoprazole Sodium 40 mg 03/06/22 09:00 03/06/22 08:[address] 40 Mg Tablet PO 40 mg BID NAE Administration PFSH Acute PFSH: Medical History Abnormal urinalysis Acute on chronic diastolic CHF (congestive heart failure) Altered mental status Asthma Atrial fibrillation and flutter Atrial fibrillation with RVR CAD (coronary artery disease) Chest pain COPD (chronic obstructive pulmonary disease) Chronically on 2 L of oxygen per nasal cannula Depression with anxiety Diabetes mellitus with hypoglycemia Diastolic heart failure Dyspnea GERD (gastroesophageal reflux disease) History of colitis HTN, goal below 130/80 Hypertension Hypothyroidism Hypoxia Systolic heart failure Echocardiogram 02/28 demonstrated EF of 40%, severe tricuspid and mitral regurgitation and moderate aortic regurgitation Type 2 diabetes mellitus Valvular heart disease Surgical History History of colonoscopy with polypectomy History of coronary artery bypass graft History of heart artery stent Family History Other CAD (coronary artery disease) Cancer Social History Smoking and tobacco status: never smoked Alcohol intake: never Lives independently: Yes Marital status: / Current occupational status: retired History of recent travel: No Current gender identity: Female Vitals/I&O/Wt Last Vital Signs Temp 97.0 F L 03/06/22 04:00 Pulse 56 L 03/06/22 12:30 Resp 25 H 03/06/22 12:30 BP 79/54 03/06/22 12:30 Pulse Ox 96 03/06/22 12:00 O2 Del Method 03/06/22 09:35 O2 Flow Rate 8 03/06/22 09:35 FiO2 35 03/06/22 12:00 03/05/22 03/06/22 03/06/22 22:59 06:59 14:59 Intake Total 5.25 / 5.25 884.750 / 890.000 38.545 / 38.545 Output Total 975 / 975 Balance 5.25 / 5.25 -90.250 / -85.000 38.545 / 38.545 Weight last 48 hrs Weight 117 lb 4.575 oz Weight 116 lb Physical Exam Narrative: GENERAL: frail lady sitting in bed in no acute distress HEENT: No pallor or icterus. NECK: central trachea, No carotid bruit. CARDIOVASCULAR SYSTEM: S1-S2 irregular. grade 3/6 systolic murmur in LLSB and apical area RESPIRATORY SYSTEM: b/l coarse breath sounds. +rales No wheezes. ABDOMEN: Soft, nontender and nondistended. Normal bowel sounds present. EXTREMITIES: No cyanosis, 1+ edema. cool feet and hands ENTERPRISE SECURITY ARCHITECT: Patient is alert oriented ?3. Urinary Catheter Management: Quiroga: Cath Placed During This Visit: yes Reason for Continuing Indwelling Catheter: Accurate Measurement of Urinary Output in Critically Ill Patients Urinary Catheter Date of Insertion: 03/06/22 Urinary Catheter Time of Insertion: 00:05 Data : 03/06/22 06:15 03/06/22 06:15 Micro: Microbiology 03/05/22 21:59 Blood Culture - Preliminary Blood SPECIMEN COLLECTED 03/05/22 21:52 Blood Culture - Preliminary Blood SPECIMEN COLLECTED Other data: TTE (03/06/22) CONCLUSIONS ?1. Dilated left ventricle. Moderately decreased left ventricular ?systolic function. Left ventricular ejection fraction is ?estimated at 30-35 %.? Moderate global hypokinesis. Abnormal ?septal motion consistent with conduction abnormality. ?2. Mildly to moderately decreased right ventricle systolic ?function, ?3. There has been no significant change when compared to study ?dated 01/06/2022. EKG with atrial fibrillation. LAD. IVCD. A&P Assessment and plan (1) Hypotension: Concern for cardiogenic shock -HFrEF, RV dysfunction, valvular dysfunction with A. fib with RVR -will provide her inotropic support and continue norepinephrine to maintain MAP>65 (2) Acute respiratory failure with hypoxia: (3) Acute on chronic congestive heart failure: pulmonary congestion on CT -will administer lasix IV -No UO since morning, will consider lasix gtt -will need to get renal on board in am if continues to have no UO. (4) Atrial fibrillation with RVR: off diltiazem gtt since 3 am -currently in A. fib with slow response (5) Acute kidney injury superimposed on chronic kidney disease: Plan CAD s/p CABG and PCI Moderate to severe MR Moderate MR Hypothyroidism Type 2 DM Dyslipidemia Consult Attestations Time Spent in Patient Care: Greater than 35 minutes Coding Level of Care Code Acute Self Contained Behavior Unit Teacher for Chg Fwd Diagnoses Hypotension I95.9 Acute respiratory failure with hypoxia J96.01 Acute on chronic congestive heart failure I50.9 Atrial fibrillation with RVR I48.91 Acute kidney injury superimposed on chronic kidney disease N17.9; N18.9
[2022-03-06] MEDS: DOPamine drip 400 MG/250 ML PREMIX 9.98 MG IV (16:59)
[2022-03-06 17:13] LABS: Glucose Point of Care 135 mg/dL (70-110)
--- NOTE | 2022-03-06 17:20 | PC.NURSE ---
Pt has refused all meals this shift stating she cannot eat anything.
--- NOTE | 2022-03-06 18:43 | PC.NURSE ---
Urine in high bag looks to be 50 ML and has not been emptied this shift. Lasix has been given. Bladder scan showed [address] Waite and [place] benjamin.
[2022-03-06] MEDS: atorvastatin 40 mg Tablet PO (20:08)
--- NOTE | 2022-03-06 20:40 | PC.NURSE ---
Communication w/ Dr. Llamas. Low urine output, maybe 5ml in bag, HR 80's, MAP 75 to 80. New order to titrate off Dopamine. Start Dobutamine. Leave Levophed on. Wait about 30 minutes to an hour and give 80 mg lasix. Titrate drips as needed.
[2022-03-06 20:52] LABS: Glucose Urine UA Norm (Normal); Ketones Urine 1+ (Negative); Protein Urine 3+ (Negative); Urine Appearance Turbid (CLEAR); Urine Color Red (Yellow); pH Urine 5 (5-7)
[2022-03-06 20:53] LABS: Add Urine Microscopic? YES; Bilirubin Urine Neg (Negative); Blood Urine 3+ (Negative); Leukocyte Esterase Urine 2+ (Negative); Nitrate Urine Positive (Negative); Urobilinogen Urine 1 mg/dL (Negative)
[2022-03-06 20:55] LABS: Add Urine Culture? No; Bacteria Urine 2+ /hpf; RBC Urine TOO NUMEROUS TO CNT /hpf (0-2); Squamous Epithelial Cell Urine 0-4 /hpf (0-5); WBC Urine TOO NUMEROUS TO CNT /hpf (0-5)
[2022-03-06 21:25] LABS: Glucose Point of Care 180 mg/dL (70-110)
[2022-03-06] MEDS: FUROsemide 10 mg/mL SDV 10mL 80 MG IVP (21:38)
--- NOTE | 2022-03-06 23:36 | PC.NURSE ---
Pt started flailing arms and pulling at lines. This nurse entered room and removed BIPAP to understand what the pt was saying. Pt said give that back to me I'm going to spit in it . Pt seems confused. O2 dropped to 76%. BIPAP reapplied.
[2022-03-07] VITALS (48 sets, daily range): BP systolic 77–125; BP diastolic 45–80; PULSE 86–132; RESP 14–31; TEMP 36.4–36.6; O2SAT 51–100
--- NOTE | 2022-03-07 02:34 | PC.NURSE ---
Pt yelling for help and pulling at lines. Pt is refusing BIPAP, BIPAP removed and high flow NC @8L applied. Pt is asking where her grandbabies are at. Pt reoriented to location and situation. States her name and birthday correctly.
[2022-03-07 04:25] LABS: Basophils # 0.1 10^3/uL (0.0-0.1); Basophils % 0.2 %; Hematocrit 34.3 % (37.0-47.0); Hemoglobin 10.9 g/dL (11.5-15.3); Lymphocytes # 1.1 10^3/uL (0.8-4.8); Lymphocytes % 5.2 %; Mean Corpuscular HGB Conc 31.8 g/dL (30.0-36.0); Mean Corpuscular Hemoglobin 33.7 pg (28.0-34.0); Mean Corpuscular Volume 106.2 fl (81-99); Mean Platelet Volume 12.8 fL (7.4-10.4); Monocytes # 1.2 10^3/uL (0.2-0.9); Monocytes % 5.7 %; Neutrophils # 18.12 10^3/uL (1.8-7.7); Neutrophils % 86.9 %; Nucleated Red Blood Cells % 0.1 %; Platelet Count 218 10^3/cmm (130-400); Red Blood Count 3.23 10^6/uL (4.1-5.3); Red Cell Distribution Width 15.6 % (12.1-15.1); White Blood Count 20.9 10^3/uL (4.0-10.0)
[2022-03-07 05:03] LABS: Albumin Level 3.2 g/dL (3.5-5.2); Alkaline Phosphatase 156 U/L (35-105); Anion Gap 24.5 (5-19); Blood Urea Nitrogen 41 mg/dL (8-23); Calcium 9.2 mg/dL (8.5-10.5); Carbon Dioxide 21 mmol/L (22-29); Chloride 92 mmol/L (98-107); Globulin 3.4 g/dL (1.3-4.6); Glucose 256 mg/dL (65-115); Osmolality Calculated 293 mOsm/kg (285-295); Potassium 5.5 mmol/L (3.5-5.1); Sodium 132 mmol/L (136-145); Total Bilirubin 2.1 mg/dL (0.15-1.2); Total Protein 6.6 g/dL (6.6-8.7)
[2022-03-07 05:14] LABS: Alanine Aminotransferase 4213 U/L (0-33)
[2022-03-07] MEDS: levothyroxine 75 mcg Tablet PO (06:13)
[2022-03-07 06:28] LABS: Aspartate Amino Transferase 8177 U/L (0-32)
[2022-03-07 07:36] LABS: Glucose Point of Care 290 mg/dL (70-110)
[2022-03-07] MEDS: apixaban 5 mg Tablet 2.5 MG PO (08:06)
[2022-03-07] MEDS: pantoprazole DR 40 mg Tablet PO (08:06)
[2022-03-07] MEDS: insulin lispro 100 unit/1 mL SUBCUT ×3 (08:26→17:34)
--- NOTE | 2022-03-07 11:02 | PM.PN ---
Subjective Subjective: Patient suffered from shock liver, ATN, patient is an uric Family meeting conducted, patient is DNR/DNI Her daughter who is her DPOA is not sure about dialysis, they are asking us to wait 1 more day to evaluate, I did tell her that this is a very time sensitive decision and waiting 1 more day might be detrimental if we start dialysis later Spoke with Dr. Nielson as well I will consult sewer contractor meanwhile Patient also had 1 episode of hemoptysis around 10 AM I cannot obtain CTA to rule out PE I would hold off on continuation of Eliquis for now Vitals/I&O/Wt Last Vital Signs Temp 98 F 03/07/22 08:30 Pulse 119 H 03/07/22 09:46 Resp 20 H 03/07/22 09:46 BP 94/73 03/07/22 08:30 Pulse Ox 96 03/07/22 09:46 O2 Del Method 03/07/22 09:46 O2 Flow Rate 8 03/07/22 09:46 FiO2 35 03/07/22 10:00 03/06/22 03/07/22 03/07/22 22:59 06:59 14:59 Intake Total 303.305 / 581.850 95.948 / 677.798 163.576 / 163.576 Output Total 30 / 30 20 / 50 Balance 273.305 / 551.850 75.948 / 627.798 163.576 / 163.576 Weight last 48 hrs Weight 53.479 kg Weight 53.2 kg Weight 52.617 kg Physical Exam Narrative: Patient clinically does not look fluid overloaded Has bilateral rails and crackles Currently on 8 L high flow cannula In distress stating she is not able to breathe She does have BiPAP at the bedside Able to answer simple questions No new focal deficit No urine output Abdomen soft Kyphosis Urinary Catheter Management: Quiroga: Cath Placed During This Visit: yes Reason for Continuing Indwelling Catheter: Accurate Measurement of Urinary Output in Critically Ill Patients Urinary Catheter Date of Insertion: 03/06/22 Urinary Catheter Time of Insertion: 00:05 Data : 03/07/22 04:06 03/07/22 04:06 Micro: Microbiology 03/05/22 21:59 Blood Culture - Preliminary Blood NEGATIVE TO DATE 03/05/22 21:52 Blood Culture - Preliminary Blood NEGATIVE TO DATE A&P Assessment and plan (1) Cardiogenic shock: (2) Hypotension: (3) Acute kidney injury superimposed on chronic kidney disease: (4) Helicobacter pylori gastritis: (5) Valvular heart disease: (6) Acute respiratory failure with hypoxia: (7) Acute exacerbation of chronic obstructive airways disease: (8) Atrial fibrillation with RVR: (9) Hemoptysis: Plan Cardiogenic shock Patient is currently on vasopressors and inotropic Poor EF Appreciate cardiology recommendations Hyponatremia with CHF does have poor prognosis and higher mortality morbidity Acute tubular necrosis Anuric Mild metabolic acidosis High anion gap secondary to uremia, check lactic acid Cardiorenal and contrast-induced nephropathy causing ATN Did not respond to Lasix We will consult nephro today Family is not sure whether they will offer dialysis, they are asking us to evaluate her for 1 more day However they have changed her CODE STATUS to DNR/DNI Hyperkalemia: We will give her Kayexalate Shock liver Not an ideal candidate for amiodarone for her A. fib RVR secondary to abnormal liver enzymes Acute hypoxia COPD exacerbation related to CHF exacerbation Pulm edema evident on her chest x-ray Not responsive to IV Lasix Intermittent A. fib She is currently on Levophed and inotropic Dr. Mercado has not recommended any AV cathie blocking agent or amiodarone for now because of her multiple comorbid conditions, UTI on antibiotics Gastritis with H. pylori off antibiotics finished 10 days Family meeting conducted I did discuss the options of CRRT, dialysis high risk of mortality morbidity cardiac arrest, family decided to make her DNR/DNI DN not sure about dialysis for now Attestations Medical Necessity Statement*: Guarded prognosis DNR/DNI Continue ICU management Time Spent in Patient Care: 35 Coding Level of Care Code Acute Funeral Pre Arrangement Specialist for g Fwd Diagnoses Cardiogenic shock R57.0 Hypotension I95.9 Acute kidney injury superimposed on chronic kidney disease N17.9; N18.9 Helicobacter pylori gastritis K29.70; B96.81 Valvular heart disease I38 Acute respiratory failure with hypoxia J96.01 Acute exacerbation of chronic obstructive airways disease J44.1 Atrial fibrillation with RVR I48.91 Hemoptysis R04.2
[2022-03-07 11:11] LABS: Glucose Point of Care 285 mg/dL (70-110)
[2022-03-07] MEDS: calcium gluconate 0.9% NaCL 1 GM/50 ML PREMIX IV (11:42)
[2022-03-07 12:22] LABS: Lactate (Lactic Acid level) 2.6 mmol/L (0.5-2.2)
--- NOTE | 2022-03-07 13:14 | P.CONIM_ITS ---
Providers/Reason For Consult Consulting Physician/Specialty*: Kim Lazcano DO, telenephrology Reason for Consult*: Acute kidney injury Requesting Physician: Loli Waite MD Attending Physician: Loli Waite MD Primary Care Provider: Diallo Tracy MD History of Present Illness History of Present Illness Lilia Haynes is a 86 year old female admitted 03/05/22 with respiratory failure. Now has cardiogenic shock. Review of Systems Const: Reports: other (weak) Resp: Reports: dyspnea and hemoptysis Medications/Allergies Home Medications Medication Instructions Recorded Confirmed Last Taken Type atorvastatin 40 mg tablet 40 mg PO BEDTIME 07/25/19 03/06/22 02/23/22 History escitalopram oxalate 10 mg tablet 10 mg PO QPM 07/25/19 03/06/22 02/23/22 History ferrous sulfate 325 mg (65 mg 325 mg PO QAM 07/25/19 03/06/22 02/23/22 History iron) tablet fluticasone furoate 100 1 inh inhalation DAILY 07/25/19 03/06/22 02/23/22 Histor y mcg-vilanterol 25 mcg/dose inhalation powder (Breo Ellipta) apixaban 2.5 mg tablet (Eliquis) 2.5 mg PO BID 08/28/19 03/06/22 02/22/22 History calcium carbonate 500 mg calcium 500 mg PO DAILY ##0 02/26/21 03/06/22 02/22/22 History (1,250 mg) tablet cholecalciferol (vitamin D3) 25 25 mcg PO DAILY ##0 02/26/21 03/06/22 02/22/22 History mcg (1,000 unit) capsule (Vitamin D3) levothyroxine 75 mcg tablet 75 mcg PO QAM 02/26/21 03/06/22 02/24/22 History (Euthyrox) insulin detemir U-100 100 unit/mL 15 unit SUBCUT QAM 04/22/21 03/06/22 02/23/22 History (3 mL) subcutaneous pen (Levemir FlexTouch U-100 Insulin) nitroglycerin 0.4 mg sublingual 0.4 mg sublingual Q5M PRN Chest 04/22/21 03/06/22 02/23/22 History tablet (Nitrostat) Pain spironolactone 25 mg tablet 25 mg PO DAILY 04/22/21 03/06/22 02/23/22 History metoprolol tartrate 75 mg tablet 75 mg PO BID 12/11/21 03/06/22 02/24/22 History lorazepam 0.5 mg tablet 0.5 mg PO TID PRN Anxiety #60 tabs 01/15/22 03/06/22 02/23/22 Rx amoxicillin 500 mg tablet 1,000 mg PO BID 14 days #56 tabs 02/26/22 03/06/22 Unknown Rx clarithromycin 500 mg tablet 500 mg PO BID 14 days #28 tabs 02/26/22 03/06/22 Unknown Rx pantoprazole 40 mg tablet,delayed 40 mg PO BID 14 days #28 tabs 02/26/22 03/06/22 Unknown Rx release (Protonix) Magnesium Gummy 1 tab PO DAILY 03/06/22 03/06/22 Unknown History diltiazem HCl 240 mg 240 mg PO DAILY 03/06/22 03/06/22 Unknown History capsule,extended release 24 hr furosemide 20 mg tablet 20 mg PO BID 03/06/22 03/06/22 Unknown History Allergies Allergy/AdvReac Type Severity Reaction Status Date / Time aspirin Allergy ADR-Nausea Verified 03/05/22 20:00 codeine Allergy ADR-Nausea Verified 03/05/22 20:00 oxycodone Allergy ADR-Nausea Verified 03/06/22 11:54 tramadol Allergy Unknown Verified 03/05/22 20:00 hydrocodone AdvReac Mild ADR-Nausea Verified 03/05/22 20:00 Current Medications Generic Name Dose Route Start Last Admin Trade Name Shu PRN Reason Stop Dose Admin Amoxicillin 1,000 mg 03/06/22 09:00 03/06/22 08:02 Amoxicillin 500 Mg Capsule PO 1,000 mg BID NAE Administration Apixaban 2.5 mg 03/05/22 23:47 03/07/22 08:06 Apixaban 5 Mg Tablet PO 2.5 mg BID NAE Administration Atorvastatin Calcium 40 mg 03/06/22 21:00 03/06/22 20:08 Atorvastatin 40 Mg Tablet PO 40 mg BEDTIME NAE Administration Clarithromycin 500 mg 03/06/22 09:00 03/06/22 08:02 Clarithromycin 500 Mg Tablet PO 500 mg BID NAE Administration Protocol Norepinephrine Bitartrate 4 mg 254 mls @ 0 mls/hr 03/06/22 04:00 03/07/22 08:27 / Dextrose IV 8 mcg/min .Q0M NAE 30.48 mls/hr Administration Protocol Per Protocol Dopamine HCl/Dextrose 400 mg in 250 mls @ 9.975 mls/hr 03/06/22 16:30 03/06/22 21:00 Intropin Drip IV 0 mcg/kg/min CONT NAE 0 mls/hr Titration Protocol 5 MCG/KG/MIN Dobutamine HCl 500 mg/ Sodium 250 mls @ 0 mls/hr 03/06/22 20:45 03/06/22 22:16 Chloride IV 10 mcg/kg/min .Q0M PRN 15.96 mls/hr YES Titration Protocol Per Protocol Insulin Detemir 10 unit 03/06/22 09:00 03/07/22 09:06 Insulin Detemir 100 Units/1 Ml SUBCUT 10 unit DAILY NAE Administration Insulin Human Lispro 0 unit 03/06/22 08:00 03/07/22 11:47 Insulin Lispro 100 Unit/1 Ml SUBCUT 8 unit WM&BEDTIME NAE Administration Protocol Levothyroxine Sodium 75 mcg 03/06/22 06:00 03/07/22 06:13 Levothyroxine 75 Mcg Tablet PO 75 mcg QAM NAE Administration Lorazepam 0.5 mg 03/05/22 23:47 03/06/22 20:08 Lorazepam 0.5 Mg Tablet PO 0.5 mg TID PRN Administration Anxiety Metoprolol Tartrate 75 mg 03/05/22 23:47 03/06/22 08:04 Metoprolol Tartrate 50 Mg Tablet PO Not Given BID NAE Non-Formulary Medication 30 mg 03/06/22 09:00 03/07/22 07:59 Magnesium PO Not Given DAILY NAE Ondansetron HCl 4 mg 03/05/22 23:47 03/06/22 19:24 Ondansetron 2 Mg/Ml Sdv 2 Ml IVP 4 mg Q8H PRN Administration vomiting, or N/V if npo Pantoprazole Sodium 40 mg 03/06/22 09:00 03/07/22 08:[address] 40 Mg Tablet PO 40 mg BID NAE Administration PFSH Acute PFSH: Medical History Abnormal urinalysis Acute on chronic diastolic CHF (congestive heart failure) Altered mental status Asthma Atrial fibrillation and flutter Atrial fibrillation with RVR CAD (coronary artery disease) Chest pain COPD (chronic obstructive pulmonary disease) Chronically on 2 L of oxygen per nasal cannula Depression with anxiety Diabetes mellitus with hypoglycemia Diastolic heart failure Dyspnea GERD (gastroesophageal reflux disease) History of colitis HTN, goal below 130/80 Hypertension Hypothyroidism Hypoxia Systolic heart failure Echocardiogram 02/28 demonstrated EF of 40%, severe tricuspid and mitral regurgitation and moderate aortic regurgitation Type 2 diabetes mellitus Valvular heart disease Surgical History History of colonoscopy with polypectomy History of coronary artery bypass graft History of heart artery stent Family History Other CAD (coronary artery disease) Cancer Social History Smoking and tobacco status: never smoked Alcohol intake: never Lives independently: Yes Marital status: / Current occupational status: retired History of recent travel: No Current gender identity: Female Vitals/I&O/Wt Last Vital Signs Temp 97.6 F 03/07/22 12:00 Pulse 96 03/07/22 12:00 Resp 20 H 03/07/22 12:00 BP 96/56 03/07/22 12:00 Pulse Ox 92 03/07/22 12:00 O2 Del Method 03/07/22 12:00 O2 Flow Rate 8 03/07/22 09:46 FiO2 35 03/07/22 11:04 03/06/22 03/07/22 03/07/22 22:59 06:59 14:59 Intake Total 303.305 / 581.850 95.948 / 677.798 193.576 / 193.576 Output Total 30 / 30 20 / 50 Balance 273.305 / 551.850 75.948 / 627.798 193.576 / 193.576 Weight last 48 hrs Weight 53.479 kg Weight 53.2 kg Weight 52.617 kg Physical Exam Const: GENERAL APPEARANCE: ill appearing and other (dyspneic) Urinary Catheter Management: Quiroga: Cath Placed During This Visit: yes Reason for Continuing Indwelling Catheter: Accurate Measurement of Urinary Output in Critically Ill Patients Urinary Catheter Date of Insertion: 03/06/22 Urinary Catheter Time of Insertion: 00:05 Data : 03/07/22 04:06 03/07/22 04:06 Other Labs: urine TNTC WBC lactate 2.6 Ca 9.2, albumin 3.2, AST 8177, ALT 4213, bili 2.1 Micro: Microbiology 03/05/22 21:59 Blood Culture - Preliminary Blood NEGATIVE TO DATE 03/05/22 21:52 Blood Culture - Preliminary Blood NEGATIVE TO DATE CXR: Radiologist's impression: Cardiac enlargement with signs of congestive heart failure with the somewhat more pulmonary vascular congestion than noted previously. There is likely some diffuse pulmonary edema in both lungs. Right basal pleural effusion unchanged. CT Chest: Radiologist's impression: 1. No evidence of pulmonary embolism, within the technical limits of the examination. 2. Prominence of the pulmonary interstitium bilaterally with minimal nonspecific ground-glass density noted, suggesting pulmonary edema. Infection could give a similar appearance. 3. Minimal bilateral pleural effusions are noted. 4. Severe cardiomegaly is noted. No pericardial effusion. 5. Mild nonspecific mediastinal and hilar adenopathy. Subcarinal nodes measure up to [address] Abd/Pel: Radiologist's impression: Adrenal glands: The adrenal glands appear within normal limits. Kidneys and ureters: The kidneys are normal in morphology. No hydronephrosis. No solid mass. Echo: Radiologist's impression: 1. Dilated left ventricle. Moderately decreased left ventricular ?systolic function. Left ventricular ejection fraction is ?estimated at 30-35 %.? Moderate global hypokinesis. Abnormal ?septal motion consistent with conduction abnormality. ?2. Mildly to moderately decreased right ventricle systolic ?function, A&P Assessment and plan (1) Acute kidney injury: seen via telehealth with assistance of RN at bedside Plan 1. Acute oligoanuric kidney injury due to cardiogenic shock, possible urosepsis, contrast nephropathy. on dobutamine and norepinephrine. 2. Hyperkalemia 3. Shock liver 4. Acute respiratory failure Multiorgan failure, advanced age, prognosis poor. Patient and family request natural . I spoke with daughter Yee and patient. I do not recommend CVVHD. Patient and family do not want to pursue more aggressive treatment given her overall prognosis. 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
--- NOTE | 2022-03-07 14:43 | PC.NURSE ---
Pt is refusing to wear bipap, family is agreeing that she shouldn't wear it if she does not want to. Pt currently on 15L n.c.
[2022-03-07] MEDS: lanolin oint 7 gm 1 APPLIC TOPICAL (14:49)
--- NOTE | 2022-03-07 15:24 | PC.NURSE ---
Pt's daughter came out of the room to tell us that the pt's nose was bleeding. N.c. was turned down from 15L to 10L. Pt refused bipap again.
--- NOTE | 2022-03-07 15:30 | PC.NURSE ---
patient and family have refused bipap most of day,, daughter related that she did not want anything else that would hurt her but did want her to have treatment ..have noted increase bloody sputum and had nose bleed noted today
--- NOTE | 2022-03-07 17:23 | P.PN_ITS ---
Subjective Subjective: Patient with 50 cc of UO since yesterday morning. Medications: Reviewed: Yes Vitals/I&O/Wt Last Vital Signs Temp 97.5 F L 03/07/22 16:00 Pulse 117 H 03/07/22 16:01 Resp 17 03/07/22 16:00 BP 98/65 03/07/22 16:00 Pulse Ox 95 03/07/22 16:00 O2 Del Method 03/07/22 16:00 O2 Flow Rate 10 03/07/22 16:00 FiO2 35 03/07/22 11:04 03/07/22 03/07/22 03/07/22 06:59 14:59 22:59 Intake Total 95.948 / 677.798 193.576 / 193.576 494.557 / 688.133 Output Total Balance 75.948 / 627.798 193.576 / 193.576 494.557 / 688.133 Weight last 48 hrs Weight 117 lb 14.4 oz Weight 117 lb 4.575 oz Weight 116 lb Physical Exam Narrative: GENERAL: frail lady sitting in bed in no acute distress HEENT: No pallor or icterus. NECK: central trachea, No carotid bruit. CARDIOVASCULAR SYSTEM: S1-S2 irregular. grade 3/6 systolic murmur in LLSB and apical area RESPIRATORY SYSTEM: b/l coarse breath sounds. +rales No wheezes. ABDOMEN: Soft, nontender and nondistended. Normal bowel sounds present. EXTREMITIES: No cyanosis, 1+ edema. 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 Urinary Catheter Management: Quiroga: Cath Placed During This Visit: yes Reason for Continuing Indwelling Catheter: Accurate Measurement of Urinary Output in Critically Ill Patients Urinary Catheter Date of Insertion: 03/06/22 Urinary Catheter Time of Insertion: 00:05 Data : 03/07/22 04:06 03/07/22 04:06 Micro: Microbiology 03/05/22 21:59 Blood Culture - Preliminary Blood NEGATIVE TO DATE 03/05/22 21:52 Blood Culture - Preliminary Blood NEGATIVE TO DATE A&P Assessment and plan (1) Hypotension: Concern for cardiogenic shock -HFrEF, RV dysfunction, valvular dysfunction with A. fib with RVR -No UO inspite dobutamine and norepinephrine and lasix 120 mg IV overnight (2) Acute respiratory failure with hypoxia: Pulmonary edema (3) Acute on chronic congestive heart failure: pulmonary congestion on CT -will need to get renal on board in am if continues to have no UO. (4) Atrial fibrillation with RVR: off diltiazem gtt since 3 am -currently in A. fib with RVR with HR in 110's (5) Acute kidney injury superimposed on chronic kidney disease: Anuric renal failure with hyperkalemia Creatinine 2.9 <-- 1.7 -Not a candidate for dialysis Plan Shock liver CAD s/p CABG and PCI Moderate to severe MR Moderate MR Hypothyroidism Type 2 DM Dyslipidemia Hemoptysis DNR/DNI Patient is critically ill and has very poor prognosis. 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
[2022-03-07 17:25] LABS: Glucose Point of Care 285 mg/dL (70-110)
[2022-03-07] MEDS: LORazepam 0.5 mg Tablet PO (17:41)
--- NOTE | 2022-03-07 18:07 | W.PM.EVENTAC ---
Event Notes Attestations Time Spent in Patient Care: After multiple family meetings she was made comfort care, 2 daughters at the bedside Patient does not want dialysis, chest compression or intubation
[2022-03-07] MEDS: morphine 4 mg/mL SDV 1 mL 2 MG IVP (18:26)
--- NOTE | 2022-03-07 19:54 | PC.NURSE ---
Addendum entered by Jane Brown RN 03/07/22 21:25: Pressure held on nose for a total of 10 minutes while patient's head forward. Dr. Cervantes contacted and order received for afrin bilateral nares Q12H. Medication administered per JUL. Original Note: Family Patient placed on comfort care measures around 1800, family at bedside. More family members to be on unit in 1-2 hours, blood pressure support medication left on to allow travelling family members to arrive. Daughter reported worsening of blood coming from patient's nose, HF NC turned down to 6L to decrease drying of the nares.
[2022-03-07] MEDS: oxymetazoline 0.05% Nasal Spray 15 mL 2 SPRAY NOSTRIL-B (21:17)
[2022-03-08] VITALS (14 sets, daily range): BP systolic 49–67; BP diastolic 35–53; PULSE 0–100; RESP 0–26; O2SAT 71–83
[2022-03-08] MEDS: morphine 4 mg/mL SDV 1 mL IVP ×3 (00:08→03:51)
[2022-03-08] MEDS: ondansetron 2 mg/ML SDV 2 mL 4 MG IVP (00:16)
--- NOTE | 2022-03-08 05:37 | PC.NURSE ---
Expiration Patient at 0405 with family at bedside. Dr. Cervantes and in house counsel notified. [facility] contacted and spoke to coordinator Dedra Billings. Patient not a candidate for donation or saving sight, referral number [id number]. [facility] contacted for relocation. Patient bathed and ready for transport. Patient's upper dentures with patient, no other belongings in room.
--- NOTE | 2022-03-08 07:24 | PM.DDS ---
Discharge Providers DDS Date of Admission: 03/05/22 23:47 Date Summary Completed: 03/08/22 Attending Provider at Admission: Óscar Cervantes Time of : 04:05 Attending Provider at Discharge: Loli Waite MD Primary Care Provider: Diallo Tracy MD DS Diagnoses Hospital Diagnoses (1) Hypotension: (2) Acute respiratory failure with hypoxia: (3) Acute on chronic congestive heart failure: (4) Atrial fibrillation with RVR: (5) Acute kidney injury superimposed on chronic kidney disease: Reason for Visit Reason for Visit SOB Summary Date and Time of Date of : 03/08/22 Time of : 04:05 Summary Summary: 10-year-old female who was admitted for management evaluation of cardiogenic shock she developed ATN, she also developed contrast-induced nephropathy, her hypoxia worsened due to CHF exacerbation required BiPAP, patient was against intubation and dialysis, family meetings were conducted, after multiple family meetings she was made comfort care Additional Data Confirmation of as documented by pronouncing clinician: no pulse, no respirations, no heart sounds and pupils fixed and dilated Family: at bedside Additional persons at bedside: nursing staff Attending/PCP notified?: I am attending Was code activated?: No Autopsy requested?: No Advance directives?: Yes Hospice patient?: Yes Discharge Plan Discharge Patient Disposition: At Medical Facility Condition: Stable Prescriptions: No Action metoprolol tartrate 75 mg tablet 75 mg PO BID lorazepam 0.5 mg tablet 0.5 mg PO TID PRN (Reason: Anxiety) Qty: 60 4RF clarithromycin 500 mg tablet 500 mg PO BID 14 Days Qty: 28 0RF Rx Instructions: rx filled 02/16/22 14d/s amoxicillin 500 mg tablet 1,000 mg PO BID 14 Days Qty: 56 0RF Rx Instructions: rx filled 02/16/22 14d/s pantoprazole [Protonix] 40 mg tablet,delayed release (DR/EC) 40 mg PO BID 14 Days Qty: 28 0RF atorvastatin 40 mg tablet 40 mg PO BEDTIME ferrous sulfate 325 mg (65 mg iron) tablet 325 mg PO QAM escitalopram oxalate 10 mg tablet 10 mg PO QPM fluticasone furoate-vilanterol [Breo Ellipta] 100-25 mcg/dose blister with device 1 inh INHALATION DAILY Eliquis 2.5 mg Tablet 2.5 mg PO BID Hold Instructions: Resume on 02/26/22. spironolactone 25 mg tablet 25 mg PO DAILY nitroglycerin [Nitrostat] 0.4 mg Tablet, Sublingual 0.4 mg SUBLINGUAL Q5M PRN (Reason: Chest Pain) Rx Instructions: max 3 doses per epsoside Levemir FlexTouch U-100 Insuln 100 unit/mL (3 mL) insulin pen 15 unit SUBCUT QAM levothyroxine [Euthyrox] 75 mcg tablet 75 mcg PO QAM calcium carbonate 500 mg calcium (1,250 mg) Tablet 500 mg PO DAILY Qty: 0 cholecalciferol (vitamin D3) [Vitamin D3] 25 mcg (1,000 unit) Capsule 25 mcg PO DAILY Qty: 0 diltiazem HCl 240 mg capsule,extended release 24hr 240 mg PO DAILY furosemide 20 mg tablet 20 mg PO BID Magnesium Gummy 1 tab PO DAILY Referrals: Diallo Tracy MD [Primary Care Provider] - Probable Cause of Probable cause of : Cardiac arrest DS Attestations Time Spent in /Discharge Care*: less than 30 min Quality - AMI: AMI present?: No Quality - Stroke: CVA present?: No Quality - VTE: VTE present?: No Deep Vein Thrombosis/Pulmonary Embolism Present on Admission: No Coding Level of Care Code 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
--- NOTE | 2022-03-08 07:32 | PC.NURSE ---
dentures sent to home at this time
== END 2022-03-08 07:33 | disposition expired | DRG 291 ==
LOC: ER 22:17 → ICU 23:08
PROVIDERS: Internal Medicine; Admitting Provider Internal Medicine; Emergency Provider Emergency Medicine; PCP Family Medicine; Visit Provider Internal Medicine
DX: I13.0 Hypertensive heart and chronic kidney disease with heart failure and stage 1 through stage 4 chronic kidney disease, or unspecified chronic kidney disease (principal); I50.23 Acute on chronic systolic (congestive) heart failure; J96.01 Acute respiratory failure with hypoxia; N17.0 Acute kidney failure with tubular necrosis; K72.00 Acute and subacute hepatic failure without coma; J44.1 Chronic obstructive pulmonary disease with (acute) exacerbation; N39.0 Urinary tract infection, site not specified; E87.1 Hypo-osmolality and hyponatremia; N18.9 Chronic kidney disease, unspecified; E11.22 Type 2 diabetes mellitus with diabetic chronic kidney disease; Z99.81 Dependence on supplemental oxygen; I08.3 Combined rheumatic disorders of mitral, aortic and tricuspid valves; I48.91 Unspecified atrial fibrillation; I25.10 Atherosclerotic heart disease of native coronary artery without angina pectoris; Z95.1 Presence of aortocoronary bypass graft; E03.9 Hypothyroidism, unspecified; K29.60 Other gastritis without bleeding; B96.81 Helicobacter pylori [H. pylori] as the cause of diseases classified elsewhere; F41.8 Other specified anxiety disorders; I42.9 Cardiomyopathy, unspecified; N14.11 Contrast-induced nephropathy; T50.8X5A Adverse effect of diagnostic agents, initial encounter; Z51.5 Encounter for palliative care; E87.5 Hyperkalemia; R57.0 Cardiogenic shock; Z66 Do not resuscitate; E78.5 Hyperlipidemia, unspecified; I95.9 Hypotension, unspecified
CPT/HCPCS: 36415; 36416; 36600; 51702; 71045; 71275; 74177; 80053; 80162; 81001; 81003; 82805; 82962; 83605; 83735; 83880; 84439; 84443; 84484; 85025; 85378; 85610; 85730; 87040; 87086; 87635; 93005; 93308; 94640; 94660; 94664; 96365; 96367; 96372; 96375; 96376; 99291; J0610; J1160; J1250; J1265; J1815; J1940; J2060; J2270; J2405; J2543; J2920; J3475; J3490; J7040; J7050; J7060; J7611; Q3014; Q9967